=== PATIENT | male | born 1955 | race Caucasian/White ===

== ENCOUNTER 2016-07-31 11:44 | Emergency (ER) | payer BC ==
[~2016-07-31] VITALS: Ht 162.6 cm; Wt 105.2 kg
[~2016-07-31 11:44] MED LIST: ALBU1AER9 INH; CRS10 PO; DEXT30TA7 PO; FAMO10TA10 PO; MECL25TA2 PO; ONDA4TAB7 SL
[2016-07-31 11:52] VITALS: TEMP 36.8; Ht 162.6 cm; Wt 105.2 kg
[2016-07-31] MEDS ORDERED: ASPIRIN 81 MG CHEW PO STA (12:23)
[2016-07-31] MEDS ORDERED: ONDANSETRON 4MG OD TAB PO ONE (12:30)
[2016-07-31 12:34] VITALS: O2SAT 95
--- NOTE | 2016-07-31 12:34 | EMERGENCY ROOM VISIT NOTE ---
History Report prepared by Tyson: Hortencia Cruz Under the Supervision of: Dr. Antonino Sousa D.O. First contact with patient: 12:16 Chief Complaint: CHEST PAIN Stated Complaint: CHEST PAIN/LEFT ARM PAIN History of Present Illness The patient is a 61 year old male who presents to the Emergency Room with complaints of persistent left sided chest pain that began this morning around 0700. He currently rates his discomfort as a 3/10 in severity describing it as a sharp pain. The patient notes that he has intermittently been experiencing chest pain so his PCP ordered a stress test and echocardiogram yesterday. He states that he has not received the results of his stress test yet. The patient states that this morning when his pain began, he noticed pain radiating down his left arm and additionally was experiencing shortness of breath. He notes nausea with his pain, but denies any abdominal pain. The patient notes back pain with his chest discomfort. He states that rest alleviates his symptoms, but movement worsens his symptoms. The patient states that he has never had the sharp pain that he had this morning. He denies any pain or swelling to his lower extremities. The patient states that he recently was sick with flu like symptoms, noting that he has been on prednisone. He states that he has taken Tylenol for his symptoms, but denies taking any aspirin. The patient notes a history of a cholecystectomy, appendectomy, knee replacement, COPD, and high cholesterol. He denies any history of diabetes or hypertension. The patient denies any history of smoking. Source of History: patient Onset: this morning around 0700 Position: chest (left) Symptom Intensity: 3/10 Quality: sharp Timing: other (persistent) Modifying Factors (Worsening): movement Modifying Factors (Relieving): rest Associated Symptoms: + SOB, + back pain, + nausea, No abdominal pain Note: Associated Symptoms: Pain radiating down left arm. Review of Systems See HPI for pertinent positives & negatives. A total of 10 systems reviewed and were otherwise negative. Past Medical & Surgical Medical Problems: (1) Anxiety disorder (2) Benign positional vertigo (3) Chest pain (4) Compression fracture of T12 vertebra (5) COPD (chronic obstructive pulmonary disease) (6) Elevated troponin (7) Generalized anxiety disorder (8) GERD (gastroesophageal reflux disease) (9) Hyperlipemia (10) Hyperlipidemia (11) Metabolic syndrome (12) Obesity (BMI 30-39.9) (13) Osteoarthritis Surgical Problems: (1) H/O cardiac catheterization (2) Hx of appendectomy (3) Hx of cholecystectomy Family History FH: heart disease Hypertension Social History Smoking Status: Never Smoker Alcohol Use: none Drug Use: none Marital Status: Housing Status: lives with significant other Occupation Status: employed Current/Historical Medications Scheduled Famotidine (Pepcid Ac), 10 MG PO HS Rosuvastatin Calcium (Crestor), 5 MG PO Q2D Scheduled PRN Acetaminophen (Tylenol), 1,000 MG PO Q4H PRN for Pain or Fever Albuterol Sulfate (Proair Respiclick), 2 PUFFS INH Q4H PRN for SOB/Wheezing Cyclobenzaprine Hcl (Flexeril), 10 MG PO BID PRN for Muscle Spasms Meclizine HCl (Meclizine HCl), 25 MG PO TID PRN for Dizziness or Vertigo Ondansetron Hcl (Zofran), 4 MG PO Q4H PRN for Nausea Allergies Coded Allergies: Tramadol (Verified Allergy, Unknown, itching, 08/01/16) Hydrocodone (Verified Adverse Reaction, Severe, DIZZY/NAUSEA, 08/01/16) Physical Exam Vital Signs Date Time Temp Pulse Resp B/P Pulse Ox O2 Delivery O2 Flow Rate FiO2 07/31/16 16:58 65 16 131/92 95 07/31/16 16:50 65 16 131/92 07/31/16 16:21 60 07/31/16 15:27 61 19 130/86 95 Room Air 07/31/16 13:51 65 18 122/79 94 Room Air 07/31/16 12:34 95 Room Air 07/31/16 12:34 95 Room Air 07/31/16 12:33 95 Room Air 07/31/16 12:22 63 07/31/16 11:52 36.8 77 20 144/89 94 Room Air Physical Exam GENERAL: Patient is awake, alert, and in no acute distress. Patient is resting comfortably and showing no signs of anxiety EYES: The conjunctivae are clear. The pupils are round and reactive. EARS, NOSE, MOUTH AND THROAT: The nose is without any evidence of any deformity. Mucous membranes are moist tongue is midline NECK: The neck is nontender and supple. RESPIRATORY: Normal respiratory effort is noted there is no evidence of wheezing rhonchi or rales CARDIOVASCULAR: Regular rate and rhythm noted there no murmurs rubs or gallops normal S1 normal S2 GASTROINTESTINAL: The abdomen is soft. Bowel sounds are present in all quadrants. Abdomen is nontender MUSCULOSKELETAL/EXTREMITIES: There is no evidence of gross deformity full range of motion is noted in the hips and shoulders SKIN: There is no obvious evidence of any rash. There are no petechiae, pallor or cyanosis noted. NEUROLOGIC: Patient is awake alert and oriented x3. Medical Decision & Procedures ER Provider Diagnostic Interpretation: X-ray results as stated below per interpretation by me and the radiologist. SINGLE VIEW CHEST CLINICAL HISTORY: Atypical chest pain. FINDINGS: An AP, portable, upright chest radiograph is compared to study dated 06/05/2015. The examination is degraded by portable technique, large body habitus, and patient rotation. The heart is top normal for projection. There is mild atherosclerotic calcification of the thoracic area. The pulmonary vascular is noncongested. Minimal dependent atelectasis is observed. The lungs and pleural spaces are otherwise clear. No pneumothorax is seen. The bony thorax is grossly intact. IMPRESSION: No acute cardiopulmonary abnormality. Electronically signed by: Kevyn Nichols M.D. 07/31/2016 12:52 PM Dictated Date/Time: 07/31/2016 12:52 PM Laboratory Results 07/31/16 12:20 Red Blood Count 5.65, Mean Corpuscular Volume 83.7, Mean Corpuscular Hemoglobin 29.6, Mean Corpuscular Hemoglobin Concent 35.3, Mean Platelet Volume 9.8, Neutrophils (%) (Auto) 65.6, Lymphocytes (%) (Auto) 17.5, Monocytes (%) (Auto) 13.6, Eosinophils (%) (Auto) 2.9, Basophils (%) (Auto) 0.1, Neutrophils # (Auto ) 4.69, Lymphocytes # (Auto) 1.25, Monocytes # (Auto) 0.97, Eosinophils # (Auto ) 0.21, Basophils # (Auto) 0.01 07/31/16 12:20 Test 07/31/16 12:20 07/31/16 15:24 White Blood Count 7.15 K/uL (4.8-10.8) Red Blood Count 5.65 M/uL (4.7-6.1) Hemoglobin 16.7 g/dL (14.0-18.0) Hematocrit 47.3 % (42-52) Mean Corpuscular Volume 83.7 fL (80-100) Mean Corpuscular Hemoglobin 29.6 pg (25-34) Mean Corpuscular Hemoglobin Concent 35.3 g/dl (32-36) Platelet Count 219 K/uL (130-400) Mean Platelet Volume 9.8 fL (7.4-10.4) Neutrophils (%) (Auto) 65.6 % Lymphocytes (%) (Auto) 17.5 % Monocytes (%) (Auto) 13.6 % Eosinophils (%) (Auto) 2.9 % Basophils (%) (Auto) 0.1 % Neutrophils # (Auto) 4.69 K/uL (1.4-6.5) Lymphocytes # (Auto) 1.25 K/uL (1.2-3.4) Monocytes # (Auto) 0.97 K/uL (0.11-0.59) Eosinophils # (Auto) 0.21 K/uL (0-0.5) Basophils # (Auto) 0.01 K/uL (0-0.2) RDW Standard Deviation 40.6 fL (36.4-46.3) RDW Coefficient of Variation 13.4 % (11.5-14.5) Immature Granulocyte % (Auto) 0.3 % Immature Granulocyte # (Auto) 0.02 K/uL (0.00-0.02) Prothrombin Time 11.5 SECONDS (9.0-12.0) Prothromb Time International Ratio 1.1 (0.9-1.1) Activated Partial Thromboplast Time 30.2 SECONDS (21.0-31.0) Partial Thromboplastin Ratio 1.2 Anion Gap 10.0 mmol/L (3-11) Est Creatinine Clear Calc Drug Dose 100.0 ml/min Estimated GFR () 108.5 Estimated GFR (Non- 93.6 BUN/Creatinine Ratio 12.6 (10-20) Calcium Level 8.6 mg/dl (8.5-10.1) Total Bilirubin 0.8 mg/dl (0.2-1) Direct Bilirubin 0.2 mg/dl (0-0.2) Aspartate Amino Transf (AST/SGOT) 18 U/L (15-37) Alanine Aminotransferase (ALT/SGPT) 31 U/L (12-78) Alkaline Phosphatase 67 U/L (45-117) Total Creatine Kinase 52 U/L (39-308) Creatine Kinase MB 1.0 ng/ml (0.5-3.6) Creatine Kinase MB Ratio 1.9 (0-3.0) Total Protein 7.1 gm/dl (6.4-8.2) Albumin 3.7 gm/dl (3.4-5.0) Lipase 212 U/L (73-393) Troponin I 0.022 ng/ml (0-0.045) Laboratory results per my review. Medications Administered Medications (Trade) Dose Ordered Sig/Poonam Route Start Time Stop Time Status Last Admin Dose Admin Ondansetron HCl (Zofran Odt) 4 mg ONE ONCE PO 07/31/16 12:30 07/31/16 12:31 DC 07/31/16 12:32 4 MG Aspirin (Aspirin Chew) 324 mg NOW STAT PO 07/31/16 12:23 07/31/16 12:25 DC 07/31/16 12:33 324 MG ECG Indication: chest pain Rate (beats per minute): 70 Rhythm: normal sinus Findings: no ectopy, other (No acute ST segment abnormalities) Comparison ECG Date: 06/05/15 Change: no significant change Change: Repeat EKG: Sinus Bradycardia, 59 beats per minute. No ectopy, no acute ST segment abnormalities, no change from previous. ED Course 1219: The patient was evaluated in room C8. A complete history and physical examination were performed. 1223: Ordered Aspirin 324 mg PO. 1230: Ordered Zofran Odt 4 mg PO. 1353: I reevaluated the patient and he is doing well. I discussed the exam findings with him and I discussed the treatment plan. He is going to have a repeat troponin and EKG in three hours. 1648: I reevaluated the patient and he is resting comfortably. I discussed the exam findings with him and I discussed the treatment plan. He verbalized complete understanding and agreement. He is ready to go home. Medical Decision Differential diagnosis: Etiologies such as cardiac ischemia, aortic dissection, pulmonary embolism, pneumonia, pneumothorax, musculoskeletal, infections, pericarditis, myocarditis , esophageal rupture, gastrointestinal, as well as others were entertained. Nursing notes reviewed. The patient's recent stress test results reviewed. The patient is a 61-year-old male who presented to the emergency department for an evaluation of chest pain. The patient is had left-sided chest pain which was not associated with exertion. He had a recent stress test to his family doctor for similar complaints. I did review the stress test was negative. The patient' s EKG did not reveal any acute abnormalities. His initial troponin was less than 0.04 and his 3 hour recheck troponin was less than 0.04. I reevaluated the patient multiple times. He was pain-free. I discussed the patient's laboratory and radiographic studies with him. At this time I recommended that he continue all medications as prescribed. He was also encouraged to follow up with his family doctor soon as possible. He was also encouraged to avoid any strenuous activity and return to the emergency department immediately if symptoms change worsen or if the need arises. Impression Primary Impression: Left sided chest pain Scribe Attestation The scribe's documentation has been prepared under my direction and personally reviewed by me in its entirety. I confirm that the note above accurately reflects all work, treatment, procedures, and medical decision making performed by me. Departure Information Dispostion Home / Self-Care Referrals Goran Morrissey M.D. (PCP) Forms HOME CARE DOCUMENTATION FORM, IMPORTANT VISIT INFORMATION, Work Instructions Patient Instructions ED Chest Pain Atypical Unkn Cause, My [facility] Additional Instructions Rest and avoid any strenuous activities. Continue all medications as prescribed. Follow-up with your family this week for reevaluation. Return to the emergency department immediately if symptoms change worsen or if the need arises.
[2016-07-31 12:36] LABS: BASO % 0.1 %; BASO ABS # 0.01 K/uL (0-0.2); COMPLETE YES; EOS % 2.9 %; HEMATOCRIT 47.3 % (42-52); IG% 0.3 %; LYMPH % 17.5 %; LYMPH ABS # 1.25 K/uL (1.2-3.4); MEAN CELL VOLUME 83.7 fL (80-100); MEAN CORPUSCULAR HEMOGLOBIN 29.6 pg (25-34); MEAN CORPUSCULAR HGB CONC 35.3 g/dl (32-36); MEAN PLATELET VOLUME 9.8 fL (7.4-10.4); MONO % 13.6 %; NEUT % 65.6 %; PLATELET COUNT 219 K/uL (130-400); RED BLOOD COUNT 5.65 M/uL (4.7-6.1); WHITE BLOOD COUNT 7.15 K/uL (4.8-10.8)
[2016-07-31 12:44] LABS: INR 1.1 (0.9-1.1); PARTIAL THROMBOPLASTIN RATIO 1.2; PROTHROMBIN TIME (PATIENT) 11.5 SECONDS (9.0-12.0)
[2016-07-31] MEDS ORDERED: FAMO10TA10 PO (12:46)
[2016-07-31] MEDS ORDERED: ANT25HP PO (12:46)
[2016-07-31] MEDS ORDERED: ONDA4TAB46 PO (12:46)
[2016-07-31] MEDS ORDERED: ALBU18002 INH (12:46)
[2016-07-31] MEDS ORDERED: ACET-1256 PO (12:47)
--- NOTE | 2016-07-31 12:54 | DIAGNOSTIC IMAGING REPORT ---
SINGLE VIEW CHEST CLINICAL HISTORY: Atypical chest pain. FINDINGS: An AP, portable, upright chest radiograph is compared to study dated 06/05/2015. The examination is degraded by portable technique, large body habitus, and patient rotation. The heart is top normal for projection. There is mild atherosclerotic calcification of the thoracic area. The pulmonary vascular is noncongested. Minimal dependent atelectasis is observed. The lungs and pleural spaces are otherwise clear. No pneumothorax is seen. The bony thorax is grossly intact. IMPRESSION: No acute cardiopulmonary abnormality. Electronically signed by: Kevyn Nichols M.D. 07/31/2016 12:52 PM Dictated Date/Time: 07/31/2016 12:52 PM
[2016-07-31 13:29] LABS: BUN/CREATININE RATIO 12.6 (10-20); CALCIUM 8.6 mg/dl (8.5-10.1); CREATININE 0.83 mg/dl (0.60-1.40)
[2016-07-31 13:35] LABS: CKMB/CK RATIO 1.9 (0-3.0)
[2016-07-31 16:58] VITALS: BP 131/92; PULSE 65; O2SAT 95
[2016-08-01] MEDS ORDERED: CYCL10TA6 PO (13:29)
[2016-08-04] MEDS ORDERED: PLV75 PO (10:33)
[2016-08-04] MEDS ORDERED: ASPEC81 PO (10:33)
[2016-08-04] MEDS ORDERED: CRS20 PO (10:33)
[2016-08-04] MEDS ORDERED: LPR25 PO (10:33)
[2016-08-04] MEDS ORDERED: LSN5 PO (10:33)
== END 2016-07-31 17:00 | disposition home or self-care (01) ==
LOC: C.EDB 11:47 → C.EDC 17:00
DX: R07.89 Other chest pain (principal); J44.9 Chronic obstructive pulmonary disease, unspecified; E78.00 Pure hypercholesterolemia, unspecified; E78.5 Hyperlipidemia, unspecified; K21.9 Gastro-esophageal reflux disease without esophagitis; Z90.49 Acquired absence of other specified parts of digestive tract; Z90.89 Acquired absence of other organs; Z96.659 Presence of unspecified artificial knee joint; Z98.890 Other specified postprocedural states; Z79.52 Long term (current) use of systemic steroids; Z79.899 Other long term (current) drug therapy

== ENCOUNTER 2016-08-01 12:30 | Inpatient (IN) | payer BC ==
[~2016-08-01] VITALS: Ht 165.1 cm; Wt 105.3 kg
[~2016-08-01 12:30] MED LIST changes: +ACET-1256 PO; +ALBU18002 INH; -ALBU1AER9 INH; +ANT25HP PO; -DEXT30TA7 PO; -MECL25TA2 PO; +ONDA4TAB46 PO; -ONDA4TAB7 SL
[2016-08-01] MEDS ORDERED: PANTOprazole SOD 40 MG TAB PO STA (12:54)
[2016-08-01] MEDS ORDERED: ONDANSETRON INJ 2 MG/ML 2 ML VIAL IV STA (12:54)
[2016-08-01] MEDS ORDERED: SODIUM CHLORIDE 0.9% 1000ML 1,000 ML IV STA (12:54)
[2016-08-01] MEDS ORDERED: ASPIRIN 81 MG CHEW PO STA (12:54)
[2016-08-01] MEDS ORDERED: MoRPHine SULFATE 4 MG/ML 1 ML CARP\\VIAL IV PRN (13:00)
[2016-08-01 13:05] LABS: BASO % 0.3 %; BASO ABS # 0.02 K/uL (0-0.2); COMPLETE YES; EOS % 2.6 %; HEMATOCRIT 46.6 % (42-52); IG% 0.1 %; LYMPH % 15.2 %; LYMPH ABS # 1.21 K/uL (1.2-3.4); MEAN CELL VOLUME 83.5 fL (80-100); MEAN CORPUSCULAR HEMOGLOBIN 30.3 pg (25-34); MEAN CORPUSCULAR HGB CONC 36.3 g/dl (32-36); MEAN PLATELET VOLUME 9.5 fL (7.4-10.4); MONO % 9.4 %; NEUT % 72.4 %; PLATELET COUNT 232 K/uL (130-400); RED BLOOD COUNT 5.58 M/uL (4.7-6.1); WHITE BLOOD COUNT 7.98 K/uL (4.8-10.8)
--- NOTE | 2016-08-01 13:05 | EMERGENCY ROOM VISIT NOTE ---
History Report prepared by Tyson: Hortencia Cruz Under the Supervision of: Clifford ShahO. First contact with patient: 12:38 Chief Complaint: CARDIAC ASSESSMENT Stated Complaint: CHEST PAIN History of Present Illness The patient is a 61 year old male who presents to the Emergency Room with complaints of persistent left sided chest pain that began two and a half hours ago. He currently rates his discomfort as a 6/10 in severity. The patient states that for the past few months he has intermittently been experiencing this chest pain so he had a stress test done two days ago. The stress test came back normal, but he was also evaluated in the emergency department yesterday for his discomfort. The patient states when he left the emergency department yesterday he felt fine. He states that he woke up this morning he felt fine, and states that he went out for breakfast. The patient states that his pain returned around 1000 this morning. He states that his pain today is much worse than yesterday, noting that the pain brought tears to his eyes. The patient states that the pain is radiating to his left shoulder, left back, and down his left arm. He states that his discomfort is worsened with exertion and breathing. The patient denies taking any aspirin prior to arrival, but states that he took Tylenol and a muscle relaxer without relief. He denies any fever, chills, nausea, vomiting, or abdominal pain. Source of History: patient Onset: two and a half hours ago Position: chest (left) Symptom Intensity: 6/10 Quality: other (radiating) Timing: worsening, other (persistent) Modifying Factors (Worsening): exertion, breathing Associated Symptoms: + back pain, No abdominal pain, No chills, No fevers, No nausea, No vomiting Note: Associated symptoms: left shoulder pain, left arm pain Review of Systems See HPI for pertinent positives & negatives. A total of 10 systems reviewed and were otherwise negative. Past Medical & Surgical Medical Problems: (1) Anxiety disorder (2) Benign positional vertigo (3) Chest pain (4) Compression fracture of T12 vertebra (5) COPD (chronic obstructive pulmonary disease) (6) Elevated troponin (7) Generalized anxiety disorder (8) GERD (gastroesophageal reflux disease) (9) Hyperlipemia (10) Hyperlipidemia (11) Metabolic syndrome (12) Obesity (BMI 30-39.9) (13) Osteoarthritis Surgical Problems: (1) H/O cardiac catheterization (2) Hx of appendectomy (3) Hx of cholecystectomy Family History FH: heart disease Hypertension Social History Smoking Status: Never Smoker Alcohol Use: none Drug Use: none Marital Status: Housing Status: lives with significant other Occupation Status: employed Current/Historical Medications Scheduled Famotidine (Pepcid Ac), 10 MG PO HS Rosuvastatin Calcium (Crestor), 5 MG PO Q2D Scheduled PRN Acetaminophen (Tylenol), 1,000 MG PO Q4H PRN for Pain or Fever Albuterol Sulfate (Proair Respiclick), 2 PUFFS INH Q4H PRN for SOB/Wheezing Cyclobenzaprine Hcl (Flexeril), 10 MG PO BID PRN for Muscle Spasms Meclizine HCl (Meclizine HCl), 25 MG PO TID PRN for Dizziness or Vertigo Ondansetron Hcl (Zofran), 4 MG PO Q4H PRN for Nausea Allergies Coded Allergies: Tramadol (Verified Allergy, Unknown, itching, 08/01/16) Hydrocodone (Verified Adverse Reaction, Severe, DIZZY/NAUSEA, 08/01/16) Physical Exam Vital Signs Date Time Temp Pulse Resp B/P Pulse Ox O2 Delivery O2 Flow Rate FiO2 08/01/16 16:25 64 11 08/01/16 16:20 57 13 08/01/16 16:15 62 18 08/01/16 16:10 59 17 08/01/16 16:05 58 16 08/01/16 16:00 60 14 08/01/16 15:58 135/77 08/01/16 15:55 59 11 08/01/16 15:50 73 10 08/01/16 15:45 73 22 08/01/16 15:40 78 18 08/01/16 15:35 60 19 93 08/01/16 15:30 60 19 93 08/01/16 15:25 70 14 93 08/01/16 15:20 58 15 93 08/01/16 15:15 66 23 95 08/01/16 15:10 67 16 93 08/01/16 15:05 60 11 08/01/16 15:00 63 29 95 08/01/16 14:58 144/81 08/01/16 14:58 69 13 139/79 94 Room Air 08/01/16 14:55 64 10 139/79 94 08/01/16 14:50 63 18 08/01/16 14:45 65 21 08/01/16 14:40 65 18 08/01/16 14:35 60 6 08/01/16 14:30 64 11 08/01/16 14:25 62 12 08/01/16 14:20 61 14 08/01/16 14:15 71 7 08/01/16 14:10 56 7 08/01/16 14:05 68 5 08/01/16 14:00 54 1 08/01/16 13:55 65 19 08/01/16 13:50 73 16 08/01/16 13:45 58 8 08/01/16 13:40 66 17 08/01/16 13:35 67 15 08/01/16 13:30 64 8 08/01/16 13:25 65 15 08/01/16 13:20 72 21 08/01/16 13:15 71 22 08/01/16 13:10 67 22 08/01/16 13:05 67 20 08/01/16 13:00 69 21 08/01/16 12:55 72 15 08/01/16 12:50 68 24 08/01/16 12:50 96 Room Air 08/01/16 12:45 78 08/01/16 12:45 77 17 08/01/16 12:42 154/81 08/01/16 12:37 36.3 76 23 165/91 94 Room Air Physical Exam GENERAL: Patient is awake, alert, very anxious appearing and uncomfortable appearing. Appears to be in significant pain. EYES: The conjunctivae are clear. The pupils are round and reactive. EARS, NOSE, MOUTH AND THROAT: The nose is without any evidence of any deformity. Mucous membranes are moist tongue is midline NECK: The neck is nontender and supple. RESPIRATORY: Normal respiratory effort is noted there is no evidence of wheezing rhonchi or rales CARDIOVASCULAR: Regular rate and rhythm noted there no murmurs rubs or gallops normal S1 normal S2 GASTROINTESTINAL: The abdomen is soft. Bowel sounds are present in all quadrants. Abdomen is nontender MUSCULOSKELETAL/EXTREMITIES: There is no evidence of gross deformity full range of motion is noted in the hips and shoulders SKIN: There is no obvious evidence of any rash. There are no petechiae, pallor or cyanosis noted. NEUROLOGIC: Patient is awake alert and oriented x3. Medical Decision & Procedures ER Provider Diagnostic Interpretation: X-ray results as stated below per interpretation by me and the radiologist. CHEST ONE VIEW PORTABLE HISTORY: Atypical CHEST PAIN COMPARISON: Chest 07/31/2016. FINDINGS: The lungs are clear. Cardiac silhouette is normal in size. No pleural effusions. No pneumothorax. IMPRESSION: No acute process. Electronically signed by: Arash Carty M.D. 08/01/2016 1:12 PM Dictated Date/Time: 08/01/2016 1:10 PM Laboratory Results 08/01/16 12:50 Red Blood Count 5.58, Mean Corpuscular Volume 83.5, Mean Corpuscular Hemoglobin 30.3, Mean Corpuscular Hemoglobin Concent 36.3, Mean Platelet Volume 9.5, Neutrophils (%) (Auto) 72.4, Lymphocytes (%) (Auto) 15.2, Monocytes (%) (Auto) 9.4, Eosinophils (%) (Auto) 2.6, Basophils (%) (Auto) 0.3, Neutrophils # (Auto) 5.78, Lymphocytes # (Auto) 1.21, Monocytes # (Auto) 0.75, Eosinophils # (Auto) 0.21, Basophils # (Auto) 0.02 08/01/16 12:50 Test 08/01/16 12:50 White Blood Count 7.98 K/uL (4.8-10.8) Red Blood Count 5.58 M/uL (4.7-6.1) Hemoglobin 16.9 g/dL (14.0-18.0) Hematocrit 46.6 % (42-52) Mean Corpuscular Volume 83.5 fL (80-100) Mean Corpuscular Hemoglobin 30.3 pg (25-34) Mean Corpuscular Hemoglobin Concent 36.3 g/dl (32-36) Platelet Count 232 K/uL (130-400) Mean Platelet Volume 9.5 fL (7.4-10.4) Neutrophils (%) (Auto) 72.4 % Lymphocytes (%) (Auto) 15.2 % Monocytes (%) (Auto) 9.4 % Eosinophils (%) (Auto) 2.6 % Basophils (%) (Auto) 0.3 % Neutrophils # (Auto) 5.78 K/uL (1.4-6.5) Lymphocytes # (Auto) 1.21 K/uL (1.2-3.4) Monocytes # (Auto) 0.75 K/uL (0.11-0.59) Eosinophils # (Auto) 0.21 K/uL (0-0.5) Basophils # (Auto) 0.02 K/uL (0-0.2) RDW Standard Deviation 39.8 fL (36.4-46.3) RDW Coefficient of Variation 13.2 % (11.5-14.5) Immature Granulocyte % (Auto) 0.1 % Immature Granulocyte # (Auto) 0.01 K/uL (0.00-0.02) Prothrombin Time 11.3 SECONDS (9.0-12.0) Prothromb Time International Ratio 1.1 (0.9-1.1) Activated Partial Thromboplast Time 30.3 SECONDS (21.0-31.0) Partial Thromboplastin Ratio 1.2 Anion Gap 11.0 mmol/L (3-11) Est Creatinine Clear Calc Drug Dose 86.9 ml/min Estimated GFR () 95.9 Estimated GFR (Non- 82.7 BUN/Creatinine Ratio 11.0 (10-20) Calcium Level 8.8 mg/dl (8.5-10.1) Total Bilirubin 0.6 mg/dl (0.2-1) Direct Bilirubin < 0.1 mg/dl (0-0.2) Aspartate Amino Transf (AST/SGOT) 20 U/L (15-37) Alanine Aminotransferase (ALT/SGPT) 30 U/L (12-78) Alkaline Phosphatase 74 U/L (45-117) Total Protein 7.5 gm/dl (6.4-8.2) Albumin 3.6 gm/dl (3.4-5.0) Lipase 299 U/L (73-393) Laboratory results per my review. Medications Administered Medications (Trade) Dose Ordered Sig/Poonam Route Start Time Stop Time Status Last Admin Dose Admin Sodium Chloride (Nss 1000ml) 1,000 ml @ 125 mls/hr Q8H STAT IV 08/01/16 12:54 08/01/16 16:53 DC 08/01/16 13:18 125 MLS/HR Morphine Sulfate (MoRPHine SULFATE INJ) 4 mg Q15M PRN IV 08/01/16 13:00 08/01/16 16:53 DC 08/01/16 13:17 4 MG Ondansetron HCl (Zofran Inj) 4 mg NOW STAT IV 08/01/16 12:54 08/01/16 12:56 DC 08/01/16 13:17 4 MG Aspirin (Aspirin Chew) 324 mg NOW STAT PO 08/01/16 12:54 08/01/16 12:56 DC 08/01/16 13:17 324 MG Pantoprazole Sodium (Protonix Tab) 40 mg NOW STAT PO 08/01/16 12:54 08/01/16 12:56 DC 08/01/16 13:16 40 MG ECG Indication: chest pain Rate (beats per minute): 72 Rhythm: normal sinus Findings: no ectopy, other (ST flattening in V1, V2, and V3) Comparison ECG Date: 07/31/16 Change: EKG Change: When compared to EKG from 07/31/16 ST flattening is new. ED Course 1251: The patient was evaluated in room C8. A complete history and physical examination were performed. 1254: Ordered Protonix Tab 40 mg PO, Aspirin 324 mg PO, Zofran Inj 4 mg IV, Sodium Chloride 1000 ml @ 125 mls/hr IV. 1300: Ordered Morphine Sulfate 4 mg IV. 1339: I reevaluated the patient and he is resting comfortably. I discussed the exam findings with him and his and I discussed the treatment plan. They verbalized complete understanding and agreement. The patient is going to be evaluated for further treatment. 1412: I discussed the patients case with Holly Broussard PA-C. She is going to evaluate the patient for further treatment. Medical Decision Differential diagnosis: Etiologies such as cardiac ischemia, aortic dissection, pulmonary embolism, pneumonia, pneumothorax, musculoskeletal, infections, pericarditis, myocarditis , esophageal rupture, gastrointestinal, as well as others were entertained. Nursing notes reviewed. The patient's previous electronic medical records were reviewed. The patient is a 61-year-old male who presented to the emergency department for acute chest pain. The patient was evaluated by myself in the emergency department yesterday for similar complaints. At that time his workup did not reveal definite cause for his chest pain. The patient states he had an acute onset of left-sided chest pain with radiation to the neck and the arm knee 1030 this morning. The patient's EKG showed minimal changes but his troponin was mildly elevated in the ER. The patient was treated with aspirin and Zofran, IV fluids, and Protonix. On subsequent reevaluation the patient was feeling much better. I discussed the patient's laboratory and radiographic studies with him. Because of his abnormal troponin as well as his EKG changes at this time I also discussed his case with the [facility]. They've agreed to evaluate the patient in the emergency department for further management and disposition. Consults Time Called: 1331 Consulting Physician: Holly Broussard PA-C Returned Call: [phone] I discussed the patients case with Holly Broussard PA-C. She is going to evaluate the patient for further treatment. Impression Primary Impression: Left sided chest pain Additional Impression: Elevated troponin Scribe Attestation The scribe's documentation has been prepared under my direction and personally reviewed by me in its entirety. I confirm that the note above accurately reflects all work, treatment, procedures, and medical decision making performed by me. Departure Information Dispostion Being Evaluated By Hospitalist Referrals Goran Morrissey M.D. (PCP) Problem Qualifiers
--- NOTE | 2016-08-01 13:13 | DIAGNOSTIC IMAGING REPORT ---
CHEST ONE VIEW PORTABLE HISTORY: Atypical CHEST PAIN COMPARISON: Chest 07/31/2016. FINDINGS: The lungs are clear. Cardiac silhouette is normal in size. No pleural effusions. No pneumothorax. IMPRESSION: No acute process. Electronically signed by: Arash Carty M.D. 08/01/2016 1:12 PM Dictated Date/Time: 08/01/2016 1:10 PM
[2016-08-01 13:18] LABS: INR 1.1 (0.9-1.1); PARTIAL THROMBOPLASTIN RATIO 1.2; PROTHROMBIN TIME (PATIENT) 11.3 SECONDS (9.0-12.0)
[2016-08-01 13:25] LABS: ALT/SGPT 30 U/L (12-78); BLOOD UREA NITROGEN 11 mg/dl (7-18); CALCIUM 8.8 mg/dl (8.5-10.1); CARBON DIOXIDE 21 mmol/L (21-32); CHLORIDE 110 mmol/L (98-107); CREATININE 0.97 mg/dl (0.60-1.40); GLUCOSE 100 mg/dl (70-99); POTASSIUM 3.8 mmol/L (3.5-5.1); SODIUM 142 mmol/L (136-145)
[2016-08-01] MEDS ORDERED: CYCL10TA6 PO (13:29)
[2016-08-01 13:30] LABS: ALKALINE PHOSPHATASE 74 U/L (45-117); AST/SGOT 20 U/L (15-37); CKMB/CK RATIO 4.9 (0-3.0)
[2016-08-01] MEDS ORDERED: ONDANSETRON INJ 2 MG/ML 2 ML VIAL IV PRN (15:15)
[2016-08-01] MEDS ORDERED: CYCLOBENZAPRINE HCL 10 MG TAB PO PRN (15:15)
--- NOTE | 2016-08-01 16:15 | History and Physical ---
History & Physical Date & Time of Service: Aug 01, 2016 at 15:16 Chief Complaint: Chest Pain Primary Care Physician: Goran Morrissey M.D. History of Present Illness Source: patient, clinic records This is a 61 y/o male with PMH of COPD, dyslipidemia, metabolic syndrome, who presents to the ED with chest pain. Patient states he was having pain around left shoulder blade intermittently x 1 month. There was no recent injury. For that pain he underwent a nuclear stress test on 07/30/16 which was negative. Resting echo 07/30/16 showed moderate LVH and EF 55-59% with grade 1 diastolic dysfunction and moderate aortic sclerosis. Then yesterday while sitting he developed pain in left shoulder blade which radiated to the left chest and left arm. This pain was sharp, rated 7/10, land lasted hours with no provoking/ palliative factors. There was associated SOB and nausea. He was seen in the [facility] ER yesterday and had EKG x 2 with no significant change and troponin of 0.015 and 0.022. He was treated with aspirin and Zofran. His pain resolved and he was sent home. Then this morning around 9:30 or 10 after having his typical breakfast, while sitting he developed the same pain in his left shoulder blade with radiation to substernal area and the arm. Today the pain was more severe rated 10/10. There was associated SOB at rest and palpitations described as "hearing heart beat in my ears". He states symptoms resolved in the ED after being treated with morphine. He is now pain free. At baseline he has VIRGEN with climbing 13 stairs, but with the chest pain was dyspneic at rest. He reports occasional cough which is at baseline. He states he was recently treated with Azithromycin and prednisone at the end of June for URI. He denies fever, chills, diaphoresis, URI symptoms, abdominal pain, vomiting, diarrhea, urinary changes, edema, calf pain, abnormal bleeding, rash, numbness/tingling. Patient reports having an abnormal stress test then cardiac cath in [facility] in 2009- per Epic record cath showed EF 60%, 20% LAD, 30% RCA. Pt denies history of HTN or DM. Past Medical/Surgical History Medical Problems: (1) Anxiety disorder Status: Chronic (2) Benign positional vertigo Status: Chronic (3) Compression fracture of T12 vertebra Status: Chronic (4) COPD (chronic obstructive pulmonary disease) Status: Chronic (5) Generalized anxiety disorder Status: Chronic (6) GERD (gastroesophageal reflux disease) Status: Chronic (7) Hyperlipemia Status: Chronic (8) Hyperlipidemia Status: Chronic (9) Metabolic syndrome Status: Chronic (10) Obesity (BMI 30-39.9) Status: Chronic (11) Osteoarthritis Status: Chronic Surgical Problems: (1) H/O cardiac catheterization Permanent Comment: 12/10/09 EF 60%, 20% LAD, 30% RCA as per Epic Status: Chronic (2) Hx of appendectomy Status: Resolved (3) Hx of cholecystectomy Status: Resolved Family History FH: heart disease MOTHER (s/p stents, onset in 60s) SISTER (s/p stents, onset in 40s) Hypertension Social History Smoking Status: Never Smoker Alcohol Use: none Marital Status: Housing status: lives with family 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[employer]) Immunizations History of Influenza Vaccine: No History of Tetanus Vaccine?: Unknown History of Pneumococcal: Yes History of Hepatitis B Vaccine: No Allergies Coded Allergies: Tramadol (Verified Allergy, Unknown, itching, 08/01/16) Hydrocodone (Verified Adverse Reaction, Severe, DIZZY/NAUSEA, 08/01/16) Home Medications Scheduled Famotidine (Pepcid Ac), 10 MG PO HS Rosuvastatin Calcium (Crestor), 5 MG PO Q2D Scheduled PRN Acetaminophen (Tylenol), 1,000 MG PO Q4H PRN for Pain or Fever Albuterol Sulfate (Proair Respiclick), 2 PUFFS INH Q4H PRN for SOB/Wheezing Cyclobenzaprine Hcl (Flexeril), 10 MG PO BID PRN for Muscle Spasms Meclizine HCl (Meclizine HCl), 25 MG PO TID PRN for Dizziness or Vertigo Ondansetron Hcl (Zofran), 4 MG PO Q4H PRN for Nausea Review of Systems Ten point review of systems performed with pertinent positives and negatives noted in HPI. Physical Exam Vital Signs Date Time Temp Pulse Resp B/P Pulse Ox O2 Delivery O2 Flow Rate FiO2 08/01/16 14:58 69 13 139/79 94 Room Air 08/01/16 12:50 96 Room Air 08/01/16 12:45 78 08/01/16 12:37 36.3 76 23 165/91 94 Room Air General Appearance: no apparent distress, + obese, + pertinent finding ( pleasant alert 61 y/o male, no distress, at bedside) Head: normocephalic, atraumatic Eyes: normal inspection, PERRL, EOMI ENT: hearing grossly normal, pharynx normal Neck: supple, no JVD, no carotid bruits, trachea midline Respiratory/Chest: chest non-tender, lungs clear, normal breath sounds, no respiratory distress, no accessory muscle use Cardiovascular: regular rate, rhythm, no murmur, normal peripheral pulses Abdomen/GI: normal bowel sounds, non tender, soft Back: normal inspection, + pertinent finding (no thoracic spinal or paraspinal tenderness) Extremities/Musculoskelatal: no calf tenderness, no pedal edema, + pertinent finding (no pain on ROM of left shoulder) Neurologic/Psych: alert, normal mood/affect, oriented x 3, + pertinent finding (grossly nonfocal) Skin: normal color, warm/dry Diagnostics Laboratory Results Results Past 24 Hours Test 08/01/16 12:50 Range/Units White Blood Count 7.98 4.8-10.8 K/uL Red Blood Count 5.58 4.7-6.1 M/uL Hemoglobin 16.9 14.0-18.0 g/dL Hematocrit 46.6 42-52 % Mean Corpuscular Volume 83.5 80-100 fL Mean Corpuscular Hemoglobin 30.3 25-34 pg Mean Corpuscular Hemoglobin Concent 36.3 32-36 g/dl Platelet Count 232 130-400 K/uL Mean Platelet Volume 9.5 7.4-10.4 fL Neutrophils (%) (Auto) 72.4 % Lymphocytes (%) (Auto) 15.2 % Monocytes (%) (Auto) 9.4 % Eosinophils (%) (Auto) 2.6 % Basophils (%) (Auto) 0.3 % Neutrophils # (Auto) 5.78 1.4-6.5 K/uL Lymphocytes # (Auto) 1.21 1.2-3.4 K/uL Monocytes # (Auto) 0.75 0.11-0.59 K/uL Eosinophils # (Auto) 0.21 0-0.5 K/uL Basophils # (Auto) 0.02 0-0.2 K/uL RDW Standard Deviation 39.8 36.4-46.3 fL RDW Coefficient of Variation 13.2 11.5-14.5 % Immature Granulocyte % (Auto) 0.1 % Immature Granulocyte # (Auto) 0.01 0.00-0.02 K/uL Prothrombin Time 11.3 9.0-12.0 SECONDS Prothromb Time International Ratio 1.1 0.9-1.1 Activated Partial Thromboplast Time 30.3 21.0-31.0 SECONDS Partial Thromboplastin Ratio 1.2 Sodium Level 142 136-145 mmol/L Potassium Level 3.8 3.5-5.1 mmol/L Chloride Level 110 98-107 mmol/L Carbon Dioxide Level 21 21-32 mmol/L Anion Gap 11.0 3-11 mmol/L Blood Urea Nitrogen 11 7-18 mg/dl Creatinine 0.97 0.60-1.40 mg/dl Est Creatinine Clear Calc Drug Dose 86.9 ml/min Estimated GFR () 95.9 Estimated GFR (Non- 82.7 BUN/Creatinine Ratio 11.0 10-20 Random Glucose 100 70-99 mg/dl Calcium Level 8.8 8.5-10.1 mg/dl Total Bilirubin 0.6 0.2-1 mg/dl Direct Bilirubin < 0.1 0-0.2 mg/dl Aspartate Amino Transf (AST/SGOT) 20 15-37 U/L Alanine Aminotransferase (ALT/SGPT) 30 12-78 U/L Alkaline Phosphatase 74 45-117 U/L Total Creatine Kinase 82 39-308 U/L Creatine Kinase MB 4.0 0.5-3.6 ng/ml Creatine Kinase MB Ratio 4.9 0-3.0 Total Protein 7.5 6.4-8.2 gm/dl Albumin 3.6 3.4-5.0 gm/dl Lipase 299 73-393 U/L Diagnostic Radiology CHEST ONE VIEW PORTABLE HISTORY: Atypical CHEST PAIN COMPARISON: Chest 07/31/2016. FINDINGS: The lungs are clear. Cardiac silhouette is normal in size. No pleural effusions. No pneumothorax. IMPRESSION: No acute process. EKG NSR, 72 bpm, possible slight ST elevation in III, slight ST depression in V2 Impression Assessment and Plan CHEST PAIN Possible ACS Risk factors- hyperlipidemia, obesity, positive family history Recent stress echo 07/30/16 negative; resting echo 07/30/16- moderate LVH, EF 55- 59%, grade 1 diastolic dysfunction, aortic sclerosis Prior cardiac cath in [facility] 12/10/09- EF 60%, 20% LAD, 30% RCA as per Epic Troponin is 0.19; EKG- NSR, nonspecific changes CXR- no acute findings Received aspirin and morphine in ED Chest pain now resolved Add nitro paste, PRN morphine, aspirin 81 mg qAM Trend serial cardiac enzymes Consult cardiology; case discussed with Dr. Carl by attending DYSLIPIDEMIA Continue Crestor at 5 mg q2d; pt's states dose was lowered due to prior dizziness or muscle aches Check fasting lipid panel in am METABOLIC SYNDROME Check A1c in am COPD Not in acute exacerbation Continue PRN inhaler DVT PROPHYLAXIS Heparin SQ CODE STATUS Full code per my discussion with the patient. Patient seen in collaboration with Dr. Hunter. Please see his addendum. Agree with above h and p. Briefly 61M with hx of copd presents with chest pain. Had nuclear stress test few days back which was negative.Came to ER whit left sided chest pian and was sent home after workup negative and pain resoved. Again today developed sevbvere 10/10 left sided chest pain radiating to left ar asscoiated with sob and nausea and came to E.currenty pain free after iv morphine.POC rponin 0.1. Hemodynamics stable.Afebrile.Sob at baseline from his copd. p/e Ge not in distress. 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 Y/N: Yes Risk Level: Moderate
[2016-08-01] MEDS ORDERED: ALBUTEROL HFA INHALER 18 GM INH PRN (17:00)
[2016-08-01 17:02] VITALS: BP 135/77; PULSE 64; TEMP 36.3; O2SAT 93; Ht 165.1 cm; Wt 105.3 kg
[2016-08-01 19:24] VITALS: BP 120/77; PULSE 58; TEMP 36.5; O2SAT 93
[2016-08-01 20:00] VITALS: O2SAT 93
[2016-08-01 20:02] LABS: CKMB/CK RATIO 10.5 (0-3.0)
[2016-08-01] MEDS: HEPARIN 25,000 UNIT/500ML D5W 500 ML IV PRN (20:49)
[2016-08-01 20:53] VITALS: BP 148/87; PULSE 56
[2016-08-01] MEDS: FAMOTIDINE 20 MG TAB PO SCH (20:55)
[2016-08-01] MEDS ORDERED: LACTATED RINGER'S 1000ML 1,000 ML IV SCH (21:45)
[2016-08-01] MEDS: NITROGLYCERIN OINT 2% 1GM PACKET EXT SCH (21:54)
[2016-08-01] MEDS ORDERED: HEPARIN SOD 5000 UNIT/0.5 ML CARP SQ SCH (22:00)
[2016-08-01] MEDS: MoRPHine SULFATE 4 MG/ML 1 ML CARP\\VIAL IV PRN (23:29)
[2016-08-01 23:35] VITALS: BP 138/89; PULSE 69; TEMP 36.4; O2SAT 95
[2016-08-02] VITALS (9 sets, daily range): BP systolic 108–147; BP diastolic 68–79; PULSE 57–75; TEMP 36.4–37.3; O2SAT 92–95
[2016-08-02 03:46] LABS: CKMB/CK RATIO 10.9 (0-3.0)
[2016-08-02] MEDS: NITROGLYCERIN OINT 2% 1GM PACKET EXT SCH ×4 (04:00→21:21)
[2016-08-02 07:44] LABS: HEMATOCRIT 42.6 % (42-52); MEAN CELL VOLUME 85.5 fL (80-100); MEAN CORPUSCULAR HEMOGLOBIN 30.1 pg (25-34); MEAN CORPUSCULAR HGB CONC 35.2 g/dl (32-36); MEAN PLATELET VOLUME 9.3 fL (7.4-10.4); PLATELET COUNT 210 K/uL (130-400); RED BLOOD COUNT 4.98 M/uL (4.7-6.1); WHITE BLOOD COUNT 8.22 K/uL (4.8-10.8)
[2016-08-02] MEDS: ASPIRIN 81 MG ECTAB PO SCH (08:33)
[2016-08-02 08:39] LABS: CALCIUM 8.4 mg/dl (8.5-10.1); CREATININE 0.92 mg/dl (0.60-1.40); MAGNESIUM 2.1 mg/dl (1.8-2.4); POTASSIUM 3.9 mmol/L (3.5-5.1)
[2016-08-02 08:43] LABS: CHOLESTEROL/HDL RATIO 3.5
[2016-08-02] MEDS: SODIUM CHLORIDE 0.9% 1000ML 1,000 ML IV SCH ×2 (08:51→18:43)
[2016-08-02] MEDS ORDERED: ROSUVASTATIN CALCIUM 5 MG TAB PO SCH (09:00)
--- NOTE | 2016-08-02 09:14 | CARDIOLOGY CONSULTATION ---
DATE OF CONSULTATION: 08/02/2016 CONSULTATION FOR: Holly dorado. REASON FOR CONSULTATION: Chest pain. HISTORY OF PRESENT ILLNESS: This is a 61-year-old male patient with a history of dyslipidemia, who has been having left shoulder discomfort for the past several weeks. The patient, on July 30, underwent a nuclear stress test that was negative. He also had a resting echocardiogram that showed moderate left ventricular hypertrophy with an estimated left ventricular ejection fraction of between 55% and 59%. No significant valvular pathology other than moderate aortic sclerosis. Following these studies, the patient continued to have left arm and chest discomfort. He presented to the Emergency Department on the July 31, where he had an evaluation and eventually was discharged home. He then returned yesterday with severe left shoulder and chest discomfort. The patient was then admitted to the hospital. He has had no acute changes on his EKG that would suggest ischemia. His first set of cardiac markers was negative; however, subsequent cardiac markers have elevated the patient has a diagnosis of a non-STEMI. He is currently pain free this morning. He has no complaints. I discussed with him the option of a cardiac catheterization. I have explained the risks, benefits and intent of the procedure to him including the potential for catheter based intervention such as balloon angioplasty or intracoronary stenting. He is willing to proceed and it will be performed this morning. ALLERGIES: TRAMADOL AND HYDROCODONE. PAST MEDICAL HISTORY: In 2009, the patient had a cardiac catheterization performed at [facility] following an abnormal stress test. That revealed minor nonobstructive coronary artery disease and normal LV function. The patient denies diabetes, but does have hyperlipidemia. He has never smoked, but he is listed as having COPD. FAMILY MEDICAL HISTORY: Significant for coronary artery disease with his mother and sister. SOCIAL HISTORY: He has never smoked. He is and lives with his family. REVIEW OF SYSTEMS: A 10-point review of systems is negative except for the history of chief complaint. PHYSICAL EXAMINATION: GENERAL: He is alert and oriented in no acute distress. VITAL SIGNS: Blood pressure is 130/80 and pulse is regular at 70. He is afebrile. HEENT: He is normocephalic. Pupils are equal and reactive to light. Extraocular muscles are intact bilaterally. NECK: The neck veins are flat. Carotids have good upstrokes bilaterally without bruits. Thyroid is nonpalpable. RESPIRATORY: Breath sounds equal bilaterally and clear to auscultation. CARDIOVASCULAR: Heart has a regular rhythm. Normal S1 and S2. No S3 or S4. No cardiac rubs or murmurs. GASTROINTESTINAL: Abdomen is soft and nontender without organomegaly. EXTREMITIES: Free of edema, digit clubbing, or cyanosis. NEUROLOGIC: Grossly intact. SKIN: Warm to touch. LYMPH NODES: Negative to palpation. LABORATORY DATA: Hemoglobin is 16.9 and platelet count is 232. INR is 1.1 and PTT is 30.3. Potassium is 3.8, creatinine is 0.97, and BUN is 11. Troponin is 17.6. IMPRESSION: 1. Non-ST elevation myocardial infarction. 2. Dyslipidemia. 3. Obesity. RECOMMENDATIONS: As outlined above, the patient will proceed to the cardiac catheterization this morning. JADE
[2016-08-02 10:02] LABS: ESTIMATED AVERAGE GLUCOSE 97 mg/dl; HA1C FLAG Normal (Normal)
--- NOTE | 2016-08-02 11:35 | Progress Note ---
Medicine Progress Note Date & Time of Visit: Aug 02, 2016 at 11:16. Subjective Pt was seen and examined Lying in bed comfortable with no acute distress Pt said that he feels fine He denies any chest pain, palpitation, dizziness and SOB Objective Last 8 Hrs Date Time Temp Pulse Resp B/P Pulse Ox O2 Delivery O2 Flow Rate FiO2 08/02/16 11:01 36.8 73 18 128/79 92 Room Air 08/02/16 10:54 36.9 62 18 120/70 93 Room Air 08/02/16 08:00 93 Room Air 08/02/16 08:00 95 Room Air 08/02/16 07:51 Room Air 08/02/16 07:21 36.8 63 16 108/68 93 Room Air 08/02/16 04:05 36.4 57 20 123/72 93 Room Air 08/02/16 04:00 Room Air Physical Exam: General- No acute distress, obesity Head- atraumatic Eyes- PERRL, EOMI ENT- oropharynx clear Neck- supple, no JVD Lungs- clear to auscultation and percussion Heart- regular rhythm; no murmur Abdomen- normal bowel sounds, soft Extremities- no calf tenderness Neuro- alert, oriented x 3; PERRL, EOMI Skin- warm & dry Laboratory Results: Last 24 Hours Test 08/01/16 12:50 08/01/16 18:57 08/02/16 03:00 08/02/16 07:36 White Blood Count 7.98 K/uL 8.22 K/uL Red Blood Count 5.58 M/uL 4.98 M/uL Hemoglobin 16.9 g/dL 15.0 g/dL Hematocrit 46.6 % 42.6 % Mean Corpuscular Volume 83.5 fL 85.5 fL Mean Corpuscular Hemoglobin 30.3 pg 30.1 pg Mean Corpuscular Hemoglobin Concent 36.3 g/dl 35.2 g/dl Platelet Count 232 K/uL 210 K/uL Mean Platelet Volume 9.5 fL 9.3 fL Neutrophils (%) (Auto) 72.4 % Lymphocytes (%) (Auto) 15.2 % Monocytes (%) (Auto) 9.4 % Eosinophils (%) (Auto) 2.6 % Basophils (%) (Auto) 0.3 % Neutrophils # (Auto) 5.78 K/uL Lymphocytes # (Auto) 1.21 K/uL Monocytes # (Auto) 0.75 K/uL Eosinophils # (Auto) 0.21 K/uL Basophils # (Auto) 0.02 K/uL RDW Standard Deviation 39.8 fL 42.6 fL RDW Coefficient of Variation 13.2 % 13.6 % Immature Granulocyte % (Auto) 0.1 % Immature Granulocyte # (Auto) 0.01 K/uL Prothrombin Time 11.3 SECONDS Prothromb Time International Ratio 1.1 Activated Partial Thromboplast Time 30.3 SECONDS 51.0 SECONDS Partial Thromboplastin Ratio 1.2 2.0 Sodium Level 142 mmol/L 141 mmol/L Potassium Level 3.8 mmol/L 3.9 mmol/L Chloride Level 110 mmol/L 107 mmol/L Carbon Dioxide Level 21 mmol/L 25 mmol/L Anion Gap 11.0 mmol/L 9.0 mmol/L Blood Urea Nitrogen 11 mg/dl 8 mg/dl Creatinine 0.97 mg/dl 0.92 mg/dl Est Creatinine Clear Calc Drug Dose 86.9 ml/min 91.9 ml/min Estimated GFR () 95.9 102.2 Estimated GFR (Non- 82.7 88.2 BUN/Creatinine Ratio 11.0 9.0 Random Glucose 100 mg/dl 83 mg/dl Calcium Level 8.8 mg/dl 8.4 mg/dl Total Bilirubin 0.6 mg/dl Direct Bilirubin < 0.1 mg/dl Aspartate Amino Transf (AST/SGOT) 20 U/L Alanine Aminotransferase (ALT/SGPT) 30 U/L Alkaline Phosphatase 74 U/L Total Creatine Kinase 82 U/L 739 U/L 656 U/L Creatine Kinase MB 4.0 ng/ml 77.3 ng/ml 71.8 ng/ml Creatine Kinase MB Ratio 4.9 10.5 10.9 Troponin I 0.196 ng/ml 17.800 ng/ml 17.600 ng/ml Total Protein 7.5 gm/dl Albumin 3.6 gm/dl Lipase 299 U/L Hepatitis C Antibody Screen NEG Estimated Average Glucose 97 mg/dl Hemoglobin A1c 5.0 % Magnesium Level 2.1 mg/dl Triglycerides Level 122 mg/dl Cholesterol Level 177 mg/dl HDL Cholesterol 51 mg/dl LDL Cholesterol, Calculated 102 mg/dl VLDL Cholesterol, Calculated 24 mg/dl Cholesterol/HDL Ratio 3.5 Assessment & Plan NON ST ELEVATION MO Risk factors- hyperlipidemia, obesity, positive family history Pt had stress echo 07/30/16 negative Prior cardiac cath in [facility] 12/10/09- EF 60%, 20% LAD, 30% RCA as per Epic Troponin on admission 0.19, then increased to 17 EKG- showed no significant ST changes Chest pain free currently On heparin drip, statin and aspirin Case discussed with Dr. Carl Keep NPO for cardiac cath this morning Continue monitor pt very closely DYSLIPIDEMIA Total chol 177, LDL 102, HDL 51 Continue crestor 5 mg METABOLIC SYNDROME Recent HbA1c 5 (08/02/16) COPD Stable Continue PRN inhaler DVT PROPHYLAXIS on Heparin drip CODE STATUS Full code Current Inpatient Medications: Current Inpatient Medications Medications (Trade) Dose Ordered Sig/Poonam Route Start Time Stop Time Status Last Admin Dose Admin Acetaminophen (Tylenol Tab) 650 mg Q4H PRN PO 08/01/16 15:15 08/31/16 15:14 Ondansetron HCl (Zofran Inj) 4 mg Q6H PRN IV 08/01/16 15:15 08/31/16 15:14 Aspirin (Ecotrin Tab) 81 mg QAM PO 08/02/16 09:00 09/01/16 08:59 08/02/16 08:33 81 MG Cyclobenzaprine HCl (Flexeril Tab) 10 mg BID PRN PO 08/01/16 15:15 08/31/16 15:14 Rosuvastatin Calcium (Crestor Tab) 5 mg Q2D@0900 PO 08/02/16 09:00 09/01/16 08:59 08/02/16 08:33 5 MG Albuterol (Ventolin Hfa) 2 puffs Q4H PRN INH 08/01/16 17:00 08/31/16 16:59 Famotidine (Pepcid Tab) 10 mg HS PO 08/01/16 21:00 08/31/16 20:59 08/01/16 20:55 10 MG Nitroglycerin (Nitroglycerin 2% Oint) 0.5 inch Q6H EXT 08/01/16 22:00 08/31/16 15:29 08/02/16 10:59 0.5 INCH Morphine Sulfate 4 mg 4 mg Q4H PRN IV 08/01/16 15:30 08/15/16 15:29 08/01/16 23:29 4 MG Heparin Sodium/ Dextrose 500 ml @ 28 mls/hr [id number] PRN IV 08/01/16 20:30 08/31/16 20:29 08/01/16 20:49 28 MLS/HR Sodium Chloride (Nss 1000ml) 1,000 ml @ 105 mls/hr Q9H32M IV 08/02/16 08:31 09/01/16 08:30 08/02/16 08:51 105 MLS/HR
[2016-08-02] MEDS: HEPARIN 25,000 UNIT/500ML D5W 500 ML IV PRN ×2 (14:06→14:52)
[2016-08-02] MEDS: ACETAMINOPHEN 325 MG TAB PO PRN (18:42)
[2016-08-02] MEDS: FAMOTIDINE 20 MG TAB PO SCH (21:20)
[2016-08-03] VITALS (21 sets, daily range): BP systolic 116–166; BP diastolic 70–97; PULSE 60–104; TEMP 36.5–37.3; O2SAT 93–99
[2016-08-03] MEDS: NITROGLYCERIN OINT 2% 1GM PACKET EXT SCH ×4 (04:37→21:49)
[2016-08-03] MEDS: SODIUM CHLORIDE 0.9% 1000ML 1,000 ML IV SCH (04:37)
[2016-08-03 06:03] LABS: HEMATOCRIT 42.8 % (42-52); MEAN CELL VOLUME 86.6 fL (80-100); MEAN CORPUSCULAR HEMOGLOBIN 29.4 pg (25-34); MEAN CORPUSCULAR HGB CONC 33.9 g/dl (32-36); MEAN PLATELET VOLUME 10.5 fL (7.4-10.4); PLATELET COUNT 189 K/uL (130-400); RED BLOOD COUNT 4.94 M/uL (4.7-6.1); WHITE BLOOD COUNT 7.58 K/uL (4.8-10.8)
[2016-08-03] MEDS ORDERED: HEPARIN SOD (PORCINE) 1000 UNIT/ML 10 ML VIAL ONE ×2 (06:20→08:30)
[2016-08-03] MEDS ORDERED: NiCARDipine HCL INJ 2.5 MG/ML 10 ML AMP ONE (06:20)
[2016-08-03] MEDS ORDERED: MIDAZOLAM HCL 1 MG/ML 2ML VIAL ONE ×3 (06:21→08:32)
[2016-08-03] MEDS ORDERED: NITROGLYCERIN/D5W 100MCG/ML 20ML SYR ONE ×2 (06:21→08:50)
[2016-08-03] MEDS ORDERED: FENTANYL CITRATE INJ 50 MCG/1 ML 2 ML VIAL ONE ×2 (06:21→08:52)
[2016-08-03 06:36] LABS: BUN/CREATININE RATIO 10.1 (10-20); CALCIUM 8.2 mg/dl (8.5-10.1); CREATININE 0.79 mg/dl (0.60-1.40); POTASSIUM 3.7 mmol/L (3.5-5.1)
[2016-08-03] MEDS ORDERED: NITROGLYCERIN 0.4 MG SL PER TAB CHARGE ONE (07:23)
[2016-08-03] MEDS ORDERED: CLOPIDOGREL BISULFATE 300 MG TAB PO ONE (09:10)
--- NOTE | 2016-08-03 09:21 | Cardiac Catheterization ---
Procedure Note Procedure Date Aug 03, 2016. Pre-Procedure Diagnosis Non STEMI AUC Score 8 Post-Procedure Diagnosis Severe CAD, Successful PCI Procedure(s) Performed Coronary Angiography, Drug Eluting Stent Director Business Development Dr. Yi Travel Specialist(s) jhon Estimated Blood Loss 25 Medication(s) Clopidogrel, Fentanyl, Heparin, Nicardipine, Nitroglycerin, Versed, Lidocaine 1% Summary of Findings Indication: NSTEMI For full details of coronary angiography please cath report by Dr. Carl from today. Access: 6Fr right radial artery Catheters: JR 4 guide, EBU 3.5 guide Arterial Closure: TR Band PCI: Antithrombotic therapy: Heparin, Plavix Procedure: Patient with ST elevations inferiorly during diagnostic catheterization Proceeded with intervention to mid PDA. JR4 guide to RCA BMW wire passed into distal PDA Lesion predilated with 2.0 compliant balloon Stented with 2.5 x 18 Resolute SALOME Post-dilated with 2.5 NC balloon Intervention to large OM EBU 3.5 guide BMW wire passed into distal OM Lesion predilated with 3.0 compliant balloon After PTCA, ostial inferior branch severe stenosis better appreciated. Prowater wire passed into inferior branch of OM Lesion predilated with gentle 3.0 balloon inflation Stented with 3.5 x 22 Resolute SALOME into inferior branch of OM Superior branch rewired with BMW Proximal stent post-dilated with 4.0 NC balloon Ostium of superior branch of OM ballooned with 2.5 compliant balloon. IC nicardipine/nitro given for spasm Post procedure CHELSEY 3 flow, stents well expands, minimal residual stenosis at ostium of superior branch of OM Summary: 1. Successful PCI of mid PDA with 2.5 x 18 Resolute SALOME 2. 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 Additional cardiac meds, cardiac rehab per Dr. Carl Due to high radiation exposure during case patient counseled on signs and symptoms of radiation skin injury. Hemodynamics Rest Ao: 113/75/94 Final Ao: 128/74/97 LV: 117/14 Specimens None Radiation Exposure (mGy) 224 Contrast (mls) 440 Fluids (cc crystalloids) 9230 Drains None Anesthesia Moderate Procedural Complication(s) None Disposition PCU ACC Data Cardiac Status Clinical evaluation leading to the procedure CAD Presntation: Non STEMI Anginal Classification: CCS IV Heart Failure: No, NYHA Class: CCS I Cardiogenic Shock w/in 24Hrs: No Cardiac Arrest w/in 24Hrs: No Imaging studies past 6 months: Yes Stress studies past 6 months: No Standard Exercise Stress Test: No Stress Echocardiogram: No Stress Testing w/SPECT MPI: No Cardiac CTA: No Coronary Anatomy Dominant: Right OM1 (% Stenosis): Ostial (99), Mid (90) R PDA (% Stenosis): Mid (90) Diagnostic Physician's Name: Shayan Yi MD Status: Urgent Closure Device Percutaneous Entry Location: Radial Closure Device: Radial Band Recommendations: PCI without planned CABG Lesion Segment Name: pda Culprit Artery: No Stenosis Prior to Rx (%): 90 Chronic Total Occlusion: No IVUS: No FFR: No Pre-Procedure CHELSEY Flow: 2 Previously Treated Lesion: No Lesion Complexity: Non-High/Non-C Lesion Length (mm): 12 Thrombus Present: No Bifurcation Lesion: No Guidewire Across Lesion: Yes Guidewire: Stenosis Post-Procedure (%): 0 Post-Procedure CHELSEY Flow: 3 Device(s) Deployed: Yes Lesion #2 Segment Name: OM Culprit Artery: Yes Stenosis Prior to Rx (%): 99 Chronic Total Occlusion: No IVUS: No FFR: No Pre-Procedure CHELSEY Flow: 3 Previously Treated Lesion: No Lesion Complexity: High/C Lesion Length (mm): 18 Thrombus Present: Yes Bifurcation Lesion: Yes Guidewire Across Lesion: Yes Intraprocedure Events Significant Dissection: No Perforation: No
--- NOTE | 2016-08-03 09:21 | Procedure Note ---
Post-Mod Sedation Assessment General Date of Moderate Sedation Aug 03, 2016. Vital Signs: Vital Signs Past 12 Hours Date Time Temp Pulse Resp B/P Pulse Ox O2 Delivery O2 Flow Rate FiO2 08/03/16 06:23 36.8 74 16 144/79 95 Room Air 08/03/16 06:20 36.8 74 16 144/79 95 Room Air 08/03/16 04:07 36.8 74 16 144/79 95 Room Air 08/03/16 04:00 Room Air 08/03/16 00:09 36.8 63 16 116/73 94 08/03/16 00:05 Room Air Review - Discharge Criteria Vital Signs Stable: Yes Alert/Oriented/Conversant: Yes Returned to Baseline Mental St: Yes Nausea Absent/Minimal: Yes Pain/Discomfort/Absent/Minimal: Yes Normal/Baseline Respirations: Yes Active Bleeding?: No Pt Received D/C Instructions: N/A Prescriptions Given: None Specific Proced. D/C Criteria Distal Pulses Present (Cardiac: Yes Groin site assessed-Card Cath: N/A Voided Prior To Discharge: N/A Discharged Patients Adult Escort/Transportation: Yes
[2016-08-03] MEDS ORDERED: ONDANSETRON INJ 2 MG/ML 2 ML VIAL IV PRN (09:30)
[2016-08-03] MEDS ORDERED: SODIUM CHLORIDE 0.9% 1000ML 1,000 ML IV SCH (09:30)
[2016-08-03] MEDS: ASPIRIN 81 MG ECTAB PO SCH (12:54)
[2016-08-03] MEDS: MoRPHine SULFATE 4 MG/ML 1 ML CARP\\VIAL IV PRN (12:54)
[2016-08-03] MEDS ORDERED: EPTIFIBATIDE BOLUS / DRIP IV STA (13:19)
--- NOTE | 2016-08-03 14:08 | Cardiac Catheterization ---
Procedure Note Procedure Date Aug 03, 2016. Pre-Procedure Diagnosis Non STEMI AUC Score 9 Post-Procedure Diagnosis Severe CAD Procedure(s) Performed Coronary Angiography, Left Heart Cath, LV Angiography Compensation Director Dr. Carl Seeing Eye Dog Teacher(s) None Estimated Blood Loss None Medication(s) Versed, Lidocaine 1% Summary of Findings Severe 2 vessel disease Hemodynamics Rest Ao: 113/75 Final Ao: 124/68 LV: 117/8 Recommendations PCI without planned CABG Specimens None Radiation Exposure (mGy) 2875 Contrast (mls) 160 Fluids (cc crystalloids) 78 Procedural Complication(s) None Disposition PCU ACC Data Cardiac Status Clinical evaluation leading to the procedure CAD Presntation: Non STEMI Anginal Classification: CCS III Heart Failure: No Cardiogenic Shock w/in 24Hrs: No Cardiac Arrest w/in 24Hrs: No Imaging studies past 6 months: Yes Stress studies past 6 months: No Standard Exercise Stress Test: No Stress Echocardiogram: No Stress Testing w/SPECT MPI: No Cardiac CTA: No Coronary Anatomy Left Main (% Stenosis): Normal LAD (% Stenosis): Normal OM1 (% Stenosis): Mid (95) R PL1 (% Stenosis): Mid (95) Left Ventricular Angiography EF (%): 60 Mitral Regurgitation: None Diagnostic Physician's Name: Antonio Carl, DO Status: Urgent Closure Device Percutaneous Entry Location: Radial Closure Device: Mynx Recommendations: PCI without planned CABG
[2016-08-03] MEDS: EPTIFIBATIDE INJ 75 MG PREMIXED IV SCH ×2 (14:27→19:38)
[2016-08-03] MEDS: METOPROLOL TARTRATE 25 MG TAB PO SCH ×2 (16:19→19:59)
--- NOTE | 2016-08-03 19:42 | Progress Note ---
Medicine Progress Note Date & Time of Visit: Aug 03, 2016 at 19:33. Subjective Pt was seen and examined lying in bed comfortable with no distress he had cardiac cath done today with stent placement he denies any chest pain, palpitation and sob Objective Last 8 Hrs Date Time Temp Pulse Resp B/P Pulse Ox O2 Delivery O2 Flow Rate FiO2 08/03/16 16:00 Room Air 08/03/16 15:58 37.3 69 16 153/82 94 Nasal Cannula 2.0 08/03/16 14:00 64 16 147/87 99 Room Air 08/03/16 13:17 73 16 137/78 95 Nasal Cannula 2.0 08/03/16 13:10 80 16 155/81 95 Nasal Cannula 2.0 08/03/16 13:07 65 16 166/90 95 Nasal Cannula 2.0 08/03/16 13:00 70 16 163/93 99 Room Air 08/03/16 12:00 62 16 147/88 99 Room Air 08/03/16 12:00 Room Air Physical Exam: General- No acute distress, obesity Head- atraumatic Eyes- PERRL, EOMI ENT- oropharynx clear Neck- supple, no JVD Lungs- clear to auscultation and percussion Heart- regular rhythm; no murmur Abdomen- normal bowel sounds, soft Extremities- no calf tenderness Neuro- alert, oriented x 3; PERRL, EOMI Skin- warm & dry Laboratory Results: Last 24 Hours Test 08/03/16 05:19 08/03/16 07:39 08/03/16 07:57 08/03/16 08:29 White Blood Count 7.58 K/uL Red Blood Count 4.94 M/uL Hemoglobin 14.5 g/dL Hematocrit 42.8 % Mean Corpuscular Volume 86.6 fL Mean Corpuscular Hemoglobin 29.4 pg Mean Corpuscular Hemoglobin Concent 33.9 g/dl RDW Standard Deviation 42.6 fL RDW Coefficient of Variation 13.4 % Platelet Count 189 K/uL Mean Platelet Volume 10.5 fL Activated Partial Thromboplast Time 52.2 SECONDS Partial Thromboplastin Ratio 2.0 Sodium Level 141 mmol/L Potassium Level 3.7 mmol/L Chloride Level 107 mmol/L Carbon Dioxide Level 23 mmol/L Anion Gap 11.0 mmol/L Blood Urea Nitrogen 8 mg/dl Creatinine 0.79 mg/dl Est Creatinine Clear Calc Drug Dose 107.0 ml/min Estimated GFR () 110.8 Estimated GFR (Non- 95.6 BUN/Creatinine Ratio 10.1 Random Glucose 80 mg/dl Calcium Level 8.2 mg/dl Kaolin Activated Coagulation Time 173 SECONDS 219 SECONDS 234 SECONDS Assessment & Plan NON ST ELEVATION [place] Risk factors- hyperlipidemia, obesity, positive family history Pt had stress echo 07/30/16 negative Prior cardiac cath in [facility] 12/10/09- EF 60%, 20% LAD, 30% RCA as per Epic Troponin on admission 0.19, then increased to 17 EKG- showed no significant ST changes Chest pain free currently Had cardiac cath done today by Dr. Carl, finding: Left Main (% Stenosis): Normal LAD (% Stenosis): Normal OM1 (% Stenosis): Mid (95) R PL1 (% Stenosis): Mid (95) S/p stent without CABG 1.Successful PCI of mid PDA with 2.5 x 18 Resolute SALOME 2. Successful PCI of large OM with 3.5 x 22 Resolute SALOME (post-dilated to 4.0) Continue heparin drip, statin and aspirin Will be on plavix and aspirin for 1 year Case discussed with Dr. Carl Continue monitor closely in telemetry DYSLIPIDEMIA Total chol 177, LDL 102, HDL 51 Continue crestor 5 mg METABOLIC SYNDROME Recent HbA1c 5 (08/02/16) Diet and exercise COPD Stable Continue PRN inhaler DVT PROPHYLAXIS on Heparin drip CODE STATUS Full code Consultants: Cardiology Procedures: Coronary Angiography, Left Heart Cath, LV Angiography Drug Eluting Stent Current Inpatient Medications: Current Inpatient Medications Medications (Trade) Dose Ordered Sig/Poonam Route Start Time Stop Time Status Last Admin Dose Admin Acetaminophen (Tylenol Tab) 650 mg Q4H PRN PO 08/01/16 15:15 08/31/16 15:14 08/02/16 18:42 650 MG Ondansetron HCl (Zofran Inj) 4 mg Q6H PRN IV 08/01/16 15:15 08/31/16 15:14 Aspirin (Ecotrin Tab) 81 mg QAM PO 08/02/16 09:00 09/01/16 08:59 08/03/16 12:54 81 MG Cyclobenzaprine HCl (Flexeril Tab) 10 mg BID PRN PO 2/15/17 15:15 08/31/16 15:14 Rosuvastatin Calcium (Crestor Tab) 5 mg Q2D@0900 PO 08/02/16 09:00 09/01/16 08:59 08/02/16 08:33 5 MG Albuterol (Ventolin Hfa) 2 puffs Q4H PRN INH 08/01/16 17:00 08/31/16 16:59 Famotidine (Pepcid Tab) 10 mg HS PO 08/01/16 21:00 08/31/16 20:59 08/02/16 21:20 10 MG Nitroglycerin (Nitroglycerin 2% Oint) 0.5 inch Q6H EXT 08/01/16 22:00 08/31/16 15:29 08/03/16 16:21 0.5 INCH Morphine Sulfate 4 mg 4 mg Q4H PRN IV 08/01/16 15:30 08/15/16 15:29 08/03/16 12:54 4 MG Heparin Sodium/ Dextrose (Heparin 25,000 Unit/500ml D5W) 500 ml @ 28 mls/hr [id number] PRN IV 08/01/16 20:30 08/31/16 20:29 08/02/16 14:52 28 MLS/HR Metoprolol Tartrate 25 mg 25 mg BID PO 08/03/16 13:30 09/02/16 13:29 08/03/16 16:19 25 MG Eptifibatide (Integrilin Inj) 100 ml @ 17 mls/hr [id number] IV 08/03/16 13:45 08/03/16 19:45 08/03/16 14:27 17 MLS/HR Miscellaneous (Stop Order) 1 ea ONE ONCE N/A 08/03/16 19:45 08/03/16 19:46
[2016-08-03] MEDS ORDERED: Integrelin infusion --> STOP ORDER ONE (19:45)
[2016-08-03] MEDS: FAMOTIDINE 20 MG TAB PO SCH (19:58)
[2016-08-04] VITALS (7 sets, daily range): BP systolic 107–127; BP diastolic 63–76; PULSE 68–100; TEMP 36.6–37; O2SAT 83–94
[2016-08-04] MEDS: NITROGLYCERIN OINT 2% 1GM PACKET EXT SCH (04:09)
[2016-08-04] MEDS: ACETAMINOPHEN 325 MG TAB PO PRN (06:07)
--- NOTE | 2016-08-04 07:27 | Cardiology Follow-Up ---
Subjective General Date of Service: Aug 04, 2016. Chief Complaint: follow-up chest pain, non-STEMI Pt evaluation today including: conversation w/ patient, physical exam History of Present Illness The patient is a 61 year old male seen in cardiology follow-up. Patient feels well, he rested well overnight. Post-PCI yesterday he had mild chest discomfort that resolved after transient treatment with IV Integrilin which is since been discontinued. Post PCI EKGs performed yesterday 08/03/16 reveal serial changes of inferior infarction, with evolved inferior Q waves in leads III and aVF. Patient is chest pain-free. Remains in sinus rhythm on telemetry. Allergies Coded Allergies: Tramadol (Verified Allergy, Unknown, itching, 08/01/16) Hydrocodone (Verified Adverse Reaction, Intermediate, DIZZY/NAUSEA, ) Social History Smoking Status: Never Smoker Hx Tobacco Use In Past Year?: No Hx Alcohol Use - Type And Amou: No Hx Substance Use - Type And Am: No Problem List Medical Problems: (1) Anxiety disorder Status: Chronic (2) GERD (gastroesophageal reflux disease) Status: Chronic (3) Hyperlipemia Status: Chronic (4) Left sided chest pain Status: Acute (5) Left sided chest pain Status: Acute Physical Exam Vital Signs Last Vital Signs Documentation Date Time Temp Pulse Resp B/P Pulse Ox O2 Delivery O2 Flow Rate FiO2 08/04/16 04:11 94 Nasal Cannula 2.0 08/04/16 04:00 36.8 71 18 118/76 Physical Exam Constitutional: Level of Distress: NAD Neck: supple Lungs: Auscultation: no wheezing, no rales/crackles, no rhonchi Cardiovascular: Heart Auscultation: RRR, no murmurs, no rubs Abdomen: Inspection & Palpation: soft, non-distended Extremities: no cyanosis, pertinent finding (right radial artery heart catheterization site is clean dry and intact, with no ecchymosis, patient denies any pain in this area) Assessment and Plan Assessment and Plan Impression: 61-year-old male 1. Non-ST segment elevation myocardial infarction 2. Cardiac catheterization revealing two-vessel CAD with subsequent percutaneous intervention to include: 1. Successful PCI of mid PDA with 2.5 x 18 Resolute SALOME 2. Successful PCI of large OM with 3.5 x 22 Resolute SALOME (post-dilated to 4.0 ) 3. Hypertension 4. Dyslipidemia Plan: Await today's lab studies. Sinuses CBC and chemistry panel including kidney function are stable I anticipate discharge on the following medications: 1. Aspirin 81 mg daily 2. Clopidogrel 75 mg daily 3. Metoprolol tartrate 25 mg twice a day 4. Crestor 20 mg by mouth daily -Is noted the patient has only been taking his 10 mg dose of Crestor as an outpatient every other day, however given the significance of his CAD, he is to be trialed with more intensive statin therapy, hopefully he will be old to tolerate this from a myalgia standpoint 5. Start lisinopril 5 mg by mouth daily as long as his knee function and potassium were stable. Patient already has an upcoming follow-up visit with his PCP recommend follow- up of blood pressure and up titration of beta tahmina or PAIGE inhibitor as necessary. Recommend follow-up chemistry panel within one week to reassess his kidney function and potassium having started lisinopril. I've requested a cardiology follow-up as an outpatient within the next 2 weeks, office to notify ptEj Haines, DO Laboratory Results Last 24 Hours Test 08/03/16 07:39 08/03/16 07:57 08/03/16 08:29 08/04/16 04:44 Kaolin Activated Coagulation Time 173 SECONDS 219 SECONDS 234 SECONDS
[2016-08-04 07:40] LABS: BASO % 0.2 %; BASO ABS # 0.02 K/uL (0-0.2); COMPLETE YES; EOS % 1.8 %; IG% 0.2 %; LYMPH % 13.4 %; LYMPH ABS # 1.37 K/uL (1.2-3.4); MEAN CELL VOLUME 86.2 fL (80-100); MEAN CORPUSCULAR HEMOGLOBIN 30.8 pg (25-34); MEAN CORPUSCULAR HGB CONC 35.7 g/dl (32-36); MEAN PLATELET VOLUME 10.1 fL (7.4-10.4); NEUT % 72.4 %; PLATELET COUNT 193 K/uL (130-400); RED BLOOD COUNT 4.87 M/uL (4.7-6.1); WHITE BLOOD COUNT 10.25 K/uL (4.8-10.8)
[2016-08-04 07:52] LABS: PARTIAL THROMBOPLASTIN RATIO 1.2
[2016-08-04 08:13] LABS: BUN/CREATININE RATIO 10.3 (10-20); CALCIUM 8.8 mg/dl (8.5-10.1); CREATININE 0.75 mg/dl (0.60-1.40); POTASSIUM 3.8 mmol/L (3.5-5.1)
[2016-08-04] MEDS: ASPIRIN 81 MG ECTAB PO SCH (08:34)
[2016-08-04] MEDS: METOPROLOL TARTRATE 25 MG TAB PO SCH (08:34)
[2016-08-04] MEDS ORDERED: ROSUVASTATIN CALCIUM 20 MG TAB PO SCH (09:00)
[2016-08-04] MEDS ORDERED: LISINOPRIL 5 MG TAB PO SCH (09:00)
[2016-08-04] MEDS ORDERED: CLOPIDOGREL BISULFATE 75 MG TAB PO SCH (09:00)
--- NOTE | 2016-08-04 10:30 | Progress Note ---
Medicine Progress Note Date & Time of Visit: Aug 04, 2016 at 10:10. Subjective Pt was seen and examined Lying in bed very comfortable with no distress with at bedside Pt said that he feels fine he denies any chest pain, palpitation, dizziness and SOB Objective Last 8 Hrs Date Time Temp Pulse Resp B/P Pulse Ox O2 Delivery O2 Flow Rate FiO2 08/04/16 08:00 Nasal Cannula 2.0 08/04/16 07:46 36.8 80 16 127/67 83 Nasal Cannula 3.0 08/04/16 04:11 94 Nasal Cannula 2.0 08/04/16 04:00 36.8 71 18 118/76 92 Room Air Physical Exam: General- No acute distress, obesity Head- atraumatic Eyes- PERRL, EOMI ENT- oropharynx clear Neck- supple, no JVD Lungs- clear to auscultation and percussion Heart- regular rhythm; no murmur Abdomen- normal bowel sounds, soft Extremities- no calf tenderness, no hematoma in right hand radial area Neuro- alert, oriented x 3; PERRL, EOMI Skin- warm & dry Laboratory Results: Last 24 Hours Test 08/04/16 07:00 White Blood Count 10.25 K/uL Red Blood Count 4.87 M/uL Hemoglobin 15.0 g/dL Hematocrit 42.0 % Mean Corpuscular Volume 86.2 fL Mean Corpuscular Hemoglobin 30.8 pg Mean Corpuscular Hemoglobin Concent 35.7 g/dl Platelet Count 193 K/uL Mean Platelet Volume 10.1 fL Neutrophils (%) (Auto) 72.4 % Lymphocytes (%) (Auto) 13.4 % Monocytes (%) (Auto) 12.0 % Eosinophils (%) (Auto) 1.8 % Basophils (%) (Auto) 0.2 % Neutrophils # (Auto) 7.43 K/uL Lymphocytes # (Auto) 1.37 K/uL Monocytes # (Auto) 1.23 K/uL Eosinophils # (Auto) 0.18 K/uL Basophils # (Auto) 0.02 K/uL RDW Standard Deviation 42.4 fL RDW Coefficient of Variation 13.3 % Immature Granulocyte % (Auto) 0.2 % Immature Granulocyte # (Auto) 0.02 K/uL Activated Partial Thromboplast Time 31.5 SECONDS Partial Thromboplastin Ratio 1.2 Sodium Level 138 mmol/L Potassium Level 3.8 mmol/L Chloride Level 104 mmol/L Carbon Dioxide Level 22 mmol/L Anion Gap 12.0 mmol/L Blood Urea Nitrogen 8 mg/dl Creatinine 0.75 mg/dl Est Creatinine Clear Calc Drug Dose 112.7 ml/min Estimated GFR () 113.2 Estimated GFR (Non- 97.6 BUN/Creatinine Ratio 10.3 Random Glucose 76 mg/dl Calcium Level 8.8 mg/dl Assessment & Plan NON ST ELEVATION [place] Risk factors- hyperlipidemia, obesity, positive family history Pt had stress echo 07/30/16 negative Prior cardiac cath in [facility] 12/10/09- EF 60%, 20% LAD, 30% RCA as per Epic Troponin on admission 0.19, then increased to 17 EKG- showed no significant ST changes Chest pain free currently Had cardiac cath done today by Dr. Carl, finding: Left Main (% Stenosis): Normal LAD (% Stenosis): Normal OM1 (% Stenosis): Mid (95) R PL1 (% Stenosis): Mid (95) S/p stent without CABG 1.Successful PCI of mid PDA with 2.5 x 18 Resolute SALOME 2. Successful PCI of large OM with 3.5 x 22 Resolute SALOME (post-dilated to 4.0) as per cardiology Post PCI EKGs performed yesterday 08/03/16 reveal serial changes of inferior infarction, with evolved inferior Q waves in leads III and aVF Will d/c heparin drip Continue plavix and aspirin for 1 year Continue crestor 20mg daily Continue metoprolol 25 mg BID Follow up with cardiology in 2 weeks case discussed with Dr. Haines HTN Metoprolol 25 mg po daily Started on Lisinopril 5 mg daily check BMP in 1 week to monitor kidney function and potassium level Monitor blood pressure and up titration of beta tahmina or PAIGE inhibitor as necessary DYSLIPIDEMIA Total chol 177, LDL 102, HDL 51 Crestor increase to 20mg daily METABOLIC SYNDROME Recent HbA1c 5 (08/02/16) Diet and exercise COPD Stable Continue PRN inhaler DVT PROPHYLAXIS on Heparin drip CODE STATUS Full code Disposition Follow up appointment with your primary care provider Dr. Morrissey on Saturdayaug 06 at 11:10am Follow up with Cardiology in 2 weeks (They will call you to schedule the follow up appointment) Consultants: Cardiology Procedures: Coronary Angiography, Left Heart Cath, LV Angiography Drug Eluting Stent Current Inpatient Medications: Current Inpatient Medications Medications (Trade) Dose Ordered Sig/Poonam Route Start Time Stop Time Status Last Admin Dose Admin Acetaminophen (Tylenol Tab) 650 mg Q4H PRN PO 08/01/16 15:15 08/31/16 15:14 08/04/16 06:07 650 MG Aspirin (Ecotrin Tab) 81 mg QAM PO 08/02/16 09:00 09/01/16 08:59 08/04/16 08:34 81 MG Cyclobenzaprine HCl (Flexeril Tab) 10 mg BID PRN PO 08/01/16 15:15 08/31/16 15:14 Albuterol (Ventolin Hfa) 2 puffs Q4H PRN INH 08/01/16 17:00 08/31/16 16:59 Famotidine (Pepcid Tab) 10 mg HS PO 08/01/16 21:00 08/31/16 20:59 08/03/16 19:58 10 MG Morphine Sulfate 4 mg 4 mg Q4H PRN IV 08/01/16 15:30 08/15/16 15:29 08/03/16 12:54 4 MG Heparin Sodium/ Dextrose (Heparin 25,000 Unit/500ml D5W) 500 ml @ 28 mls/hr [id number] PRN IV 08/01/16 20:30 08/31/16 20:29 08/02/16 14:52 28 MLS/HR Metoprolol Tartrate (Lopressor Tab) 25 mg BID PO 08/03/16 13:30 09/02/16 13:29 08/04/16 08:34 25 MG Clopidogrel Bisulfate (plAVix TAB) 75 mg QAM PO 08/04/16 09:00 09/03/16 08:59 08/04/16 08:33 75 MG Lisinopril (Zestril Tab) 5 mg QAM PO 08/04/16 09:00 09/03/16 08:59 08/04/16 08:34 5 MG Rosuvastatin Calcium (Crestor Tab) 20 mg QAM PO 08/04/16 09:00 09/03/16 08:59 08/04/16 08:34 20 MG
[2016-08-04] MEDS ORDERED: LPR25 PO (10:33)
[2016-08-04] MEDS ORDERED: PLV75 PO (10:33)
[2016-08-04] MEDS ORDERED: LSN5 PO (10:33)
[2016-08-04] MEDS ORDERED: ASPEC81 PO (10:33)
[2016-08-04] MEDS ORDERED: CRS20 PO (10:33)
--- NOTE | 2016-08-04 10:45 | Discharge Instructions ---
Discharge Instructions Admission Reason for Admission: Chest Pain Discharge Discharge Diagnosis / Problem: Non-ST segment elevation myocardial infarction, Hypertension, Dyslipidemia Discharge Goals Goal(s): Decrease discomfort, Improve function, Improve disease control Activity Recommendations Activity Limitations: resume your previous activity (as tolerated) . Instructions / Follow-Up Instructions / Follow-Up Follow up appointment with your primary care provider Dr. Morrissey on Saturdayaug 06 at 11:10am Follow up with Cardiology in 2 weeks (They will call you to schedule the follow up appointment) Check (blood) BMP in 1 week to monitor kidney function and potassium level Monitor blood pressure and your provider will titrate your blood pressure medications if needed Do not stop plavix and aspirin for 1 year unless by a provider Watch for any bleeding and notify your physician New medications Lisinopril 5 mg daily Metoprolol 25mg twice daily Crestor 20 mg daily Plavix 75 mg daily Aspirin 81 mg daily Current Hospital Diet Patient's current hospital diet: AHA Diet (Heart Healthy) Discharge Diet Recommended Diet: AHA Diet (Heart Healthy), Low Sodium Diet (2gm Na) Procedures Procedures Performed: Coronary Angiography, Left Heart Cath, LV Angiography Drug Eluting Stent Pending Studies Studies pending at discharge: no Laboratory Results Hemoglobin A1c Test 08/02/16 07:36 Range/Units Estimated Average Glucose 97 mg/dl Hemoglobin A1c 5.0 4.5-5.6 % Lipid Panel Test 08/02/16 07:36 Range/Units Triglycerides Level 122 0-150 mg/dl Cholesterol Level 177 0-200 mg/dl HDL Cholesterol 51 mg/dl Cholesterol/HDL Ratio 3.5 LDL Cholesterol, Calculated 102 mg/dl Medical Emergencies . Who to Call and When: Medical Emergencies: If at any time you feel your situation is an emergency, please call 911 immediately. . Non-Emergent Contact Non-Emergency issues call your: Primary Care Provider Call Non-Emergent contact if: you have any medication questions . . "Provider Documentation" section prepared by Dori Duran. VTE Core Measure Inpt VTE Proph given/why not?: Unfractionated heparin SQ
--- NOTE | 2016-08-04 10:51 | Discharge Summary ---
Discharge Summary Admission Date: Aug 01, 2016 at 16:44 Discharge Date: Aug 04, 2016 Discharge Disposition: Home Principal Diagnosis: NON ST ELEVATION [place] Secondary Diagnoses/Problems: HTN Dyslipidemia COPD Procedures: Coronary Angiography, Left Heart Cath, LV Angiography Drug Eluting Stent Consultations: Cardiology Medication Reconciliation New Medications: Aspirin (Aspirin EC Low Dose) 81 Mg Ectab 81 MG PO QAM for 30 Days, #30 Clopidogrel Bisulfate (Clopidogrel) 75 Mg Tab 75 MG PO QAM for 30 Days, #30 TAB Lisinopril (Lisinopril) 5 Mg Tab 5 MG PO QAM for 30 Days, #30 TAB Metoprolol Tartrate (Lopressor) 25 Mg Tab 25 MG PO BID for 30 Days, #60 TAB Rosuvastatin Calcium (Crestor) 20 Mg Tab 20 MG PO QAM for 30 Days, #30 TAB Continued Medications: Acetaminophen (Tylenol) 500 Mg Tab 1000 MG PO Q4H PRN for Pain or Fever, TAB Albuterol Sulfate (Proair Respiclick) 108 Mcg/Act Aer 2 PUFFS INH Q4H PRN for SOB/Wheezing Cyclobenzaprine Hcl (Flexeril) 10 Mg Tab 10 MG PO BID PRN for Muscle Spasms, #21 TAB Famotidine (Pepcid Ac) 10 Mg Tab 10 MG PO HS Meclizine HCl (Meclizine HCl) 25 Mg Tab 25 MG PO TID PRN for Dizziness or Vertigo Ondansetron Hcl (Zofran) 4 Mg Tab 4 MG PO Q4H PRN for Nausea, TAB Discontinued Medications: Rosuvastatin Calcium (Crestor) 10 Mg Tab 5 MG PO Q2D Admission Information HPI (per Admitting provider): This is a 61 y/o male with PMH of COPD, dyslipidemia, metabolic syndrome, who presents to the ED with chest pain. Patient states he was having pain around left shoulder blade intermittently x 1 month. There was no recent injury. For that pain he underwent a nuclear stress test on 07/30/16 which was negative. Resting echo 07/30/16 showed moderate LVH and EF 55-59% with grade 1 diastolic dysfunction and moderate aortic sclerosis. Then yesterday while sitting he developed pain in left shoulder blade which radiated to the left chest and left arm. This pain was sharp, rated 7/10, land lasted hours with no provoking/ palliative factors. There was associated SOB and nausea. He was seen in the [facility] ER yesterday and had EKG x 2 with no significant change and troponin of 0.015 and 0.022. He was treated with aspirin and Zofran. His pain resolved and he was sent home. Then this morning around 9:30 or 10 after having his typical breakfast, while sitting he developed the same pain in his left shoulder blade with radiation to substernal area and the arm. Today the pain was more severe rated 10/10. There was associated SOB at rest and palpitations described as "hearing heart beat in my ears". He states symptoms resolved in the ED after being treated with morphine. He is now pain free. At baseline he has VIRGEN with climbing 13 stairs, but with the chest pain was dyspneic at rest. He reports occasional cough which is at baseline. He states he was recently treated with Azithromycin and prednisone at the end of June for URI. He denies fever, chills, diaphoresis, URI symptoms, abdominal pain, vomiting, diarrhea, urinary changes, edema, calf pain, abnormal bleeding, rash, numbness/tingling. Patient reports having an abnormal stress test then cardiac cath in [facility] in 2009- per Epic record cath showed EF 60%, 20% LAD, 30% RCA. Pt denies history of HTN or DM. Physical Exam (per Admitting): General Appearance: no apparent distress, + obese, + pertinent finding ( pleasant alert 61 y/o male, no distress, at bedside) Head: normocephalic, atraumatic Eyes: normal inspection, PERRL, EOMI ENT: hearing grossly normal, pharynx normal Neck: supple, no JVD, no carotid bruits, trachea midline Respiratory/Chest: chest non-tender, lungs clear, normal breath sounds, no respiratory distress, no accessory muscle use Cardiovascular: regular rate, rhythm, no murmur, normal peripheral pulses Abdomen/GI: normal bowel sounds, non tender, soft Back: normal inspection, + pertinent finding (no thoracic spinal or paraspinal tenderness) Extremities/Musculoskelatal: no calf tenderness, no pedal edema, + pertinent finding (no pain on ROM of left shoulder) Neurologic/Psych: alert, normal mood/affect, oriented x 3, + pertinent finding (grossly nonfocal) Skin: normal color, warm/dry Hospital Course NON ST ELEVATION AR Risk factors- hyperlipidemia, obesity, positive family history Pt had stress echo 07/30/16 negative Prior cardiac cath in [facility] 12/10/09- EF 60%, 20% LAD, 30% RCA as per Epic Troponin on admission 0.19, then increased to 17 EKG- showed no significant ST changes He had an outpatient 2Decho done last week Chest pain free currently Had cardiac cath done today by Dr. Carl, finding: Left Main (% Stenosis): Normal LAD (% Stenosis): Normal OM1 (% Stenosis): Mid (95) R PL1 (% Stenosis): Mid (95) S/p stent without CABG 1.Successful PCI of mid PDA with 2.5 x 18 Resolute SALOME 2. Successful PCI of large OM with 3.5 x 22 Resolute SALOME (post-dilated to 4.0) as per cardiology Post PCI EKGs performed yesterday 08/03/16 reveal serial changes of inferior infarction, with evolved inferior Q waves in leads III and aVF Will d/c heparin drip Continue plavix and aspirin for 1 year Continue crestor 20mg daily Continue metoprolol 25 mg BID Follow up with cardiology in 2 weeks case discussed with Dr. Haines HTN Metoprolol 25 mg po daily Started on Lisinopril 5 mg daily check BMP in 1 week to monitor kidney function and potassium level Monitor blood pressure and up titration of beta tahmina or PAIGE inhibitor as necessary DYSLIPIDEMIA Total chol 177, LDL 102, HDL 51 Crestor increase to 20mg daily METABOLIC SYNDROME Recent HbA1c 5 (08/02/16) Diet and exercise COPD Stable Continue PRN inhaler DVT PROPHYLAXIS on Heparin drip CODE STATUS Full code Disposition Follow up appointment with your primary care provider Dr. Morrissey on Saturdayaug 06 at 11:10am Follow up with Cardiology in 2 weeks (They will call you to schedule the follow up appointment) Total time spent on discharge = 35 minutes This includes examination of the patient, discharge planning, medication reconciliation, and communication with other providers. Discharge Instructions Discharge Instructions Admission Reason for Admission: Chest Pain Discharge Discharge Diagnosis / Problem: Non-ST segment elevation myocardial infarction, Hypertension, Dyslipidemia Discharge Goals Goal(s): Decrease discomfort, Improve function, Improve disease control Activity Recommendations Activity Limitations: resume your previous activity (as tolerated) . Instructions / Follow-Up Instructions / Follow-Up Follow up appointment with your primary care provider Dr. Morrissey on Saturdayaug 06 at 11:10am Follow up with Cardiology in 2 weeks (They will call you to schedule the follow up appointment) Check (blood) BMP in 1 week to monitor kidney function and potassium level Monitor blood pressure and your provider will titrate your blood pressure medications if needed Do not stop plavix and aspirin for 1 year unless by a provider Watch for any bleeding and notify your physician New medications Lisinopril 5 mg daily Metoprolol 25mg twice daily Crestor 20 mg daily Plavix 75 mg daily Aspirin 81 mg daily Current Hospital Diet Patient's current hospital diet: AHA Diet (Heart Healthy) Discharge Diet Recommended Diet: AHA Diet (Heart Healthy), Low Sodium Diet (2gm Na) Procedures Procedures Performed: Coronary Angiography, Left Heart Cath, LV Angiography Drug Eluting Stent Pending Studies Studies pending at discharge: no Laboratory Results Hemoglobin A1c Test 08/02/16 07:36 Range/Units Estimated Average Glucose 97 mg/dl Hemoglobin A1c 5.0 4.5-5.6 % Lipid Panel Test 08/02/16 07:36 Range/Units Triglycerides Level 122 0-150 mg/dl Cholesterol Level 177 0-200 mg/dl HDL Cholesterol 51 mg/dl Cholesterol/HDL Ratio 3.5 LDL Cholesterol, Calculated 102 mg/dl Medical Emergencies . Who to Call and When: Medical Emergencies: If at any time you feel your situation is an emergency, please call 911 immediately. . Non-Emergent Contact Non-Emergency issues call your: Primary Care Provider Call Non-Emergent contact if: you have any medication questions . . "Provider Documentation" section prepared by Dori Duran. VTE Core Measure Inpt VTE Proph given/why not?: Unfractionated heparin SQ Additional Copies To Goran Morrissey M.D.
--- NOTE | 2016-08-06 07:12 | CARDIAC CATH REPORT ---
PROCEDURE: 1. Left heart catheterization. 2. Coronary angiography. 3. Left ventriculography. HISTORY: This is a 61-year-old male patient, who presented with a non-STEMI. PROCEDURE SUMMARY: The patient was seen and evaluated in the holding area of the laboratory aide. After informed consent was obtained, he was taken to the cardiac catheterization lab where a Barbeau maneuver was performed and then he was prepped and draped in the usual manner for a right transradial approach. Pre-formed 4-Estonian diagnostic catheters were utilized for the coronary angiograms. A 5-Estonian pigtail catheter was utilized for the left ventriculogram. Following the procedure, the patient underwent coronary intervention and was returned to his room in stable condition. LEFT VENTRICULOGRAM: The left ventricle is of normal size with normal systolic function. The estimated left ventricular ejection fraction is 60%. The aortic root and ascending aorta have normal morphology and diameter. CORONARY ANGIOGRAPHY: Selective injections of the right coronary artery reveal it to be dominant. There is a subtotalled stenosis in the distal posterior lateral branch. Oxekc-bv-qicitofk disease proximally in the right coronary artery. Selective injections of the left coronary artery reveal the left main trunk to be patent. There is a large ramus branch, which is patent. The left circumflex artery consists mainly of a large lateral radha marginal branch that bifurcates. Prior to the bifurcation, there is a subtotalled stenosis. The LAD has minor diffuse disease, but is widely patent. SUMMARY: The patient has significant severe 2-vessel coronary artery disease with the left circumflex marginal being subtotalled as well as the distal right coronary artery posterolateral branch. RECOMMENDATIONS: For coronary intervention on these 2 vessels.
== END 2016-08-04 11:17 | disposition home or self-care (01) | DRG 249 ==
LOC: ENRESERVDT → ENRESERVTM → C.EDB 12:31 → C.2T 16:44
PROVIDERS: ADMIT Internal Medicine; ATTEND Internal Medicine
PROC: 02713EZ Dilation of Coronary Artery, Two Arteries with Two Intraluminal Devices, Percutaneous Approach (ICD-10-PCS; 2016-08-03)
PROC: B2151ZZ Fluoroscopy of Left Heart using Low Osmolar Contrast (ICD-10-PCS; principal; 2016-08-03 06:54)
PROC: 4A023N7 Measurement of Cardiac Sampling and Pressure, Left Heart, Percutaneous Approach (ICD-10-PCS; principal; 2016-08-03 06:54)
PROC: B2111ZZ Fluoroscopy of Multiple Coronary Arteries using Low Osmolar Contrast (ICD-10-PCS; principal; 2016-08-03 06:54)
DX: I21.4 Non-ST elevation (NSTEMI) myocardial infarction (principal); J44.9 Chronic obstructive pulmonary disease, unspecified; K21.9 Gastro-esophageal reflux disease without esophagitis; E66.9 Obesity, unspecified; R07.89 Other chest pain; I25.10 Atherosclerotic heart disease of native coronary artery without angina pectoris; E78.5 Hyperlipidemia, unspecified; I11.9 Hypertensive heart disease without heart failure; E88.81 Metabolic syndrome and other insulin resistance; R79.89 Other specified abnormal findings of blood chemistry; F41.1 Generalized anxiety disorder; H81.10 Benign paroxysmal vertigo, unspecified ear; M19.90 Unspecified osteoarthritis, unspecified site; M48.54XD Collapsed vertebra, not elsewhere classified, thoracic region, subsequent encounter for fracture with routine healing; Z82.49 Family history of ischemic heart disease and other diseases of the circulatory system; Z68.38 Body mass index [BMI] 38.0-38.9, adult; Z79.899 Other long term (current) drug therapy

== ENCOUNTER 2016-09-11 02:39 | Observation (INO) | payer BC ==
[~2016-09-11] VITALS: Ht 165.1 cm; Wt 104.7 kg
[2016-09-11] VITALS (10 sets, daily range): BP systolic 90–125; BP diastolic 39–74; PULSE 55–64; TEMP 36.4–36.9; O2SAT 92–96; Ht 165.1 cm; Wt 104.7 kg
[~2016-09-11 02:39] MED LIST changes: +ASPEC81 PO; -CRS10 PO; +CRS20 PO; +CYCL10TA6 PO; +LPR25 PO; +LSN5 PO; +PLV75 PO
[2016-09-11] MEDS ORDERED: ASPIRIN 81 MG CHEW PO STA (02:56)
[2016-09-11] MEDS ORDERED: NITROGLYCERIN 0.4 MG SL PER TAB CHARGE SL PRN ×2 (03:00→05:30)
[2016-09-11] MEDS ORDERED: ASPIRIN 324 MG CHEW ONE (03:12)
[2016-09-11 03:16] LABS: BASO % 0.4 %; BASO ABS # 0.03 K/uL (0-0.2); COMPLETE YES; EOS % 5.8 %; HEMATOCRIT 44.6 % (42-52); IG% 0.2 %; LYMPH % 17.4 %; LYMPH ABS # 1.47 K/uL (1.2-3.4); MEAN CELL VOLUME 82.4 fL (80-100); MEAN CORPUSCULAR HEMOGLOBIN 29.8 pg (25-34); MEAN CORPUSCULAR HGB CONC 36.1 g/dl (32-36); MEAN PLATELET VOLUME 9.6 fL (7.4-10.4); MONO % 10.8 %; NEUT % 65.4 %; PLATELET COUNT 221 K/uL (130-400); RED BLOOD COUNT 5.41 M/uL (4.7-6.1); WHITE BLOOD COUNT 8.44 K/uL (4.8-10.8)
[2016-09-11 03:24] LABS: INR 1.1 (0.9-1.1); PARTIAL THROMBOPLASTIN RATIO 1.2; PROTHROMBIN TIME (PATIENT) 11.5 SECONDS (9.0-12.0)
[2016-09-11 03:34] LABS: BUN/CREATININE RATIO 10.7 (10-20); CALCIUM 8.5 mg/dl (8.5-10.1); CREATININE 0.78 mg/dl (0.60-1.40)
[2016-09-11 03:38] LABS: CKMB/CK RATIO 1.1 (0-3.0)
[2016-09-11] MEDS ORDERED: DICY10CA12 PO (04:07)
[2016-09-11] MEDS ORDERED: CLOP1TAB15 PO (04:07)
[2016-09-11] MEDS ORDERED: NTRSL3 UT (04:07)
[2016-09-11] MEDS ORDERED: ROSU20TA PO (04:07)
[2016-09-11] MEDS ORDERED: ASPI81TA28 PO (04:07)
[2016-09-11] MEDS ORDERED: METO25TA56 PO (04:07)
[2016-09-11] MEDS ORDERED: LSN5 PO (04:07)
--- NOTE | 2016-09-11 04:33 | EMERGENCY ROOM VISIT NOTE ---
History Report prepared by Ubaldoibmichelle: Jarrod Watters Under the Supervision of: Dr. Araceli Rutherford M.D. First contact with patient: 02:53 Chief Complaint: CHEST PAIN Stated Complaint: BACK AND CHEST PAIN,COUGH History of Present Illness The patient is a 61 year old male who presents to the Emergency Room with complaints of constant chest pain beginning shortly prior to arrival. He rates his current pain as a 2/10 in severity. His current pain woke him up from his sleep. The patient had a heart attack six weeks ago and had two stents placed. He states that he experienced back pain yesterday through the day today as well. Additionally, the patient notes that he has had a cough for the past week and has felt nauseous today. He has a history of COPD but has no history of smoking and is thought to likely be work-related. The patient denies any vomiting. Source of History: patient Onset: shortly prior to arrival Position: chest Symptom Intensity: 2/10 Timing: constant Associated Symptoms: + back pain, + cough, + nausea, No vomiting Review of Systems See HPI for pertinent positives & negatives. A total of 10 systems reviewed and were otherwise negative. Past Medical & Surgical Medical Problems: (1) Anxiety disorder (2) Benign positional vertigo (3) Compression fracture of T12 vertebra (4) COPD (chronic obstructive pulmonary disease) (5) Coronary artery disease (6) Generalized anxiety disorder (7) GERD (gastroesophageal reflux disease) (8) Hyperlipemia (9) Hyperlipidemia (10) Metabolic syndrome (11) Obesity (BMI 30-39.9) (12) Osteoarthritis Surgical Problems: (1) H/O cardiac catheterization (2) Hx of appendectomy (3) Hx of cholecystectomy (4) Status post cardiac catheterization (5) Status post coronary artery stent placement Family History FH: heart disease MOTHER (s/p stents, onset in 60s) SISTER (s/p stents, onset in 40s) Hypertension Social History Smoking Status: Never Smoker Alcohol Use: none Marital Status: Housing Status: lives with significant other Occupation Status: employed Current/Historical Medications Scheduled Aspirin (Aspirin Ec), 81 MG PO DAILY Clopidogrel (Plavix), 75 MG PO DAILY Famotidine (Pepcid Ac), 10 MG PO HS Lisinopril (Lisinopril), 5 MG PO DAILY Metoprolol Tartrate (Lopressor) (Lopressor), 25 MG PO BID Rosuvastatin Calcium (Crestor), 20 MG PO QAM Scheduled PRN Acetaminophen (Tylenol), 1,000 MG PO Q4H PRN for Pain or Fever Albuterol Sulfate (Proair Respiclick), 2 PUFFS INH Q4H PRN for SOB/Wheezing Cyclobenzaprine Hcl (Flexeril), 10 MG PO BID PRN for Muscle Spasms Dicyclomine Hcl (Dicyclomine Hcl), 1 CAP PO BID PRN for ABD PAIN Meclizine HCl (Meclizine HCl), 25 MG PO TID PRN for Dizziness or Vertigo Nitroglycerin (Nitrostat), 0.3 MG UT PRN PRN for Chest Pain Ondansetron Hcl (Zofran), 4 MG PO Q4H PRN for Nausea Allergies Coded Allergies: Tramadol (Verified Allergy, Unknown, itching, 09/11/16) Hydrocodone (Verified Adverse Reaction, Intermediate, DIZZY/NAUSEA, ) Physical Exam Vital Signs Date Time Temp Pulse Resp B/P Pulse Ox O2 Delivery O2 Flow Rate FiO2 09/11/16 04:27 54 106/72 94 Room Air 09/11/16 03:25 58 18 126/72 94 Room Air 09/11/16 03:09 61 09/11/16 02:59 96 Room Air 09/11/16 02:46 36.5 63 18 136/82 94 Room Air Physical Exam Vital signs reviewed. General: Well-appearing male, in no significant distress. HEENT: No scleral icterus, PERRLA, neck supple. Atraumatic. Cardiovascular: Regular rate and rhythm, no extra sounds. Pulmonary: Clear to auscultation bilaterally, normal work of breathing. Abdomen: Soft, nontender, nondistended, positive bowel sounds. Musculoskeletal: Atraumatic, no peripheral edema. Neurologic: Patient awake alert and oriented x 3, full strength in all 4 extremities. Cranial nerves 2 through 12 grossly intact. Skin: Warm, dry, no rash Medical Decision & Procedures ER Provider Diagnostic Interpretation: One View Chest X-ray interpreted by me: no focal consolidation. No failure. Laboratory Results Test 09/11/16 03:00 09/11/16 03:08 RDW Standard Deviation 38.5 fL (36.4-46.3) RDW Coefficient of Variation 12.8 % (11.5-14.5) White Blood Count 8.44 K/uL (4.8-10.8) Red Blood Count 5.41 M/uL (4.7-6.1) Hemoglobin 16.1 g/dL (14.0-18.0) Hematocrit 44.6 % (42-52) Mean Corpuscular Volume 82.4 fL (80-100) Mean Corpuscular Hemoglobin 29.8 pg (25-34) Mean Corpuscular Hemoglobin Concent 36.1 g/dl (32-36) Platelet Count 221 K/uL (130-400) Mean Platelet Volume 9.6 fL (7.4-10.4) Neutrophils (%) (Auto) 65.4 % Lymphocytes (%) (Auto) 17.4 % Monocytes (%) (Auto) 10.8 % Eosinophils (%) (Auto) 5.8 % Basophils (%) (Auto) 0.4 % Neutrophils # (Auto) 5.52 K/uL (1.4-6.5) Lymphocytes # (Auto) 1.47 K/uL (1.2-3.4) Monocytes # (Auto) 0.91 K/uL (0.11-0.59) Eosinophils # (Auto) 0.49 K/uL (0-0.5) Basophils # (Auto) 0.03 K/uL (0-0.2) Immature Granulocyte % (Auto) 0.2 % Immature Granulocyte # (Auto) 0.02 K/uL (0.00-0.02) Prothrombin Time 11.5 SECONDS (9.0-12.0) Prothromb Time International Ratio 1.1 (0.9-1.1) Activated Partial Thromboplast Time 30.3 SECONDS (21.0-31.0) Partial Thromboplastin Ratio 1.2 Est Creatinine Clear Calc Drug Dose 108.0 ml/min Total Bilirubin 0.6 mg/dl (0.2-1) Direct Bilirubin 0.1 mg/dl (0-0.2) Aspartate Amino Transf (AST/SGOT) 20 U/L (15-37) Alanine Aminotransferase (ALT/SGPT) 32 U/L (12-78) Alkaline Phosphatase 69 U/L (45-117) Total Protein 7.3 gm/dl (6.4-8.2) Albumin 3.6 gm/dl (3.4-5.0) Bedside Troponin I 0.000 ng/ml (0-0.045) Laboratory results per my review. Medications Administered Medications (Trade) Dose Ordered Sig/Poonam Route Start Time Stop Time Status Last Admin Dose Admin Aspirin (Aspirin Chew) 324 mg STK-MED ONCE .ROUTE 09/11/16 03:12 09/11/16 03:15 DC 09/11/16 03:18 324 MG Acetaminophen (Tylenol Tab) 1,000 mg Q4H PRN PO 09/11/16 05:00 10/11/16 04:59 09/11/16 16:08 1,000 MG Morphine Sulfate (MoRPHine SULFATE INJ) 4 mg NOW STAT IV 09/11/16 05:01 09/11/16 05:03 DC 09/11/16 05:19 4 MG Ondansetron HCl (Zofran Inj) 4 mg NOW STAT IV 09/11/16 05:01 09/11/16 05:03 DC 09/11/16 05:18 4 MG ECG Indication: chest pain Rate (beats per minute): 61 Rhythm: normal sinus Findings: T-wave inversion (Inferior), no ectopy ED Course 0255: Past medical records reviewed. The patient was evaluated in room B5. A complete history and physical examination was performed. 0256: Ordered Aspirin 324 mg PO, Nitrostat 0.4 mL SL. 0425: Upon reevaluation, the patient is resting comfortably. I discussed laboratory and radiographic results with him. He verbalized agreement of the treatment plan. I spoke with Dr. Tapia of the [facility] Hospitalist Service. The patient will be evaluated for further management and care. 0500: The patient is complaining of flank pain. Ordered Zofran Inj 4 mg IV, Morphine Sulfate 4 mg IV. Medical Decision Chest pain: Acute coronary syndrome, pulmonary embolus, aortic dissection, musculoskeletal pain, pneumonia, pleural effusion, pneumothorax This patient was evaluated and appeared to be in no significant distress. IV access was obtained and laboratory work was drawn. The patient was placed on youth nutritional monitor and found to be in a normal sinus rhythm. He does have some T- wave inversion. Patient was given 324 mg of aspirin to chew. Chest x-ray reveals no evidence of focal lung consolidation or failure. Laboratory work reveals negative cardiac enzymes. D-dimer is normal. Patient will be evaluated by the hospitalist service for admission and further cardiac management. He is aware of this plan and agrees. Consults Time Called: [phone] Consulting Physician: Dr. Regina Pratt Returned Call: [phone] I reviewed the patient's case with Dr. Tapia. Holly will evaluate the patient for further management. Impression Primary Impression: Chest pain, radiating Scribe Attestation The scribe's documentation has been prepared under my direction and personally reviewed by me in its entirety. I confirm that the note above accurately reflects all work, treatment, procedures, and medical decision making performed by me. Departure Information Dispostion Being Evaluated By Hospitalist Referrals Goran Morrissey M.D. (PCP) Patient Instructions [facility]
--- NOTE | 2016-09-11 04:52 | History and Physical ---
History & Physical Date & Time of Service: Sep 11, 2016 at 05:45 . Chief Complaint: chest and back pain . Primary Care Physician: Goran Morrissey M.D. . History of Present Illness Source: patient, family, clinic records, hospital records 61 YO male followed by Dr. Morrissey for Family Medicine and Dr. Carl for Cardiology. History of ischemic heart disease and other problems noted below. Hospitalized at [facility] 08/01/16 with non-STEMI. Cath revealed disease of PDA and OM; PCI's with drug-eluting stents performed with good results. Discharged to home. Yesterday developed right scapular pain after doing some chores. Tonight, the pain worsened and became more anterior- described as midsternal chest pressure. No radiation to arms. [place] nauseated without emesis. No dyspnea or diaphoresis. Occasional palpitations. No edema. Symptoms were similar to his PA in July. Has been taking his cardiac meds as prescribed. Did not take any NTG at home. Came to ED. CP resolved after administration of aspirin and IV morphine. Pain-free at time of my assessment. . Past Medical/Surgical History Chronic and Resolved Medical Problems: (1) Anxiety disorder Status: Chronic (2) Benign positional vertigo Status: Chronic (3) Compression fracture of T12 vertebra Status: Chronic (4) COPD (chronic obstructive pulmonary disease) Status: Chronic (5) Coronary artery disease Permanent Comment: non-STEMI [facility] 08/01/16; cath + PCI [place] PDA + OM 08/03/16 Status: Chronic (6) Generalized anxiety disorder Status: Chronic (7) GERD (gastroesophageal reflux disease) Status: Chronic (8) Hyperlipemia Status: Chronic (10) Metabolic syndrome Status: Chronic (11) Obesity (BMI 30-39.9) Status: Chronic (12) Osteoarthritis Status: Chronic Surgical Problems: (1) H/O cardiac catheterization Permanent Comment: 12/10/09 EF 60%, 20% LAD, 30% RCA as per Epic Status: Chronic (2) Hx of appendectomy Status: Chronic (3) Hx of cholecystectomy Status: Chronic (4) Status post cardiac catheterization Permanent Comment: [facility] 08/03/16 occlusions left circumflex + distal RCA posterolateral branch Status: Chronic (5) Status post coronary artery stent placement Permanent Comment: [facility] 08/03/16 PCI's PDA + OM with drug-eluting stents Status: Chronic . Family History MOTHER Coronary artery disease SISTER Coronary artery disease FATHER Cirrhosis of liver Social History Smoking Status: Never Smoker Alcohol Use: none Marital Status: Housing status: lives with family Occupational Status: employed Immunizations History of Influenza Vaccine: Yes History of Tetanus Vaccine?: Unknown History of Pneumococcal: Yes History of Hepatitis B Vaccine: No Allergies Coded Allergies: Tramadol (Verified Allergy, Unknown, itching, 09/11/16) Hydrocodone (Verified Adverse Reaction, Intermediate, DIZZY/NAUSEA, ) Home Medications Scheduled Aspirin (Aspirin Ec), 81 MG PO DAILY Clopidogrel (Plavix), 75 MG PO DAILY Famotidine (Pepcid Ac), 10 MG PO HS Lisinopril (Lisinopril), 5 MG PO DAILY Metoprolol Tartrate (Lopressor) (Lopressor), 25 MG PO BID Rosuvastatin Calcium (Crestor), 20 MG PO QAM Scheduled PRN Acetaminophen (Tylenol), 1,000 MG PO Q4H PRN for Pain or Fever Albuterol Sulfate (Proair Respiclick), 2 PUFFS INH Q4H PRN for SOB/Wheezing Cyclobenzaprine Hcl (Flexeril), 10 MG PO BID PRN for Muscle Spasms Dicyclomine Hcl (Dicyclomine Hcl), 1 CAP PO BID PRN for ABD PAIN Meclizine HCl (Meclizine HCl), 25 MG PO TID PRN for Dizziness or Vertigo Nitroglycerin (Nitrostat), 0.3 MG UT PRN PRN for Chest Pain Ondansetron Hcl (Zofran), 4 MG PO Q4H PRN for Nausea Review of Systems Constitutional: No fever, No weight loss Eyes: No diplopia, No worsening of vision ENT: + problem reported (postnasal drainage), No sore throat Respiratory: + cough (x 1 wk productive of green sputum), No shortness of breath Cardiovascular: + problem reported (as noted above in HPI) Abdomen: + diarrhea (x1), + nausea, No GI bleeding, No vomiting Musculoskeletal: + joint pain Genitourinary - Male: No dysuria, No hematuria Endocrine: No excessive thirst, No excessive urination Hematologic / Lymphatic: No abnormal bleeding/bruising, No swollen lymph nodes Integumentary: No new/changing skin lesions, No rash Physical Exam Vital Signs Date Time Temp Pulse Resp B/P Pulse Ox O2 Delivery O2 Flow Rate FiO2 09/11/16 04:27 54 106/72 94 Room Air 09/11/16 03:25 58 18 126/72 94 Room Air 09/11/16 03:09 61 09/11/16 02:59 96 Room Air 09/11/16 02:46 36.5 63 18 136/82 94 Room Air General Appearance: WD/WN, no apparent distress Head: normocephalic, atraumatic Eyes: normal inspection, PERRL, EOMI, sclerae normal ENT: normal ENT inspection, hearing grossly normal, pharynx normal Neck: supple, no adenopathy, thyroid normal, no JVD, trachea midline Respiratory/Chest: lungs clear, no respiratory distress, no accessory muscle use Cardiovascular: regular rate, rhythm, no edema, no gallop, no JVD, no murmur, normal peripheral pulses, + pertinent finding (carotids 2/2, peripheral pulses 2 /2) Abdomen/GI: normal bowel sounds, non tender, soft, no organomegaly, no pulsatile mass Extremities/Musculoskelatal: normal inspection, no calf tenderness, no pedal edema 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 (PERRL, EOMI, no facial palsy, no dysarthria), no motor/sensory deficits, alert, normal mood/affect, oriented x 3 Skin: normal color, warm/dry, no rash Lymphatic: no adenopathy Diagnostics Laboratory Results Results Past 24 Hours Test 09/11/16 03:00 09/11/16 03:08 Range/Units White Blood Count 8.44 4.8-10.8 K/uL Red Blood Count 5.41 4.7-6.1 M/uL Hemoglobin 16.1 14.0-18.0 g/dL Hematocrit 44.6 42-52 % Mean Corpuscular Volume 82.4 80-100 fL Mean Corpuscular Hemoglobin 29.8 25-34 pg Mean Corpuscular Hemoglobin Concent 36.1 32-36 g/dl Platelet Count 221 130-400 K/uL Mean Platelet Volume 9.6 7.4-10.4 fL Neutrophils (%) (Auto) 65.4 % Lymphocytes (%) (Auto) 17.4 % Monocytes (%) (Auto) 10.8 % Eosinophils (%) (Auto) 5.8 % Basophils (%) (Auto) 0.4 % Neutrophils # (Auto) 5.52 1.4-6.5 K/uL Lymphocytes # (Auto) 1.47 1.2-3.4 K/uL Monocytes # (Auto) 0.91 0.11-0.59 K/uL Eosinophils # (Auto) 0.49 0-0.5 K/uL Basophils # (Auto) 0.03 0-0.2 K/uL RDW Standard Deviation 38.5 36.4-46.3 fL RDW Coefficient of Variation 12.8 11.5-14.5 % Immature Granulocyte % (Auto) 0.2 % Immature Granulocyte # (Auto) 0.02 0.00-0.02 K/uL Prothrombin Time 11.5 9.0-12.0 SECONDS Prothromb Time International Ratio 1.1 0.9-1.1 Activated Partial Thromboplast Time 30.3 21.0-31.0 SECONDS Partial Thromboplastin Ratio 1.2 Sodium Level 142 136-145 mmol/L Potassium Level 4.0 3.5-5.1 mmol/L Chloride Level 108 98-107 mmol/L Carbon Dioxide Level 25 21-32 mmol/L Anion Gap 9.0 3-11 mmol/L Blood Urea Nitrogen 8 7-18 mg/dl Creatinine 0.78 0.60-1.40 mg/dl Est Creatinine Clear Calc Drug Dose 108.0 ml/min Estimated GFR () 111.3 Estimated GFR (Non- 96.1 BUN/Creatinine Ratio 10.7 10-20 Random Glucose 91 70-99 mg/dl Calcium Level 8.5 8.5-10.1 mg/dl Total Bilirubin 0.6 0.2-1 mg/dl Direct Bilirubin 0.1 0-0.2 mg/dl Aspartate Amino Transf (AST/SGOT) 20 15-37 U/L Alanine Aminotransferase (ALT/SGPT) 32 12-78 U/L Alkaline Phosphatase 69 45-117 U/L Total Creatine Kinase 45 39-308 U/L Creatine Kinase MB 0.5 0.5-3.6 ng/ml Creatine Kinase MB Ratio 1.1 0-3.0 Total Protein 7.3 6.4-8.2 gm/dl Albumin 3.6 3.4-5.0 gm/dl Bedside Troponin I 0.000 0-0.045 ng/ml Diagnostic Radiology Chest x-ray reviewed by the undersigned (preliminary interpretation): normal cardiac and mediastinal silhouettes; no infiltrates, effusions, CHF . EKG EKG performed at 02:42 reviewed and demonstrated NSR at 60 / minute, inverted T- waves III, aVF. Inverted T-waves new compared to EKG performed 08/03/16. . Impression Assessment and Plan CHEST PAIN / CAD Known ischemic heart disease with non-STEMI 6 weeks ago with successful PCI of PDA and OM with drug-eluting stents. Now with chest pain similar to his previous symptoms. EKG shows inferior T-wave inversions. First set of cardiac markers negative. Check serial cardiac markers. Continue ASA and clopidogrel. Add IV heparin. Continue metoprolol tartrate and lisinopril. Add topical NTG. Check lipid profile. Continue rosuvastatin. Consult Cardiology. DYSLIPIDEMIA Check lipid profile. Continue rosuvastatin. COUGH No fever; no infiltrates on chest x-ray. Follow. COPD Stable. VTE PROPHYLAXIS IV heparin. Ambulate as able. RESUSCITATION STATUS Discussed with patient. He does not have a living will. He would like resuscitation attempted in the event of a cardiopulmonary arrest if there is a reasonable chance of a meaningful recovery, but does not want prolonged extraordinary measures if prognosis is poor. Therefore, code status = "Level 1" (full resuscitation). DISPOSITION Observation status on Telemetry Unit. Expected discharge to home. Family Medicine follow-up with Dr. Morrissey. Cardiology follow-up with Dr. Carl. . VTE Prophylaxis Risk Level: Moderate Given or contraindicated: Other Anticoagulation (IV heparin)
[2016-09-11] MEDS ORDERED: ALBUTEROL HFA 8 GM INHALER INH PRN (05:00)
[2016-09-11] MEDS ORDERED: ONDANSETRON 4 MG TAB PO PRN (05:00)
[2016-09-11] MEDS ORDERED: ACETAMINOPHEN 500 MG TAB PO PRN (05:00)
[2016-09-11] MEDS ORDERED: NITROGLYCERIN 0.3 MG/1 TAB 100 TAB BTL UT PRN (05:00)
[2016-09-11] MEDS ORDERED: ONDANSETRON INJ 2 MG/ML 2 ML VIAL IV STA (05:01)
[2016-09-11] MEDS ORDERED: MoRPHine SULFATE 4 MG/ML 1 ML CARP\\VIAL IV STA (05:01)
[2016-09-11] MEDS ORDERED: MoRPHine SULFATE 4 MG/ML 1 ML CARP\\VIAL ONE (05:24)
[2016-09-11] MEDS ORDERED: ONDANSETRON INJ 2 MG/ML 2 ML VIAL ONE (05:24)
[2016-09-11] MEDS ORDERED: ACETAMINOPHEN 325 MG TAB PO PRN (05:30)
[2016-09-11] MEDS ORDERED: MoRPHine SULFATE 2 MG/ML CARP IV PRN (05:30)
[2016-09-11] MEDS ORDERED: IV FLUIDS COMPLETED PRN (05:45)
[2016-09-11] MEDS ORDERED: D5W AND LACTATED RINGERS 1,000 ML IV SCH (06:15)
[2016-09-11] MEDS ORDERED: HEPARIN 25000 UNIT/500 ML D5W ONE (06:36)
[2016-09-11] MEDS ORDERED: NITROGLYCERIN OINT 2% 1GM PACKET ONE (06:36)
[2016-09-11] MEDS ORDERED: HEPARIN SOD 5000 UNIT/0.5 ML CARP ONE (06:36)
--- NOTE | 2016-09-11 07:36 | DIAGNOSTIC IMAGING REPORT ---
CHEST ONE VIEW PORTABLE CLINICAL HISTORY: Atypical chest pain COMPARISON STUDY: 08/01/2016 FINDINGS: The cardiac and mediastinal contours are normal. There is no evidence of focal pulmonary consolidation. There is no evidence of failure. No pleural effusions are visualized.[ IMPRESSION: No active disease in the chest. Electronically signed by: Tobin Ramirez M.D. 09/11/2016 7:34 AM Dictated Date/Time: 09/11/2016 7:34 AM
[2016-09-11] MEDS: CLOPIDOGREL BISULFATE 75 MG TAB PO SCH (09:30)
[2016-09-11] MEDS: ROSUVASTATIN CALCIUM 20 MG TAB PO SCH (09:30)
[2016-09-11] MEDS: ASPIRIN 81 MG ECTAB PO SCH (09:31)
[2016-09-11] MEDS: METOPROLOL TARTRATE 25 MG TAB PO SCH ×2 (09:31→20:15)
[2016-09-11] MEDS: LISINOPRIL 5 MG TAB PO SCH (09:31)
[2016-09-11 09:48] LABS: CHOLESTEROL 147 mg/dl (0-200); CHOLESTEROL/HDL RATIO 3.4; CKMB/CK RATIO 1.7 (0-3.0); HDL CHOLESTEROL 43 mg/dl; LDL CHOLESTEROL CALCULATED 89 mg/dl; TRIGLYCERIDES 74 mg/dl (0-150); VERY LOW DENSITY LIPOPROT CALC 15 mg/dl
[2016-09-11] MEDS: NITROGLYCERIN OINT 2% 1GM PACKET EXT SCH ×4 (12:00→23:34)
[2016-09-11] MEDS ORDERED: NURSING VERBAL MED ORDER ONE (12:30)
--- NOTE | 2016-09-11 13:28 | CARDIOLOGY CONSULTATION ---
DATE OF CONSULTATION: 09/11/2016 HISTORY OF PRESENT ILLNESS: Andrea Pierre is a 61-year-old male seen in cardiology consultation per the request of Dr. Tapia for the evaluation of chest discomfort and posterior shoulder discomfort over his left scapula. The patient's primary lan administrator is Dr. Carl of our practice, who the patient had recently seen in outpatient followup on 08/16/2016. The patient's primary care provider is Dr. Morrissey. The patient's recent cardiac history dates back to July 2016. He has been having exertional chest discomfort. He had a pharmacologic nuclear stress test on 07/30/2016 as an outpatient that revealed no significant perfusion abnormality and a resting echocardiogram that revealed no resting wall motion abnormalities. He went on to have progressive exertional chest discomfort. 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 His EKG at that time revealed no acute repolarization abnormalities. As his hospitalization progressed, he developed evolution of inferior infarction pattern with Q-waves noted in the inferior leads and mild J-point elevation. The patient underwent cardiac catheterization with findings of 2-vessel coronary artery disease with 95% stenosis of the right posterolateral branch of the right coronary artery as well as a 95% stenosis of the mid obtuse marginal. The patient underwent percutaneous coronary intervention in the same setting, receiving drug-eluting stents to the right coronary artery and obtuse marginal. The patient was discharged on dual antiplatelet therapy with aspirin and clopidogrel. The patient had initially been doing well with the exception of occasional mild nosebleeds. He had been seen in outpatient cardiology followup and had noted twinges of chest discomfort. This prompted an outpatient exercise stress echocardiogram, which was performed on 08/27/2016. The report notes that he had baseline T-wave changes in the inferior and lateral leads at rest. The patient exercised for 6 minutes, stopping due to shortness of breath and leg fatigue with no chest discomfort reported and no EKG or echocardiographic evidence of inducible ischemia. Since that episode on the , he has noticed that he seems to be coming down with a respiratory tract infection. He notes generalized chest tightness and coughing. 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 He dug the hole with a piece of farm equipment and moved the horse with a piece of farm equipment in order to bury the horse, but he did have to lift the horse to move her when she was sick the day before. The patient noted that yesterday at the time of his evening meal, he felt pain over his left shoulder at the area of the left shoulder blade. He felt that this was similar to his past anginal discomfort. This was palliated with taking Tylenol. At 01:30 a.m., he woke up with left-sided chest discomfort. He subsequently came to the Emergency Room. EKG performed on arrival to the Emergency Room overnight last night revealed sinus rhythm at 61 beats per minute with T-wave inversions noted in the inferior leads III and aVF consistent with evolution of his previous inferior wall infarction pattern that were relatively unchanged compared to his previous tracing. Repeat tracing performed on 09/11/2016 at 08:01 revealed sinus bradycardia with continued mild T-wave changes in the inferior leads, stable EKG findings. When I assessed the patient at the bedside, he was being held as a telemetry overflow patient in the Emergency Room. He was feeling well. He was having a mild episode of epistaxis and was on a heparin infusion. His initial troponin performed at 03:08 a.m. was negative and a repeat performed at 09:15 a.m. was also negative. Chest x-ray had revealed no acute active cardiac disease. PAST MEDICAL HISTORY: 1. Coronary artery disease with recent non-ST segment elevation myocardial infarction and drug-eluting stents to the distal RCA and obtuse marginal on 08/01/2016. 2. Dyslipidemia. 3. Metabolic syndrome. 4. Osteoarthritis. 5. History of anxiety. 6. History of T12 compression fracture. PAST SURGICAL HISTORY: 1. Cardiac catheterization in 2009 and again on 08/03/2016. 2. Appendectomy. FAMILY HISTORY: The patient's mother and sister each had coronary stents. SOCIAL HISTORY: The patient is a nonsmoker. He is . His spouse is accompanying him at the bedside. 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 ALLERGIES: TRAMADOL AND HYDROCODONE. MEDICATIONS: Reviewed. The patient is on aspirin 81 mg by mouth daily, clopidogrel 75 mg by mouth daily, lisinopril 5 mg by mouth daily, metoprolol tartrate 25 mg by mouth b.i.d. and rosuvastatin 20 mg by mouth daily. He denies missing any doses of aspirin or clopidogrel recently. COMPREHENSIVE REVIEW OF SYSTEMS: A 10-point review of systems was reviewed and is negative with the exception of that noted above. PHYSICAL EXAMINATION: VITAL SIGNS: Temperature 36.8, heart rate 55, and blood pressure 125/74. GENERAL APPEARANCE: Awake and oriented x3 in no acute distress. HEENT: Extraocular muscles were intact. Pupils equal and reactive to light. NECK: No bruits or cervical lymphadenopathy. CARDIOVASCULAR: Regular rate. No murmurs, rubs or gallops. ABDOMEN: Positive bowel sounds. Soft, nontender, and nondistended. EXTREMITIES: No clubbing, cyanosis or edema. NEUROLOGIC: No focal deficits. PSYCHIATRIC: Appropriate affect and insight. DIAGNOSTIC DATA: EKG as outlined above. Cardiac enzymes as outlined above. LDL cholesterol is 89 mg/dL. Kidney function is within normal limits. FINAL IMPRESSION: A 61-year-old male. 1. The patient presents with episodic left chest discomfort, left scapular pain reminiscent of his recent angina that he described at the time of his non-ST segment elevation myocardial infarction 6 weeks ago. 2. Recent drug-eluting stents to the distal coronary artery and obtuse marginal. 3. Dyslipidemia. 4. Mild epistaxis. RECOMMENDATIONS: At this time, I am going to discontinue the patient's heparin infusion given his mild epistaxis. At this time, he is pain free. His EKGs are stable and his repeat troponin was within normal limits. We will proceed with resting echocardiogram. Depending upon the patient's course in terms of his enzymes and his symptoms, we will determine what is the next reasonable step in ischemic workup is. Typically, if he was to have a problem with his newly placed cardiac stents, it would not present with subtle symptoms and typically would present with acute stent thrombosis. The patient's recent angiogram films have been reviewed and he did not have any significant residual disease other where he received his PCI. It is noted that the patient's outpatient stress test in early July failed to diagnose significant ischemia and then he presented 2 days later with a non-ST segment elevation myocardial infarction. Therefore, I do not think a pharmacologic nuclear stress test would be helpful. In addition, the patient did have a recent exercise stress echocardiogram. Any stress testing would have to be interpreted with these tests in mind. At present, I am going to advance the patient's diet. Further recommendations will be forthcoming as his hospital stay develops with serial cardiac enzymes and EKG. JADE
--- NOTE | 2016-09-11 13:59 | Progress Note ---
Internal Med Progress Note Date of Service: Sep 11, 2016. Provider Documentation: SUBJECTIVE: Patient is seen and examined at bedside. Currently denies any chest pain, SOB, palpitations, dizziness. Family at bedside. Offers no complaints. OBJECTIVE: Vital Signs-as noted below Physical Exam: General Appearance:Obese, no apparent distress Head: normocephalic, Atraumatic Eyes: normal inspection, EOMI, PERRLA Neck: supple, Trachea midline Respiratory/Chest: Normal breath sounds, CTA Cardiovascular: S1, S2, No murmur Abdomen/GI:Soft, Non tender, Bowel sounds present Extremities/Musculoskelatal:normal inspection, no edema Neurologic/Psych:AAOX3, grossly no focal neurological deficits Skin: normal color, warm Lab data as noted below. ASSESSMENT & PLAN: CHEST PAIN r/o ACS Risk factors: Known ischemic heart disease with non-STEMI 6 weeks ago: S/P PCI of PDA and OM with drug-eluting stents. EKG: T-wave inversions in inferior leads Troponin X 2: Negative IV heparin discontinued secondary to epistaxis Continue ASA, Plavix, metoprolol, lisinopril, statin Appreciate Cardiology input ECHO: No wall motion abnormality May need a stress test based on hospital course DYSLIPIDEMIA Continue statin. COUGH No fever; WBCs:wnl, no infiltrates on chest x-ray. Continue to monitor COPD Stable. DVT PX: SCDs Ambulate as able. IV Heparin discontinued secondary to epistaxis CODE STATUS: Full code DISPOSITION Continue monitoring in Tele Family Medicine follow-up with Dr. Morrissey. Cardiology follow-up with Dr. Carl. PROCEDURES: ECHO: * The left ventricular wall motion is normal. * The LV Ejection Fraction = 60-65%. * Aortic valve sclerosis mild, without significant aortic valvular stenosis. * Diastolic dysfunction, Grade II (pseudonormalization pattern). * There is a small loculated anterior and right lateral pericardial effusion. * There are no echocardiographic indications of cardiac tamponade. Vital Signs: Date Time Temp Pulse Resp B/P Pulse Ox O2 Delivery O2 Flow Rate FiO2 09/11/16 15:56 36.9 57 20 104/67 93 Room Air 09/11/16 13:50 36.4 57 18 102/65 92 Room Air 09/11/16 12:28 56 13 98/44 96 Room Air 09/11/16 12:15 Room Air 09/11/16 08:15 36.8 55 16 125/74 94 Room Air 09/11/16 06:44 61 18 110/68 94 Room Air 09/11/16 05:28 59 16 122/76 92 Room Air 09/11/16 04:27 54 106/72 94 Room Air 09/11/16 03:25 58 18 126/72 94 Room Air 09/11/16 03:09 61 09/11/16 02:59 96 Room Air 09/11/16 02:46 36.5 63 18 136/82 94 Room Air Lab Results: Results Past 24 Hours Test 09/11/16 03:00 09/11/16 03:08 09/11/16 05:25 09/11/16 09:15 Range/Units White Blood Count 8.44 4.8-10.8 K/uL Red Blood Count 5.41 4.7-6.1 M/uL Hemoglobin 16.1 14.0-18.0 g/dL Hematocrit 44.6 42-52 % Mean Corpuscular Volume 82.4 80-100 fL Mean Corpuscular Hemoglobin 29.8 25-34 pg Mean Corpuscular Hemoglobin Concent 36.1 32-36 g/dl Platelet Count 221 130-400 K/uL Mean Platelet Volume 9.6 7.4-10.4 fL Neutrophils (%) (Auto) 65.4 % Lymphocytes (%) (Auto) 17.4 % Monocytes (%) (Auto) 10.8 % Eosinophils (%) (Auto) 5.8 % Basophils (%) (Auto) 0.4 % Neutrophils # (Auto) 5.52 1.4-6.5 K/uL Lymphocytes # (Auto) 1.47 1.2-3.4 K/uL Monocytes # (Auto) 0.91 0.11-0.59 K/uL Eosinophils # (Auto) 0.49 0-0.5 K/uL Basophils # (Auto) 0.03 0-0.2 K/uL RDW Standard Deviation 38.5 36.4-46.3 fL RDW Coefficient of Variation 12.8 11.5-14.5 % Immature Granulocyte % (Auto) 0.2 % Immature Granulocyte # (Auto) 0.02 0.00-0.02 K/uL Prothrombin Time 11.5 9.0-12.0 SECONDS Prothromb Time International Ratio 1.1 0.9-1.1 Activated Partial Thromboplast Time 30.3 21.0-31.0 SECONDS Partial Thromboplastin Ratio 1.2 Sodium Level 142 136-145 mmol/L Potassium Level 4.0 3.5-5.1 mmol/L Chloride Level 108 98-107 mmol/L Carbon Dioxide Level 25 21-32 mmol/L Anion Gap 9.0 3-11 mmol/L Blood Urea Nitrogen 8 7-18 mg/dl Creatinine 0.78 0.60-1.40 mg/dl Est Creatinine Clear Calc Drug Dose 108.0 ml/min Estimated GFR () 111.3 Estimated GFR (Non- 96.1 BUN/Creatinine Ratio 10.7 10-20 Random Glucose 91 70-99 mg/dl Calcium Level 8.5 8.5-10.1 mg/dl Total Bilirubin 0.6 0.2-1 mg/dl Direct Bilirubin 0.1 0-0.2 mg/dl Aspartate Amino Transf (AST/SGOT) 20 15-37 U/L Alanine Aminotransferase (ALT/SGPT) 32 12-78 U/L Alkaline Phosphatase 69 45-117 U/L Total Creatine Kinase 45 35 39-308 U/L Creatine Kinase MB 0.5 0.6 0.5-3.6 ng/ml Creatine Kinase MB Ratio 1.1 1.7 0-3.0 Total Protein 7.3 6.4-8.2 gm/dl Albumin 3.6 3.4-5.0 gm/dl Bedside Troponin I 0.000 0-0.045 ng/ml Bedside D-Dimer 212 0-450 ng/mlFEU Troponin I < 0.015 0-0.045 ng/ml Triglycerides Level 74 0-150 mg/dl Cholesterol Level 147 0-200 mg/dl HDL Cholesterol 43 mg/dl LDL Cholesterol, Calculated 89 mg/dl VLDL Cholesterol, Calculated 15 mg/dl Cholesterol/HDL Ratio 3.4 Test 09/11/16 15:10 Range/Units Total Creatine Kinase 35 39-308 U/L Creatine Kinase MB 0.6 0.5-3.6 ng/ml Creatine Kinase MB Ratio 1.7 0-3.0 Troponin I < 0.015 0-0.045 ng/ml
[2016-09-11 15:38] LABS: CKMB/CK RATIO 1.7 (0-3.0)
--- NOTE | 2016-09-11 16:46 | ECHOCARDIOGRAM REPORT ---
*NOTICE TO RECEIVING LIBERTARIAN AGENCY This information is strictly Confidential and protected under [place] law. [place] law prohibits you from making any further disclosure of this information unless further disclosure is expressly permitted by the written consent of the person to whom it pertains or is authorized by law. A general authorization for the release of medical or other information is not sufficient for this purpose. Hospital accepts no responsibility if the information is made available to any other person, INCLUDING THE PATIENT. Interpretation Summary * Name: BRENT ELAM JR Study Date: 09/11/2016 03:09 PM BP: 102/65 mmHg * Patient Location: [facility] HR: 57 * : 1955 (M/d/yyyy) Gender: Male Height: 65 in * Age: 61 yrs Ethnicity: [place] Weight: 230 lb * Ordering Physician: Martín Haines * Referring Physician: Self, Referred * Performed By: Sarmad Bermudez RCS * * Reason For Study: Chest Pain * BSA: 2.1 m2 * The study was technically adequate. * -- Conclusions -- * The left ventricular wall motion is normal. * The LV Ejection Fraction = 60-65%. * Aortic valve sclerosis mild, without significant aortic valvular stenosis. * Diastolic dysfunction, Grade II (pseudonormalization pattern). * There is a small loculated anterior and right lateral pericardial effusion. * There are no echocardiographic indications of cardiac tamponade. Procedure Details * A complete two-dimensional transthoracic echocardiogram was performed (2D, M-mode, Doppler and color flow Doppler). Left Ventricle * The left ventricle is normal in size. * There is normal left ventricular wall thickness. * Ejection Fraction = 60-65%. * Left ventricular systolic function is normal. * The left ventricular wall motion is normal. Right Ventricle * The right ventricle is normal in size and function. Atria * The left atrial size is normal. * Right atrial size is normal. * There is no evidence of atrial septal defect, but resolution does not allow assessment for a patent foramen ovale. Mitral Valve * The mitral valve is normal. * There is no mitral valve stenosis. * Significant mitral regurgitation is absent. Tricuspid Valve * The tricuspid valve is normal. * There is no tricuspid stenosis. * Significant tricuspid regurgitation is absent. * Doppler findings do not suggest pulmonary hypertension. Aortic Valve * The aortic valve is trileaflet. * Aortic valve sclerosis mild, without significant aortic valvular stenosis. * There is no significant aortic regurgitation. Pulmonic Valve * The pulmonary valve is not well seen, but the Doppler examination is normal without significant regurgitation or stenosis. Great Vessels * The aortic root and proximal ascending aorta are normal sized. Pericardium/Pleural * There is a small loculated anterior and right lateral pericardial effusion. * There are no echocardiographic indications of cardiac tamponade. Great Vessels * Normal inferior vena cava diameter and respiratory variation suggests normal central venous pressure. Left Ventricular Diastolic Function * Diastolic dysfunction, Grade II (pseudonormalization pattern). MMode 2D Measurements and Calculations IVSd 1.0 cm IVSs 1.4 cm LVIDd 4.7 cm LVIDs 3.0 cm LVPWd 0.99 cm LVPWs 1.4 cm IVS/LVPW 1.1 FS 35.5 % EDV(Teich) 102.5 ml ESV(Teich) 36.0 ml EF(Teich) 64.9 % EDV(cubed) 104.0 ml ESV(cubed) 27.9 ml EF(cubed) 73.1 % % IVS thick 30.0 % % LVPW thick 37.7 % LV mass(C)d 168.9 grams LV mass(C)dI 80.5 grams/m\S\2 LV mass(C)s 136.3 grams LV mass(C)sI 64.9 grams/m\S\2 CO(Teich) 3.7 l/min CI(Teich) 1.7 l/min/m\S\2 SV(Teich) 66.5 ml SI(Teich) 31.7 ml/m\S\2 CO(cubed) 4.2 l/min CI(cubed) 2.0 l/min/m\S\2 SV(cubed) 76.1 ml SI(cubed) 36.2 ml/m\S\2 Ao root diam 3.7 cm Ao root area 10.6 cm\S\2 ACS 1.8 cm LA dimension 3.9 cm LA/Ao 1.1 LVAd ap4 26.4 cm\S\2 LVLd ap4 8.2 cm EDV(MOD-sp4) 72.0 ml LVAs ap4 13.8 cm\S\2 LVLs ap4 6.1 cm ESV(MOD-sp4) 27.0 ml EF(MOD-sp4) 62.5 % LVAd ap2 28.9 cm\S\2 LVLd ap2 9.1 cm EDV(MOD-sp2) 77.0 ml LVAs ap2 14.0 cm\S\2 LVLs ap2 7.0 cm ESV(MOD-sp2) 24.0 ml EF(MOD-sp2) 68.8 % CO(MOD-sp4) 2.5 l/min CI(MOD-sp4) 1.2 l/min/m\S\2 SV(MOD-sp4) 45.0 ml SI(MOD-sp4) 21.4 ml/m\S\2 CO(MOD-sp2) 2.9 l/min CI(MOD-sp2) 1.4 l/min/m\S\2 SV(MOD-sp2) 53.0 ml SI(MOD-sp2) 25.2 ml/m\S\2 Doppler Measurements and Calculations MV E max trish 91.8 cm/sec MV A max trish 92.8 cm/sec MV E/A 0.99 MV P1/2t max trish 101.6 cm/sec MV P1/2t 112.2 msec MVA(P1/2t) 2.0 cm\S\2 MV dec slope 265.2 cm/sec\S\2 MV dec time 0.33 sec Ao V2 max 143.6 cm/sec Ao max PG 8.2 mmHg Ao max PG (full) 2.5 mmHg LV V1 max PG 5.7 mmHg LV V1 max 119.4 cm/sec PA V2 max 91.9 cm/sec PA max PG 3.4 mmHg TR max trish 197.6 cm/sec
[2016-09-11] MEDS ORDERED: FAMOTIDINE 20 MG TAB PO SCH (21:00)
[2016-09-12 03:47] VITALS: BP 138/66; PULSE 74; TEMP 37; O2SAT 95
[2016-09-12 05:43] VITALS: BP 121/77; PULSE 78
[2016-09-12] MEDS: NITROGLYCERIN OINT 2% 1GM PACKET EXT SCH (05:44)
[2016-09-12 06:18] LABS: HEMATOCRIT 43.6 % (42-52); MEAN CELL VOLUME 85.2 fL (80-100); MEAN CORPUSCULAR HEMOGLOBIN 29.9 pg (25-34); MEAN CORPUSCULAR HGB CONC 35.1 g/dl (32-36); MEAN PLATELET VOLUME 9.8 fL (7.4-10.4); PLATELET COUNT 226 K/uL (130-400); RED BLOOD COUNT 5.12 M/uL (4.7-6.1); WHITE BLOOD COUNT 7.11 K/uL (4.8-10.8)
[2016-09-12 06:51] LABS: BUN/CREATININE RATIO 15.7 (10-20); CALCIUM 8.6 mg/dl (8.5-10.1); CREATININE 0.82 mg/dl (0.60-1.40); POTASSIUM 3.9 mmol/L (3.5-5.1)
[2016-09-12] MEDS: ASPIRIN 81 MG ECTAB PO SCH (07:48)
[2016-09-12] MEDS: METOPROLOL TARTRATE 25 MG TAB PO SCH (07:48)
[2016-09-12] MEDS: CLOPIDOGREL BISULFATE 75 MG TAB PO SCH (07:48)
[2016-09-12] MEDS: ROSUVASTATIN CALCIUM 20 MG TAB PO SCH (07:49)
[2016-09-12] MEDS: LISINOPRIL 5 MG TAB PO SCH (07:49)
[2016-09-12 07:56] VITALS: BP 116/71; PULSE 65; TEMP 37.2; O2SAT 90
--- NOTE | 2016-09-12 10:49 | Progress Note ---
Internal Med Progress Note Date of Service: Sep 12, 2016. Provider Documentation: SUBJECTIVE: Patient is seen and examined at bedside. States having 1/10 left sided chest pain radiating to back. Denies any SOB, palpitations, dizziness, diaphoresis. Family at bedside. Planned for stress today today. Offers no other complaints. OBJECTIVE: Vital Signs-as noted below Physical Exam: General Appearance:Obese, no apparent distress Head: normocephalic, Atraumatic Eyes: normal inspection, EOMI, PERRLA Neck: supple, Trachea midline Respiratory/Chest: Normal breath sounds, CTA Cardiovascular: S1, S2, No murmur Abdomen/GI:Soft, Non tender, Bowel sounds present Extremities/Musculoskelatal:normal inspection, no edema Neurologic/Psych:AAOX3, grossly no focal neurological deficits Skin: normal color, warm Lab data as noted below. ASSESSMENT & PLAN: CHEST PAIN r/o ACS Risk factors: Known ischemic heart disease with non-STEMI 6 weeks ago: S/P PCI of PDA and OM with drug-eluting stents. EKG: T-wave inversions in inferior leads Troponin X 2: Negative IV heparin discontinued secondary to epistaxis Continue ASA, Plavix, metoprolol, lisinopril, statin Appreciate Cardiology input Resting ECHO: No wall motion abnormality Dobutamine stress test:No inducible Ischemia DYSLIPIDEMIA Continue statin. COUGH No fever; WBCs:wnl, no infiltrates on chest x-ray. Continue to monitor COPD Stable. DVT PX: SCDs Ambulate as able. IV Heparin discontinued secondary to epistaxis CODE STATUS: Full code DISPOSITION Plan to discharge home today Follow up with Dr. Morrissey on 09/19/16 at 12:50pm Cardiology follow-up with Dr. Carl on 09/24/16 at 10:00 AM PROCEDURES: ECHO: * The left ventricular wall motion is normal. * The LV Ejection Fraction = 60-65%. * Aortic valve sclerosis mild, without significant aortic valvular stenosis. * Diastolic dysfunction, Grade II (pseudonormalization pattern). * There is a small loculated anterior and right lateral pericardial effusion. * There are no echocardiographic indications of cardiac tamponade. Vital Signs: Date Time Temp Pulse Resp B/P Pulse Ox O2 Delivery O2 Flow Rate FiO2 09/12/16 12:15 Room Air 09/12/16 08:00 Room Air 09/12/16 07:56 37.2 65 16 116/71 90 Room Air 09/12/16 05:43 78 121/77 09/12/16 04:02 Room Air 09/12/16 03:47 37.0 74 18 138/66 95 Room Air 09/12/16 00:00 Room Air 09/11/16 23:46 36.8 56 18 99/62 96 Room Air 09/11/16 20:00 93 Room Air 09/11/16 20:00 93 Room Air 09/11/16 19:45 36.8 55 20 97/61 95 Room Air 09/11/16 18:37 62 98/63 09/11/16 16:00 93 Room Air 09/11/16 15:56 36.9 57 20 104/67 93 Room Air 09/11/16 13:50 36.4 57 18 102/65 92 Room Air Lab Results: Results Past 24 Hours Test 09/11/16 15:10 09/12/16 05:55 Range/Units Total Creatine Kinase 35 39-308 U/L Creatine Kinase MB 0.6 0.5-3.6 ng/ml Creatine Kinase MB Ratio 1.7 0-3.0 Troponin I < 0.015 0-0.045 ng/ml White Blood Count 7.11 4.8-10.8 K/uL Red Blood Count 5.12 4.7-6.1 M/uL Hemoglobin 15.3 14.0-18.0 g/dL Hematocrit 43.6 42-52 % Mean Corpuscular Volume 85.2 80-100 fL Mean Corpuscular Hemoglobin 29.9 25-34 pg Mean Corpuscular Hemoglobin Concent 35.1 32-36 g/dl RDW Standard Deviation 40.6 36.4-46.3 fL RDW Coefficient of Variation 13.1 11.5-14.5 % Platelet Count 226 130-400 K/uL Mean Platelet Volume 9.8 7.4-10.4 fL Sodium Level 140 136-145 mmol/L Potassium Level 3.9 3.5-5.1 mmol/L Chloride Level 106 98-107 mmol/L Carbon Dioxide Level 27 21-32 mmol/L Anion Gap 7.0 3-11 mmol/L Blood Urea Nitrogen 13 7-18 mg/dl Creatinine 0.82 0.60-1.40 mg/dl Est Creatinine Clear Calc Drug Dose 102.7 ml/min Estimated GFR () 109.1 Estimated GFR (Non- 94.1 BUN/Creatinine Ratio 15.7 10-20 Random Glucose 79 70-99 mg/dl Calcium Level 8.6 8.5-10.1 mg/dl
[2016-09-12] MEDS ORDERED: METOPROLOL TARTRATE 1 MG/ML VIAL ONE (11:00)
[2016-09-12] MEDS ORDERED: DOBUTamine HCL 12.5 MG/ML 20 ML VIAL ONE (11:00)
[2016-09-12] MEDS ORDERED: ATROPINE SULFATE 0.1 MG/ML 5ML SYR ONE (11:00)
[2016-09-12] MEDS ORDERED: PERFLUTREN LIPID MICROSPHERE (DEFINITY) IV ONE (12:06)
--- NOTE | 2016-09-12 12:15 | Cardiology Follow-Up ---
Subjective General Date of Service: Sep 12, 2016. Chief Complaint: follow up chest pain Pt evaluation today including: conversation w/ patient, physical exam, chart review, review of studies History of Present Illness The patient is a 61 year old male seen in follow up. Patient notes feeling well this am. He was seen on the floor , and then reassessed in the cardiopulmonary lab prior to / during/ and after a dobutamine stress echocardiogram. No anginal symptoms overnight. Allergies Coded Allergies: Tramadol (Verified Allergy, Unknown, itching, 09/11/16) Hydrocodone (Verified Adverse Reaction, Intermediate, DIZZY/NAUSEA, ) Social History Smoking Status: Never Smoker Hx Tobacco Use In Past Year?: No Hx Alcohol Use - Type And Amou: No Hx Substance Use - Type And Am: No Problem List Medical Problems: (1) Anxiety disorder Status: Chronic (2) GERD (gastroesophageal reflux disease) Status: Chronic (3) Hyperlipemia Status: Chronic (4) Left sided chest pain Status: Acute (5) Left sided chest pain Status: Acute Physical Exam Vital Signs Last Vital Signs Documentation Date Time Temp Pulse Resp B/P Pulse Ox O2 Delivery O2 Flow Rate FiO2 09/12/16 08:00 Room Air 09/12/16 07:56 37.2 65 16 116/71 90 Physical Exam Constitutional: Level of Distress: NAD ENMT: normal ENT inspection Neck: supple Lungs: Auscultation: no wheezing, no rales/crackles, no rhonchi Cardiovascular: Heart Auscultation: RRR, no murmurs, no rubs Extremities: no cyanosis, no edema Neurologic: Gait & Station: pertinent finding (no focal deficits ) Assessment and Plan Assessment and Plan Last Resulted 09/12/16 05:55 Last Resulted 09/12/16 05:55 Past 24 Hours Test 09/11/16 15:10 Range/Units Creatine Kinase MB 0.6 0.5-3.6 ng/ml Creatine Kinase MB Ratio 1.7 0-3.0 Total Creatine Kinase 35 L 39-308 U/L Troponin I < 0.015 0-0.045 ng/ml FINAL IMPRESSION: 61-year-old male. 1. Chest pain 2. Recent drug-eluting stents to the distal coronary artery and obtuse marginal. 3. Dyslipidemia. 4. Mild epistaxis. DISCUSSION / RECOMMENDATIONS: Patient with normal EKG and echocardiographic response to stress echocardiogram. Presenting symptoms were not reproduced. The Study was of excellent technically quality and the endocardial border and LV segments were well visualized. Patient stable for discharge on his prior cardiac medications without change. I have requested outpt follow up in cardiology clinic with Dr Carl in 1-2 weeks. Laboratory Results Last 24 Hours Test 09/11/16 15:10 09/12/16 05:55 Total Creatine Kinase 35 U/L Creatine Kinase MB 0.6 ng/ml Creatine Kinase MB Ratio 1.7 Troponin I < 0.015 ng/ml White Blood Count 7.11 K/uL Red Blood Count 5.12 M/uL Hemoglobin 15.3 g/dL Hematocrit 43.6 % Mean Corpuscular Volume 85.2 fL Mean Corpuscular Hemoglobin 29.9 pg Mean Corpuscular Hemoglobin Concent 35.1 g/dl RDW Standard Deviation 40.6 fL RDW Coefficient of Variation 13.1 % Platelet Count 226 K/uL Mean Platelet Volume 9.8 fL Sodium Level 140 mmol/L Potassium Level 3.9 mmol/L Chloride Level 106 mmol/L Carbon Dioxide Level 27 mmol/L Anion Gap 7.0 mmol/L Blood Urea Nitrogen 13 mg/dl Creatinine 0.82 mg/dl Est Creatinine Clear Calc Drug Dose 102.7 ml/min Estimated GFR () 109.1 Estimated GFR (Non- 94.1 BUN/Creatinine Ratio 15.7 Random Glucose 79 mg/dl Calcium Level 8.6 mg/dl
--- NOTE | 2016-09-12 12:52 | Discharge Summary ---
Discharge Summary Date of Service Sep 12, 2016. Discharge Summary Admission Date: Sep 11, 2016 at 05:23 Discharge Date: Sep 12, 2016 Discharge Disposition: Home Principal Diagnosis: Chest Pain, likely musculoskeletal Procedures: CXR: No active disease in the chest. Stress Test: * The echocardiographic study was of excellent technical quality. * STRESS STUDY: * Normal pharmacologic stress echocardiogram. * No echocardiographic or ECG evidence of myocardial ischemia having achieved heart rate adequate for diagnostic purposes. * The patient's presenting symptoms were not reproduced. * The heart rate and blood pressure responses to pharmacologic stress were normal. ECHO: * The left ventricular wall motion is normal. * The LV Ejection Fraction = 60-65%. * Aortic valve sclerosis mild, without significant aortic valvular stenosis. * Diastolic dysfunction, Grade II (pseudonormalization pattern). * There is a small loculated anterior and right lateral pericardial effusion. * There are no echocardiographic indications of cardiac tamponade. Consultations: Cardiology Pending Studies/Follow-Up: Follow up with Dr. Morrissey on 09/19/16 at 12:50pm Cardiology follow-up with Dr. Carl on 09/24/16 at 10:00 AM Seek immediate medical attention if your symptoms reoccur or worsen Medication Reconciliation Continued Medications: Acetaminophen (Tylenol) 500 Mg Tab 1000 MG PO Q4H PRN for Pain or Fever, TAB Albuterol Sulfate (Proair Respiclick) 108 Mcg/Act Aer 2 PUFFS INH Q4H PRN for SOB/Wheezing Aspirin (Aspirin Ec) 81 Mg Tab 81 MG PO DAILY Clopidogrel (Plavix) 75 Mg Tab 75 MG PO DAILY, TAB Cyclobenzaprine Hcl (Flexeril) 10 Mg Tab 10 MG PO BID PRN for Muscle Spasms, #21 TAB Dicyclomine Hcl (Dicyclomine Hcl) 10 Mg Cap 1 CAP PO BID PRN for ABD PAIN for 30 Days, #60 CAP 3 Refills Famotidine (Pepcid Ac) 10 Mg Tab 10 MG PO HS Lisinopril (Lisinopril) 5 Mg Tab 5 MG PO DAILY Meclizine HCl (Meclizine HCl) 25 Mg Tab 25 MG PO TID PRN for Dizziness or Vertigo Metoprolol Tartrate (Lopressor) (Lopressor) 25 Mg Tab 25 MG PO BID, TAB Nitroglycerin (Nitrostat) 0.3 Mg Tab 0.3 MG UT PRN PRN for Chest Pain, BTL TAKE EVERY 5 MIN. X 3 DOSES. Ondansetron Hcl (Zofran) 4 Mg Tab 4 MG PO Q4H PRN for Nausea, TAB Rosuvastatin Calcium (Crestor) 20 Mg Tab 20 MG PO QAM, TAB Admission Information HPI (per Admitting provider): 61 YO male followed by Dr. Morrissey for Family Medicine and Dr. Carl for Cardiology. History of ischemic heart disease and other problems noted below. Hospitalized at [facility] 08/01/16 with non-STEMI. Cath revealed disease of PDA and OM; PCI's with drug-eluting stents performed with good results. Discharged to home. Yesterday developed right scapular pain after doing some chores. Tonight, the pain worsened and became more anterior- described as midsternal chest pressure. No radiation to arms. [place] nauseated without emesis. No dyspnea or diaphoresis. Occasional palpitations. No edema. Symptoms were similar to his GA in July. Has been taking his cardiac meds as prescribed. Did not take any NTG at home. Came to ED. CP resolved after administration of aspirin and IV morphine. Pain-free at time of my assessment. . Physical Exam (per Admitting): General Appearance: WD/WN, no apparent distress Head: normocephalic, atraumatic Eyes: normal inspection, PERRL, EOMI, sclerae normal ENT: normal ENT inspection, hearing grossly normal, pharynx normal Neck: supple, no adenopathy, thyroid normal, no JVD, trachea midline Respiratory/Chest: lungs clear, no respiratory distress, no accessory muscle use Cardiovascular: regular rate, rhythm, no edema, no gallop, no JVD, no murmur , normal peripheral pulses, + pertinent finding (carotids 2/2, peripheral pulses 2/2) Abdomen/GI: normal bowel sounds, non tender, soft, no organomegaly, no pulsatile mass Extremities/Musculoskelatal: normal inspection, no calf tenderness, no pedal edema 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 EKG: T-wave inversions in inferior leads Troponin X 2: Negative IV heparin discontinued secondary to epistaxis Continue ASA, Plavix, metoprolol, lisinopril, statin Appreciate Cardiology input Resting ECHO: No wall motion abnormality Dobutamine stress test:No inducible Ischemia DYSLIPIDEMIA Continue statin. COUGH No fever; WBCs:wnl, no infiltrates on chest x-ray. Continue to monitor COPD Stable. DVT PX: SCDs Ambulate as able. IV Heparin discontinued secondary to epistaxis CODE STATUS: Full code DISPOSITION Plan to discharge home today Follow up with Dr. Morrissey on 09/19/16 at 12:50pm Cardiology follow-up with Dr. Carl on 09/24/16 at 10:00 AM PROCEDURES: ECHO: * The left ventricular wall motion is normal. * The LV Ejection Fraction = 60-65%. * Aortic valve sclerosis mild, without significant aortic valvular stenosis. * Diastolic dysfunction, Grade II (pseudonormalization pattern). * There is a small loculated anterior and right lateral pericardial effusion. * There are no echocardiographic indications of cardiac tamponade. Total time spent on discharge = This includes examination of the patient, discharge planning, medication reconciliation, and communication with other providers. Discharge Instructions Discharge Instructions Date of Service Sep 12, 2016. Admission Reason for Admission: Chest Pain Discharge Discharge Diagnosis / Problem: Chest Pain, likely musculoskeletal Discharge Goals Goal(s): Decrease discomfort, Improve function Activity Recommendations Activity Limitations: resume your previous activity Exercise/Sports Limitations: as tolerated . Instructions / Follow-Up Instructions / Follow-Up Follow up with Dr. Morrissey on 09/19/16 at 12:50pm Cardiology follow-up with Dr. Carl on 09/24/16 at 10:00 AM Seek immediate medical attention if your symptoms reoccur or worsen Current Hospital Diet Patient's current hospital diet: AHA Diet (Heart Healthy) Discharge Diet Recommended Diet: AHA Diet (Heart Healthy) Pending Studies Studies pending at discharge: no Laboratory Results Hemoglobin A1c Test 08/02/16 07:36 Range/Units Estimated Average Glucose 97 mg/dl Hemoglobin A1c 5.0 4.5-5.6 % Lipid Panel Test 09/11/16 09:15 Range/Units Triglycerides Level 74 0-150 mg/dl Cholesterol Level 147 0-200 mg/dl HDL Cholesterol 43 mg/dl Cholesterol/HDL Ratio 3.4 LDL Cholesterol, Calculated 89 mg/dl Medical Emergencies . Who to Call and When: Medical Emergencies: If at any time you feel your situation is an emergency, please call 911 immediately. . Non-Emergent Contact Non-Emergency issues call your: Primary Care Provider, Human Resources Professional Call Non-Emergent contact if: you have a fever, your pain is not controlled, your pain is worsening, your pain is unusual for you, you have any medication questions . . "Provider Documentation" section prepared by Prince Gardner. VTE Core Measure Inpt VTE Proph given/why not?: Other Anticoagulation (IV heparin)
[2016-09-12 12:55] VITALS: BP 116/71; PULSE 65; TEMP 37.2; O2SAT 90
--- NOTE | 2016-09-12 13:46 | DOBUTAMINE ECHO ---
*NOTICE TO RECEIVING CONSTITUTION PARTY AGENCY This information is strictly Confidential and protected under [place] law. [place] law prohibits you from making any further disclosure of this information unless further disclosure is expressly permitted by the written consent of the person to whom it pertains or is authorized by law. A general authorization for the release of medical or other information is not sufficient for this purpose. Hospital accepts no responsibility if the information is made available to any other person, INCLUDING THE PATIENT. Interpretation Summary * Name: BRENT ELAM JR Study Date: 09/12/2016 10:38 AM BP: 117/59 mmHg * Patient Location: .2T\S\S238\S\1 HR: 58 * : 1955 (M/d/yyyy) Gender: Male Height: 65 in * Age: 61 yrs Ethnicity: CA Weight: 230 lb * Ordering Physician: Martín Haines * Performed By: Libertad Thompson RDCS * * Reason For Study: Chest pain * BSA: 2.1 m2 * -- Conclusions -- * The echocardiographic study was of excellent technical quality. * STRESS STUDY: * Normal pharmacologic stress echocardiogram. * No echocardiographic or ECG evidence of myocardial ischemia having achieved heart rate adequate for diagnostic purposes. * The patient's presenting symptoms were not reproduced. * The heart rate and blood pressure responses to pharmacologic stress were normal. Procedure Details * DOBUTAMINE ECHO, CPT#28353 * A contrast injection of Definity was performed to improve assessment of LV function. * Contrast was injected into an intravenous site in the left arm. * One vial of Definity ultrasound contrast was diluted in normal saline to a total volume of 10 ml. A total of '7' ml of solution was administered during imaging. * Lot # [id number] of Definity utilized for procedure. * Expiration date OCT 02. * The attending nurse who injected the contrast agent was Quiana Echavarria RN. Left Ventricle * The left ventricle is normal in size. There is normal left ventricular wall thickness. The resting LV Ejection Fraction = 60-65%. * Resting wall motion: Normal. Stress wall motion: Appropriate increase in Left ventricular systolic function and decrease in cavity size. No stress induced segmental wall motion abnormalities. Stress Parameters * The baseline ECG reveals sinus bradycardia with normal ST segements. * The stress ECG response was normal * No arrhythmia were noted with stress. * The stress portion of this study was personally supervised by the undersigned interpreting physician. * Rest heart rate was '61' BPM. * Rest blood pressure was '117/59' * Maximum heart rate achieved was 153 bpm. * Maximum heart rate was 97 % of maximum age-predicted heart rate. * Maximum blood pressure was '142/39' * Maximum Dobutamine infusion rate was '40' mcg/kg/min. * A total of 0.5 mg of intravenous Atropine was used to supplement Dobutamine for heart rate response. * Dobutamine infusion was terminated due to achieving target heart rate * A total of 10 mg of IV Metoprolol was administered to reverse Dobutamine-induced tachycardia. * The patient did not exhibit any symptoms during drug infusion.
== END 2016-09-12 13:06 | disposition home or self-care (01) ==
LOC: ENRESERVTM → ENRESERVDT → C.EDB 02:40 → C.EDINP 05:23 → C.2T 13:42
PROVIDERS: ADMIT Hospitalist; ATTEND Internal Medicine
DX: R07.89 Other chest pain (principal); F41.9 Anxiety disorder, unspecified; K21.9 Gastro-esophageal reflux disease without esophagitis; E78.5 Hyperlipidemia, unspecified; Z79.82 Long term (current) use of aspirin; R05 Cough; J44.9 Chronic obstructive pulmonary disease, unspecified; E66.9 Obesity, unspecified; Z82.49 Family history of ischemic heart disease and other diseases of the circulatory system

== ENCOUNTER 2016-10-15 06:52 | Emergency (ER) | payer BC ==
[~2016-10-15] VITALS: Ht 165.1 cm; Wt 103.6 kg
[~2016-10-15 06:52] MED LIST changes: -ASPEC81 PO; +ASPI81TA28 PO; +CLOP1TAB15 PO; -CRS20 PO; +DICY10CA12 PO; -FAMO10TA10 PO; +FAMO10TA16 PO; -LPR25 PO; +METO25TA56 PO; +NTRSL3 UT; -PLV75 PO; +ROSU20TA PO
[2016-10-15 06:55] VITALS: TEMP 36.6; Ht 165.1 cm; Wt 103.6 kg
[2016-10-15] MEDS ORDERED: SODIUM CHLORIDE 0.9% 1000ML 1,000 ML IV STA (07:18)
[2016-10-15] MEDS ORDERED: ONDANSETRON INJ 2 MG/ML 2 ML VIAL IV STA ×2 (07:18→09:29)
[2016-10-15 07:48] LABS: BASO % 0.4 %; BASO ABS # 0.03 K/uL (0-0.2); COMPLETE YES; EOS % 3.7 %; HEMATOCRIT 46.7 % (42-52); IG% 0.3 %; LYMPH % 15.6 %; LYMPH ABS # 1.11 K/uL (1.2-3.4); MEAN CELL VOLUME 84.1 fL (80-100); MEAN CORPUSCULAR HEMOGLOBIN 29.5 pg (25-34); MEAN CORPUSCULAR HGB CONC 35.1 g/dl (32-36); MEAN PLATELET VOLUME 9.9 fL (7.4-10.4); MONO % 9.6 %; NEUT % 70.4 %; PLATELET COUNT 237 K/uL (130-400); RED BLOOD COUNT 5.55 M/uL (4.7-6.1)
--- NOTE | 2016-10-15 07:50 | DIAGNOSTIC IMAGING REPORT ---
CHEST ONE VIEW PORTABLE CLINICAL HISTORY: ABDOMINAL PAIN/GI pain COMPARISON STUDY: 09/03/2016 FINDINGS: The bones soft tissues and hemidiaphragms are normal. The cardiomediastinal silhouette is normal. The lungs are clear. The pulmonary vasculature is normal. IMPRESSION: Negative chest. Electronically signed by: Yared Gómez M.D. 10/15/2016 7:49 AM Dictated Date/Time: 10/15/2016 7:44 AM
[2016-10-15 08:12] LABS: ALKALINE PHOSPHATASE 68 U/L (45-117); ALT/SGPT 27 U/L (12-78); BLOOD UREA NITROGEN 8 mg/dl (7-18); BUN/CREATININE RATIO 10.2 (10-20); CALCIUM 8.9 mg/dl (8.5-10.1); CARBON DIOXIDE 24 mmol/L (21-32); CHLORIDE 108 mmol/L (98-107); CREATININE 0.76 mg/dl (0.60-1.40); GLUCOSE 87 mg/dl (70-99); SODIUM 140 mmol/L (136-145)
[2016-10-15 08:29] LABS: POTASSIUM 3.7 mmol/L (3.5-5.1)
[2016-10-15 09:45] LABS: URINE APPEARANCE CLEAR (CLEAR); URINE BILIRUBIN NEG (NEG); URINE COLOR YELLOW; URINE NITRITE NEG (NEG); URINE PH 5.5 (4.5-7.5); URINE SPECIFIC GRAVITY 1.014 (1.000-1.030); UROBILINOGEN NEG (NEG); ZZUR CULT IF INDIC CLEAN CATCH NO
[2016-10-15 09:56] LABS: MANUAL MICROSCOPIC REQUIRED? NO; REVIEW REQ? NO
--- NOTE | 2016-10-15 10:58 | EMERGENCY ROOM VISIT NOTE ---
History Report prepared by Ubaldoibe: Jennifer Hernández Under the Supervision of: Clifford GraciaO. First contact with patient: 07:16 Chief Complaint: FLU LIKE SX Stated Complaint: SICK,FLU LIKE SX, DIARRHEA, VOMITING History of Present Illness The patient is a 61 year old male who presents to the Emergency Room with complaints of intermittent nausea and vomiting starting two days ago. The patient also complains of diarrhea starting two days ago. The patient had a myocardial infarction in July and was placed under anesthesia. Since then, he has been having a persistent cough with sinus drainage down the back of his throat. The patient denies any fevers, chills, chest pain, shortness of breath, abdominal pain, urinary symptoms, or any other complaints. Source of History: patient Onset: two days ago Position: other (global) Quality: other (nausea and vomiting) Timing: intermittent Associated Symptoms: No SOB, No abdominal pain, No chest pain, No chills, No fevers, No urinary symptoms Review of Systems See HPI for pertinent positives & negatives. A total of 10 systems reviewed and were otherwise negative. Past Medical & Surgical Medical Problems: (1) Anxiety disorder (2) Benign positional vertigo (3) Compression fracture of T12 vertebra (4) COPD (chronic obstructive pulmonary disease) (5) Coronary artery disease (6) Generalized anxiety disorder (7) GERD (gastroesophageal reflux disease) (8) Hyperlipemia (9) Hyperlipidemia (10) Metabolic syndrome (11) Obesity (BMI 30-39.9) (12) Osteoarthritis Surgical Problems: (1) H/O cardiac catheterization (2) Hx of appendectomy (3) Hx of cholecystectomy (4) Status post cardiac catheterization (5) Status post coronary artery stent placement Family History Cirrhosis of liver FATHER Coronary artery disease MOTHER SISTER Social History Smoking Status: Never Smoker Alcohol Use: none Marital Status: Housing Status: lives with significant other Occupation Status: employed Current/Historical Medications Scheduled Aspirin (Aspirin Ec), 81 MG PO DAILY Clopidogrel (Plavix), 75 MG PO DAILY Famotidine (Pepcid Ac), 10 MG PO HS Metoprolol Tartrate (Lopressor) (Lopressor), 25 MG PO BID Ondasetron Odt (Zofran Odt), 4 MG SL Q6H Rosuvastatin Calcium (Crestor), 20 MG PO QAM Scheduled PRN Acetaminophen (Tylenol), 1,000 MG PO Q4H PRN for Pain or Fever Albuterol Sulfate (Proair Respiclick), 2 PUFFS INH Q4H PRN for SOB/Wheezing Cyclobenzaprine Hcl (Flexeril), 10 MG PO BID PRN for Muscle Spasms Dicyclomine Hcl (Dicyclomine Hcl), 1 CAP PO BID PRN for ABD PAIN Meclizine HCl (Meclizine HCl), 25 MG PO TID PRN for Dizziness or Vertigo Nitroglycerin (Nitrostat), 0.3 MG UT PRN PRN for Chest Pain Ondansetron Hcl (Zofran), 4 MG PO Q4H PRN for Nausea Allergies Coded Allergies: Tramadol (Verified Allergy, Unknown, itching, 09/11/16) Hydrocodone (Verified Adverse Reaction, Intermediate, DIZZY/NAUSEA, ) Physical Exam Vital Signs Date Time Temp Pulse Resp B/P Pulse Ox O2 Delivery O2 Flow Rate FiO2 10/15/16 11:04 58 18 119/80 95 Room Air 10/15/16 09:26 59 18 117/72 97 Room Air 10/15/16 08:01 60 20 124/77 97 Room Air 10/15/16 06:55 36.6 70 20 146/91 93 Room Air Physical Exam CONSTITUTIONAL/VITAL SIGNS: Reviewed / noted above. GENERAL: Non-toxic in appearance. INTEGUMENTARY: Warm, dry, and [place]. HEAD: Normocephalic. EYES: without scleral icterus or trauma. ENT/OROPHARYNX: clear and moist. LYMPHADENOPATHY/NECK: Is supple without lymphadenopathy or meningismus. RESPIRATORY: Lungs clear and equal. CARDIOVASCULAR: Regular rate and rhythm. GI/ABDOMEN: Soft and nontender. No organomegaly or pulsatile mass. No rebound or guarding. Normal bowel sounds. EXTREMITIES: Warm and well perfused. BACK: No CVA tenderness. NEUROLOGICAL: Intact without focal deficits. PSYCHIATRIC: normal affect. MUSCULOSKELETAL: Normally developed with good muscle tone. Medical Decision & Procedures ER Provider Diagnostic Interpretation: X ray results and stated below per my interpretation and radiology interpretation. CHEST ONE VIEW PORTABLE CLINICAL HISTORY: ABDOMINAL PAIN/GI pain COMPARISON STUDY: 09/03/2016 FINDINGS: The bones soft tissues and hemidiaphragms are normal. The cardiomediastinal silhouette is normal. The lungs are clear. The pulmonary vasculature is normal. IMPRESSION: Negative chest. Electronically signed by: Yared Gómez M.D. 10/15/2016 7:49 AM Dictated Date/Time: 10/15/2016 7:44 AM Laboratory Results 10/15/16 07:36 Red Blood Count 5.55, Mean Corpuscular Volume 84.1, Mean Corpuscular Hemoglobin 29.5, Mean Corpuscular Hemoglobin Concent 35.1, Mean Platelet Volume 9.9, Neutrophils (%) (Auto) 70.4, Lymphocytes (%) (Auto) 15.6, Monocytes (%) (Auto) 9.6, Eosinophils (%) (Auto) 3.7, Basophils (%) (Auto) 0.4, Neutrophils # (Auto) 5.00, Lymphocytes # (Auto) 1.11, Monocytes # (Auto) 0.68, Eosinophils # (Auto) 0.26, Basophils # (Auto) 0.03 10/15/16 07:36 10/15/16 07:55 Test 10/15/16 07:36 10/15/16 07:55 10/15/16 09:20 White Blood Count 7.10 K/uL (4.8-10.8) Red Blood Count 5.55 M/uL (4.7-6.1) Hemoglobin 16.4 g/dL (14.0-18.0) Hematocrit 46.7 % (42-52) Mean Corpuscular Volume 84.1 fL (80-100) Mean Corpuscular Hemoglobin 29.5 pg (25-34) Mean Corpuscular Hemoglobin Concent 35.1 g/dl (32-36) Platelet Count 237 K/uL (130-400) Mean Platelet Volume 9.9 fL (7.4-10.4) Neutrophils (%) (Auto) 70.4 % Lymphocytes (%) (Auto) 15.6 % Monocytes (%) (Auto) 9.6 % Eosinophils (%) (Auto) 3.7 % Basophils (%) (Auto) 0.4 % Neutrophils # (Auto) 5.00 K/uL (1.4-6.5) Lymphocytes # (Auto) 1.11 K/uL (1.2-3.4) Monocytes # (Auto) 0.68 K/uL (0.11-0.59) Eosinophils # (Auto) 0.26 K/uL (0-0.5) Basophils # (Auto) 0.03 K/uL (0-0.2) RDW Standard Deviation 38.7 fL (36.4-46.3) RDW Coefficient of Variation 12.7 % (11.5-14.5) Immature Granulocyte % (Auto) 0.3 % Immature Granulocyte # (Auto) 0.02 K/uL (0.00-0.02) Anion Gap 8.0 mmol/L (3-11) Est Creatinine Clear Calc Drug Dose 110.2 ml/min Estimated GFR () 112.5 Estimated GFR (Non- 97.1 BUN/Creatinine Ratio 10.2 (10-20) Calcium Level 8.9 mg/dl (8.5-10.1) Total Bilirubin 0.9 mg/dl (0.2-1) Alanine Aminotransferase (ALT/SGPT) 27 U/L (12-78) Alkaline Phosphatase 68 U/L (45-117) Total Protein 7.5 gm/dl (6.4-8.2) Albumin 3.7 gm/dl (3.4-5.0) Lipase 269 U/L (73-393) Direct Bilirubin 0.2 mg/dl (0-0.2) Aspartate Amino Transf (AST/SGOT) 19 U/L (15-37) Urine Color YELLOW Urine Appearance CLEAR (CLEAR) Urine pH 5.5 (4.5-7.5) Urine Specific [place] 1.014 (1.000-1.030) Urine Protein NEG (NEG) Urine Glucose (UA) NEG (NEG) Urine Ketones TRACE (NEG) Urine Occult Blood NEG (NEG) Urine Nitrite NEG (NEG) Urine Bilirubin NEG (NEG) Urine Urobilinogen NEG (NEG) Urine Leukocyte Esterase NEG (NEG) Urine WBC (Auto) 1-5 /hpf (0-5) Urine RBC (Auto) 0-4 /hpf (0-4) Urine Hyaline Casts (Auto) 1-5 /lpf (0-5) Urine Epithelial Cells (Auto) 5-10 /lpf (0-5) Urine Bacteria (Auto) NEG (NEG) Laboratory results as stated above per my review. Medications Administered Medications (Trade) Dose Ordered Sig/Poonam Route Start Time Stop Time Status Last Admin Dose Admin Sodium Chloride (Nss 1000ml) 1,000 ml @ 999 mls/hr Q1H1M STAT IV 10/15/16 07:18 10/15/16 08:18 DC 10/15/16 07:58 999 MLS/HR Ondansetron HCl (Zofran Inj) 4 mg NOW STAT IV 10/15/16 07:18 10/15/16 07:20 DC 10/15/16 07:59 4 MG Ondansetron HCl (Zofran Inj) 4 mg NOW STAT IV 10/15/16 09:29 10/15/16 09:30 DC 10/15/16 09:33 4 MG ED Course 0716: Previous medical records were reviewed. The patient was evaluated in room B12B. A complete history and physical examination was performed. 0718: Zofran Inj 4 mg IV, Sodium Chloride 1000 ml @ 999 mls/hr IV 0929: Zofran Inj 4 mg IV 1101: On reevaluation, the patient is resting comfortably. I discussed the results and findings with the patient. He verbalized agreement of the treatment plan. The patient was discharged home. Medical Decision Differential diagnosis: Etiologies such as gastroenteritis, food borne illness, infections, appendicitis , diverticulitis, inflammatory bowel disease, obstruction, GI bleed, biliary pathology, as well as others were entertained. This is a 61-year-old male who presents to the ED with a chief complaint of nausea, vomiting and diarrhea. The patient states that those symptoms started 2 days ago. He has had mostly nausea and some dry heaves and some diarrhea. The patient also reports a cough and some sinus drainage for about 3 months. He states that he has had x-ray in the past that did not show anything significant. His vital signs are normal. His physical exam was unremarkable. He has no abdominal tenderness. The lungs are clear. He is in no distress. CBC and complete metabolic panel normal. Lipase was negative. Urine did not show infection. The patient was told results. He was discharged with a prescription for Zofran. Impression Primary Impression: Nausea vomiting and diarrhea Scribe Attestation The scribe's documentation has been prepared under my direction and personally reviewed by me in its entirety. I confirm that the note above accurately reflects all work, treatment, procedures, and medical decision making performed by me. Departure Information Dispostion Home / Self-Care Prescriptions Ondasetron Odt (ZOFRAN ODT) 4 Mg Tab 4 MG SL Q6H for Nausea, #15 TAB Prov: Michel Robles D.O. 10/15/16 Referrals Goran Morrissey M.D. (PCP) Forms HOME CARE DOCUMENTATION FORM, IMPORTANT VISIT INFORMATION Patient Instructions My [facility] Additional Instructions Follow-up with your doctor for further care and evaluation in 1-2 days. Return to the emergency department for worsening or new symptoms or any concerns. You have been examined and treated today on an emergency basis only. This is not a substitute for, or an effort to provide, complete comprehensive medical care. It is impossible to recognize and treat all injuries or illnesses in a single emergency department visit. It is therefore important that you follow up closely with your doctor. Call as soon as possible for an appointment. Zofran: Allow one tablet to dissolve under the tongue every 6 hours as needed for nausea or vomiting.
[2016-10-15] MEDS ORDERED: ONDA4TAB10 SL (10:59)
[2016-10-15 11:04] VITALS: BP 119/80; PULSE 58; O2SAT 95
== END 2016-10-15 11:13 | disposition home or self-care (01) ==
LOC: C.EDB 06:53
DX: R11.2 Nausea with vomiting, unspecified (principal); R19.7 Diarrhea, unspecified; I25.2 Old myocardial infarction; J44.9 Chronic obstructive pulmonary disease, unspecified; I25.10 Atherosclerotic heart disease of native coronary artery without angina pectoris; K21.9 Gastro-esophageal reflux disease without esophagitis; E78.5 Hyperlipidemia, unspecified; E88.81 Metabolic syndrome and other insulin resistance; E66.9 Obesity, unspecified; M19.90 Unspecified osteoarthritis, unspecified site; Z83.79 Family history of other diseases of the digestive system; Z82.49 Family history of ischemic heart disease and other diseases of the circulatory system; Z79.82 Long term (current) use of aspirin; Z79.02 Long term (current) use of antithrombotics/antiplatelets; Z79.899 Other long term (current) drug therapy

== ENCOUNTER 2016-11-17 03:38 | Emergency (ER) | payer BC ==
[~2016-11-17] VITALS: Ht 165.1 cm; Wt 104.7 kg
[~2016-11-17 03:38] MED LIST changes: -LSN5 PO; +ONDA4TAB10 SL
[2016-11-17 03:43] VITALS: BP 137/76; PULSE 60; TEMP 36.4; O2SAT 94; Ht 165.1 cm; Wt 104.7 kg
[2016-11-17] MEDS ORDERED: PRED50TA PO (04:00)
--- NOTE | 2016-11-17 04:54 | EMERGENCY ROOM VISIT NOTE ---
History First contact with patient: 03:47 Chief Complaint: ILLNESS Stated Complaint: GENERAL SICKNESS History of Present Illness The patient is a 61 year old male who presents to the Emergency Room with complaints of sinus congestion and sore throat for the past one day. The patient has not had fever or chills. No chest pain, chest tightness, or shortness of breath. He has not taken anything [id number] for his discomfort. He feels mildly nauseated with his drainage. Review of Systems More than 10 systems were reviewed and otherwise negative with the exception of history of present illness. Past Medical/Surgical History Medical Problems: (1) Anxiety disorder (2) Benign positional vertigo (3) Compression fracture of T12 vertebra (4) COPD (chronic obstructive pulmonary disease) (5) Coronary artery disease (6) Generalized anxiety disorder (7) GERD (gastroesophageal reflux disease) (8) Hyperlipemia (9) Hyperlipidemia (10) Metabolic syndrome (11) Obesity (BMI 30-39.9) (12) Osteoarthritis Surgical Problems: (1) H/O cardiac catheterization (2) Hx of appendectomy (3) Hx of cholecystectomy (4) Status post cardiac catheterization (5) Status post coronary artery stent placement Family History Cirrhosis of liver FATHER Coronary artery disease MOTHER SISTER Social History Smoking Status: Never Smoker Alcohol Use: none Marital Status: Housing Status: lives with significant other Occupation Status: employed Current/Historical Medications Scheduled Aspirin (Aspirin Ec), 81 MG PO DAILY Clopidogrel (Plavix), 75 MG PO DAILY Famotidine (Pepcid Ac), 10 MG PO HS Metoprolol Tartrate (Lopressor) (Lopressor), 25 MG PO BID Ondasetron Odt (Zofran Odt), 4 MG SL Q6H Prednisone (Prednisone), 50 MG PO DAILY Rosuvastatin Calcium (Crestor), 20 MG PO QAM Scheduled PRN Acetaminophen (Tylenol), 1,000 MG PO Q4H PRN for Pain or Fever Albuterol Sulfate (Proair Respiclick), 2 PUFFS INH Q4H PRN for SOB/Wheezing Cyclobenzaprine Hcl (Flexeril), 10 MG PO BID PRN for Muscle Spasms Dicyclomine Hcl (Dicyclomine Hcl), 1 CAP PO BID PRN for ABD PAIN Meclizine HCl (Meclizine HCl), 25 MG PO TID PRN for Dizziness or Vertigo Nitroglycerin (Nitrostat), 0.3 MG UT PRN PRN for Chest Pain Ondansetron Hcl (Zofran), 4 MG PO Q4H PRN for Nausea Allergies Coded Allergies: Tramadol (Verified Allergy, Unknown, itching, 09/11/16) Hydrocodone (Verified Adverse Reaction, Intermediate, DIZZY/NAUSEA, ) Physical Exam Vital Signs Date Time Temp Pulse Resp B/P (MAP) Pulse Ox O2 Delivery O2 Flow Rate FiO2 11/17/16 03:43 36.4 60 20 137/76 94 Room Air Pain Rating (0-10): 0 Physical Exam VITALS: Vitals are noted on the nurse's note and reviewed by myself. Vital signs stable. GENERAL: Well-developed, well-nourished, white male, who is in no acute distress and resting comfortably. Patient is cooperative with the examination. HEAD: Normocephalic atraumatic. EARS: External ear normal. External auditory canals clear, tympanic membranes pearly mathis without erythema or effusion bilaterally. EYES: Pupils equal round and reactive to light and accommodation. Conjunctivae without injection, sclerae without icterus. Extraocular movements intact. NOSE: Patent, turbinates without inflammation or discharge. MOUTH: Mucous membranes moist. Tonsils are not enlarged. Pharynx without erythema, blood, or exudate. Uvula midline. Airway patent. NECK: Supple without nuchal rigidity. No lymphadenopathy. No thyromegaly. Cervical spine is nontender. HEART: Regular rate and rhythm without murmurs gallops or rubs. LUNGS: Clear to auscultation bilaterally without wheezes, rales or rhonchi. No retractions or accessory muscle use. Medical Decision & Procedures Medications Administered Medications (Trade) Dose Ordered Sig/Poonam Route Start Time Stop Time Status Last Admin Dose Admin Prednisone (PredniSONE TAB) 60 mg STK-MED ONCE .ROUTE 11/17/16 04:08 11/17/16 04:09 DC 11/17/16 04:06 50 MG ED Course Physical exam and history were performed. Nursing notes and EMR were reviewed. Patient appears to have URI symptoms for the past one day. The patient does not appear toxic on examination. He is not appear to have a bacterial infection. His symptoms are likely viral or possibly allergic in nature. He will be given a course of prednisone. He is to follow-up with his primary care physician with any ongoing or persistent symptoms. Patient voiced understanding and rated his discomfort a 0/10 at the time of departure. The chart was completed utilizing [employer] Speech Voice Recognition Software. Grammatical errors, random word insertions, pronoun errors, and incomplete sentences are an occasional consequence of this system due to software limitations, ambient noise, and hardware issues. Any formal questions or concerns about the content, text, or information contained within the body of this dictation should be directly addressed to the provider for clarification. . Medical Decision Differential diagnosis: Etiologies such as viral syndrome, otitis, pharyngitis, pneumonia, influenza, meningitis, urinary tract infection, sepsis, bacteremia, as well as others were entertained. Impression Primary Impression: URI (upper respiratory infection) Departure Information Dispostion Home / Self-Care Condition GOOD Prescriptions Prednisone (Prednisone) 50 Mg Tab 50 MG PO DAILY for 4 Days, #4 TAB Prov: Martín Hollis PA-C 11/17/16 Forms WORK / SCHOOL INSTRUCTIONS, HOME CARE DOCUMENTATION FORM, IMPORTANT VISIT INFORMATION Patient Instructions My [facility] Additional Instructions You were seen and evaluated today on an emergency basis only. This is not a substitute for, or an effort to provide, complete comprehensive medical care. It is not possible to recognize and treat all injuries or illnesses in a single emergency department visit. For this reason it is recommended that you followup with your primary care physician next week for ongoing care and evaluation. Take prednisone as prescribed You are welcome to return to the emergency department anytime with new, worsening, or concerning symptoms.
== END 2016-11-17 04:05 | disposition home or self-care (01) ==
LOC: C.EDB 03:39 → C.EDA 04:05
DX: J06.9 Acute upper respiratory infection, unspecified (principal); E78.5 Hyperlipidemia, unspecified; I25.10 Atherosclerotic heart disease of native coronary artery without angina pectoris; K21.9 Gastro-esophageal reflux disease without esophagitis; F41.1 Generalized anxiety disorder; J44.9 Chronic obstructive pulmonary disease, unspecified; M19.90 Unspecified osteoarthritis, unspecified site; Z87.81 Personal history of (healed) traumatic fracture; Z90.49 Acquired absence of other specified parts of digestive tract; Z98.890 Other specified postprocedural states; Z98.61 Coronary angioplasty status; Z79.82 Long term (current) use of aspirin; Z79.899 Other long term (current) drug therapy; Z88.5 Allergy status to narcotic agent; Z88.8 Allergy status to other drugs, medicaments and biological substances; Z82.49 Family history of ischemic heart disease and other diseases of the circulatory system

== ENCOUNTER 2020-09-19 08:54 | Observation (INO) ==
[2020-09-19] MEDS ORDERED: ASPIRIN 81 MG CHEW PO STA (09:43)
[2020-09-19] MEDS ORDERED: fentaNYL citrate 100 MCG/2 ML VIAL IV STA (09:44)
--- NOTE | 2020-09-19 10:08 | XRay Report ---
XR chest 1V portable CLINICAL HISTORY: Atypical chest pain COMPARISON STUDY: 12/07/2019 FINDINGS: The cardiac and mediastinal contours are normal. There is no evidence of focal pulmonary co nsolidation. There is no evidence of failure. No pleural effusions are visualized.[ IMPRESSION: No active disease in the chest. ACT 112: Negative or not required by law. Electronically signed by: Tobin Ramirez M.D. 09/19/2020 10:06 AM
[2020-09-19 10:11] LABS: Basophils # (auto) 0.03 K/uL (0-0.2); Basophils % (auto) 0.4 %; Eosinophils # (auto) 0.29 K/uL (0-0.5); Eosinophils % (auto) 3.6 %; Hematocrit (blood only) 47.8 % (42-52); Hemoglobin 16.8 g/dL (14.0-18.0); Immature Granulocytes # (auto) 0.02 K/uL (0.00-0.02); Immature Granulocytes % (auto) 0.2 %; Lymphocytes # (auto) 1.55 K/uL (1.2-3.4); Lymphocytes % (auto) 19.3 %; Mean Corpuscular Hemoglobin 29.7 pg (25-34); Mean Corpuscular Hgb Conc 35.1 g/dL (32-36); Mean Corpuscular Volume 84.6 fL (80-100); Mean Platelet Volume 9.6 fL (7.4-10.4); Monocytes # (auto) 0.61 K/uL (0.11-0.59); Monocytes % (auto) 7.6 %; Neutrophils # (auto) 5.55 K/uL (1.4-6.5); Neutrophils % (auto) 68.9 %; Platelet Count 247 K/uL (130-400); RDW Coefficient of Variation 13.1 % (11.5-14.5); RDW Standard Deviation 40.2 fL (36.4-46.3); Red Blood Count 5.65 M/uL (4.7-6.1); White Blood Count 8.05 K/uL (4.8-10.8)
[2020-09-19 10:21] LABS: D Dimer 370 ug/L FEU (0-500); INR 1.1 (0.9-1.1); Prothrombin Time 10.9 Seconds (9.0-12.0)
[2020-09-19 10:38] LABS: Alanine Aminotransferase 24 U/L (12-78); Albumin Level 3.7 gm/dl (3.4-5.0); Aspartate Aminotransferase 19 U/L (15-37); BUN Creatinine Ratio 12.2 (10-20); Blood Urea Nitrogen 10 mg/dl (7-18); Calcium 8.7 mg/dl (8.5-10.1); Carbon Dioxide 24 mmol/L (21-32); Chloride 108 mmol/L (98-107); Creatinine Clr Calc Pharmacy 104.3 ml/min; Est GFR (African American) 107.7; Est GFR (Non-African American) 92.9; Glucose 93 mg/dl (70-99); Lipase 1157 U/L (73-393); Potassium 3.9 mmol/L (3.5-5.1); Sodium 139 mmol/L (136-145)
[2020-09-19] MEDS ORDERED: ONDANSETRON INJ 2 MG/ML 2 ML VIAL IV STA (10:41)
[2020-09-19 10:42] LABS: Alkaline Phosphatase 72 U/L (45-117); Bilirubin,Total 0.7 mg/dl (0.2-1); Globulin 3.8 gm/dl (2.5-4.0); Total Protein 7.5 gm/dl (6.4-8.2); Troponin I < 0.015 ng/ml (0-0.045)
--- NOTE | 2020-09-19 10:46 | Emergency Department Note ---
Impression & Plan Atypical chest pain, Elevated lipase ED Provider Note Provider: Silvano Elmore MD DATE OF SERVICE: 09/19/2020 CHIEF COMPLAINT: Left-sided chest discomfort HISTORY OF PRESENT ILLNESS: Patient is a 65-year-old gentleman history of COPD, CAD with stents presenting here today complaining of proximately 28 hours of chest discomfort. States has been somewhat intermittent in nature in the left chest. Occasionally sharp with a pressure sensation. Similar but not as severe as prior UT. Denies trauma. Some radiation to the left lower neck but denies radiation of the arm or to the abdomen. States occasionally it hurts a little bit if he moves a certain way but other times just constant. Has been able to eat and drink. Denies significant nausea or vomiting at home. Denies significant lower extremity swelling. Some shortness of breath reported but denies URI symptoms or fever or cough. States compliance with home aspirin. REVIEW OF SYSTEMS: A total of 10 review of systems was obtained and negative except as stated above in the HPI. PAST MEDICAL HISTORY: As noted above MEDICATIONS: Reviewed home medications include 81 mg aspirin SOCIAL HISTORY: Non-smoker, lives at home with PHYSICAL EXAM: GENERAL: alert and oriented in no acute distress on stretcher Head: normocephalic and atraumatic EYES: No injection, discharge or icterus. NECK: Trachea midline. ENT: Mucous membranes pink and moist. LUNGS: Airway patent. No retractions. Breath sounds clear with good air entry bilaterally. HEART: Regular rate and rhythm. No chest wall tenderness appreciated. ABDOMEN: Soft and non-tender, without guarding or rebound. SKIN: Acyanotic, warm, dry, without rashes EXTREMITIES: Without swelling, tenderness or deformity NEUROLOGICAL: No focal deficits. No aphasia. No facial droop or slurred speech. EK bpm normal sinus rhythm. No PVC or PAC. No acute ST segment elevation or depression. Normal QTC. Normal axis. CONTINUOUS CARDIAC MONITORING: was ordered and showed a heart rate of 50s-60s bpm in normal sinus rhythm to sinus bradycardia Patient's laboratory studies and imaging reviewed. Differential includes Cardiac ischemia, aortic dissection, pulmonary embolism, pneumothorax, pneumonia, pericarditis, myocarditis, esophageal rupture, GERD, cholecystitis, pancreatitis, musculoskeletal, as well as other pathologies. IMPRESSION/MEDICAL DECISION MAKING: Patient presents complaining of left-sided chest discomfort since yesterday. Denies significant GI distress at home has been able to eat. Significant cardiac history and states previously approximately 4 years ago had multiple negative visits and stress test until several days later troponin was elevated and required cardiac catheterization with stents. EKG without significant change initially and troponin is negative. Blood work reassuring and D-dimer is negative. Doubt PE with this. Symptoms not seem consistent with acute dissection. Blood pressure not severely elevated. Patient did request some pain medication in addition to completing a full dose of aspirin here and was given a small amount of fentanyl. Became nauseous with this and given some Zofran. Laboratory studies without evidence of transaminitis but interesting lipase is elevated at 1157. Discussed with the patient has CT the abdomen pelvis was completed look for signs of possible pancreatitis although the lo cation of his chest discomfort was somewhat high for this but it does radiate to the back to some degree. CT the abdomen pelvis without acute pathology or evidence of pancreatitis per radiology report. Patient gives additional Reglan to help with nausea. Discussed with him these findings. Does have significant cardiac history and again states that previous history of multiple visits and in shared decision-making feel that further observation given his chest discomfort would be reasonable along with monitoring for any development of pancreatitis symptomatologies. DIAGNOSIS: Chest pain, elevated lipase DISPOSITION: Hospitalist will evaluate Patient was agreeable with this plan. Past Med/Surg History Medical History (Updated 09/19/20 @ 13:13 by Silvano Elmore M.D.) Compression fracture of T12 vertebra Coronary artery disease "non-STEMI [facility] 08/01/16; cath + PCI [facility] PDA + OM 08/03/16" Generalized anxiety disorder Hyperlipidemia Metabolic syndrome Obesity (BMI 30-39.9) Osteoarthritis Vertigo Surgical History H/O cardiac catheterization "12/10/09 EF 60%, 20% LAD, 30% RCA as per Epic" Hx of appendectomy Hx of cholecystectomy Status post cardiac catheterization "[facility] 08/03/16 occlusions left circumflex + distal RCA posterolateral branch" On 09/11/16 06:19 Ron Tapia wrote "[facility] 08/01/16 occlusions left circumflex + distal RCA posterolateral branch" Status post coronary artery stent placement "[facility] 08/03/16 PCI's PDA + OM with drug-eluting stents" On 09/11/16 06:20 Ron Tapia wrote "[facility] 08/01/16 PCI's PDA + OM with drug-eluting stents" Family History Other Cancer Cirrhosis Stroke Social History Smoking Status: Never smoker Hx Alcohol Use: No Hx Substance Use: No Preferred Language: Albanian Communication Ability: Effective Beliefs That Will Affect Care: None Current Living Situation: Spouse Feels Safe at Home: Yes Assistive Devices: None Allergies Allergies Allergy/AdvReac Type Severity Reaction Status Date / Time tramadol Allergy Unknown itching Verified 09/19/20 10:09 hydrocodone AdvReac Intermediate DIZZY/NAUSE Verified 09/19/20 10:09 A Home Meds Home Medications Medication Instructions Recorded Confirmed meclizine 25 mg PO TID PRN 03/11/18 09/19/20 metoprolol tartrate 25 mg PO BID 03/11/18 09/19/20 rosuvastatin [Crestor] 20 mg PO HS 03/11/18 09/19/20 gabapentin 100 mg PO TID 08/03/19 09/19/20 aspirin 81 mg PO DAILY 09/19/20 09/19/20 cetirizine 10 mg PO DAILY 09/19/20 09/19/20 fluticasone propionate 2 spray INTRANASAL DAILY 09/19/20 09/19/20 Results & Data (ED) Vital Signs Vital Signs - 24 hr 09/19/20 08:57 09/19/20 09:06 09/19/20 09:07 Temperature 36.5 C Temperature Source Oral Pulse Rate 65 63 Pulse Rate [Apical] Pulse Rate from SpO2 Sensor 63 Pulse Rhythm Pulse Rhythm [Apical] Pulse Strength [Apical] Respiratory Rate 18 13 Respiratory Effort / Characteristics Respiratory Depth Respiratory Pattern Blood Pressure 176/99 H 124/80 Blood Pressure [Left Arm] Blood Pressure Mean 124 94 Blood Pressure Mean [Left Arm] Blood Pressure Position [Left Arm] Pulse Oximetry 95 96 96 Oxygen Delivery Method Room Air Room Air Sepsis Recent Fever Within 48 Hours No Sepsis New/Unexplained Change in Mental Status No Sepsis Action Taken by Nursing No Action Required 09/19/20 10:16 09/19/20 10:30 09/19/20 11:00 Temperature Temperature Source Pulse Rate 53 L 57 L 59 L Pulse Rate [Apical] Pulse Rate from SpO2 Sensor Pulse Rhythm Pulse Rhythm [Apical] Pulse Strength [Apical] Respiratory Rate 15 10 L 15 Respiratory Effort / Characteristics Respiratory Depth Respiratory Pattern Blood Pressure 132/82 143/83 H 133/78 Blood Pressure [Left Arm] Blood Pressure Mean 98 103 96 Blood Pressure Mean [Left Arm] Blood Pressure Position [Left Arm] Pulse Oximetry Oxygen Delivery Method Sepsis Recent Fever Within 48 Hours Sepsis New/Unexplained Change in Mental Status Sepsis Action Taken by Nursing 09/19/20 11:01 09/19/20 11:25 09/19/20 11:26 Temperature Temperature Source Pulse Rate 56 L 57 L Pulse Rate [Apical] 56 L Pulse Rate from SpO2 Sensor 58 L Pulse Rhythm Regular Pulse Rhythm [Apical] Regular Pulse Strength [Apical] Normal Respiratory Rate 16 16 12 Respiratory Effort / Characteristics Non-Labored Spontaneous Respiratory Depth Normal Respiratory Pattern Regular Blood Pressure 135/80 Blood Pressure [Left Arm] 135/80 Blood Pressure Mean 98 Blood Pressure Mean [Left Arm] 98 Blood Pressure Position [Left Arm] Semi-fowlers Pulse Oximetry 96 96 Oxygen Delivery Method Room Air Sepsis Recent Fever Within 48 Hours Sepsis New/Unexplained Change in Mental Status Sepsis Action Taken by Nursing 09/19/20 11:30 09/19/20 11:31 09/19/20 11:40 Temperature Temperature Source Pulse Rate 59 L 53 L 61 Pulse Rate [Apical] Pulse Rate from SpO2 Sensor 59 L 54 L 61 Pulse Rhythm Pulse Rhythm [Apical] Pulse Strength [Apical] Respiratory Rate 16 16 12 Respiratory Effort / Characteristics Respiratory Depth Respiratory Pattern Blood Pressure 119/76 Blood Pressure [Left Arm] Blood Pressure Mean 90 Blood Pressure Mean [Left Arm] Blood Pressure Position [Left Arm] Pulse Oximetry 96 95 92 Oxygen Delivery Method Sepsis Recent Fever Within 48 Hours Sepsis New/Unexplained Change in Mental Status Sepsis Action Taken by Nursing 09/19/20 11:50 09/19/20 12:00 09/19/20 12:01 Temperature Temperature Source Pulse Rate 55 L 56 L 55 L Pulse Rate [Apical] Pulse Rate from SpO2 Sensor 55 L 55 L 56 L Pulse Rhythm Pulse Rhythm [Apical] Pulse Strength [Apical] Respiratory Rate 14 13 13 Respiratory Effort / Characteristics Respiratory Depth Respiratory Pattern Blood Pressure 139/73 Blood Pressure [Left Arm] Blood Pressure Mean 95 Blood Pressure Mean [Left Arm] Blood Pressure Position [Left Arm] Pulse Oximetry 96 96 94 Oxygen Delivery Method Sepsis Recent Fever Within 48 Hours Sepsis New/Unexplained Change in Mental Status Sepsis Action Taken by Nursing Laboratory Data Result diagrams: 09/19/20 09:55 09/19/20 09:55 Lab Results 09/19/20 09/19/20 09/19/20 Range/Units 09:55 09:55 09:55 WBC 8.05 (4.8-10.8) K/uL RBC 5.65 (4.7-6.1) M/uL Hgb 16.8 (14.0-18.0) g/dL Hct 47.8 (42-52) % MCV 84.6 (80-100) fL MCH 29.7 (25-34) pg MCHC 35.1 (32-36) g/dL RDW Std Deviation 40.2 (36.4-46.3) fL RDW Coeff of Mildred 13.1 (11.5-14.5) % Plt Count 247 (130-400) K/uL MPV 9.6 (7.4-10.4) fL Immature Gran % (Auto) 0.2 % Neut % (Auto) 68.9 % Lymph % (Auto) 19.3 % [place] % (Auto) 7.6 % Eos % (Auto) 3.6 % Baso % (Auto) 0.4 % Neut # (Auto) 5.55 (1.4-6.5) K/uL Lymph # (Auto) 1.55 (1.2-3.4) K/uL [place] # (Auto) 0.61 H (0.11-0.59) K/uL Eos # (Auto) 0.29 (0-0.5) K/uL Baso # (Auto) 0.03 (0-0.2) K/uL Immature Gran # (Auto) 0.02 (0.00-0.02) K/uL PT 10.9 (9.0-12.0) Seconds INR 1.1 (0.9-1.1) D-Dimer 370 (0-500) ug/L FEU Sodium 139 (136-145) mmol/L Potassium 3.9 (3.5-5.1) mmol/L Chloride 108 H (98-107) mmol/L Carbon Dioxide 24 (21-32) mmol/L Anion Gap 7.0 (3-11) BUN 10 (7-18) mg/dl Creatinine 0.79 (0.6-1.4) mg/dl Est Cr Clr Drug Dosing 104.3 ml/min Est GFR ( Amer) 107.7 Est GFR (Non-Af Amer) 92.9 BUN/Creatinine Ratio 12.2 (10-20) Glucose 93 (70-99) mg/dl Calcium 8.7 (8.5-10.1) mg/dl Total Bilirubin 0.7 (0.2-1) mg/dl AST 19 (15-37) U/L ALT 24 (12-78) U/L Alkaline Phosphatase 72 (45-117) U/L Troponin I < 0.015 (0-0.045) ng/ml Total Protein 7.5 (6.4-8.2) gm/dl Albumin 3.7 (3.4-5.0) gm/dl Globulin 3.8 (2.5-4.0) gm/dl Albumin/Globulin Ratio 1.0 (0.9-2) Lipase 1157 H (73-393) U/L COVID-19 Eval Order SARS-CoV-2 (PCR) (Negative) Influenza Type A (PCR) (Neg) Influenza Type B (PCR) (Neg) RSV (RT-PCR) (Neg) 09/19/20 09/19/20 Range/Units 10:55 10:55 WBC (4.8-10.8) K/uL RBC (4.7-6.1) M/uL Hgb (14.0-18.0) g/dL Hct (42-52) % MCV (80-100) fL MCH (25-34) pg MCHC (32-36) g/dL RDW Std Deviation (36.4-46.3) fL RDW Coeff of Mildred (11.5-14.5) % Plt Count (130-400) K/uL MPV (7.4-10.4) fL Immature Gran % (Auto) % Neut % (Auto) % Lymph % (Auto) % [place] % (Auto) % Eos % (Auto) % Baso % (Auto) % Neut # (Auto) (1.4-6.5) K/uL Lymph # (Auto) (1.2-3.4) K/uL [place] # (Auto) (0.11-0.59) K/uL Eos # (Auto) (0-0.5) K/uL Baso # (Auto) (0-0.2) K/uL Immature Gran # (Auto) (0.00-0.02) K/uL PT (9.0-12.0) Seconds INR (0.9-1.1) D-Dimer (0-500) ug/L FEU Sodium (136-145) mmol/L Potassium (3.5-5.1) mmol/L Chloride (98-107) mmol/L Carbon Dioxide (21-32) mmol/L Anion Gap (3-11) BUN (7-18) mg/dl Creatinine (0.6-1.4) mg/dl Est Cr Clr Drug Dosing ml/min Est GFR ( Amer) Est GFR (Non-Af Amer) BUN/Creatinine Ratio (10-20) Glucose (70-99) mg/dl Calcium (8.5-10.1) mg/dl Total Bilirubin (0.2-1) mg/dl AST (15-37) U/L ALT (12-78) U/L Alkaline Phosphatase (45-117) U/L Troponin I (0-0.045) ng/ml Total Protein (6.4-8.2) gm/dl Albumin (3.4-5.0) gm/dl Globulin (2.5-4.0) gm/dl Albumin/Globulin Ratio (0.9-2) Lipase (73-393) U/L COVID-19 Eval Order CovFluRsv at [facility] SARS-CoV-2 (PCR) NEGATIVE (Negative) Influenza Type A (PCR) Negative (Neg) Influenza Type B (PCR) Negative (Neg) RSV (RT-PCR) Negative (Neg) Administered Medications Discontinued Medications Aspirin (Aspirin 81 Mg Chew) 243 mg PO NOW STA Stop: 09/19/20 09:44 Last Admin: 09/19/20 10:12 Dose: 243 mg Documented by: [id number] Fentanyl Citrate (Fentanyl Citrate 100 Mcg/2 Ml Vial) 50 mcg IV NOW STA Stop: 09/19/20 09:45 Last Admin: 09/19/20 10:12 Dose: 50 mcg Documented by: [id number] Ioversol (Ioversol 100ml) 93 ml IV ONCE ONE Stop: 09/19/20 11:15 Last Admin: 09/19/20 11:14 Dose: 93 ml Documented by: [id number] Ondansetron HCl (Ondansetron Inj 2 Mg/Ml 2 Ml Vial) 4 mg IV NOW STA Stop: 09/19/20 10:42 Last Admin: 09/19/20 11:08 Dose: 4 mg Documented by: [id number] Imaging Data Radiologist's Impression: Chest X-Ray 09/19/20 09:36 XR chest 1V portable CLINICAL HISTORY: Atypical chest pain COMPARISON STUDY: 12/07/2019 FINDINGS: The cardiac and mediastinal contours are normal. There is no evidence of focal pulmonary consolidation. There is no evidence of failure. No pleural effusions are visualized.[ IMPRESSION: No active disease in the chest. ACT 112: Negative or not required by law. Electronically signed by: Tobin Ramirez M.D. 09/19/2020 10:06 AM Abdomen/Pelvis CT 09/19/20 10:[address] WITH IV CONTRAST CT DOSE: 1282.54 mGy.cm HISTORY: Acutely elevated lipase with left-sided chest and abdominal pain elevated lipase, L CP TECHNIQUE: Multiaxial CT images of the abdomen and pelvis were performed following the IV administration of 93 cc of Optiray 320, A dose lowering technique was utilized adhering to the principles of ALARA. COMPARISON STUDY: CT abdomen and pelvis 12/03/2019 FINDINGS: Coronary artery calcifications. Clear lung bases. No pneumatosis or pneumoperitoneum. The spleen, pancreas, adrenal glands and liver appear unremarkable. Cholecystectomy. No CT evidence of acute pancreatitis. Exophytic 1.8 cm hypodense lesion of the inferior pole right kidney suggestive of cyst. Kidneys are otherwise unremarkable. Unremarkable urinary bladder. Mildly prominent prostate. No thoracic aortic aneurysm. No adenopathy. There is no bowel obstruction or bowel wall thickening. No ascites or mesenteric infiltration. Appendectomy. Unremarkable soft tissues. Degenerative changes of the spine, pelvis and hips. No acute fracture. IMPRESSION: 1. No acute intra-abdominal or intrapelvic abnormality. 2. No CT evidence of acute pancreatitis. 3. Appendectomy and cholecystectomy. 4. Additional findings as above. ACT 112: Negative or not required by law. The above report was generated using voice recognition software. It may contain grammatical, syntax or spelling errors. Electronically signed by: Hari Mayfield M.D. 09/19/2020 11:58 AM Discharge Plan Visit Data Chief Complaint: Chest Pain Stated Complaint: CHEST PAIN FOR 2 DAY'S ED Provider: Silvano Elmore Discharge Problem: Atypical chest pain, Elevated lipase Patient Disposition: Being Evaluated by Hospitalist Forms Stand Alone Forms: [facility] Prescriptions Prescriptions: No Action gabapentin 100 mg capsule 100 mg PO TID RF: 0 meclizine 25 mg Tablet 25 mg PO TID PRN (Reason: Vertigo) RF: 0 rosuvastatin [Crestor] 20 mg Tablet 20 mg PO HS RF: 0 metoprolol tartrate 25 mg Tablet 25 mg PO BID RF: 0 cetirizine 10 mg tablet 10 mg PO DAILY RF: 0 aspirin 81 mg Tablet,Delayed Release (Dr/Ec) 81 mg PO DAILY RF: 0 fluticasone propionate 50 mcg/actuation spray,suspension 2 spray INTRANASAL DAILY RF: 0 Referrals Referrals: Goran Morrissey MD [Primary Care Provider] -
[2020-09-19] MEDS ORDERED: OPTIRAY 320 100ml IV ONE (11:14)
[2020-09-19 11:41] LABS: Influenza A virus by PCR Negative (Neg); Influenza B virus by PCR Negative (Neg); RSV by PCR Negative (Neg); SARS CoV2 RNA(COVID-19) InHosp NEGATIVE (Negative)
--- NOTE | 2020-09-19 12:00 | CT Scan Report ---
ABDOMEN AND PELVIS CT WITH IV CONTRAST CT DOSE: 1282.54 mGy.cm HISTORY: Acutely elevated lipase with left-sided chest and abdominal pain elevated lipase, L CP TECHNIQUE: Multiaxial CT images of the abdomen and pelvis were performed following the IV administrat ion of 93 cc of Optiray 320, A dose lowering technique was utilized adhering to the principles of AL CHANDLER. COMPARISON STUDY: CT abdomen and pelvis 12/03/2019 FINDINGS: Coronary artery calcifications. Clear lung bases. No pneumatosis or pneumoperitoneum. The s pleen, pancreas, adrenal glands and liver appear unremarkable. Cholecystectomy. No CT evidence of acu te pancreatitis. Exophytic 1.8 cm hypodense lesion of the inferior pole right kidney suggestive of cy st. Kidneys are otherwise unremarkable. Unremarkable urinary bladder. Mildly prominent prostate. No t horacic aortic aneurysm. No adenopathy. There is no bowel obstruction or bowel wall thickening. No ascites or mesenteric infiltration. Append ectomy. Unremarkable soft tissues. Degenerative changes of the spine, pelvis and hips. No acute fract ure. IMPRESSION: 1. No acute intra-abdominal or intrapelvic abnormality. 2. No CT evidence of acute pancreatitis. 3. Appendectomy and cholecystectomy. 4. Additional findings as above. ACT 112: Negative or not required by law. The above report was generated using voice recognition software. It may contain grammatical, syntax o r spelling errors. Electronically signed by: Hari Mayfield M.D. 09/19/2020 11:58 AM
[2020-09-19] MEDS ORDERED: METOCLOPRAMIDE HCL INJ 5 MG/ML 2 ML VIAL IV ONE (12:09)
--- NOTE | 2020-09-19 12:35 | History & Physical Report ---
Date of Service September 19, 2020 Assessment & Plan (1) Chest pain: This is a 65-year-old male with PMH of CAD, history of NSTEMI in 2017 with SALOME x2, mild COPD, vertigo, hyperlipidemia and other medical problems listed below who presents with chest pain since yesterday. Left sided chest pain at rest, not exertional, radiation to left arm, reproducible on exam - resolved with fentanyl in ED In setting of increased anxiety as well as 20 pound weight gain over the past year 2/2 sedentary lifestyle Initial troponin negative ECG with normal sinus rhythm CXR with no active disease in the chest Most recent TTE from 2018 with preserved EF, grade 1 diastolic dysfunction, mild concentric LVH, no significant valvular pathology Trend serial cardiac enzymes Check echo A1c, fasting lipid panel and repeat EKG in am Discussed importance of lifestyle modifications Routine cardiology consult NPO after midnight in case a stress test tomorrow -does not believe he will tolerate exercise stress (2) Elevated lipase: Initial lipase 1,[address] abd/pelvis without evidence of acute pancreatitis on imaging Denies any nausea, vomiting or changes to appetite. No epigastric pain Does have history of hyperlipidemia and is on statin. History of cholecystectomy. Nondrinker, non-smoker Only new medications include gabapentin, cetirizine and Flonase Does not appear clinically like acute pancreatitis -advance to liquids, repeat lipase in a.m. (3) Coronary artery disease: History of NSTEMI in 2017 with SALOME x2 Follows with Dr. Carl Most recent TTE from 2018 with preserved EF, grade 1 diastolic dysfunction, mild concentric LVH, no significant valvular pathology Continue aspirin, beta tahmina, statin (4) COPD (chronic obstructive pulmonary disease): Mild, stable, continue PRN albuterol (5) Hyperlipidemia: Continue statin (6) Vertigo: Continue gabapentin, PRN meclizine DVT Ppx: SQ heparin Code status: FULL PCP: Ghanshyam Dispo: Observation med tele. Plan to return home once medically stable. Patient seen in collaboration with Dr. Reagan. Please see addendum. History of Present Illness Chief Complaint: Chest pain Primary Care Provider: Goran Morrissey MD This is a 65-year-old male with PMH of CAD, history of NSTEMI in 2017 with SALOME x2, mild COPD, vertigo, hyperlipidemia and other medical problems listed below who presents with chest pain since yesterday. Patient initially experienced le ft-sided chest pain around 10 AM yesterday morning when he was sitting watching TV. Describes it as an ache with sharper intermittent "jaggy" pain. Episodes of pain lasted for 1 hour and then resolved. Does have intermittent radiation of pain down left arm. Denies any exertional component because patient was sitting still for majority of the day. Did not take any nitroglycerin. No associated shortness of breath, nausea or vomiting. States this pain is somewhat similar to pain experienced during NSTEMI 2017 but slightly more mild. Has history of NSTEMI in 2017 during which a chest pain work-up was initially negative and then patient developed troponin elevation following stress test, resulting cardiac catheterization with 2 stents. Patient feels very anxious that he may be having a similar event, which he admits has led him to lead a more sedentary lifestyle. Has gained approximately 20 pounds during Covid time with inactivity. Denies any history of diabetes. Denies any fever, chills, cough, lightheadedness, nausea, vomiting or abdominal pain. Tolerating food without issue. No dysuria, diarrhea constipation. Only new medications are gabapentin for vertigo and cetirizine and Flonase for allergic rhinitis. Allergies Allergy/AdvReac Type Severity Reaction Status Date / Time tramadol Allergy Unknown itching Verified 09/19/20 10:09 hydrocodone AdvReac Intermediate DIZZY/NAUSE Verified 09/19/20 10:09 A Home Medications Medication Instructions Recorded Confirmed Type meclizine 25 mg PO TID PRN 03/11/18 09/19/20 History metoprolol tartrate 25 mg PO BID 03/11/18 09/19/20 History rosuvastatin [Crestor] 20 mg PO HS 03/11/18 09/19/20 History gabapentin 100 mg PO BID 08/03/19 09/19/20 History aspirin 81 mg PO DAILY 09/19/20 09/19/20 History cetirizine 10 mg PO DAILY 09/19/20 09/19/20 History cyclobenzaprine 10 mg PO BID PRN 09/19/20 09/19/20 History fluticasone propionate 2 spray INTRANASAL DAILY 09/19/20 09/19/20 History Past Med/Surg History Medical History Compression fracture of T12 vertebra Coronary artery disease "non-STEMI [facility] 08/01/16; cath + PCI SALOME PDA + OM 08/03/16" Generalized anxiety disorder Hyperlipidemia Obesity (BMI 30-39.9) Osteoarthritis Vertigo Surgical History H/O cardiac catheterization "12/10/09 EF 60%, 20% LAD, 30% RCA as per Epic" Hx of appendectomy Hx of cholecystectomy Status post cardiac catheterization "[facility] 08/03/16 occlusions left circumflex + distal RCA posterolateral branch" On 09/11/16 06:19 Ron Tapia wrote "[facility] 08/01/16 occlusions left circumflex + distal RCA posterolateral branch" Status post coronary artery stent placement "[facility] 08/03/16 PCI's PDA + OM with drug-eluting stents" On 09/11/16 06:20 Ron Tapia wrote "[facility] 08/01/16 PCI's PDA + OM with drug-eluting stents" Family History Other Cancer Cirrhosis Stroke Social History Smoking Status: Never smoker Hx Alcohol Use: No Hx Substance Use: No Preferred Language: Greek Communication Ability: Effective Commercial Lending Assistant Required: No Beliefs That Will Affect Care: None Current Living Situation: Spouse Other Information That Helps Us Care for You: No Feels Safe at Home: Yes Safety Concerns: Feels Safe At This Time Assistive Devices: None Review of Systems Review of Systems: At least ten systems reviewed and negative except as noted in the HPI. Physical Exam Physical Exam: General Appearance: WD/WN, vitals as above, NAD, sitting up in bed, pleasant, conversing easily, obese Head: normocephalic, atraumatic Eyes: normal inspection, PERRL, conjunctivae normal, anicteric sclerae ENT: external ear and nose normal, oropharynx normal Neck: normal visual inspection, trachea midline, no thyromegaly Respiratory: normal respiratory effort, lungs clear to auscultation, no wheeze, rales, rhonchi. No accessory muscle use Cardiovascular: regular rate, rhythm, no murmur, normal peripheral pulses, no BLE edema. Vessels: no JVD Chest: normal inspection of chest. + Reproducible chest pain of left chest wall on exam Abdomen/GI: normal bowel sounds, soft, nontender, no hepatosplenomegaly Extremities/Musculoskeletal: no cyanosis or clubbing, extremities motor strength 5/5 Neurologic: PERRL, EOMI, accommodation nl, no face palsy, no dysarthria, CN's II-XI intact bilaterally and moves all extremities Psychiatric: A+Ox3, anxious Skin: no rashes, normal color, warm/dry Results & Data Results & Data ([facility]) Vital Signs (Past 12 Hours) Vital Signs Temp Pulse Pulse Resp BP BP Pulse Ox 09/19/20 12:01 55 L 13 94 09/19/20 12:00 56 L 13 139/73 96 09/19/20 11:50 55 L 14 96 09/19/20 11:40 61 12 92 09/19/20 11:31 53 L 16 95 09/19/20 11:30 59 L 16 119/76 96 09/19/20 11:26 57 L 56 L 12 135/80 96 09/19/20 11:25 16 135/80 96 09/19/20 11:01 56 L 16 09/19/20 11:00 59 L 15 133/78 09/19/20 10:30 57 L 10 L 143/83 H 09/19/20 10:16 53 L 15 132/82 09/19/20 09:07 96 09/19/20 09:06 63 13 124/80 96 09/19/20 08:57 36.5 C 65 18 176/99 H 95 Laboratory Results Short CBC 09/19/20 Range/Units 09:55 WBC 8.05 (4.8-10.8) K/uL Hgb 16.8 (14.0-18.0) g/dL Hct 47.8 (42-52) % Plt Count 247 (130-400) K/uL BMP 09/19/20 09:55 Sodium 139 Potassium 3.9 Chloride 108 H Carbon Dioxide 24 BUN 10 Creatinine 0.79 Glucose 93 Calcium 8.7 Cardiac Enzymes 09/19/20 Range/Units 09:55 Troponin I < 0.015 (0-0.045) ng/ml Liver Function 09/19/20 Range/Units 09:55 Total Bilirubin 0.7 (0.2-1) mg/dl AST 19 (15-37) U/L ALT 24 (12-78) U/L Alkaline Phosphatase 72 (45-117) U/L Albumin 3.7 (3.4-5.0) gm/dl Diagnostic Findings CXR: IMPRESSION: No active disease in the chest. CT abd/pelvis: IMPRESSION: 1. No acute intra-abdominal or intrapelvic abnormality. 2. No CT evidence of acute pancreatitis. 3. Appendectomy and cholecystectomy. 4. Additional findings as above. ECG Rhythm: normal sinus Change: no significant change Code Status & VTE Plan VTE Prophylaxis Plan VTE Prophylaxis will be ordered: Yes Supervising Physician Co-Signing Physician Notes Attending addendum The patient was seen and examined in medical telemetry unit He has a complex cardiac history with atypical presentations for the cardiac symptoms He is admitted with episode of chest pain but during examination did not have any pain On examination He is obese and of any acute distress Remains hemodynamically stable Chestwith breath sounds but otherwise clear HeartS1-S2, regular Abdomenbenign Extremities-trace edema bilaterally Admission labs, EKG and imaging studies reviewed Atypical chest pain with significant CAD,status/post stent placement Agree with assessment and plan as outlined above by Catrachita Reagan (1) COPD (chronic obstructive pulmonary disease) COPD type: COPD with acute exacerbation Qualified Code(s): J44.1 - Chronic obstructive pulmonary disease with (acute) exacerbation
[2020-09-19] MEDS ORDERED: ACETAMINOPHEN 325 MG TAB PO PRN (13:52)
[2020-09-19] MEDS ORDERED: ONDANSETRON INJ 2 MG/ML 2 ML VIAL IV PRN (13:52)
[2020-09-19] MEDS ORDERED: POLYETHYLENE (MIRALAX) 17 GM PACK PO PRN (13:52)
[2020-09-19] MEDS ORDERED: NITROGLYCERIN SL 0.4 MG/TAB TAB SL PRN (13:52)
[2020-09-19] MEDS ORDERED: CYCLOBENZAPRINE HCL 10 MG TAB PO PRN (14:14)
[2020-09-19] MEDS ORDERED: MECLIZINE HCL 25 MG TAB PO PRN (14:15)
--- NOTE | 2020-09-19 14:16 | Cardiology Consultation ---
Date of Consultation September 19, 2020 Assessment & Plan (1) Chest pain: Resting echocardiogram was performed and reviewed by the undersigned revealing normal LV wall motion without significant definite heart disease. Normal LVEF. A D-dimer screen was within normal limits in the emergency department. Patient has been admitted and will be observed on telemetry. Serial troponin levels are to be drawn. Further ischemic evaluation will be pursued with either stress testing or cardiac catheterization depending upon how his hospitalization develops. Continue aspirin, metoprolol, rosuvastatin. History of Present Illness Attending Physician: Donnell Reagan MD History of Present Illness Andrea Saini Jr is a 65 year old male seen in cardiology consultation per the request of Catrachita Morley PA-C for the evaluation of chest discomfort. His primary truck hop is Dr. Carl of our practice. He had most recently been seen in routine cardiology follow-up in February, at which time stable cardiac signs and symptoms were noted. He notes recent progressive baseline shortness of breath with lesser degrees of exertion. Yesterday, he fell on and off again left-sided chest discomfort. He got better as the evening progressed. He returned this morning. He describes some characteristics of the chest discomfort concerned him in being reminiscent of his previous angina that prompted his presentation and ultimately coronary stents in 2017, but he notes that some of the characteristics or not. Troponin I has been negative x2 thus far, and EKG was normal this morning. The patient's cardiac history dates back to July,. At that time he was having exertional chest discomfort nuclear stress test performed on 07/30/2016 revealed normal perfusion. He went on to have progressive exertional chest discomfort and was found to have a non-ST segment elevation myocardial infarction with peak troponin of level of 17.8. Of note, his EKG at that time revealed no acute repolarization abnormalities. Cardiac catheterization revealed two-vessel coronary heart disease with 95% stenosis of the right posterior lateral branch of the right coronary artery is marginal. He therefore received drug-eluting stents to both of these vessels at that time. Allergies Allergy/AdvReac Type Severity Reaction Status Date / Time tramadol Allergy Unknown itching Verified 09/19/20 10:09 hydrocodone AdvReac Intermediate DIZZY/NAUSE Verified 09/19/20 10:09 A Home Medications Medication Instructions Recorded Confirmed Type meclizine 25 mg PO TID PRN 03/11/18 09/19/20 History metoprolol tartrate 25 mg PO BID 03/11/18 09/19/20 History rosuvastatin [Crestor] 20 mg PO HS 03/11/18 09/19/20 History gabapentin 100 mg PO BID 08/03/19 09/19/20 History aspirin 81 mg PO DAILY 09/19/20 09/19/20 History cetirizine 10 mg PO DAILY 09/19/20 09/19/20 History cyclobenzaprine 10 mg PO BID PRN 09/19/20 09/19/20 History fluticasone propionate 2 spray INTRANASAL DAILY 09/19/20 09/19/20 History Patient History Medical History Compression fracture of T12 vertebra Coronary artery disease "non-STEMI [facility] 08/01/16; cath + PCI SALOME PDA + OM 08/03/16" Generalized anxiety disorder Hyperlipidemia Obesity (BMI 30-39.9) Osteoarthritis Vertigo Surgical History H/O cardiac catheterization "12/10/09 EF 60%, 20% LAD, 30% RCA as per Epic" Hx of appendectomy Hx of cholecystectomy Status post cardiac catheterization "[facility] 08/03/16 occlusions left circumflex + distal RCA posterolateral branch" On 09/11/16 06:19 Ron Tapia wrote "[facility] 08/01/16 occlusions left circumflex + distal RCA posterolateral branch" Status post coronary artery stent placement "[facility] 08/03/16 PCI's PDA + OM with drug-eluting stents" On 09/11/16 06:20 Ron Tapia wrote "[facility] 08/01/16 PCI's PDA + OM with drug-eluting stents" Family History Other Cancer Cirrhosis Stroke Social History Smoking Status: Never smoker Hx Alcohol Use: No Hx Substance Use: No Preferred Language: Kiswahili Communication Ability: Effective Production Support Manager Required: No Beliefs That Will Affect Care: None Current Living Situation: Spouse Other Information That Helps Us Care for You: No Feels Safe at Home: Yes Safety Concerns: Feels Safe At This Time Assistive Devices: None Review of Systems Review of Systems: All systems reviewed & are unremarkable except as noted in HPI & below Physical Exam Physical Exam: Temp Pulse Resp BP Pulse Ox 36.4 C L 59 L 18 129/74 93 09/19/20 15:50 09/19/20 16:06 09/19/20 15:50 09/19/20 15:50 09/19/20 15:50 Constitutional: WD/WN, vitals as above Respiratory: normal respiratory effort, lungs clear to auscultation Cardiovascular: RRR, no murmur, no edema Gastrointestinal (Abdomen): normal bowel sounds, soft, nontender, no hepatosplenomegaly Neurologic: PERRL, EOMI, accommodation nl, no face palsy, no dysarthria Results & Data ([facility]) Vital Signs (Past 12 Hours) Vital Signs Temp Pulse Pulse Resp BP BP Pulse Ox 09/19/20 12:01 55 L 13 94 09/19/20 12:00 56 L 13 139/73 96 09/19/20 11:50 55 L 14 96 09/19/20 11:40 61 12 92 09/19/20 11:31 53 L 16 95 09/19/20 11:30 59 L 16 119/76 96 09/19/20 11:26 57 L 56 L 12 135/80 96 09/19/20 11:25 16 135/80 96 09/19/20 11:01 56 L 16 09/19/20 11:00 59 L 15 133/78 09/19/20 10:30 57 L 10 L 143/83 H 09/19/20 10:16 53 L 15 132/82 09/19/20 09:07 96 09/19/20 09:06 63 13 124/80 96 09/19/20 08:57 36.5 C 65 18 176/99 H 95 Laboratory Results Cardiac Enzymes 09/19/20 09/19/20 Range/Units 09:55 15:47 AST 19 (15-37) U/L Troponin I < 0.015 < 0.015 (0-0.045) ng/ml Coagulation 09/19/20 Range/Units 09:55 PT 10.9 (9.0-12.0) Seconds CBC 09/19/20 Range/Units 09:55 WBC 8.05 (4.8-10.8) K/uL RBC 5.65 (4.7-6.1) M/uL Hgb 16.8 (14.0-18.0) g/dL Hct 47.8 (42-52) % Plt Count 247 (130-400) K/uL Neut # (Auto) 5.55 (1.4-6.5) K/uL Lymph # (Auto) 1.55 (1.2-3.4) K/uL Potter # (Auto) 0.61 H (0.11-0.59) K/uL Eos # (Auto) 0.29 (0-0.5) K/uL Baso # (Auto) 0.03 (0-0.2) K/uL Comprehensive Metabolic Panel 09/19/20 Range/Units 09:55 Sodium 139 (136-145) mmol/L Potassium 3.9 (3.5-5.1) mmol/L Chloride 108 H (98-107) mmol/L Carbon Dioxide 24 (21-32) mmol/L BUN 10 (7-18) mg/dl Creatinine 0.79 (0.6-1.4) mg/dl Glucose 93 (70-99) mg/dl Calcium 8.7 (8.5-10.1) mg/dl AST 19 (15-37) U/L ALT 24 (12-78) U/L Alkaline Phosphatase 72 (45-117) U/L Total Protein 7.5 (6.4-8.2) gm/dl Albumin 3.7 (3.4-5.0) gm/dl Intake and Output 09/19/20 09/19/20 09/19/20 06:59 14:59 22:59 Other: Weight 110.5 kg Weight Measurement Method Standing Scale Patient Weight 09/20/20 06:59 Weight 110.5 kg Diagnostic Findings EKG performed 09/19/2020 at 9:04 AM revealed sinus rhythm at 64 bpm, normal EKG.
--- NOTE | 2020-09-19 14:24 | Electrocardiogram Report ---
Test Reason : Blood Pressure : / mmHG Vent. Rate : 064 BPM Atrial Rate : 064 BPM P-R Int : 150 ms QRS Dur : 088 ms QT Int : 408 ms P-R-T Axes : -04 020 014 degrees QTc Int : 420 ms Normal sinus rhythm Normal ECG When compared with ECG of 02-NOV-2019 12:31, No significant change was found Confirmed by Blaze Huynh ([id number]) on 09/19/2020 2:24:16 PM Referred By: Confirmed By:Blaze Huynh
[2020-09-19] MEDS: HEPARIN SOD 5,000 UNIT/0.5 ML VIAL SQ SCH ×2 (15:57→20:09)
[2020-09-19] MEDS: METOPROLOL TARTRATE 25 MG TAB PO SCH (20:09)
[2020-09-19] MEDS: GABAPENTIN 100 MG CAP PO SCH (20:09)
[2020-09-19] MEDS ORDERED: ROSUVASTATIN CALCIUM 20 MG TAB PO SCH (21:00)
[2020-09-19] MEDS ORDERED: GABAPENTIN 100 MG CAP PO SCH (21:00)
[2020-09-20] MEDS: HEPARIN SOD 5,000 UNIT/0.5 ML VIAL SQ SCH ×2 (05:32→15:23)
[2020-09-20 06:31] LABS: Hematocrit (blood only) 45.6 % (42-52); Hemoglobin 16.2 g/dL (14.0-18.0); Mean Corpuscular Hemoglobin 30.1 pg (25-34); Mean Corpuscular Hgb Conc 35.5 g/dL (32-36); Mean Corpuscular Volume 84.6 fL (80-100); Mean Platelet Volume 9.5 fL (7.4-10.4); Platelet Count 247 K/uL (130-400); RDW Coefficient of Variation 13.3 % (11.5-14.5); Red Blood Count 5.39 M/uL (4.7-6.1); White Blood Count 7.58 K/uL (4.8-10.8)
[2020-09-20 06:48] LABS: Estimated Average Glucose 108 mg/dl; Hemoglobin A1C 5.4 % (4.5-5.6)
[2020-09-20 07:01] LABS: Calcium 8.3 mg/dl (8.5-10.1); Creatinine Clr Calc Pharmacy 98.4 ml/min; Est GFR (African American) 105.5; Potassium 3.9 mmol/L (3.5-5.1)
[2020-09-20] MEDS: GABAPENTIN 100 MG CAP PO SCH (08:56)
[2020-09-20] MEDS: METOPROLOL TARTRATE 25 MG TAB PO SCH (08:57)
[2020-09-20] MEDS ORDERED: CETIRIZINE HCL 10 MG TABLET PO SCH (09:00)
[2020-09-20] MEDS ORDERED: ASPIRIN 81 MG ECTAB PO SCH (09:00)
[2020-09-20] MEDS ORDERED: FLUTICASONE PROPIONATE NA SPR 16 GM BTL NAE SCH (09:00)
--- NOTE | 2020-09-20 11:10 | Cardiology Progress Note ---
Date of Service September 20, 2020 Assessment & Plan (1) Chest pain: Symptoms improved. Serial troponin and EKG tracings within normal meds. Discussed options with patient including proceeding directly to cardiac catheterization, or interval stop of proceeding with dobutamine stress echocardiogram for risk stratification. He did well with a dobutamine stress echocardiogram been performed after his stents were performed in 2017. His resting echocardiogram was of good diagnostic quality. Of note, he had what in retrospect appears to have been a false negative nuclear stress test leading up to his previous stents, and therefore I think dobutamine stress echocardiogram is the more ideal noninvasive or stratification test for him. Further recommendations to be forthcoming after the test. Admission and Anticipated Discharge Date Admission Date: September 19, 2020 Subjective Patient seen in cardiology follow-up of chest pain. Chest pain resolved. Patient feels well. Cardiac enzymes negative on a serial basis, repeat EKG remains normal. Blood pressure well controlled. Physical Exam Physical Exam: Temp Pulse Resp BP Pulse Ox 36.9 C 59 L 18 127/76 93 09/20/20 07:54 09/20/20 07:54 09/20/20 07:54 09/20/20 07:54 09/20/20 07:54 Constitutional: WD/WN, vitals as above Respiratory: normal respiratory effort, lungs clear to auscultation Cardiovascular: RRR, no murmur, no edema Gastrointestinal (Abdomen): normal bowel sounds, soft, nontender, no hepatosplenomegaly Neurologic: PERRL, EOMI, accommodation nl, no face palsy, no dysarthria Results & Data ([facility]) Vital Signs (Past 12 Hours) Vital Signs Temp Pulse Pulse Resp BP BP Pulse Ox 09/20/20 07:54 36.9 C 59 L 18 127/76 93 09/20/20 07:36 69 09/20/20 04:27 36.8 C 62 18 98/59 L 94 09/20/20 01:29 59 L Laboratory Results Cardiac Enzymes 09/19/20 09/19/20 Range/Units 15:47 22:20 Troponin I < 0.015 < 0.015 (0-0.045) ng/ml Lipids 09/20/20 Range/Units 06:15 Triglycerides 122 (0-150) mg/dl Cholesterol 146 (0-200) mg/dl HDL Cholesterol 41 mg/dl Cholesterol/HDL Ratio 4 CBC 09/20/20 Range/Units 06:15 WBC 7.58 (4.8-10.8) K/uL RBC 5.39 (4.7-6.1) M/uL Hgb 16.2 (14.0-18.0) g/dL Hct 45.6 (42-52) % Plt Count 247 (130-400) K/uL Comprehensive Metabolic Panel 09/20/20 Range/Units 06:15 Sodium 139 (136-145) mmol/L Potassium 3.9 (3.5-5.1) mmol/L Chloride 108 H (98-107) mmol/L Carbon Dioxide 27 (21-32) mmol/L BUN 8 (7-18) mg/dl Creatinine 0.83 (0.6-1.4) mg/dl Glucose 92 (70-99) mg/dl Calcium 8.3 L (8.5-10.1) mg/dl Intake and Output 09/19/20 09/20/20 09/20/20 22:59 06:59 14:59 Intake Total 250 / 250 Balance 250 / 250 Intake: Oral 250 / 250 Other: Other Intake Source sips Weight 109.1 kg Weight Measurement Method Standing Scale Diagnostic Findings EKG performed this morning reveals sinus rhythm, no significant repolarization changes to suggest ischemia. Unchanged compared to yesterday.
[2020-09-20] MEDS ORDERED: DOBUTamine HCL 12.5 MG/ML 20 ML VIAL IV ONE (12:43)
[2020-09-20] MEDS ORDERED: METOPROLOL TARTRATE 1 MG/ML VIAL IV ONE (12:43)
[2020-09-20] MEDS ORDERED: ATROPINE SULFATE 0.1 MG/ML 10ML SYR IV ONE (12:43)
--- NOTE | 2020-09-20 13:36 | Communication Note ---
Date of Service: September 20, 2020 DSE performed. Presenting symptom of chest pain not reproduced. Normal stress EKG. Normal rest / stress wall motion and LVEF. BP response normal. Shortness of breath noted during test. Plan: advance diet. Will reconvene with patient after he has some lunch to discuss options of adding Imdur and ongoing observation at outpatient or remaining in hospital for cardiac catheterization.
--- NOTE | 2020-09-20 14:20 | Electrocardiogram Report ---
Test Reason : Blood Pressure : / mmHG Vent. Rate : 064 BPM Atrial Rate : 064 BPM P-R Int : 144 ms QRS Dur : 090 ms QT Int : 430 ms P-R-T Axes : -06 061 024 degrees QTc Int : 443 ms Normal sinus rhythm Normal ECG When compared with ECG of 20-SEP-2020 05:40, (unconfirmed) No significant change was found Confirmed by Blaze Huynh ([id number]) on 09/20/2020 2:19:37 PM Referred By: REFERRED SELF Confirmed By:Blaze Huynh
--- NOTE | 2020-09-20 15:52 | Hospitalist Progress Note ---
Date of Service September 20, 2020 Assessment & Plan (1) Chest pain: This is a 65-year-old male with PMH of CAD, history of NSTEMI in 2017 with SALOME x2, mild COPD, vertigo, hyperlipidemia and other medical problems listed below who presents with chest pain since yesterday. Left sided chest pain at rest, not exertional, radiation to left arm, reproducible on exam - resolved with fentanyl in ED In setting of increased anxiety as well as 20 pound weight gain over the past year 2/2 sedentary lifestyle Serial troponins and EKG were unremarkable for any ACS CXR with no active disease in the chest Most recent TTE from 2018 with preserved EF, grade 1 diastolic dysfunction, mild concentric LVH, no significant valvular pathology Echo of the heart and dobutamine stress echo where unremarkable Appreciate cardiology input and recommendation (2) Elevated lipase: Initial lipase 1,[address] abd/pelvis without evidence of acute pancreatitis on imaging Denies any nausea, vomiting or changes to appetite. No epigastric pain Does have history of hyperlipidemia and is on statin. History of cholecystectomy. Nondrinker, non-smoker Only new medications include gabapentin, cetirizine and Flonase Lipase has been normalized Lipids profile are unremarkable (3) Coronary artery disease: History of NSTEMI in 2017 with SALOME x2 Follows with Dr. 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 Plan to return home once medically stable. Admission and Anticipated Discharge Date Admission Date: September 19, 2020 Subjective 09/20/2020 The patient was seen and examined in medical telemetry unit He did not have any more chest pain and remains asymptomatic Review of Systems Review of Systems: All systems reviewed and are unremarkable except as noted below Physical Exam Physical Exam: Lying in bed comfortably Constitutional: well developed, well nourished and + obese; not ill appearing Eyes: PERRL, conjunctivae normal, anicteric sclerae ENMT: external ear and nose normal, oropharynx normal Neck: trachea midline, no thyromegaly Respiratory: no respiratory distress Auscultation: lungs clear to ausculta tion bilaterally; no crackles and no wheezes Cardiovascular: Rate/Rhythm: regular rate and regular rhythm Heart Sounds: no murmur Extremities: + edema (Trace edema bilaterally) Gastrointestinal (Abdomen): Inspection/Auscultation: normal bowel sounds; abdomen not distended Percussion/Palpation: abdomen soft; abdomen nontender Musculoskeletal: No acute arthritis in any joint Neurologic: Alert, awake and oriented x3 Psychiatric: A+Ox3, euthymic affect Lymphatic: no cervical or axillary lymphadenopathy Results & Data Results & Data ([place]) Vital Signs (Past 12 Hours) Vital Signs Temp Pulse Pulse Resp BP BP Pulse Ox 09/20/20 07:54 36.9 C 59 L 18 127/76 93 09/20/20 07:36 69 09/20/20 04:27 36.8 C 62 18 98/59 L 94 Laboratory Results Short CBC 09/20/20 Range/Units 06:15 WBC 7.58 (4.8-10.8) K/uL Hgb 16.2 (14.0-18.0) g/dL Hct 45.6 (42-52) % Plt Count 247 (130-400) K/uL BMP 09/20/20 06:15 Sodium 139 Potassium 3.9 Chloride 108 H Carbon Dioxide 27 BUN 8 Creatinine 0.83 Glucose 92 Calcium 8.3 L Cardiac Enzymes 09/19/20 09/19/20 Range/Units 15:47 22:20 Troponin I < 0.015 < 0.015 (0-0.045) ng/ml Medications Administered Current Inpatient Medications Acetaminophen (Acetaminophen 325 Mg Tab) 650 mg PO Q4H PRN PRN Reason: Pain or Fever Stop: 10/19/20 13:51 Last Admin: 09/20/20 09:04 Dose: 650 mg Documented by: Aspirin (Aspirin 81 Mg Ectab) 81 mg PO DAILY [facility] Stop: 10/20/20 08:59 Last Admin: 09/20/20 08:57 Dose: 81 mg Documented by: Cetirizine HCl (Cetirizine Hcl 10 Mg Tablet) 10 mg PO DAILY [facility] Stop: 10/20/20 08:59 Last Admin: 09/20/20 08:59 Dose: Not Given Documented by: Cyclobenzaprine HCl (Cyclobenzaprine Hcl 10 Mg Tab) 10 mg PO BID PRN PRN Reason: Muscle Spasm Stop: 10/19/20 14:13 Fluticasone Propionate (Fluticasone Propionate Na Spr 16 Gm Btl) 2 sprays KYA DAILY [facility] Stop: 10/20/20 08:59 Last Admin: 09/20/20 08:58 Dose: Not Given Documented by: Gabapentin (Gabapentin 100 Mg Cap) 100 mg PO BID [facility] Stop: 10/19/20 20:59 Last Admin: 09/20/20 08:56 Dose: 100 mg Documented by: Heparin Sodium (Porcine) (Heparin Sod 5,000 Unit/0.5 Ml Vial) 5,000 units SQ Q8 [facility] Stop: 10/19/20 13:59 Last Admin: 09/20/20 15:23 Dose: 5,000 units Documented by: Meclizine HCl (Meclizine Hcl 25 Mg Tab) 25 mg PO TID PRN PRN Reason: Vertigo Stop: 10/19/20 14:14 Metoprolol Tartrate (Metoprolol Tartrate 25 Mg Tab) 25 mg PO BID [facility] Stop: 10/19/20 20:59 Last Admin: 09/20/20 08:57 Dose: 25 mg Documented by: Nitroglycerin (Nitroglycerin Sl 0.4 Mg/Tab Tab) 0.4 mg SL UD PRN PRN Reason: Chest Pain Stop: 10/19/20 13:51 Ondansetron HCl (Ondansetron Inj 2 Mg/Ml 2 Ml Vial) 4 mg IV Q6H PRN PRN Reason: Nausea Stop: 10/19/20 13:51 Polyethylene Glycol (Polyethylene (Miralax) 17 Gm Pack) 17 gm PO DAILY PRN PRN Reason: Constipation Stop: 10/19/20 13:51 Rosuvastatin Calcium (Rosuvastatin Calcium 20 Mg Tab) 20 mg PO HS [facility] Stop: 10/19/20 20:59 Last Admin: 09/19/20 20:09 Dose: 20 mg Documented by: (1) COPD (chronic obstructive pulmonary disease) COPD type: COPD with acute exacerbation Qualified Code(s): J44.1 - Chronic obstructive pulmonary disease with (acute) exacerbation
--- NOTE | 2020-09-20 16:29 | Communication Note ---
Date of Service: September 20, 2020 Patient reassessed. Non ischemic DSE. Discussed options of ongoing medication, addition of Imdur versus cardiac catheterization. Pt elects to proceed with adding Imdur. Will arrange outpatient follow up with Dr Haines, Dr Carl , or PA in 1-2 weeks.
--- NOTE | 2020-09-20 17:41 | Discharge Summary ---
Date of Service September 20, 2020 Admission HPI Per Admitting Provider This is a 65-year-old male with PMH of CAD, history of NSTEMI in 2017 with SALOME x2, mild COPD, vertigo, hyperlipidemia and other medical problems listed below who presents with chest pain since yesterday. Patient initially experienced left-sided chest pain around 10 AM yesterday morning when he was sitting watching TV. Describes it as an ache with sharper intermittent "jaggy" pain. Episodes of pain lasted for 1 hour and then resolved. Does have intermittent radiation of pain down left arm. Denies any exertional component because patient was sitting still for majority of the day. Did not take any nitroglycerin. No associated shortness of breath, nausea or vomiting. States this pain is somewhat similar to pain experienced during NSTEMI 2017 but slightly more mild. Has history of NSTEMI in 2017 during which a chest pain work-up was initially negative and then patient developed troponin elevation following stress test, resulting cardiac catheterization with 2 stents. Patient feels very anxious that he may be having a similar event, which he admits has led him to lead a more sedentary lifestyle. Has gained approximately 20 pounds during Covid time with inactivity. Denies any history of diabetes. Denies any fever, chills, cough, lightheadedness, nausea, vomiting or abdominal pain. Tolerating food without issue. No dysuria, diarrhea constipation. Only new medications are gabapentin for vertigo and cetirizine and Flonase for allergic rhinitis. Admission Exam Per Admitting Provider Physical Exam: General Appearance: WD/WN, vitals as above, NAD, sitting up in bed, pleasant, conversing easily, obese Head: normocephalic, atraumatic Eyes: normal inspection, PERRL, conjunctivae normal, anicteric sclerae ENT: external ear and nose normal, oropharynx normal Neck: normal visual inspection, trachea midline, no thyromegaly Respiratory: normal respiratory effort, lungs clear to auscultation, no wheeze, rales, rhonchi. No accessory muscle use Cardiovascular: regular rate, rhythm, no murmur, normal peripheral pulses, no BLE edema. Vessels: no JVD Chest: normal inspection of chest. + Reproducible chest pain of left chest wall on exam Abdomen/GI: normal bowel sounds, soft, nontender, no hepatosplenomegaly Extremities/Musculoskeletal: no cyanosis or clubbing, extremities motor strength 5/5 Neurologic: PERRL, EOMI, accommodation nl, no face palsy, no dysarthria, CN's II-XI intact bilaterally and moves all extremities Psychiatric: A+Ox3, anxious Skin: no rashes, normal color, warm/dry Principal Diagnosis Atypical chest pain-no ACS, negative DSE, CAD with SALOME x2 in 2017, COPD Discharge Exam Constitutional well developed, well nourished and + obese; not ill appearing Eyes PERRL, conjunctivae normal, anicteric sclerae ENMT external ear and nose normal, oropharynx normal Neck trachea midline, no thyromegaly Respiratory no respiratory distress Auscultation: lungs clear to auscultation bilaterally; no crackles and no wheezes Cardiovascular Rate/Rhythm: regular rate and regular rhythm Heart Sounds: no murmur Extremities: + edema (Trace edema bilaterally) Gastrointestinal (Abdomen) Inspection/Auscultation: normal bowel sounds; abdomen not distended Percussion/Palpation: abdomen soft; abdomen nontender Psychiatric A+Ox3, euthymic affect Lymphatic no cervical or axillary lymphadenopathy Discharge Data Allergies Allergy/AdvReac Type Severity Reaction Status Date / Time tramadol Allergy Unknown itching Verified 09/19/20 10:09 hydrocodone AdvReac Intermediate DIZZY/NAUSE Verified 09/19/20 10:09 A Consultations 09/19/20 12:39 ED Decision to Admit Stat 09/19/20 13:52 Consult Cardiology Routine Ordered Studies 09/19/20 10:44 CT abd pelvis IV con only Stat Hospital Course (1) Chest pain: This is a 65-year-old male with PMH of CAD, history of NSTEMI in 2017 with SALOME x2, mild COPD, vertigo, hyperlipidemia and other medical problems listed below who presents with chest pain since yesterday. Left sided chest pain at rest, not exertional, radiation to left arm, reproducible on exam - resolved with fentanyl in ED In setting of increased anxiety as well as 20 pound weight gain over the past year 2/2 sedentary lifestyle Serial troponins and EKG were unremarkable for any ACS CXR with no active disease in the chest Most recent TTE from 2018 with preserved EF, grade 1 diastolic dysfunction, mild concentric LVH, no significant valvular pathology Echo of the heart and dobutamine stress echo where unremarkable Appreciate cardiology input and recommendation (2) Elevated lipase: Initial lipase 1,[address] abd/pelvis without evidence of acute pancreatitis on imaging Denies any nausea, vomiting or changes to appetite. No epigastric pain Does have history of hyperlipidemia and is on statin. History of cholecystectomy. Nondrinker, non-smoker Only new medications include gabapentin, cetirizine and Flonase Lipase has been normalized Lipids profile are unremarkable (3) Coronary artery disease: History of NSTEMI in 2017 with SALOME x2 Follows with Dr. Carl Most recent TTE from 2018 with preserved EF, grade 1 diastolic dysfunction, mild concentric LVH, no significant valvular pathology Continue aspirin, beta tahmina, statin [employer] has been considering possible cath-no cath during this time he will be given Imdur and will be discharged home this afternoon (4) COPD (chronic obstructive pulmonary disease): Mild, stable, continue PRN albuterol No acute symptoms (5) Hyperlipidemia: Continue statin Lipid profiles remain unremarkable (6) Vertigo: Continue gabapentin, PRN meclizine DVT Ppx: SQ heparin Code status: FULL PCP: Ghanshyam Dispo: Observation med tele. Plan to return home once medically stable. Total Time Total Time Spent Total Time Spent (In Minutes): 35 minutes Total Time Includes: Examination of the Patient, Discharge Planning, Medication Reconciliation and Communication With Other Providers Discharge Plan Discharge Items Patient Disposition: Home - Self-Care Reason For Visit: CHEST PAIN Discharge Diagnosis: Atypical chest pain-no ACS, negative DSE, CAD with SALOME x2 in 2017, COPD Activity: Resume your previous activity Non-emergency contact: Primary Care Provider Call non-emergency contact if: you have any medication questions and your symptoms worsen Follow-up/Referrals: Goran Morrissey MD [Primary Care Provider] - (Date & Time 09/26/2020 3:00 PM Provider Goran Morrissey MD Department Internal Medicine [facility] ) Diet: Heart Healthy Addtl Attending Provider Instructions: Please take precautions to avoid fall Take your medications regularly and as advised Please keep appointments with your primary care physician and mill representative Pending Studies at Discharge: No Stand-Alone Forms: My [employer], Smoking Cessation Medications and DC Order Prescriptions: New isosorbide mononitrate 30 mg Tablet Extended Release 24 Hr 30 mg PO QAM Qty: 30 RF: 0 nitroglycerin [Nitrostat] 0.4 mg Tablet, Sublingual 0.4 mg sublingual UD PRN (Reason: chest pain) Qty: 25 RF: 0 Continued gabapentin 100 mg capsule 100 mg PO BID RF: 0 meclizine 25 mg Tablet 25 mg PO TID PRN (Reason: Vertigo) RF: 0 rosuvastatin [Crestor] 20 mg Tablet 20 mg PO HS RF: 0 metoprolol tartrate 25 mg Tablet 25 mg PO BID RF: 0 cetirizine 10 mg tablet 10 mg PO DAILY RF: 0 aspirin 81 mg Tablet,Delayed Release (Dr/Ec) 81 mg PO DAILY RF: 0 fluticasone propionate 50 mcg/actuation spray,suspension 2 spray INTRANASAL DAILY RF: 0 cyclobenzaprine 10 mg tablet 10 mg PO BID PRN (Reason: Muscle Spasm) RF: 0 Discharge Orders: Discharge Order (Routine); Ordered 09/20/20 Ordered By: Donnell Reagan Admission Data Admit Date/Time: 09/19/20 12:33 Attending Provider: Donnell Reagan Admit Provider: Donnell Reagan Primary Care Provider: Goran Morrissey Other Providers: Donnell Reagan ; Martín Haines
[2020-09-21] MEDS ORDERED: ISOSORBIDE MONO EXTENDED REL 30 MG TABCR PO SCH (09:00)
== END 2020-09-20 19:19 | disposition home or self-care (01) ==
LOC: ED 08:54 → 2N 08:54

== ENCOUNTER 2021-01-08 12:00 | Observation (INO) ==
--- NOTE | 2021-01-08 12:12 | Emergency Department Note ---
History of Present Illness General Chief Complaint: Chest Pain Stated Complaint: CHEST PAIN,RIGHT ARM PAIN,SOB Time Seen by Provider: 01/08/21 12:11 Source: patient Limitations: no limitations History of Present Illness Provider Complaint: chest pain Onset (ago): day(s) (3) Duration: intermittent Onset: during rest and during exertion Pain Location: left chest Pain Radiation: LUE Severity: moderate Maximum Pain Intensity: 4 Quality: + aching and + dull Relieved By: + rest Exacerbated By: + exertion Context: no recent illness, no recent surgery, no recent immobilization, no recent travel, no trauma/injury, no new medications or no history of DVT/PE Associated symptoms: + nausea and + dyspnea; no vomiting, no syncope, no palpitations, no fever, no cough or no leg swelling Treatments prior to arrival: none Home Medications Medication Instructions Recorded Confirmed Type meclizine 25 mg tablet 25 mg PO TID PRN 03/11/18 01/08/21 History metoprolol tartrate 25 mg tablet 25 mg PO BID 03/11/18 01/08/21 History rosuvastatin 20 mg tablet (Crestor) 20 mg PO HS 03/11/18 01/08/21 History gabapentin 100 mg capsule 100 mg PO BID 08/03/19 01/08/21 History aspirin 81 mg tablet,delayed 81 mg PO DAILY 09/19/20 01/08/21 History release cetirizine 10 mg tablet 10 mg PO DAILY 09/19/20 01/08/21 History cyclobenzaprine 10 mg tablet 10 mg PO BID PRN 09/19/20 01/08/21 History fluticasone propionate 50 2 spray INTRANASAL DAILY 09/19/20 01/08/21 History mcg/actuation nasal spray,suspension isosorbide mononitrate 30 mg 30 mg PO QAM #30 tab 09/20/20 01/08/21 Rx tablet,extended release 24 hr nitroglycerin 0.4 mg sublingual 0.4 mg SUBLINGUAL UD PRN #25 tab 09/20/20 01/08/21 Rx tablet (Nitrostat) albuterol sulfate 90 mcg/actuation 2 puff INHALATION Q6H PRN 01/08/21 01/08/21 History aerosol inhaler Allergies Allergy/AdvReac Type Severity Reaction Status Date / Time tramadol Allergy Unknown itching Verified 09/19/20 10:09 hydrocodone AdvReac Intermediate DIZZY/NAUSE Verified 09/19/20 10:09 A Past Med/Surg History Medical History Compression fracture of T12 vertebra Coronary artery disease "non-STEMI [facility] 08/01/16; cath + PCI SALOME PDA + OM 08/03/16" Generalized anxiety disorder Hyperlipidemia Obesity (BMI 30-39.9) Osteoarthritis Vertigo Surgical History H/O cardiac catheterization "12/10/09 EF 60%, 20% LAD, 30% RCA as per Epic" Hx of appendectomy Hx of cholecystectomy Status post cardiac catheterization "[facility] 08/03/16 occlusions left circumflex + distal RCA posterolateral branch" On 09/11/16 06:19 Ron Tapia wrote "[facility] 08/01/16 occlusions left circumflex + distal RCA posterolateral branch" Status post coronary artery stent placement "[facility] 08/03/16 PCI's PDA + OM with drug-eluting stents" On 09/11/16 06:20 Ron Tapia wrote "[facility] 08/01/16 PCI's PDA + OM with drug-eluting stents" Family History Other Cancer Cirrhosis Stroke Social History Smoking Status: Never smoker Second Hand Exposure: No; Do You Dip or Chew Tobacco: No; Tobacco Cessation Education Requested by Patient: No Hx Alcohol Use: No Hx Substance Use: No Preferred Language: Frisian Communication Ability: Effective Museum Educator Required: No Beliefs That Will Affect Care: None Current Living Situation: Spouse Other Information That Helps Us Care for You: No Feels Safe at Home: Yes Safety Concerns: Feels Safe At This Time Assistive Devices: None Review of Systems See HPI for pertinent positives & negatives. and A total of 10 systems reviewed and were otherwise negative Physical Exam Vital Signs Vital Signs - 24 hr 01/08/21 12:02 01/08/21 12:35 01/08/21 12:37 Temperature 36.6 C Temperature Source Temporal Artery Scan Pulse Rate 68 Pulse Rate [Apical] 60 Respiratory Rate 19 11 L Respiratory Effort / Characteristics Non-Labored Respiratory Depth Normal Blood Pressure 139/80 Blood Pressure [Right Arm] 111/69 Blood Pressure Mean 99 Blood Pressure Mean [Right Arm] 83 Pulse Oximetry 94 94 Oxygen Delivery Method Room Air Room Air Room Air Sepsis Recent Fever Within 48 Hours No Sepsis New/Unexplained Change in Mental Status No Sepsis Action Taken by Nursing No Action Required 01/08/21 12:51 01/08/21 13:00 01/08/21 13:30 Temperature Temperature Source Pulse Rate Pulse Rate [Apical] 64 56 L 54 L Respiratory Rate 21 17 14 Respiratory Effort / Characteristics Respiratory Depth Blood Pressure Blood Pressure [Right Arm] 117/70 119/69 119/69 Blood Pressure Mean Blood Pressure Mean [Right Arm] 85 85 85 Pulse Oximetry 94 94 94 Oxygen Delivery Method Room Air Room Air Sepsis Recent Fever Within 48 Hours Sepsis New/Unexplained Change in Mental Status Sepsis Action Taken by Nursing 01/08/21 14:00 Temperature Temperature Source Pulse Rate Pulse Rate [Apical] 54 L Respiratory Rate 14 Respiratory Effort / Characteristics Respiratory Depth Blood Pressure Blood Pressure [Right Arm] 120/70 Blood Pressure Mean Blood Pressure Mean [Right Arm] 86 Pulse Oximetry 94 Oxygen Delivery Method Sepsis Recent Fever Within 48 Hours Sepsis New/Unexplained Change in Mental Status Sepsis Action Taken by Nursing GENERAL: Wearing glasses and a mask. NAD, non-toxic. EYE EXAM: Normal conjunctiva. PERRL, no anisocoria and EOM's grossly intact w/o pain. NECK: Supple, no nuchal rigidity, no adenopathy, non-tender. No signs of meningismus. LUNGS: Clear to auscultation. Normal chest wall mechanics. HEART: NSR, no MRG. ABDOMEN: Abdomen soft, non-tender, normo-active bowel sounds, no masses, no rebound or guarding. BACK: No CVA TTP. SKIN: No rashes and no bruising. UPPER EXTREMITIES: Upper extremities are grossly normal. LOWER EXTREMITIES: Grossly normal, no edema. Negative Homans' sign bilaterally. NEURO EXAM: A&O x3, cranial nerves II-XII grossly intact, normal speech, moves a ll 4 extremities on command w/o issue. Course Course Cardiac monitoring: An order was placed for continuous cardiac monitoring. The monitor shows a rate of 65 with sinus rhythm. Administered Medications Aspirin (Aspirin 81 Mg Ectab) 81 mg PO DAILY RAYO Stop: 02/08/21 08:59 Last Admin: 01/09/21 07:46 Dose: 81 mg Documented by: [id number] Cetirizine HCl (Cetirizine Hcl 10 Mg Tablet) 10 mg PO DAILY RAYO Stop: 02/08/21 08:59 Last Admin: 01/09/21 07:46 Dose: 10 mg Documented by: [id number] Enoxaparin Sodium (Enoxaparin Inj 40 Mg/0.4 Ml Syr) 40 mg SQ Q24H RAYO Stop: 02/07/21 20:59 Last Admin: 01/08/21 21:55 Dose: 40 mg Documented by: [id number] Gabapentin (Gabapentin 100 Mg Cap) 100 mg PO BID RAYO Stop: 02/07/21 20:59 Last Admin: 01/09/21 07:46 Dose: 100 mg Documented by: [id number] Admin: 01/08/21 21:56 Dose: 100 mg Documented by: [id number] Isosorbide Mononitrate (Isosorbide [place] Extended Rel 30 Mg Tabcr) 30 mg PO QAM RAYO Stop: 02/08/21 08:59 Last Admin: 01/09/21 07:46 Dose: 30 mg Documented by: [id number] Metoprolol Tartrate (Metoprolol Tartrate 25 Mg Tab) 25 mg PO BID RAYO Stop: 02/07/21 20:59 Last Admin: 01/09/21 07:45 Dose: 25 mg Documented by: [id number] Admin: 01/08/21 21:56 Dose: 25 mg Documented by: [id number] Nitroglycerin (Nitroglycerin 2% Ointment 30gm Tube) 1 inch EXT Q6H RAYO Stop: 02/07/21 17:29 Last Admin: 01/09/21 11:46 Dose: 1 inch Documented by: [id number] Admin: 01/09/21 06:30 Dose: 1 inch Documented by: [id number] Admin: 01/09/21 01:42 Dose: 1 inch Documented by: [id number] Admin: 01/08/21 17:51 Dose: 1 inch Documented by: [id number] Rosuvastatin Calcium (Rosuvastatin Calcium 20 Mg Tab) 20 mg PO HS RAYO Stop: 02/07/21 20:59 Last Admin: 01/08/21 21:56 Dose: 20 mg Documented by: [id number] Discontinued Medications Aspirin (Aspirin Chew 324 Mg) 243 mg PO NOW STA Stop: 01/08/21 12:25 Last Admin: 01/08/21 12:50 Dose: 243 mg Documented by: [id number] Sodium Chloride (Nss) 500 mls @ 999 mls/hr IV .Q31M STA Stop: 01/08/21 12:58 Last Infusion: 01/08/21 13:19 Dose: 0 mls/hr Documented by: [id number] Admin: 01/08/21 12:48 Dose: 999 mls/hr Documented by: [id number] Nitroglycerin (Nitroglycerin Sl 0.4 Mg/Tab Tab) 0.4 mg SL UD PRN PRN Reason: Chest Pain Stop: 02/07/21 12:27 Last Admin: 01/08/21 12:51 Dose: 0.4 mg Documented by: [id number] Ondansetron HCl (Ondansetron Inj 2 Mg/Ml 2 Ml Vial) 4 mg IV NOW STA Stop: 01/08/21 12:25 Last Admin: 01/08/21 12:49 Dose: 4 mg Documented by: [id number] Medical Decision Making Differential Diagnosis Cardiac ischemia, aortic dissection, pulmonary embolism, pneumothorax, pne umonia, pericarditis, myocarditis, esophageal rupture, GERD, cholecystitis, pancreatitis, musculoskeletal, as well as other pathologies. Medical Records Attestation: I reviewed the patient's medical records. Home Medications Current Medication List: was personally reviewed by me Laboratory Data Attestation: I reviewed the patient's lab results. Result diagrams: 01/09/21 07:19 01/09/21 07:19 Labs: Lab Results 01/08/21 01/08/21 01/08/21 Range/Units 12:35 12:37 12:37 WBC 7.51 (4.8-10.8) K/uL RBC 5.43 (4.7-6.1) M/uL Hgb 15.9 (14.0-18.0) g/dL Hct 45.8 (42-52) % MCV 84.3 (80-100) fL MCH 29.3 (25-34) pg MCHC 34.7 (32-36) g/dL RDW Std Deviation 41.0 (36.4-46.3) fL RDW Coeff of Mildred 13.3 (11.5-14.5) % Plt Count 235 (130-400) K/uL MPV 9.6 (7.4-10.4) fL Immature Gran % (Auto) 0.1 % Neut % (Auto) 56.1 % Lymph % (Auto) 20.9 % Bartow % (Auto) 8.8 % Eos % (Auto) 13.4 % Baso % (Auto) 0.7 % Neut # (Auto) 4.21 (1.4-6.5) K/uL Lymph # (Auto) 1.57 (1.2-3.4) K/uL Bartow # (Auto) 0.66 H (0.11-0.59) K/uL Eos # (Auto) 1.01 H (0-0.5) K/uL Baso # (Auto) 0.05 (0-0.2) K/uL Immature Gran # (Auto) 0.01 (0.00-0.02) K/uL APTT 27.0 (21.0-31.0) Seconds PTT Ratio 1.0 Sodium 142 (136-145) mmol/L Potassium 3.7 (3.5-5.1) mmol/L Chloride 109 H (98-107) mmol/L Carbon Dioxide 26 (21-32) mmol/L Anion Gap 7.0 (3-11) BUN 11 (7-18) mg/dl Creatinine 0.85 (0.6-1.4) mg/dl Est Cr Clr Drug Dosing 96.5 ml/min Est GFR ( Amer) 104.5 ml/min Est GFR (Non-Af Amer) 90.2 ml/min BUN/Creatinine Ratio 12.6 (10-20) Glucose 109 H (70-99) mg/dl Calcium 8.6 (8.5-10.1) mg/dl Total Bilirubin 0.6 (0.2-1) mg/dl AST 19 (15-37) U/L ALT 21 (12-78) U/L Alkaline Phosphatase 68 (45-117) U/L Troponin I < 0.015 (0-0.045) ng/ml Total Protein 7.1 (6.4-8.2) gm/dl Albumin 3.4 (3.4-5.0) gm/dl Globulin 3.7 (2.5-4.0) gm/dl Albumin/Globulin Ratio 0.9 (0.9-2) Lipase 205 (73-393) U/L Specimen Hemolysis COVID-19 Eval Order SARS-CoV-2 (PCR) (Negative) 01/08/21 01/08/21 Range/Units 12:52 12:52 WBC (4.8-10.8) K/uL RBC (4.7-6.1) M/uL Hgb (14.0-18.0) g/dL Hct (42-52) % MCV (80-100) fL MCH (25-34) pg MCHC (32-36) g/dL RDW Std Deviation (36.4-46.3) fL RDW Coeff of Mildred (11.5-14.5) % Plt Count (130-400) K/uL MPV (7.4-10.4) fL Immature Gran % (Auto) % Neut % (Auto) % Lymph % (Auto) % Bartow % (Auto) % Eos % (Auto) % Baso % (Auto) % Neut # (Auto) (1.4-6.5) K/uL Lymph # (Auto) (1.2-3.4) K/uL Bartow # (Auto) (0.11-0.59) K/uL Eos # (Auto) (0-0.5) K/uL Baso # (Auto) (0-0.2) K/uL Immature Gran # (Auto) (0.00-0.02) K/uL APTT (21.0-31.0) Seconds PTT Ratio Sodium (136-145) mmol/L Potassium (3.5-5.1) mmol/L Chloride (98-107) mmol/L Carbon Dioxide (21-32) mmol/L Anion Gap (3-11) BUN (7-18) mg/dl Creatinine (0.6-1.4) mg/dl Est Cr Clr Drug Dosing ml/min Est GFR ( Amer) ml/min Est GFR (Non-Af Amer) ml/min BUN/Creatinine Ratio (10-20) Glucose (70-99) mg/dl Calcium (8.5-10.1) mg/dl Total Bilirubin (0.2-1) mg/dl AST (15-37) U/L ALT (12-78) U/L Alkaline Phosphatase (45-117) U/L Troponin I (0-0.045) ng/ml Total Protein (6.4-8.2) gm/dl Albumin (3.4-5.0) gm/dl Globulin (2.5-4.0) gm/dl Albumin/Globulin Ratio (0.9-2) Lipase (73-393) U/L Specimen Hemolysis COVID-19 Eval Order Covid19 at [facility] SARS-CoV-2 (PCR) NEGATIVE (Negative) Imaging Data Chest x-ray: Radiologist's impression: Chest X-Ray 01/08/21 12:25 XR chest 1V portable CLINICAL HISTORY: Chest Pain COMPARISON STUDY: September 19, 2020 FINDINGS: No pneumothorax. No pleural effusion. Small atelectasis is seen at the left base. Lung volumes are slightly decreased with crowded lung markings. Cardiomediastinal silhouette is within normal limits in size. No significant pulmonary vascular congestion.. Aorta is calcified Osseous structures: Degenerative changes of the spine. IMPRESSION: 1. Minimal atelectasis at the left base. Slightly limited exam due to low inspiratory effort. ACT 112: Negative or not required by law. The above report was generated using voice recognition software. It may contain grammatical, syntax or spelling errors. Electronically signed by: Vika Dominguez DO 01/08/2021 1:40 PM ECG Data Additional Comments: Sinus bradycardia, rate of 57, normal intervals, normal axis. T WI anteriorly. MDM Narrative Patient did present with concern for chest pain or shortness of breath. The patient does have a known history of CAD. No recent travel. The patient is not vaccinated. No infectious symptoms. The patient did a bladder complete along with an EKG troponin chest x-ray. Aspirin nitro ordered. Patient has normal white count H&H and platelet count. Kidney function unremarkable troponin negative. No obvious acute ischemic changes on EKG but given the patient's prior history and improvement with nitro and full dose aspirin recommend observation for atypical chest pain. I did speak with TAZ Elmore and the patient was admitted to the medicine service. Impression & Plan Atypical chest pain, Coronary artery disease Discharge Plan Visit Data Chief Complaint: Chest Pain Stated Complaint: CHEST PAIN,RIGHT ARM PAIN,SOB Discharge Problem: Atypical chest pain, Coronary artery disease Patient Disposition: Admitted As Inpatient Discharge Instructions Interventions: ED Discharge Assessment Last Done: 01/08/21 14:55
[2021-01-08] MEDS ORDERED: ASPIRIN CHEW 324 MG PO STA (12:24)
[2021-01-08] MEDS ORDERED: ONDANSETRON INJ 2 MG/ML 2 ML VIAL IV STA (12:24)
[2021-01-08] MEDS ORDERED: SODIUM CHLORIDE 0.9% 500 ML IV STA (12:28)
[2021-01-08] MEDS ORDERED: NITROGLYCERIN SL 0.4 MG/TAB TAB SL PRN ×2 (12:28→15:55)
[2021-01-08 12:49] LABS: Basophils # (auto) 0.05 K/uL (0-0.2); Basophils % (auto) 0.7 %; Eosinophils # (auto) 1.01 K/uL (0-0.5); Eosinophils % (auto) 13.4 %; Hematocrit (blood only) 45.8 % (42-52); Hemoglobin 15.9 g/dL (14.0-18.0); Immature Granulocytes # (auto) 0.01 K/uL (0.00-0.02); Immature Granulocytes % (auto) 0.1 %; Lymphocytes # (auto) 1.57 K/uL (1.2-3.4); Lymphocytes % (auto) 20.9 %; Mean Corpuscular Hemoglobin 29.3 pg (25-34); Mean Corpuscular Hgb Conc 34.7 g/dL (32-36); Mean Corpuscular Volume 84.3 fL (80-100); Mean Platelet Volume 9.6 fL (7.4-10.4); Monocytes # (auto) 0.66 K/uL (0.11-0.59); Monocytes % (auto) 8.8 %; Neutrophils # (auto) 4.21 K/uL (1.4-6.5); Neutrophils % (auto) 56.1 %; Platelet Count 235 K/uL (130-400); RDW Coefficient of Variation 13.3 % (11.5-14.5); Red Blood Count 5.43 M/uL (4.7-6.1); White Blood Count 7.51 K/uL (4.8-10.8)
[2021-01-08 13:10] LABS: Alanine Aminotransferase 21 U/L (12-78); Albumin Level 3.4 gm/dl (3.4-5.0); Aspartate Aminotransferase 19 U/L (15-37); BUN Creatinine Ratio 12.6 (10-20); Blood Urea Nitrogen 11 mg/dl (7-18); Calcium 8.6 mg/dl (8.5-10.1); Carbon Dioxide 26 mmol/L (21-32); Chloride 109 mmol/L (98-107); Creatinine Clr Calc Pharmacy 96.5 ml/min; Est GFR (African American) 104.5 ml/min; Est GFR (Non-African American) 90.2 ml/min; Glucose 109 mg/dl (70-99); Lipase 205 U/L (73-393); Potassium 3.7 mmol/L (3.5-5.1); Sodium 142 mmol/L (136-145)
[2021-01-08 13:16] LABS: Albumin Globulin Ratio 0.9 (0.9-2); Alkaline Phosphatase 68 U/L (45-117); Bilirubin,Total 0.6 mg/dl (0.2-1); Globulin 3.7 gm/dl (2.5-4.0); Total Protein 7.1 gm/dl (6.4-8.2); Troponin I < 0.015 ng/ml (0-0.045)
--- NOTE | 2021-01-08 13:42 | XRay Report ---
XR chest 1V portable CLINICAL HISTORY: Chest Pain COMPARISON STUDY: September 19, 2020 FINDINGS: No pneumothorax. No pleural effusion. Small atelectasis is seen at the left base. Lung volumes are slightly decreased with crowded lung markings. Cardiomediastinal silhouette is within normal limits in size. No significant pulmonary vascular congestion.. Aorta is calcified Osseous structures: Degenerative changes of the spine. IMPRESSION: 1. Minimal atelectasis at the left base. Slightly limited exam due to low inspiratory effort. ACT 112: Negative or not required by law. The above report was generated using voice recognition software. It may contain grammatical, syntax o r spelling errors. Electronically signed by: Vika Dominguez DO 01/08/2021 1:40 PM
[2021-01-08] MEDS ORDERED: ACETAMINOPHEN 325 MG TAB PO PRN (15:55)
[2021-01-08 16:20] LABS: D Dimer 340 ug/L FEU (0-500)
--- NOTE | 2021-01-08 16:42 | History & Physical Report ---
Date of Service January 08, 2021 Assessment & Plan (1) Atypical chest pain: (2) Coronary artery disease: Plan: -Admit to telemetry -History of CAD -NSTEMI 2017 w/ SALOME to PDA and OM, DSE 09/2020 negative for ischemia -Patient presenting from home with reports of intermittent left-sided chest pain since yesterday -In the ED, initial troponin negative, EKG without acute ST changes -Received sublingual nitroglycerin with resolution of discomfort -Trend troponins -Continue ASA, statin, beta-tahmina, nitrate -Cardiology consult, input appreciated (3) DVT prophylaxis: Plan: -SQ Lovenox Admission and Anticipated Discharge Date Admission Date: January 08, 2021 History of Present Illness Chief Complaint: Chest pain Primary Care Provider: Goran Morrissey MD 65-year-old male with PMH CAD with history of SALOME to PDA and OM in 2017, COPD, HLD, and other problems to below who presents the ED for evaluation of chest pain. Patient reports he developed some intermittent chest pain [place]. Symptoms persisted through today and progressively got worse. Patient then presented to the ED for further evaluation. Patient reports intermittent left-sided chest pain with radiation into the back, shoulder, axilla. Denies any specific causative relieving factors to the pain. He has chronic shortness of breath at baseline which he feels a little worse. Also reports associated diaphoresis. No lightheadedness, dizziness, diaphoresis, syncopal events. Patient reports he otherwise has been feeling well recently. No other recent illnesses, fevers, chills. Denies abdominal pain, nausea, vomiting, diarrhea. No urinary symptoms. In the ED, patient received sublingual nitroglycerin with improvement in the pain. Initial troponin is negative, EKG does not show any acute ST changes. Patient was also given ASA 243 mg. Of note, patient admitted to [facility] 09/2020 and underwent DSE that was negative for ischemia. Patient was started on Imdur at that time. Allergies Allergy/AdvReac Type Severity Reaction Status Date / Time tramadol Allergy Unknown itching Verified 09/19/20 10:09 hydrocodone AdvReac Intermediate DIZZY/NAUSE Verified 09/19/20 10:09 A Home Medications Medication Instructions Recorded Confirmed Type meclizine 25 mg tablet 25 mg PO TID PRN 03/11/18 01/08/21 History metoprolol tartrate 25 mg tablet 25 mg PO BID 03/11/18 01/08/21 History rosuvastatin 20 mg tablet (Crestor) 20 mg PO HS 03/11/18 01/08/21 History gabapentin 100 mg capsule 100 mg PO BID 08/03/19 01/08/21 History aspirin 81 mg tablet,delayed 81 mg PO DAILY 09/19/20 01/08/21 History release cetirizine 10 mg tablet 10 mg PO DAILY 09/19/20 01/08/21 History cyclobenzaprine 10 mg tablet 10 mg PO BID PRN 09/19/20 01/08/21 History fluticasone propionate 50 2 spray INTRANASAL DAILY 09/19/20 01/08/21 History mcg/actuation nasal spray,suspension isosorbide mononitrate 30 mg 30 mg PO QAM #30 tab 09/20/20 01/08/21 Rx tablet,extended release 24 hr nitroglycerin 0.4 mg sublingual 0.4 mg SUBLINGUAL UD PRN #25 tab 09/20/20 01/08/21 Rx tablet (Nitrostat) albuterol sulfate 90 mcg/actuation 2 puff INHALATION Q6H PRN 01/08/21 01/08/21 History aerosol inhaler Past Med/Surg History Medical History Compression fracture of T12 vertebra Coronary artery disease "non-STEMI [facility] 08/01/16; cath + PCI SALOME PDA + OM 08/03/16" Generalized anxiety disorder Hyperlipidemia Obesity (BMI 30-39.9) Osteoarthritis Vertigo Surgical History H/O cardiac catheterization "12/10/09 EF 60%, 20% LAD, 30% RCA as per Epic" Hx of appendectomy Hx of cholecystectomy Status post cardiac catheterization "[facility] 08/03/16 occlusions left circumflex + distal RCA posterolateral branch" On 09/11/16 06:19 Ron Tapia wrote "[facility] 08/01/16 occlusions left circumflex + distal RCA posterolateral branch" Status post coronary artery stent placement "[facility] 08/03/16 PCI's PDA + OM with drug-eluting stents" On 09/11/16 06:20 Ron Klein Regina wrote "[facility] 08/01/16 PCI's PDA + OM with drug-eluting stents" Family History Other Cancer Cirrhosis Stroke Social History Smoking Status: Never smoker Second Hand Exposure: No; Do You Dip or Chew Tobacco: No; Tobacco Cessation Education Requested by Patient: No Hx Alcohol Use: No Hx Substance Use: No Preferred Language: Chinese Communication Ability: Effective Productivity Engineer Required: No Beliefs That Will Affect Care: None Current Living Situation: Spouse Other Information That Helps Us Care for You: No Feels Safe at Home: Yes Safety Concerns: Feels Safe At This Time Assistive Devices: None Review of Systems Review of Systems: ROS per HPI, all other systems reviewed and negative Physical Exam Constitutional: WD/WN, vitals as above + obese Eyes: PERRL, conjunctivae normal, anicteric sclerae ENMT: external ear and nose normal, oropharynx normal Respiratory: normal respiratory effort, lungs clear to auscultation Cardiovascular: Rate/Rhythm: regular rate and regular rhythm Vessels: normal peripheral pulses Extremities: no edema Chest (Breasts): Additional Comments: Chest pain is not reproducible with palpation Gastrointestinal (Abdomen): normal bowel sounds, soft, nontender, no hepatosplenomegaly Musculoskeletal: no cyanosis or clubbing, extremities motor strength 5/5 Skin: no rashes, warm and dry Neurologic: PERRL, EOMI, accommodation nl, no face palsy, no dysarthria Psychiatric: A+Ox3, euthymic affect Results & Data Results & Data ([facility]) Vital Signs (Past 12 Hours) Vital Signs Temp Pulse Pulse Resp BP BP Pulse Ox 01/08/21 15:00 53 L 14 121/76 95 01/08/21 14:30 58 L 18 144/75 H 96 01/08/21 14:00 54 L 14 120/70 94 01/08/21 13:30 54 L 14 119/69 94 01/08/21 13:00 56 L 17 119/69 94 01/08/21 12:51 64 21 117/70 94 01/08/21 12:37 60 11 L 111/69 94 01/08/21 12:02 36.6 C 68 19 139/80 94 Laboratory Results Short CBC 01/08/21 Range/Units 12:37 WBC 7.51 (4.8-10.8) K/uL Hgb 15.9 (14.0-18.0) g/dL Hct 45.8 (42-52) % Plt Count 235 (130-400) K/uL BMP 01/08/21 12:35 Sodium 142 Potassium 3.7 Chloride 109 H Carbon Dioxide 26 BUN 11 Creatinine 0.85 Glucose 109 H Calcium 8.6 Cardiac Enzymes 01/08/21 Range/Units 12:35 Troponin I < 0.015 (0-0.045) ng/ml Liver Function 01/08/21 Range/Units 12:35 Total Bilirubin 0.6 (0.2-1) mg/dl AST 19 (15-37) U/L ALT 21 (12-78) U/L Alkaline Phosphatase 68 (45-117) U/L Albumin 3.4 (3.4-5.0) gm/dl Diagnostic Findings Chest X-Ray 01/08/21 12:25 XR chest 1V portable CLINICAL HISTORY: Chest Pain COMPARISON STUDY: September 19, 2020 FINDINGS: No pneumothorax. No pleural effusion. Small atelectasis is seen at the left base. Lung volumes are slightly decreased with crowded lung markings. Cardiomediastinal silhouette is within normal limits in size. No significant pulmonary vascular congestion.. Aorta is calcified Osseous structures: Degenerative changes of the spine. IMPRESSION: 1. Minimal atelectasis at the left base. Slightly limited exam due to low inspiratory effort. ACT 112: Negative or not required by law. The above report was generated using voice recognition software. It may contain grammatical, syntax or spelling errors. Electronically signed by: Vika Dominguez DO 01/08/2021 1:40 PM Code Status & VTE Plan VTE Prophylaxis Plan VTE Prophylaxis will be ordered: Yes Supervising Physician Co-Signing Physician Notes Patient seen and examined by me, care coordinated with TAZ Castillo, please refer to her note above for further detail. Pt is a 65 y/o male with CAD s/p SALOME to PDA and OM in 2017, COPD, HLD, who presents the ED for evaluation of chest pain. Patient reports intermittent left-sided chest pain with radiation into the back, shoulder, axilla. Also reports associated diaphoresis. In the ED, patient received sublingual nitroglycerin with improvement in the pain. Initial troponin is negative, EKG does not show any acute ST changes. Patient was also given ASA 243 mg. Patient admitted to [facility] 09/2020 and underwent DSE that was negative for ischemia. Patient was started on Imdur at that time. Currently he is sitting up in a chair, eating dinner, in no acute distress however he does report that his chest discomfort is about 2 out of 10, started to feel discomfort again about half an hour ago. Patient's present at the bedside. Heart sounds regular, lung sounds clear to auscultation but on exam and wheezing rhonchi or crackles. Abdomen soft obese nontender nondistended. No lower extremity edema noted. Patient is alert and oriented answering questions appropriately. Continue current management. Monitor troponin, close monitor hemodynamic status. Cardiology contacted, poss. cardiac cath tomorrow. Hattie Solorzano MD
--- NOTE | 2021-01-08 17:09 | Cardiology Consultation ---
Date of Consultation January 08, 2021 Assessment & Plan (1) Chest pain: 65-year-old patient presents for evaluation of chest discomfort with atypical features. ECG with nonspecific T wave abnormality. No evidence of ST depression or elevation. Initial cardiac enzymes are undetectable. Trend troponin x3 sets. Add IV heparin if troponins trend upward. Add topical nitrates and as needed analgesic. Continue metoprolol, aspirin, and statin therapy as previously ordered. Repeat resting 2D transthoracic echocardiogram in a.m. N.p.o. except medications after midnight. Recent dobutmaine stress neagtive for inducible ischemia, however, chest discomfort reproduced during testing. Consider coronary angiography in AM. (2) Coronary artery disease: Continue aspirin, statin, and beta-tahmina therapy. (3) Hyperlipidemia: Continue statin therapy. History of Present Illness Reason for Consultation: chest pain, CAD Requesting Physician: Dr. Solorzano Attending Physician: Gavin Solorzano MD History of Present Illness 65-year-old male presented emergency department with chest discomfort. Patient carries a history of coronary disease status post stenting of mid PDA with 2.5 x 18 Resolute SALOME and large OM with 3.5 x 22 Resolute SALOME (post-dilated to 4.0) 07/2016. Anginal pain during myocardial infarction included back pain radiating to his chest. Hospitalized in September due to recurrent chest discomfort. Dobutamine stress echo performed during hospitalization negative for inducible ischemia. Patient reports recurrent chest discomfort over the past several days. Describes a dull ache on the left side of his chest. At times it radiates to his back. There is no associated shortness of breath. The discomfort ranges from 2-4/10. Discomfort yesterday morning lasting approximately 3 hours. 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 This morning again, his pain recurred at a level of 2/10. During the early afternoon the pain increased to 4/10 and he came to the ER for further evaluation. Cardiac enzymes are negative. ECG demonstrating nonspecific T wave abnormality and low voltage. Treated with 1 sublingual nit roglycerin and admitted to the telemetry floor. Pain-free upon arrival, however, 2/10 discomfort recurred while eating. Denies any nausea, palpitations, or lightheadedness. Pain seems to have relaxed during interview in room. Telemetry reveals no dysrhythmia. Reports chronic dyspnea on exertion and stable, limited functional capacity. No orthopnea, PND, or lower extremity edema. Denies syncope or near syncope. No focal weakness, slurred speech, visual changes, or paresthesias. Compliant with cardiovascular medications listed below. is present at bedside. She offers no additional concerns/complaints. Allergies Allergy/AdvReac Type Severity Reaction Status Date / Time tramadol Allergy Unknown itching Verified 09/19/20 10:09 hydrocodone AdvReac Intermediate DIZZY/NAUSE Verified 09/19/20 10:09 A Home Medications Medication Instructions Recorded Confirmed Type meclizine 25 mg tablet 25 mg PO TID PRN 03/11/18 01/08/21 History metoprolol tartrate 25 mg tablet 25 mg PO BID 03/11/18 01/08/21 History rosuvastatin 20 mg tablet (Crestor) 20 mg PO HS 03/11/18 01/08/21 History gabapentin 100 mg capsule 100 mg PO BID 08/03/19 01/08/21 History aspirin 81 mg tablet,delayed 81 mg PO DAILY 09/19/20 01/08/21 History release cetirizine 10 mg tablet 10 mg PO DAILY 09/19/20 01/08/21 History cyclobenzaprine 10 mg tablet 10 mg PO BID PRN 09/19/20 01/08/21 History fluticasone propionate 50 2 spray INTRANASAL DAILY 09/19/20 01/08/21 History mcg/actuation nasal spray,suspension isosorbide mononitrate 30 mg 30 mg PO QAM #30 tab 09/20/20 01/08/21 Rx tablet,extended release 24 hr nitroglycerin 0.4 mg sublingual 0.4 mg SUBLINGUAL UD PRN #25 tab 09/20/20 01/08/21 Rx tablet (Nitrostat) albuterol sulfate 90 mcg/actuation 2 puff INHALATION Q6H PRN 01/08/21 01/08/21 History aerosol inhaler Patient History Medical History Compression fracture of T12 vertebra Coronary artery disease "non-STEMI [facility] 08/01/16; cath + PCI SALOME PDA + OM 08/03/16" Generalized anxiety disorder Hyperlipidemia Obesity (BMI 30-39.9) Osteoarthritis Vertigo Surgical History H/O cardiac catheterization "12/10/09 EF 60%, 20% LAD, 30% RCA as per Epic" Hx of appendectomy Hx of cholecystectomy Status post cardiac catheterization "[facility] 08/03/16 occlusions left circumflex + distal RCA posterolateral branch" On 09/11/16 06:19 Ron Tapia wrote "[facility] 08/01/16 occlusions left circumflex + distal RCA posterolateral branch" Status post coronary artery stent placement "[facility] 08/03/16 PCI's PDA + OM with drug-eluting stents" On 09/11/16 06:20 Ron Tapia wrote "[facility] 08/01/16 PCI's PDA + OM with drug-eluting stents" Family History Other Cancer Cirrhosis Stroke Social History Smoking Status: Never smoker Second Hand Exposure: No; Do You Dip or Chew Tobacco: No; Tobacco Cessation Education Requested by Patient: No Hx Alcohol Use: No Hx Substance Use: No Preferred Language: Yi Communication Ability: Effective Farm Management Agent Required: No Beliefs That Will Affect Care: None Current Living Situation: Spouse Other Information That Helps Us Care for You: No Feels Safe at Home: Yes Safety Concerns: Feels Safe At This Time Assistive Devices: None Review of Systems Review of Systems: All systems reviewed & are unremarkable except as noted in Subjective Physical Exam Constitutional: well developed and + obese Respiratory: no respiratory distress, no labored breathing, no retractions and no cough Auscultation: lungs clear to auscultation bilaterally; no crackles, no rales, no rhonchi and no wheezes Cardiovascular: Rate/Rhythm: regular rate and regular rhythm Heart Sounds: normal S1 and normal S2; no murmur Gastrointestinal (Abdomen): Inspection/Auscultation: abdomen normal to inspection; abdomen not distended and + abnormal bowel sounds Percussion/Palpation: abdomen soft; abdomen nontender, no guarding and abdomen not rigid Neurologic: CN's II-XI intact bilaterally and moves all extremities; no focal motor deficits Motor/Sensory: no tremor and normal movement Psychiatric: A+Ox3, euthymic affect Results & Data ([facility]) Vital Signs (Past 12 Hours) Vital Signs Temp Pulse Pulse Resp BP BP Pulse Ox 01/08/21 15:00 53 L 14 121/76 95 01/08/21 14:30 58 L 18 144/75 H 96 01/08/21 14:00 54 L 14 120/70 94 01/08/21 13:30 54 L 14 119/69 94 01/08/21 13:00 56 L 17 119/69 94 01/08/21 12:51 64 21 117/70 94 01/08/21 12:37 60 11 L 111/69 94 01/08/21 12:02 36.6 C 68 19 139/80 94
[2021-01-08] MEDS: NITROGLYCERIN 2% OINTMENT 30GM TUBE EXT SCH (17:51)
[2021-01-08] MEDS ORDERED: ROSUVASTATIN CALCIUM 20 MG TAB PO SCH (21:00)
[2021-01-08] MEDS ORDERED: ENOXAPARIN INJ 40 MG/0.4 ML SYR SQ SCH (21:00)
[2021-01-08] MEDS: GABAPENTIN 100 MG CAP PO SCH (21:56)
[2021-01-08] MEDS: METOPROLOL TARTRATE 25 MG TAB PO SCH (21:56)
[2021-01-09] MEDS: NITROGLYCERIN 2% OINTMENT 30GM TUBE EXT SCH ×4 (01:42→17:26)
[2021-01-09 07:41] LABS: Hemoglobin 15.9 g/dL (14.0-18.0); Mean Corpuscular Hemoglobin 29.6 pg (25-34); Mean Corpuscular Hgb Conc 34.6 g/dL (32-36); Mean Corpuscular Volume 85.7 fL (80-100); Mean Platelet Volume 9.7 fL (7.4-10.4); Platelet Count 220 K/uL (130-400); RDW Coefficient of Variation 13.3 % (11.5-14.5); RDW Standard Deviation 42.1 fL (36.4-46.3); Red Blood Count 5.37 M/uL (4.7-6.1); White Blood Count 8.11 K/uL (4.8-10.8)
[2021-01-09] MEDS: METOPROLOL TARTRATE 25 MG TAB PO SCH (07:45)
[2021-01-09] MEDS: GABAPENTIN 100 MG CAP PO SCH (07:46)
[2021-01-09 08:19] LABS: BUN Creatinine Ratio 13.4 (10-20); Calcium 8.5 mg/dl (8.5-10.1); Creatinine Clr Calc Pharmacy 115.7 ml/min; Est GFR (African American) 112.5 ml/min; Est GFR (Non-African American) 97.1 ml/min; Potassium 3.9 mmol/L (3.5-5.1)
--- NOTE | 2021-01-09 08:20 | Electrocardiogram Report ---
Test Reason : Blood Pressure : / mmHG Vent. Rate : 061 BPM Atrial Rate : 061 BPM P-R Int : 154 ms QRS Dur : 086 ms QT Int : 416 ms P-R-T Axes : 001 033 049 degrees QTc Int : 418 ms Normal sinus rhythm Low voltage QRS Borderline ECG When compared with ECG of 20-SEP-2020 05:48, No significant change was found Confirmed by Jarek Villaseñor ([id number]) on 01/09/2021 8:20:37 AM Referred By: Confirmed By:Jarek Villaseñor
[2021-01-09] MEDS ORDERED: CETIRIZINE HCL 10 MG TABLET PO SCH (09:00)
[2021-01-09] MEDS ORDERED: ISOSORBIDE MONO EXTENDED REL 30 MG TABCR PO SCH (09:00)
[2021-01-09] MEDS ORDERED: ASPIRIN 81 MG ECTAB PO SCH (09:00)
--- NOTE | 2021-01-09 09:35 | Electrocardiogram Report ---
Test Reason : Blood Pressure : / mmHG Vent. Rate : 057 BPM Atrial Rate : 057 BPM P-R Int : 154 ms QRS Dur : 086 ms QT Int : 440 ms P-R-T Axes : 001 056 043 degrees QTc Int : 428 ms Sinus bradycardia Low voltage QRS Borderline ECG When compared with ECG of 08-JAN-2021 12:08, No significant change was found Confirmed by Jarek Villaseñor ([id number]) on 01/09/2021 9:35:07 AM Referred By: REFERRED SELF Confirmed By:Jarek Villaseñor
--- NOTE | 2021-01-09 10:08 | Cardiology Progress Note ---
Date of Service January 09, 2021 Assessment & Plan (1) Chest pain: (2) Coronary artery disease: (3) Status post coronary artery stent placement: (4) Status post cardiac catheterization: Plan: 65-year-old male admitted for evaluation of chest discomfort reminiscent of the pain associated with this prior NV. EKGs are without acute change, with nonspecific T wave abnormality. Troponin negative x3. Resting echocardiography was performed this morning and is pending interpretation. Telemetry without arrhythmias, demonstrating sinus rhythm in the 50s to 70s with occasional PVC noted overnight. Continue metoprolol, aspirin, and statin therapy as ordered. Options of management discussed with patient to remain NPO for probably diagnostic cardiac catheterization with Dr. Tate tabor today. Admission and Anticipated Discharge Date Admission Date: January 08, 2021 Supervising Physician Co-Signing Physician Notes Patient was seen and personally examined. Chart reviewed records reviewed. He is a 65-year-old male with known coronary disease having undergone two-vessel coronary intervention in July 2016 receiving coronary stents to the right posterior descending artery and to the circumflex obtuse marginal. He presents now having had recurrent chest pain reminiscent of prior angina. No signs of acute injury by troponin, preserved LV systolic function on echocardiogram. Patient previously evaluated for chest pain in September 2020 with unrevealing dobutamine stress test. Assessment and plan as above given now symptoms at rest, significant increase in exertional dyspnea, will refer for diagnostic cardiac catheterization with tentative plans for later today. Procedure and risks explained in detail the patient as well as additional risk of coronary intervention if indicated. Subjective Patient seen and examined. Chart, medications, and telemetry reviewed. Chest pain-free since admission. Pain leading to presentation this admission was the same, albeit not as severe, as the pain that led to prior PCI, dull ache, 2- 4/10, on the left side of the chest, occasionally radiating to the back. He is chronically short of breath, attributed to COPD. History includes ASCVD status post stenting of mid PDA with 2.5 x 18 Resolute SALOME and large OM with 3.5 x 22 Resolute SALOME (post-dilated to 4.0) in 07/2016. Hospitalized in September 2020 with chest discomfort unlike his prior angina. Dobutamine stress echo in September 2020 was negative for inducible ischemia. Telemetry reveals sinus ranging from the 50s overnight into the 70s. Occasional PVC noted overnight. No atrial fibrillation. Review of Systems Review of Systems: No recent colds/illnesses. No recent medication changes. No missed medications. Complete review of systems is otherwise as stated above, negative, or noncontributory. Physical Exam Physical Exam: General: A&Ox3. NAD. HENT: Normocephalic. Atraumatic. Eyes: PER. Conjunctiva pink, sclera clear. Neck: No carotid bruits. No JVD. No HJR. Heart: RRR. No murmur. No rub. No gallop. PMI is nondisplaced. Lungs: Diminished. Decreased. Clear. Abdomen: +BS. Soft. Nontender. No masses or organomegaly. Extremities: No clubbing, cyanosis, or edema. Limited neurological examination is without focal deficits. Pulses: radial=2/4, posterior tibial=2/4. Results & Data ([facility]) Vital Signs (Past 12 Hours) Vital Signs Temp Pulse Pulse Pulse Resp BP Pulse Ox 01/09/21 09:42 54 L 01/09/21 08:10 36.6 C 56 L 19 128/66 92 01/09/21 03:35 36.8 C 58 L 20 122/71 93 01/09/21 01:00 36.9 C 61 18 113/57 L 92 Laboratory Results Laboratory Results - last 24 hr 01/08/21 01/08/21 01/08/21 12:35 12:37 12:37 WBC 7.51 RBC 5.43 Hgb 15.9 Hct 45.8 MCV 84.3 MCH 29.3 MCHC 34.7 RDW Std Deviation 41.0 RDW Coeff of Mildred 13.3 Plt Count 235 MPV 9.6 Immature Gran % (Auto) 0.1 Neut % (Auto) 56.1 Lymph % (Auto) 20.9 [place] % (Auto) 8.8 Eos % (Auto) 13.4 Baso % (Auto) 0.7 Neut # (Auto) 4.21 Lymph # (Auto) 1.57 [place] # (Auto) 0.66 H Eos # (Auto) 1.01 H Baso # (Auto) 0.05 Immature Gran # (Auto) 0.01 APTT 27.0 PTT Ratio 1.0 D-Dimer Sodium 142 Potassium 3.7 Chloride 109 H Carbon Dioxide 26 Anion Gap 7.0 BUN 11 Creatinine 0.85 Est Cr Clr Drug Dosing 96.5 Est GFR ( Amer) 104.5 Est GFR (Non-Af Amer) 90.2 BUN/Creatinine Ratio 12.6 Glucose 109 H Calcium 8.6 Total Bilirubin 0.6 AST 19 ALT 21 Alkaline Phosphatase 68 Troponin I < 0.015 Total Protein 7.1 Albumin 3.4 Globulin 3.7 Albumin/Globulin Ratio 0.9 Lipase 205 Specimen Hemolysis COVID-19 Eval Order SARS-CoV-2 (PCR) Hepatitis C Ab Screen 01/08/21 01/08/21 01/08/21 12:52 12:52 15:53 WBC RBC Hgb Hct MCV MCH MCHC RDW Std Deviation RDW Coeff of Mildred Plt Count MPV Immature Gran % (Auto) Neut % (Auto) Lymph % (Auto) [place] % (Auto) Eos % (Auto) Baso % (Auto) Neut # (Auto) Lymph # (Auto) [place] # (Auto) Eos # (Auto) Baso # (Auto) Immature Gran # (Auto) APTT PTT Ratio D-Dimer 340 Sodium Potassium Chloride Carbon Dioxide Anion Gap BUN Creatinine Est Cr Clr Drug Dosing Est GFR ( Amer) Est GFR (Non-Af Amer) BUN/Creatinine Ratio Glucose Calcium Total Bilirubin AST ALT Alkaline Phosphatase Troponin I Total Protein Albumin Globulin Albumin/Globulin Ratio Lipase Specimen Hemolysis COVID-19 Eval Order Covid19 at [facility] SARS-CoV-2 (PCR) NEGATIVE Hepatitis C Ab Screen 01/08/21 01/08/21 01/09/21 17:54 17:54 00:25 WBC RBC Hgb Hct MCV MCH MCHC RDW Std Deviation RDW Coeff of Mildred Plt Count MPV Immature Gran % (Auto) Neut % (Auto) Lymph % (Auto) [place] % (Auto) Eos % (Auto) Baso % (Auto) Neut # (Auto) Lymph # (Auto) [place] # (Auto) Eos # (Auto) Baso # (Auto) Immature Gran # (Auto) APTT PTT Ratio D-Dimer Sodium Potassium Chloride Carbon Dioxide Anion Gap BUN Creatinine Est Cr Clr Drug Dosing Est GFR ( Amer) Est GFR (Non-Af Amer) BUN/Creatinine Ratio Glucose Calcium Total Bilirubin AST ALT Alkaline Phosphatase Troponin I < 0.015 < 0.015 Total Protein Albumin Globulin Albumin/Globulin Ratio Lipase Specimen Hemolysis COVID-19 Eval Order SARS-CoV-2 (PCR) Hepatitis C Ab Screen Pending 01/09/21 01/09/21 07:19 07:19 WBC 8.11 RBC 5.37 Hgb 15.9 Hct 46.0 MCV 85.7 MCH 29.6 MCHC 34.6 RDW Std Deviation 42.1 RDW Coeff of Mildred 13.3 Plt Count 220 MPV 9.7 Immature Gran % (Auto) Neut % (Auto) Lymph % (Auto) [place] % (Auto) Eos % (Auto) Baso % (Auto) Neut # (Auto) Lymph # (Auto) [place] # (Auto) Eos # (Auto) Baso # (Auto) Immature Gran # (Auto) APTT PTT Ratio D-Dimer Sodium 140 Potassium 3.9 Chloride 110 H Carbon Dioxide 25 Anion Gap 5.0 BUN 10 Creatinine 0.71 Est Cr Clr Drug Dosing 115.7 Est GFR ( Amer) 112.5 Est GFR (Non-Af Amer) 97.1 BUN/Creatinine Ratio 13.4 Glucose 86 Calcium 8.5 Total Bilirubin AST ALT Alkaline Phosphatase Troponin I Total Protein Albumin Globulin Albumin/Globulin Ratio Lipase Specimen Hemolysis COVID-19 Eval Order SARS-CoV-2 (PCR) Hepatitis C Ab Screen
--- NOTE | 2021-01-09 11:49 | Hospitalist Progress Note ---
Date of Service January 09, 2021 Assessment & Plan (1) Atypical chest pain: (2) Coronary artery disease: Plan: -History of CAD -NSTEMI 2017 w/ SALOME to PDA and OM, DSE 09/2020 negative for ischemia -Patient presenting from home with reports of intermittent left-sided chest pain -In the ED, initial troponin negative, EKG without acute ST changes -Received sublingual nitroglycerin with resolution of discomfort -Trend troponins -Continue ASA, statin, beta-tahmina, nitrate -Cardiology consult, input appreciated - Echo -left ventricle is normal in size. There is borderline concentric left ventricular hypertrophy. The left ventricular wall motion is normal. EF 60 to 65%. Aortic valve sclerosis moderate, without significant aortic valvular stenosis. Plan for likely cardiac cath later today. HLD - cont. statin Obesity, BMI above 40 - counselling, lifestyle modifications (3) DVT prophylaxis: Plan: -SQ Lovenox Admission and Anticipated Discharge Date Admission Date: January 08, 2021 Subjective Patient seen in follow-up of chest pain, CAD Overnight patient did not have any acute episodes, says that occasionally he still has discomfort 2 out of 10 at the left chest Currently feels comfortable, no increased shortness of breath, some chronic shortness of breath due to COPD No nausea vomiting, fevers chills, abdominal pain, nausea or vomiting Seen by cardiology, likely cardiac cath later today Review of Systems Review of Systems: All systems reviewed - negative, unless mentioned above Physical Exam Physical Exam: Constitutional: + obese Male in NAD Eyes: PERRL, EOMI, conjunctivae normal, anicteric sclerae ENMT: external ear and nose normal, oropharynx normal Respiratory: normal respiratory effort, lungs clear to auscultation Cardiovascular: Rate/Rhythm: regular rate and regular rhythm Vessels: normal peripheral pulses Extremities: no edema Chest (Breasts): Additional Comments: Chest pain is not reproducible with palpation Gastrointestinal (Abdomen): normal bowel sounds, soft, nontender Musculoskeletal: no cyanosis or clubbing, extremities motor strength 5/5 Skin: no rashes, warm and dry Neurologic: PERRL, EOMI, no face palsy, no dysarthria Psychiatric: A+Ox3, euthymic affect Results & Data Results & Data ([facility]) Vital Signs (Past 12 Hours) Vital Signs Temp Pulse Pulse Pulse Resp BP Pulse Ox 01/09/21 09:42 54 L 01/09/21 08:10 36.6 C 56 L 19 128/66 92 01/09/21 03:35 36.8 C 58 L 20 122/71 93 01/09/21 01:00 36.9 C 61 18 113/57 L 92 Laboratory Results 01/09/21 01/09/21 01/09/21 Range/Units 07:19 07:19 00:25 WBC 8.11 (4.8-10.8) K/uL RBC 5.37 (4.7-6.1) M/uL Hgb 15.9 (14.0-18.0) g/dL Hct 46.0 (42-52) % MCV 85.7 (80-100) fL MCH 29.6 (25-34) pg MCHC 34.6 (32-36) g/dL RDW Std Deviation 42.1 (36.4-46.3) fL RDW Coeff of Mildred 13.3 (11.5-14.5) % Plt Count 220 (130-400) K/uL MPV 9.7 (7.4-10.4) fL Immature Gran % (Auto) % Neut % (Auto) % Lymph % (Auto) % [place] % (Auto) % Eos % (Auto) % Baso % (Auto) % Neut # (Auto) (1.4-6.5) K/uL Lymph # (Auto) (1.2-3.4) K/uL [place] # (Auto) (0.11-0.59) K/uL Eos # (Auto) (0-0.5) K/uL Baso # (Auto) (0-0.2) K/uL Immature Gran # (Auto) (0.00-0.02) K/uL APTT (21.0-31.0) Seconds PTT Ratio D-Dimer (0-500) ug/L FEU Sodium 140 (136-145) mmol/L Potassium 3.9 (3.5-5.1) mmol/L Chloride 110 H (98-107) mmol/L Carbon Dioxide 25 (21-32) mmol/L Anion Gap 5.0 (3-11) BUN 10 (7-18) mg/dl Creatinine 0.71 (0.6-1.4) mg/dl Est Cr Clr Drug Dosing 115.7 ml/min Est GFR ( Amer) 112.5 ml/min Est GFR (Non-Af Amer) 97.1 ml/min BUN/Creatinine Ratio 13.4 (10-20) Glucose 86 (70-99) mg/dl Calcium 8.5 (8.5-10.1) mg/dl Total Bilirubin (0.2-1) mg/dl AST (15-37) U/L ALT (12-78) U/L Alkaline Phosphatase (45-117) U/L Troponin I < 0.015 (0-0.045) ng/ml Total Protein (6.4-8.2) gm/dl Albumin (3.4-5.0) gm/dl Globulin (2.5-4.0) gm/dl Albumin/Globulin Ratio (0.9-2) Lipase (73-393) U/L Specimen Hemolysis COVID-19 Eval Order SARS-CoV-2 (PCR) (Negative) Hepatitis C Ab Screen (Neg) 01/08/21 01/08/21 01/08/21 Range/Units 17:54 17:54 15:53 WBC (4.8-10.8) K/uL RBC (4.7-6.1) M/uL Hgb (14.0-18.0) g/dL Hct (42-52) % MCV (80-100) fL MCH (25-34) pg MCHC (32-36) g/dL RDW Std Deviation (36.4-46.3) fL RDW Coeff of Mildred (11.5-14.5) % Plt Count (130-400) K/uL MPV (7.4-10.4) fL Immature Gran % (Auto) % Neut % (Auto) % Lymph % (Auto) % [place] % (Auto) % Eos % (Auto) % Baso % (Auto) % Neut # (Auto) (1.4-6.5) K/uL Lymph # (Auto) (1.2-3.4) K/uL [place] # (Auto) (0.11-0.59) K/uL Eos # (Auto) (0-0.5) K/uL Baso # (Auto) (0-0.2) K/uL Immature Gran # (Auto) (0.00-0.02) K/uL APTT (21.0-31.0) Seconds PTT Ratio D-Dimer 340 (0-500) ug/L FEU Sodium (136-145) mmol/L Potassium (3.5-5.1) mmol/L Chloride (98-107) mmol/L Carbon Dioxide (21-32) mmol/L Anion Gap (3-11) BUN (7-18) mg/dl Creatinine (0.6-1.4) mg/dl Est Cr Clr Drug Dosing ml/min Est GFR ( Amer) ml/min Est GFR (Non-Af Amer) ml/min BUN/Creatinine Ratio (10-20) Glucose (70-99) mg/dl Calcium (8.5-10.1) mg/dl Total Bilirubin (0.2-1) mg/dl AST (15-37) U/L ALT (12-78) U/L Alkaline Phosphatase (45-117) U/L Troponin I < 0.015 (0-0.045) ng/ml Total Protein (6.4-8.2) gm/dl Albumin (3.4-5.0) gm/dl Globulin (2.5-4.0) gm/dl Albumin/Globulin Ratio (0.9-2) Lipase (73-393) U/L Specimen Hemolysis COVID-19 Eval Order SARS-CoV-2 (PCR) (Negative) Hepatitis C Ab Screen Neg (Neg) 01/08/21 01/08/21 01/08/21 Range/Units 12:52 12:52 12:37 WBC (4.8-10.8) K/uL RBC (4.7-6.1) M/uL Hgb (14.0-18.0) g/dL Hct (42-52) % MCV (80-100) fL MCH (25-34) pg MCHC (32-36) g/dL RDW Std Deviation (36.4-46.3) fL RDW Coeff of Mildred (11.5-14.5) % Plt Count (130-400) K/uL MPV (7.4-10.4) fL Immature Gran % (Auto) % Neut % (Auto) % Lymph % (Auto) % [place] % (Auto) % Eos % (Auto) % Baso % (Auto) % Neut # (Auto) (1.4-6.5) K/uL Lymph # (Auto) (1.2-3.4) K/uL [place] # (Auto) (0.11-0.59) K/uL Eos # (Auto) (0-0.5) K/uL Baso # (Auto) (0-0.2) K/uL Immature Gran # (Auto) (0.00-0.02) K/uL APTT 27.0 (21.0-31.0) Seconds PTT Ratio 1.0 D-Dimer (0-500) ug/L FEU Sodium (136-145) mmol/L Potassium (3.5-5.1) mmol/L Chloride (98-107) mmol/L Carbon Dioxide (21-32) mmol/L Anion Gap (3-11) BUN (7-18) mg/dl Creatinine (0.6-1.4) mg/dl Est Cr Clr Drug Dosing ml/min Est GFR ( Amer) ml/min Est GFR (Non-Af Amer) ml/min BUN/Creatinine Ratio (10-20) Glucose (70-99) mg/dl Calcium (8.5-10.1) mg/dl Total Bilirubin (0.2-1) mg/dl AST (15-37) U/L ALT (12-78) U/L Alkaline Phosphatase (45-117) U/L Troponin I (0-0.045) ng/ml Total Protein (6.4-8.2) gm/dl Albumin (3.4-5.0) gm/dl Globulin (2.5-4.0) gm/dl Albumin/Globulin Ratio (0.9-2) Lipase (73-393) U/L Specimen Hemolysis COVID-19 Eval Order Covid19 at [facility] SARS-CoV-2 (PCR) NEGATIVE (Negative) Hepatitis C Ab Screen (Neg) 01/08/21 01/08/21 Range/Units 12:37 12:35 WBC 7.51 (4.8-10.8) K/uL RBC 5.43 (4.7-6.1) M/uL Hgb 15.9 (14.0-18.0) g/dL Hct 45.8 (42-52) % MCV 84.3 (80-100) fL MCH 29.3 (25-34) pg MCHC 34.7 (32-36) g/dL RDW Std Deviation 41.0 (36.4-46.3) fL RDW Coeff of Mildred 13.3 (11.5-14.5) % Plt Count 235 (130-400) K/uL MPV 9.6 (7.4-10.4) fL Immature Gran % (Auto) 0.1 % Neut % (Auto) 56.1 % Lymph % (Auto) 20.9 % [place] % (Auto) 8.8 % Eos % (Auto) 13.4 % Baso % (Auto) 0.7 % Neut # (Auto) 4.21 (1.4-6.5) K/uL Lymph # (Auto) 1.57 (1.2-3.4) K/uL [place] # (Auto) 0.66 H (0.11-0.59) K/uL Eos # (Auto) 1.01 H (0-0.5) K/uL Baso # (Auto) 0.05 (0-0.2) K/uL Immature Gran # (Auto) 0.01 (0.00-0.02) K/uL APTT (21.0-31.0) Seconds PTT Ratio D-Dimer (0-500) ug/L FEU Sodium 142 (136-145) mmol/L Potassium 3.7 (3.5-5.1) mmol/L Chloride 109 H (98-107) mmol/L Carbon Dioxide 26 (21-32) mmol/L Anion Gap 7.0 (3-11) BUN 11 (7-18) mg/dl Creatinine 0.85 (0.6-1.4) mg/dl Est Cr Clr Drug Dosing 96.5 ml/min Est GFR ( Amer) 104.5 ml/min Est GFR (Non-Af Amer) 90.2 ml/min BUN/Creatinine Ratio 12.6 (10-20) Glucose 109 H (70-99) mg/dl Calcium 8.6 (8.5-10.1) mg/dl Total Bilirubin 0.6 (0.2-1) mg/dl AST 19 (15-37) U/L ALT 21 (12-78) U/L Alkaline Phosphatase 68 (45-117) U/L Troponin I < 0.015 (0-0.045) ng/ml Total Protein 7.1 (6.4-8.2) gm/dl Albumin 3.4 (3.4-5.0) gm/dl Globulin 3.7 (2.5-4.0) gm/dl Albumin/Globulin Ratio 0.9 (0.9-2) Lipase 205 (73-393) U/L Specimen Hemolysis COVID-19 Eval Order SARS-CoV-2 (PCR) (Negative) Hepatitis C Ab Screen (Neg) Medications Administered Current Inpatient Medications Acetaminophen (Acetaminophen 325 Mg Tab) 650 mg PO Q4H PRN PRN Reason: Pain or Fever Stop: 02/07/21 15:54 Aspirin (Aspirin 81 Mg Ectab) 81 mg PO DAILY RAYO Stop: 02/08/21 08:59 Last Admin: 01/09/21 07:46 Dose: 81 mg Documented by: Cetirizine HCl (Cetirizine Hcl 10 Mg Tablet) 10 mg PO DAILY RAYO Stop: 02/08/21 08:59 Last Admin: 01/09/21 07:46 Dose: 10 mg Documented by: Enoxaparin Sodium (Enoxaparin Inj 40 Mg/0.4 Ml Syr) 40 mg SQ Q24H RAYO Stop: 02/07/21 20:59 Last Admin: 01/08/21 21:55 Dose: 40 mg Documented by: Gabapentin (Gabapentin 100 Mg Cap) 100 mg PO BID RAYO Stop: 02/07/21 20:59 Last Admin: 01/09/21 07:46 Dose: 100 mg Documented by: Isosorbide Mononitrate (Isosorbide [place] Extended Rel 30 Mg Tabcr) 30 mg PO QAM RAYO Stop: 02/08/21 08:59 Last Admin: 01/09/21 07:46 Dose: 30 mg Documented by: Metoprolol Tartrate (Metoprolol Tartrate 25 Mg Tab) 25 mg PO BID RAYO Stop: 02/07/21 20:59 Last Admin: 01/09/21 07:45 Dose: 25 mg Documented by: Nitroglycerin (Nitroglycerin Sl 0.4 Mg/Tab Tab) 0.4 mg SL UD PRN PRN Reason: Chest Pain Stop: 02/07/21 15:54 Nitroglycerin (Nitroglycerin 2% Ointment 30gm Tube) 1 inch EXT Q6H RAYO Stop: 02/07/21 17:29 Last Admin: 01/09/21 06:30 Dose: 1 inch Documented by: Rosuvastatin Calcium (Rosuvastatin Calcium 20 Mg Tab) 20 mg PO HS RAYO Stop: 02/07/21 20:59 Last Admin: 01/08/21 21:56 Dose: 20 mg Documented by:
--- NOTE | 2021-01-09 14:43 | Pre Anesthesia Assessment ---
Date of Service January 09, 2021 Pre Sedation Assessment Vital Signs Temp Pulse Pulse Pulse Resp BP Pulse Ox 01/09/21 12:29 37.0 C 54 L 20 100/61 95 01/09/21 09:42 54 L 01/09/21 08:10 36.6 C 56 L 19 128/66 92 01/09/21 03:35 36.8 C 58 L 20 122/71 93 01/09/21 01:00 36.9 C 61 18 113/57 L 92 01/08/21 19:20 36.5 C 56 L 18 118/71 95 01/08/21 16:00 36.9 C 52 L 53 L 20 142/72 H 93 01/08/21 15:00 53 L 14 121/76 95 Cardiovascular RRR, no murmur, no edema no JVD Respiratory normal respiratory effort, lungs clear to auscultation Pre-Sedation Airway Assessment Smoking Status: Never smoker Mallampati Class: III ASA: ASA3 NPO Status Date of Last Intake of Fluids: 01/08/21 Last Oral Intake of Fluids Comment: Sips of fluid with medication Date of Last Intake of Solid Food: 01/08/21 Procedure Planning Contraindications for Sedation: none Current Medications Reviewed: Yes Notes The planned sedation has been discussed with the patient. Informed Consent was obtained. I have identified the patient, determined the appropriateness of sedation and have assessed the patient immediately prior to the procedure. All medicine(s) and interventions are by my order.
[2021-01-09] MEDS ORDERED: MIDAZOLAM HCL 1 MG/ML 2ML VIAL ONE (14:59)
[2021-01-09] MEDS ORDERED: niCARdipine HCL INJ 2.5 MG/ML 10 ML AMP ONE (14:59)
[2021-01-09] MEDS ORDERED: HEPARIN (PORCINE) 1000 UNIT/ML 10 ML (CATH LAB USE ONLY) ONE (14:59)
[2021-01-09] MEDS ORDERED: fentaNYL citrate 100 MCG/2 ML VIAL ONE (15:00)
[2021-01-09] MEDS ORDERED: NITROGLYCERIN/D5W 100MCG/ML 20ML SYR ONE (15:00)
--- NOTE | 2021-01-09 16:00 | Cardiac Catheterization ---
Cardiac Cath Procedure Brief Procedure Date January 09, 2021 Pre-Procedure Diagnosis Pre-Procedure Diagnosis: Angina AUC Score AUC Score: 8 Post-Procedure Diagnosis Post-Procedure Diagnosis: Severe CAD Procedure(s) Performed Procedure(s) Performed: Coronary Angiography, Left Heart Cath and LV Angiography Admissions Manager Rn Celestino Ybarra MD Insurance Executive(s) Samm Stephenson Estimated Blood Loss Estimated Blood Loss: <15cc Medication(s) Medication(s): Fentanyl (12.5 mcg IV), Heparin (5000 units IV), Lidocaine 1% (Local infiltration access site), Nicardipine (250 mcg intra-arterial after arterial sheath insertion) and Versed (1 mg IV) Preliminary Findings Impression: Distal left main disease with ostial/proximal vessel disease involving ostium of the circumflex ramus intermedius and proximal left anterior descending Coronary angiography: Right dominant anatomy Left main: Modest in caliber with 50% distal stenosis Left anterior descending: Moderately large type II vessel. It gives rise to a large septal and a moderate-sized diagonal branch in its midportion. The septal branch is diffusely diseased. The proximal left anterior descending has a long area of diffuse disease with an 80% stenosis. Left circumflex: Large but nondominant with moderate ectasia. It gives rise to a multibranching obtuse marginal and a single posterior lateral branch. The ostium of the circumflex is narrowed by 75%. Previously placed stent in the obtuse marginal is widely patent Ramus intermedius: Moderately large vessel with ostial disease of 70% Right coronary artery: Ectatic vessel with 2 right ventricular branches in its midportion along posterior descending vessel and a single posterior ventricular branch. There is a 50% narrowing in its midportion area of previous stent in the posterior descending artery is patent LV angiography: Hyperdynamic LV function is present EF greater than 65% Hemodynamics: LV pressure 135/0/13 LVEDP 13. No transaortic valve gradient Recommendations Recommendations: CABG Specimens Specimens: None Fluids (cc crystalloids) Fluids (cc crystalloids): 60 Anesthesia Start time: 1512, stop time: 1606 Procedural Complication(s) None Disposition PCU
[2021-01-09] MEDS ORDERED: NITROGLYCERIN SL 0.4 MG/TAB TAB SL PRN (16:20)
--- NOTE | 2021-01-09 16:28 | Cardiac Catheterization ---
Cardiac Cath Procedure Full Procedure Date January 09, 2021 Pre-Procedure Diagnosis Pre-Procedure Diagnosis: Angina AUC Score AUC Score: 8 Post-Procedure Diagnosis Post-Procedure Diagnosis: Severe CAD Procedure(s) Performed Procedure(s) Performed: Coronary Angiography, Left Heart Cath and LV Angiography Stereo Operator Celestino Ybarra MD Multigraph Operator(s) Samm Stephenson Estimated Blood Loss Estimated Blood Loss: <15cc Medication(s) Medication(s): Fentanyl (12.5 mcg IV), Heparin (5000 units IV), Lidocaine 1% (Local infiltration access site), Nicardipine (250 mcg intra-arterial after arterial sheath insertion) and Versed (1 mg IV) Summary of Findings Impression: Distal left main disease with ostial/proximal vessel disease involving ostium of the circumflex ramus intermedius and proximal left anterior descending Coronary angiography: Right dominant anatomy Left main: Modest in caliber with 50% distal stenosis Left anterior descending: Moderately large type II vessel. It gives rise to a large septal and a moderate-sized diagonal branch in its midportion. The septal branch is diffusely diseased. The proximal left anterior descending has a long area of diffuse disease with an 80% stenosis. Left circumflex: Large but nondominant with moderate ectasia. It gives rise to a multibranching obtuse marginal and a single posterior lateral branch. The ostium of the circumflex is narrowed by 75%. Previously placed stent in the obtuse marginal is widely patent Ramus intermedius: Moderately large vessel with ostial disease of 70% Right coronary artery: Ectatic vessel with 2 right ventricular branches in its midportion along posterior descending vessel and a single posterior ventricular branch. There is a 50% narrowing in its midportion area of previous stent in the posterior descending artery is patent LV angiography: Hyperdynamic LV function is present EF greater than 65% Hemodynamics: LV pressure 135/0/13 LVEDP 13. No transaortic valve gradient Hemodynamics Rest Ao:: 125/69/91 Final Ao: 133/83/10 LV: 135/0/13, LVEDP 13 Recommendations Recommendations: CABG Specimens Specimens: None Radiation Exposure (mGy) 1404 Contrast (mls) 140 Fluids (cc crystalloids) Fluids (cc crystalloids): 60 Anesthesia Start time: 1512, stop time: 1606 Procedural Complication(s) None Disposition PCU I attest to the content of the Intraoperative Record and any orders documented therein. Any exceptions are noted below. 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 Cardiac Status Clinical evaluation leading to the procedure 65-year-old active male with prior coronary intervention 2 vessel in 2017 with recent change in exercise tolerance, angina and dyspnea with one episode of rest pain relieved by sublingual nitroglycerin CAD Presenation: Stable angina Anginal Classification: CCS III Heart Failure: No Cardiogenic Shock within 24 Hours: No Cardiac Arrest within 24 Hours: No Imaging Studies Past 6 Months: Yes Stress Studies Past 6 Months: No Standard Exercise Test: No Stress Echocardiogram: No Stress Testing w/SPECT MPI: No Cardiac CTA: No Coronary Anatomy Dominant: Right Left Main (% Stenosis): Distal (50) LAD (% Stenosis): Proximal (70-80) D1 (% Stenosis): Normal Circumflex (% Stenosis): Ostial (75) OM1 (% Stenosis): Normal (Widely patent stent) RCA (% Stenosis): Proximal (Moderate ectasia) R PDA (% Stenosis): Normal (Widely patent stent) Ramus (% Stenosis): Ostial (70) Left Ventricular Angiography EF (%): 65-7 Mitral Regurgitation: None Diagnostic Physicians Name: Celestino Ybarra MD Status: Urgent Closure Device Percutaneous Entry Location: Radial Closure Device: Radial Band Recommendations: CABG
[2021-01-09] MEDS ORDERED: SODIUM CHLORIDE 0.9% 1000ML 1,000 ML IV SCH (16:30)
--- NOTE | 2021-01-09 21:27 | Discharge Summary ---
Date of Service January 09, 2021 Admission HPI Per Admitting Provider 65-year-old male with PMH CAD with history of SALOME to PDA and OM in 2017, COPD, HLD, and other problems to below who presents the ED for evaluation of chest pain. Patient reports he developed some intermittent chest pain yesterday [place]. Symptoms persisted through today and progressively got worse. Patient then presented to the ED for further evaluation. Patient reports intermittent left-sided chest pain with radiation into the back, shoulder, axilla. Denies any specific causative relieving factors to the pain. He has chronic shortness of breath at baseline which he feels a little worse. Also reports associated diaphoresis. No lightheadedness, dizziness, diaphoresis, syncopal events. Patient reports he otherwise has been feeling well recently. No other recent illnesses, fevers, chills. Denies abdominal pain, nausea, vomiting, diarrhea. No urinary symptoms. In the ED, patient received sublingual nitroglycerin with improvement in the pain. Initial troponin is negative, EKG does not show any acute ST changes. Patient was also given ASA 243 mg. Of note, patient admitted to [facility] 09/2020 and underwent DSE that was negative for ischemia. Patient was started on Imdur at that time. Admission Exam Per Admitting Provider Constitutional: WD/WN, vitals as above + obese Eyes: PERRL, conjunctivae normal, anicteric sclerae ENMT: external ear and nose normal, oropharynx normal Respiratory: normal respiratory effort, lungs clear to auscultation Cardiovascular: Rate/Rhythm: regular rate and regular rhythm Vessels: normal peripheral pulses Extremities: no edema Chest (Breasts): Additional Comments: Chest pain is not reproducible with palpation Gastrointestinal (Abdomen): normal bowel sounds, soft, nontender, no hepatosplenomegaly Musculoskeletal: no cyanosis or clubbing, extremities motor strength 5/5 Skin: no rashes, warm and dry Neurologic: PERRL, EOMI, accommodation nl, no face palsy, no dysarthria Psychiatric: A+Ox3, euthymic affect Principal Diagnosis Multivessel coronary artery disease requiring surgical intervention Discharge Exam Constitutional: + obese Male in NAD Eyes: PERRL, EOMI, conjunctivae normal, anicteric sclerae ENMT: external ear and nose normal, oropharynx normal Respiratory: normal respiratory effort, lungs clear to auscultation Cardiovascular: Rate/Rhythm: regular rate and regular rhythm Vessels: normal peripheral pulses Extremities: no edema Chest (Breasts): Additional Comments: Chest pain is not reproducible with palpation Gastrointestinal (Abdomen): normal bowel sounds, soft, nontender Musculoskeletal: no cyanosis or clubbing, extremities motor strength 5/5 Skin: no rashes, warm and dry Neurologic: PERRL, EOMI, no face palsy, no dysarthria Psychiatric: A+Ox3, euthymic affect Discharge Data Allergies Allergy/AdvReac Type Severity Reaction Status Date / Time tramadol Allergy Unknown itching Verified 09/19/20 10:09 hydrocodone AdvReac Intermediate DIZZY/NAUSE Verified 09/19/20 10:09 A Consultations 01/08/21 13:49 ED Decision to Admit Stat 01/08/21 15:55 Consult Cardiology Routine Procedures Performed Operation Date: 01/09/21 12:00 Actual Procedures p Cath, Left with Cors and Vent - Celestino Ybarra MD s Cineradiography w/Routine Exam - Celestino Ybarra MD Ordered Studies 01/09/21 14:48 CL Cath Imgs for PACS use only Stat Hospital Course (1) Atypical chest pain: (2) Coronary artery disease: -History of CAD -NSTEMI 2016 w/ SALOME to PDA and OM, DSE 09/2020 negative for ischemia -Patient presenting from home with reports of intermittent left-sided chest pain -In the ED, initial troponin negative, EKG without acute ST changes -Received sublingual nitroglycerin with resolution of discomfort -Trend troponins -Continue ASA, statin, beta-tahmina, nitrate -Cardiology consult, input appreciated - Echo -left ventricle is normal in size. There is borderline concentric left ventricular hypertrophy. The left ventricular wall motion is normal. EF 60 to 65%. Aortic valve sclerosis moderate, without significant aortic valvular stenosis. Plan for likely cardiac cath later today. Update: s/p cardiac cath Summary:Coronary Anatomy Dominant: Right Left Main (% Stenosis): Distal (50) LAD (% Stenosis): Proximal (70-80) D1 (% Stenosis): Normal Circumflex (% Stenosis): Ostial (75) OM1 (% Stenosis): Normal (Widely patent stent) RCA (% Stenosis): Proximal (Moderate ectasia) R PDA (% Stenosis): Normal (Widely patent stent) Ramus (% Stenosis): Ostial (70) Given multivessel coronary artery disease, pt to be transferred to [facility] for surgical intervention. HLD - cont. statin Obesity, BMI above 40 - counselling, lifestyle modifications (3) DVT prophylaxis: -SQ Lovenox Total Time Total Time Spent Total Time Spent (In Minutes): 35 Discharge Plan Discharge Items Patient Disposition: Transfer Acute Care Hospital Reason For Visit: CHEST PAIN Discharge Diagnosis: Coronary artery disease, requiring surgical intervention Activity: Per Instructions section Non-emergency contact: Primary Care Provider and Psychosocial Rehabilitation Counselor Call non-emergency contact if: you have any medication questions and your symptoms worsen Follow-up/Referrals: Goran Morrissey MD [Primary Care Provider] - Diet: Heart Healthy Addtl Attending Provider Instructions: Patient underwent cardiac cath today with cardiology, and found to have surgical coronary artery disease. Dr. Ybarra contacted [facility], cardiac surgery Dr. Antonio Garner, who accepted the patient for further care. Patient to be transferred to [facility]. Pending Studies at Discharge: No Stand-Alone Forms: My [facility] Skilled Items Patient informed of condition?: Yes DNR: No Discharge Level of Care: Other Communicable Disease: No Discharge Prognosis: Other Lines: Peripheral IV Urinary Catheter: No Medications and DC Order Prescriptions: Continued gabapentin 100 mg capsule 100 mg PO BID RF: 0 meclizine 25 mg Tablet 25 mg PO TID PRN (Reason: Vertigo) RF: 0 rosuvastatin [Crestor] 20 mg Tablet 20 mg PO HS RF: 0 metoprolol tartrate 25 mg Tablet 25 mg PO BID RF: 0 cetirizine 10 mg tablet 10 mg PO DAILY RF: 0 aspirin 81 mg Tablet,Delayed Release (Dr/Ec) 81 mg PO DAILY RF: 0 fluticasone propionate 50 mcg/actuation spray,suspension 2 spray INTRANASAL DAILY RF: 0 cyclobenzaprine 10 mg tablet 10 mg PO BID PRN (Reason: Muscle Spasm) RF: 0 isosorbide mononitrate 30 mg Tablet Extended Release 24 Hr 30 mg PO QAM Qty: 30 RF: 0 nitroglycerin [Nitrostat] 0.4 mg Tablet, Sublingual 0.4 mg sublingual UD PRN (Reason: chest pain) Qty: 25 RF: 0 albuterol sulfate 90 mcg/actuation Hfa Aerosol Inhaler 2 puff INHALATION Q6H PRN (Reason: Shortness Of Breath) RF: 0 Discharge Orders: Discharge Order (Routine); Ordered 01/09/21 Ordered By: Gavin Solorzano Admission Data Admit Date/Time: 01/08/21 14:21 Attending Provider: Gavin Solorzano Admit Provider: Gavin Solorzano Primary Care Provider: Goran Morrissey Other Providers: Gavin Solorzano ; Kam Jackson Other Interventions: Discharge Summary Assessment (RN) Last Done: 01/09/21 21:05
== END 2021-01-09 21:05 | disposition short-term general hospital (02) ==
LOC: ED 12:00 → 2E 12:00

== ENCOUNTER 2021-06-12 09:18 | Observation (INO) ==
[2021-06-12 10:02] LABS: INR 1.1 (0.9-1.1); Prothrombin Time 10.9 Seconds (9.0-12.0)
[2021-06-12 10:13] LABS: Alanine Aminotransferase 22 (12-78); Albumin Level 3.3 gm/dl (3.4-5.0); Aspartate Aminotransferase 18 U/L (15-37); BUN Creatinine Ratio 7.5 (10-20); Blood Urea Nitrogen 6 mg/dl (7-18); Calcium 8.9 mg/dl (8.5-10.1); Carbon Dioxide 24 mmol/L (21-32); Chloride 110 mmol/L (98-107); Creatinine Clr Calc Pharmacy 95.8 ml/min; Est GFR (African American) 105.3 ml/min; Est GFR (Non-African American) 90.9 ml/min; Glucose 114 mg/dl (70-99); Lipase 144 U/L (73-393); Potassium 3.5 mmol/L (3.5-5.1); Sodium 141 mmol/L (136-145)
--- NOTE | 2021-06-12 10:14 | Emergency Department Note ---
Impression & Plan Syncope, Coronary artery disease, Chest pain, Dizziness ED Provider Note Provider: Silvano Elmore MD DATE OF SERVICE: 06/12/2021 CHIEF COMPLAINT: Syncope, chest pain HISTORY OF PRESENT ILLNESS: Patient is a 66-year-old gentleman past medical history significant for CAD status post stenting and CABG, COPD, hypertension, and hyperlipidemia complaining of a syncopal episode this morning around 730 with developing chest pain afterwards. Patient had a quadruple cardiac bypass in December in [place]. Patient states he has had some intermittent vertigo and lightheaded issues. Noted some yesterday for 10 to 15 minutes and note his blood pressure is in the 1 teens systolic. States he had some numbness across the top of his head during this time but that resolved. Denies any recurrence of this numbness or any significant head pain today. Patient states he got up and had some breakfast and was going to go outside when he was walking and suddenly felt lightheaded and dizzy and states he syncopized into a chair. Denies falling to the ground or striking his head. States he believes a very brief loss of consciousness. Patient states he then began to experience some pain in the left side of his chest and left neck. Patient denies pain elsewhere in the abdomen or the arms. He denies any numbness or weakness in the extremities. Patient states he still feels a bit lightheaded with walking. Patient did take his morning medicines including some meclizine as again he felt a little bit lightheaded at times and dizzy. Patient states pain feels milder but of similar nature to prior cardiac events. Called his son and brought here for further evaluation. Follows with [facility] [address] cardiology. Patient reports a little bit of slight chronic swelling in the left calf where he had veins harvested for the bypass. REVIEW OF SYSTEMS: A total of 10 review of systems was obtained and negative except as stated above in the HPI. PAST MEDICAL HISTORY: As noted above MEDICATIONS: Reviewed home medications includes daily aspirin SOCIAL HISTORY: , lives at home PHYSICAL EXAM: GENERAL: alert and oriented in no acute distress on stretcher Head: normocephalic and atraumatic EYES: No injection, discharge or icterus. NECK: Trachea midline. Supple without significant tenderness ENT: Mucous membranes pink and moist. LUNGS: Airway patent. No retractions. Breath sounds clear with good air entry bilaterally. HEART: Regular rate and rhythm. No chest wall tenderness with fairly well- healed midline sternal scar ABDOMEN: Soft and non-tender, without guarding or rebound. SKIN: Acyanotic, warm, dry, without rashes EXTREMITIES: Without swelling, tenderness or deformity NEUROLOGICAL: No focal deficits. No aphasia. No facial droop or slurred speech. Normal strength and tone in the extremities. Sensation to gross touch normal. Ambulatory with a bit of an unsteady gait. EK bpm normal sinus rhythm with right bundle branch block. There is no acute ST segment elevation noted with some anterior T wave inversions V1 through V3 noted. QTc is 456. In comparison to previous available from May 14 of this year no significant change. CONTINUOUS CARDIAC MONITORING: was ordered and showed a heart rate of 50s-70s bpm in normal sinus rhythm to sinus bradycardia Patient's laboratory studies and imaging reviewed. Differential includes Vasovagal event, dehydration, infection, hypoglycemia, electrolyte abnormalities, cardiac sources, intracerebral event, pulmonary embolism, seizure, toxicologic, neurologic, as well as other pathologies. IMPRESSION/MEDICAL DECISION MAKING: Patient with significant cardiac history but also some history of vertigo. Blood pressure not abnormal. EKG is unchanged. Troponin was sent however. Patient reports a little bit of numbness yesterday of the head but denies headache now. No significant focal numbness or weakness with some pain in left neck into the left chest reported. Single episode without significant trauma or earlier. No believe any trauma injury given the syncope as well as chest pain and neck pain CT of the head as well as CT angiogram of the head, neck, and chest were obtained to look for possible bleed or vascular issue. Given small amount of IV fluid here. Patient was somewhat lightheaded with standing and walking in the room. Blood work without significant anemia or leukocytosis. No severe electrolyte abnormalities or signs of renal dysfunction today. No evidence concerning for acute transaminitis or pancreatitis based on labs. Troponin is undetectable here on the initial blood work. Covid test negative. CT the head, CT angiograms of head and neck as well as chest without Significant acute pathology noted today. Patient still somewhat dizzy able to ambulate to the bathroom with a bit of an unsteady gait. Question given his cardiac history he may have had cardiac arrhythmia earlier. Patient does live by himself. Some component of vertigo may be contributing but does not necessarily explain the syncope. This point discussed with patient son at bedside. Some stress related to the holidays and his 's recent may be contributing. Shared decision making will have the hospitalist evaluate for possible further observation overnight. DIAGNOSIS: Syncope, chest pain, dizziness DISPOSITION: Hospitalist will evaluate Patient was agreeable with this plan. Past Med/Surg History Medical History (Updated 06/12/21 @ 17:11 by Silvano Elmore M.D.) Compression fracture of T12 vertebra Coronary artery disease "non-STEMI [facility] 08/01/16; cath + PCI SALOME PDA + OM 08/03/16" Generalized anxiety disorder Hyperlipidemia Obesity (BMI 30-39.9) ROMA (obstructive sleep apnea) Osteoarthritis Vertigo Surgical History H/O cardiac catheterization "12/10/09 EF 60%, 20% LAD, 30% RCA as per Epic" Hx of appendectomy Hx of cholecystectomy Status post cardiac catheterization "[facility] 08/03/16 occlusions left circumflex + distal RCA posterolateral branch" On 09/11/16 06:19 Ron Tapia wrote "[facility] 08/01/16 occlusions left circumflex + distal RCA posterolateral branch" Status post coronary artery stent placement "[facility] 08/03/16 PCI's PDA + OM with drug-eluting stents" On 09/11/16 06:20 Ron Tapia wrote "[facility] 08/01/16 PCI's PDA + OM with drug-eluting stents" Family History Other Cancer Cirrhosis Stroke Social History Smoking Status: Never smoker Second Hand Exposure: No; Hx Alcohol Use: No Hx Substance Use: No Preferred Language: Maltese Communication Ability: Effective International Relations Professor Required: No Beliefs That Will Affect Care: None Current Living Situation: Spouse Feels Safe at Home: Yes Assistive Devices: None Allergies Allergies Allergy/AdvReac Type Severity Reaction Status Date / Time tramadol Allergy Unknown itching Verified 06/12/21 11:00 hydrocodone AdvReac Intermediate DIZZY/NAUSE Verified 06/12/21 11:00 A Home Meds Home Medications Medication Instructions Recorded Confirmed meclizine 25 mg tablet 25 mg PO TID PRN 03/11/18 06/12/21 gabapentin 100 mg capsule 100 mg PO BID 08/03/19 06/12/21 aspirin 81 mg tablet,delayed 81 mg PO DAILY 09/19/20 06/12/21 release cyclobenzaprine 10 mg tablet 10 mg PO BID PRN 09/19/20 06/12/21 fluticasone propionate 50 2 spray INTRANASAL DAILY 09/19/20 06/12/21 mcg/actuation nasal spray,suspension albuterol sulfate 90 mcg/actuation 2 puff INHALATION Q6H PRN 01/08/21 06/12/21 aerosol inhaler lisinopril 5 mg tablet 5 mg PO DAILY 06/12/21 06/12/21 metoprolol tartrate 50 mg tablet 50 mg PO BID 06/12/21 06/12/21 rosuvastatin 40 mg tablet 40 mg PO HS 06/12/21 06/12/21 Previous Rx's Medication Instructions Recorded nitroglycerin 0.4 mg sublingual 0.4 mg SUBLINGUAL UD PRN #25 tab 09/20/20 tablet (Nitrostat) Results & Data (ED) Vital Signs Vital Signs - 24 hr 06/12/21 09:24 06/12/21 10:42 06/12/21 10:48 Temperature 37 C Temperature Source Oral Pulse Rate 68 57 L 55 L Pulse Rate [Radial] Pulse Rate from SpO2 Sensor 56 L Respiratory Rate 20 10 L 12 Blood Pressure 153/85 H 124/80 Blood Pressure [Right Arm] Blood Pressure Mean 107 94 Blood Pressure Mean [Right Arm] Blood Pressure Position [Right Arm] Pulse Oximetry 94 96 Oxygen Delivery Method Room Air Oxygen Flow Rate Sepsis Recent Fever Within 48 Hours No Sepsis New/Unexplained Change in Mental Status N/A Sepsis Action Taken by Nursing No Action Required 06/12/21 10:50 06/12/21 11:19 06/12/21 11:20 Temperature Temperature Source Pulse Rate 54 L 73 58 L Pulse Rate [Radial] 54 L Pulse Rate from SpO2 Sensor 54 L 58 L Respiratory Rate 17 13 18 Blood Pressure 147/75 H Blood Pressure [Right Arm] 124/80 Blood Pressure Mean 99 Blood Pressure Mean [Right Arm] 94 Blood Pressure Position [Right Arm] Semi-fowlers Pulse Oximetry 96 96 Oxygen Delivery Method Room Air Oxygen Flow Rate Sepsis Recent Fever Within 48 Hours Sepsis New/Unexplained Change in Mental Status Sepsis Action Taken by Nursing 06/12/21 11:30 06/12/21 11:40 06/12/21 11:50 Temperature Temperature Source Pulse Rate 53 L 60 54 L Pulse Rate [Radial] Pulse Rate from SpO2 Sensor 53 L 58 L 54 L Respiratory Rate 13 19 16 Blood Pressure 130/69 153/87 H Blood Pressure [Right Arm] Blood Pressure Mean 89 109 Blood Pressure Mean [Right Arm] Blood Pressure Position [Right Arm] Pulse Oximetry 97 98 97 Oxygen Delivery Method Oxygen Flow Rate Sepsis Recent Fever Within 48 Hours Sepsis New/Unexplained Change in Mental Status Sepsis Action Taken by Nursing 06/12/21 12:00 06/12/21 12:15 06/12/21 12:23 Temperature Temperature Source Pulse Rate Pulse Rate [Radial] Pulse Rate from SpO2 Sensor Respiratory Rate Blood Pressure 151/87 H 153/87 H Blood Pressure [Right Arm] Blood Pressure Mean 108 109 Blood Pressure Mean [Right Arm] Blood Pressure Position [Right Arm] Pulse Oximetry 98 Oxygen Delivery Method Room Air Oxygen Flow Rate 0 Sepsis Recent Fever Within 48 Hours Sepsis New/Unexplained Change in Mental Status Sepsis Action Taken by Nursing 06/12/21 12:30 06/12/21 13:00 Temperature Temperature Source Pulse Rate Pulse Rate [Radial] Pulse Rate from SpO2 Sensor Respiratory Rate Blood Pressure 145/87 H 148/86 H Blood Pressure [Right Arm] Blood Pressure Mean 106 106 Blood Pressure Mean [Right Arm] Blood Pressure Position [Right Arm] Pulse Oximetry Oxygen Delivery Method Oxygen Flow Rate Sepsis Recent Fever Within 48 Hours Sepsis New/Unexplained Change in Mental Status Sepsis Action Taken by Nursing Laboratory Data Result diagrams: 06/12/21 09:39 06/12/21 09:39 Lab Results 06/12/21 06/12/21 06/12/21 Range/Units 09:39 09:39 09:39 WBC 7.64 (4.8-10.8) K/uL RBC 5.60 (4.7-6.1) M/uL Hgb 15.9 (14.0-18.0) g/dL Hct 46.6 (42-52) % MCV 83.2 (80-100) fL MCH 28.4 (25-34) pg MCHC 34.1 (32-36) g/dL RDW Std Deviation 43.3 (36.4-46.3) fL RDW Coeff of Mildred 14.3 (11.5-14.5) % Plt Count 273 (130-400) K/uL MPV 10.3 (7.4-10.4) fL Immature Gran % (Auto) 0.0 % Neut % (Auto) 69.5 % Lymph % (Auto) 16.2 % Overton % (Auto) 9.3 % Eos % (Auto) 4.5 % Baso % (Auto) 0.5 % Neut # (Auto) 5.31 (1.4-6.5) K/uL Lymph # (Auto) 1.24 (1.2-3.4) K/uL Overton # (Auto) 0.71 H (0.11-0.59) K/uL Eos # (Auto) 0.34 (0-0.5) K/uL Baso # (Auto) 0.04 (0-0.2) K/uL Immature Gran # (Auto) 0.00 (0.00-0.02) K/uL PT 10.9 (9.0-12.0) Seconds INR 1.1 (0.9-1.1) Sodium 141 (136-145) mmol/L Potassium 3.5 (3.5-5.1) mmol/L Chloride 110 H (98-107) mmol/L Carbon Dioxide 24 (21-32) mmol/L Anion Gap 7.0 (3-11) BUN 6 L (7-18) mg/dl Creatinine 0.82 (0.6-1.4) mg/dl Est Cr Clr Drug Dosing 95.8 ml/min Est GFR ( Amer) 105.3 ml/min Est GFR (Non-Af Amer) 90.9 ml/min BUN/Creatinine Ratio 7.5 L (10-20) Glucose 114 H (70-99) mg/dl Calcium 8.9 (8.5-10.1) mg/dl Total Bilirubin 0.8 (0.2-1) mg/dl AST 18 (15-37) U/L ALT 22 (12-78) Alkaline Phosphatase 68 (45-117) U/L Troponin I < 0.015 (0-0.045) ng/ml Total Protein 7.4 (6.4-8.2) gm/dl Albumin 3.3 L (3.4-5.0) gm/dl Globulin 4.1 H (2.5-4.0) gm/dl Albumin/Globulin Ratio 0.8 L (0.9-2) Lipase 144 (73-393) U/L SARS-CoV-2, RNA, NAAT (NEGATIVE) 06/12/21 Range/Units 10:36 WBC (4.8-10.8) K/uL RBC (4.7-6.1) M/uL Hgb (14.0-18.0) g/dL Hct (42-52) % MCV (80-100) fL MCH (25-34) pg MCHC (32-36) g/dL RDW Std Deviation (36.4-46.3) fL RDW Coeff of Mildred (11.5-14.5) % Plt Count (130-400) K/uL MPV (7.4-10.4) fL Immature Gran % (Auto) % Neut % (Auto) % Lymph % (Auto) % [place] % (Auto) % Eos % (Auto) % Baso % (Auto) % Neut # (Auto) (1.4-6.5) K/uL Lymph # (Auto) (1.2-3.4) K/uL Overton # (Auto) (0.11-0.59) K/uL Eos # (Auto) (0-0.5) K/uL Baso # (Auto) (0-0.2) K/uL Immature Gran # (Auto) (0.00-0.02) K/uL PT (9.0-12.0) Seconds INR (0.9-1.1) Sodium (136-145) mmol/L Potassium (3.5-5.1) mmol/L Chloride (98-107) mmol/L Carbon Dioxide (21-32) mmol/L Anion Gap (3-11) BUN (7-18) mg/dl Creatinine (0.6-1.4) mg/dl Est Cr Clr Drug Dosing ml/min Est GFR ( Amer) ml/min Est GFR (Non-Af Amer) ml/min BUN/Creatinine Ratio (10-20) Glucose (70-99) mg/dl Calcium (8.5-10.1) mg/dl Total Bilirubin (0.2-1) mg/dl AST (15-37) U/L ALT (12-78) Alkaline Phosphatase (45-117) U/L Troponin I (0-0.045) ng/ml Total Protein (6.4-8.2) gm/dl Albumin (3.4-5.0) gm/dl Globulin (2.5-4.0) gm/dl Albumin/Globulin Ratio (0.9-2) Lipase (73-393) U/L SARS-CoV-2, RNA, NAAT NEGATIVE (NEGATIVE) Administered Medications Discontinued Medications Sodium Chloride (Nss 1000ml) 1,000 mls @ 999 mls/hr IV .Q1H1M ONE Stop: 06/12/21 11:15 Last Admin: 06/12/21 12:26 Dose: 999 mls/hr Documented by: [id number] Ioversol (Optiray 320 125ml) 120 ml IV ONCE ONE Stop: 06/12/21 11:16 Last Admin: 06/12/21 11:07 Dose: 120 ml Documented by: [id number] Imaging Data Radiologist's Impression: Chest X-Ray 06/12/21 09:40 XR chest 1V portable HISTORY: Atypical Chest Pain COMPARISON: Chest 05/14/2021. FINDINGS: There are poststernotomy changes. The cardiac silhouette remains top normal in size. No pneumothorax. No pleural effusions. No focal lung consolidations to suggest pneumonia. No evidence for pulmonary edema. IMPRESSION: No significant change compared to the prior study. No acute process. ACT 112: Negative or not required by law. Electronically signed by: Arash Carty M.D. 06/12/2021 11:06 AM Chest CTA 06/12/21 10:14 CT ANGIOGRAPHY OF THE CHEST, PULMONARY EMBOLUS PROTOCOL CLINICAL HISTORY: Syncope. Chest pain. Evaluate for pulmonary embolus. COMPARISON STUDY: Chest CT February 28, 2021. Chest radiograph performed earlier today. TECHNIQUE: Following IV administration of 120 mL of Optiray, helical axial images of the chest were obtained utilizing the pulmonary embolus protocol. Maximal intensity projections and sagittal and coronal reformats were viewed on an independent 3D workstation. IV contrast was administered without compli cation. Automated exposure control was utilized for the study. A dose lowering technique was utilized adhering to the principles of ALARA. CT DOSE: 1768.00 mGy.cm FINDINGS: No pulmonary emboli are identified. There is no thoracic aortic dissection. There are postoperative findings consistent with median sternotomy a nd coronary artery bypass grafting. Anterior mediastinal infiltration within the operative bed has diminished since CT of February 28, 2021. There is no significant fusion of the median sternotomy. No pneumothorax or pleural effusion is noted. No consolidation to suggest pneumonia. A 7 mm groundglass left lower lobe nodule on image 123 of 278 is unchanged since chest CT of February 28, 2021. A 2 mm peripheral nodule within left lower lobe on image 144 is unchanged. A 3 mm lingular nodule on image 164 is unchanged. No acute fracture is identified within visualized portions of the bony thorax. Visualized portions of the upper abdomen are unremarkable. Gallbladder is surgically absent. IMPRESSION: 1. No pulmonary emboli identified. 2. No acute process within the chest. 3. Resolving postoperative findings following median sternotomy. Decrease in infiltration within the operative bed. No significant fusion of the median sternotomy at this time. 4. No change in several left lung nodules, including a 7 mm groundglass left lower lobe nodule. Follow-up chest CT in one year to ensure continued stability is recommended. ACT 112: Negative or not required by law. Electronically signed by: Mathew Pollack M.D. 06/12/2021 11:[address] 06/12/21 10:[address], HEAD & NECK CTA HISTORY: syncope, neck pain TECHNIQUE: Multiaxial CT images of the head were performed both before and after the intravenous administration of contrast to evaluate the major cerebral vessels. Multiaxial CT images of the neck were also performed following the intravenous administration of contrast to evaluate the major cervical vessels. Maximum intensity projection images were also obtained. A dose lowering techn ique was utilized adhering to the principles of ALARA. COMPARISON: Head CT 03/11/2018. FINDINGS: NONCONTRAST HEAD CT: There is no mass, hematoma, midline shift, or acute infarct. The calvarium and skull base are intact. The paranasal sinuses and mastoid air cells are clear. Mild atrophy and microvascular ischemic changes are noted. HEAD CTA: Visualized intracranial internal carotid arteries, distal vertebral arteries, and basilar artery are widely patent. There is no significant stenosis, occlusion, or aneurysm seen within the bilateral ACAs, MCAs, or clinical administrator. The major dural venous sinuses are patent. NECK CTA: The aortic arch and proximal great vessels are widely patent. There is no significant stenosis, occlusion, or dissection identified within the bilateral common carotid, internal carotid, or vertebral arteries. There are poststernotomy changes. IMPRESSION: 1. No significant stenosis, occlusion, or aneurysm within the [place]. 2. No significant stenosis, occlusion, or dissection identified within the carotid or vertebral arteries. 3. No acute intracranial abnormality. ACT 112: Negative or not required by law. Electronically signed by: Arash Carty M.D. 06/12/2021 11:37 AM Head CTA 06/12/21 10:[address], HEAD & NECK CTA HISTORY: syncope, neck pain TECHNIQUE: Multiaxial CT images of the head were performed both before and after the intravenous administration of contrast to evaluate the major cerebral vessels. Multiaxial CT images of the neck were also performed following the intravenous administration of contrast to evaluate the major cervical vessels. Maximum intensity projection images were also obtained. A dose lowering technique was utilized adhering to the principles of ALARA. COMPARISON: Head CT 03/11/2018. FINDINGS: NONCONTRAST HEAD CT: There is no mass, hematoma, midline shift, or acute infarct. The calvarium and skull base are intact. The paranasal sinuses and mastoid air cells are clear. Mild atrophy and microvascular ischemic changes are noted. HEAD CTA: Visualized intracranial internal carotid arteries, distal vertebral arteries, and basilar artery are widely patent. There is no significant s tenosis, occlusion, or aneurysm seen within the bilateral ACAs, MCAs, or clinical administrator. The major dural venous sinuses are patent. NECK CTA: The aortic arch and proximal great vessels are widely patent. There is no significant stenosis, occlusion, or dissection identified within the bilateral common carotid, internal carotid, or vertebral arteries. There are poststernotomy changes. IMPRESSION: 1. No significant stenosis, occlusion, or aneurysm within the [place]. 2. No significant stenosis, occlusion, or dissection identified within the carotid or vertebral arteries. 3. No acute intracranial abnormality. ACT 112: Negative or not required by law. Electronically signed by: Arash Carty M.D. 06/12/2021 11:37 AM Neck CTA 06/12/21 10:[address], HEAD & NECK CTA HISTORY: syncope, neck pain TECHNIQUE: Multiaxial CT images of the head were performed both before and after the intravenous administration of contrast to evaluate the major cerebral vessels. Multiaxial CT images of the neck were also performed following the intravenous administration of contrast to evaluate the major cervical vessels. Maximum intensity projection images were also obtained. A dose lowering technique was utilized adhering to the principles of ALARA. COMPARISON: Head CT 03/11/2018. FINDINGS: NONCONTRAST HEAD CT: There is no mass, hematoma, midline shift, or acute infarct. The calvarium and skull base are intact. The paranasal sinuses and mastoid air cells are clear. Mild atrophy and microvascular ischemic changes are noted. HEAD CTA: Visualized intracranial internal carotid arteries, distal vertebral arteries, and basilar artery are widely patent. There is no significant stenosis, occlusion, or aneurysm seen within the bilateral ACAs, MCAs, or clinical administrator. The major dural venous sinuses are patent. NECK CTA: The aortic arch and proximal great vessels are widely patent. There is no significant stenosis, occlusion, or dissection identified within the bilateral common carotid, internal carotid, or vertebral arteries. There are poststernotomy changes. IMPRESSION: 1. No significant stenosis, occlusion, or aneurysm within the [place]. 2. No significant stenosis, occlusion, or dissection identified within the carotid or vertebral arteries. 3. No acute intracranial abnormality. ACT 112: Negative or not required by law. Electronically signed by: Arash Carty M.D. 06/12/2021 11:37 AM Discharge Plan Visit Data Chief Complaint: Chest Pain Stated Complaint: CHEST PAIN ED Provider: Silvano Elmore Discharge Problem: Syncope, Coronary artery disease, Chest pain, Dizziness Patient Disposition: Being Evaluated by Hospitalist Discharge Instructions Interventions: ED Discharge Assessment Last Done: 06/12/21 15:29
[2021-06-12] MEDS ORDERED: SODIUM CHLORIDE 0.9% 1000ML 1,000 ML IV ONE (10:15)
[2021-06-12 10:17] LABS: Albumin Globulin Ratio 0.8 (0.9-2); Alkaline Phosphatase 68 U/L (45-117); Globulin 4.1 gm/dl (2.5-4.0); Total Protein 7.4 gm/dl (6.4-8.2); Troponin I < 0.015 ng/ml (0-0.045)
[2021-06-12 10:19] LABS: Bilirubin,Total 0.8 mg/dl (0.2-1)
[2021-06-12 10:29] LABS: Basophils # (auto) 0.04 K/uL (0-0.2); Basophils % (auto) 0.5 %; Eosinophils # (auto) 0.34 K/uL (0-0.5); Eosinophils % (auto) 4.5 %; Hematocrit (blood only) 46.6 % (42-52); Hemoglobin 15.9 g/dL (14.0-18.0); Lymphocytes # (auto) 1.24 K/uL (1.2-3.4); Lymphocytes % (auto) 16.2 %; Mean Corpuscular Hemoglobin 28.4 pg (25-34); Mean Corpuscular Hgb Conc 34.1 g/dL (32-36); Mean Corpuscular Volume 83.2 fL (80-100); Mean Platelet Volume 10.3 fL (7.4-10.4); Monocytes # (auto) 0.71 K/uL (0.11-0.59); Monocytes % (auto) 9.3 %; Neutrophils # (auto) 5.31 K/uL (1.4-6.5); Neutrophils % (auto) 69.5 %; Platelet Count 273 K/uL (130-400); RDW Coefficient of Variation 14.3 % (11.5-14.5); RDW Standard Deviation 43.3 fL (36.4-46.3); White Blood Count 7.64 K/uL (4.8-10.8)
[2021-06-12] MEDS ORDERED: ONDANSETRON INJ 2 MG/ML 2 ML VIAL IV STA (10:43)
--- NOTE | 2021-06-12 11:08 | XRay Report ---
XR chest 1V portable HISTORY: Atypical Chest Pain COMPARISON: Chest 05/14/2021. FINDINGS: There are poststernotomy changes. The cardiac silhouette remains top normal in size. No pne umothorax. No pleural effusions. No focal lung consolidations to suggest pneumonia. No evidence for p ulmonary edema. IMPRESSION: No significant change compared to the prior study. No acute process. ACT 112: Negative or not required by law. Electronically signed by: Arash Carty M.D. 06/12/2021 11:06 AM
[2021-06-12] MEDS ORDERED: OPTIRAY 320 125ml IV ONE (11:15)
--- NOTE | 2021-06-12 11:39 | CT Scan Report ---
NONCONTRAST HEAD CT, HEAD & NECK CTA HISTORY: syncope, neck pain TECHNIQUE: Multiaxial CT images of the head were performed both before and after the intravenous admi nistration of contrast to evaluate the major cerebral vessels. Multiaxial CT images of the neck were also performed following the intravenous administration of contrast to evaluate the major cervical ve ssels. Maximum intensity projection images were also obtained. A dose lowering technique was utilized adhering to the principles of ALARA. COMPARISON: Head CT 03/11/2018. FINDINGS: NONCONTRAST HEAD CT: There is no mass, hematoma, midline shift, or acute infarct. The calvarium and s kull base are intact. The paranasal sinuses and mastoid air cells are clear. Mild atrophy and microva scular ischemic changes are noted. HEAD CTA: Visualized intracranial internal carotid arteries, distal vertebral arteries, and basilar a rtery are widely patent. There is no significant stenosis, occlusion, or aneurysm seen within the castro ateral ACAs, MCAs, or lead process engineer. The major dural venous sinuses are patent. NECK CTA: The aortic arch and proximal great vessels are widely patent. There is no significant sten osis, occlusion, or dissection identified within the bilateral common carotid, internal carotid, or v ertebral arteries. There are poststernotomy changes. IMPRESSION: 1. No significant stenosis, occlusion, or aneurysm within the [place]. 2. No significant stenosis, occlusion, or dissection identified within the carotid or vertebral arter ies. 3. No acute intracranial abnormality. ACT 112: Negative or not required by law. Electronically signed by: Arash Carty M.D. 06/12/2021 11:37 AM
--- NOTE | 2021-06-12 11:39 | CT Scan Report ---
NONCONTRAST HEAD CT, HEAD & NECK CTA HISTORY: syncope, neck pain TECHNIQUE: Multiaxial CT images of the head were performed both before and after the intravenous admi nistration of contrast to evaluate the major cerebral vessels. Multiaxial CT images of the neck were also performed following the intravenous administration of contrast to evaluate the major cervical ve ssels. Maximum intensity projection images were also obtained. A dose lowering technique was utilized adhering to the principles of ALARA. COMPARISON: Head CT 03/11/2018. FINDINGS: NONCONTRAST HEAD CT: There is no mass, hematoma, midline shift, or acute infarct. The calvarium and s kull base are intact. The paranasal sinuses and mastoid air cells are clear. Mild atrophy and microva scular ischemic changes are noted. HEAD CTA: Visualized intracranial internal carotid arteries, distal vertebral arteries, and basilar a rtery are widely patent. There is no significant stenosis, occlusion, or aneurysm seen within the cast[place] ateral ACAs, MCAs, or fundraising officer. The major dural venous sinuses are patent. NECK CTA: The aortic arch and proximal great vessels are widely patent. There is no significant sten osis, occlusion, or dissection identified within the bilateral common carotid, internal carotid, or v ertebral arteries. There are poststernotomy changes. IMPRESSION: 1. No significant stenosis, occlusion, or aneurysm within the [place]. 2. No significant stenosis, occlusion, or dissection identified within the carotid or vertebral arter ies. 3. No acute intracranial abnormality. ACT 112: Negative or not required by law. Electronically signed by: Arash Carty M.D. 06/12/2021 11:37 AM
--- NOTE | 2021-06-12 11:39 | CT Scan Report ---
NONCONTRAST HEAD CT, HEAD & NECK CTA HISTORY: syncope, neck pain TECHNIQUE: Multiaxial CT images of the head were performed both before and after the intravenous admi nistration of contrast to evaluate the major cerebral vessels. Multiaxial CT images of the neck were also performed following the intravenous administration of contrast to evaluate the major cervical ve ssels. Maximum intensity projection images were also obtained. A dose lowering technique was utilized adhering to the principles of ALARA. COMPARISON: Head CT 03/11/2018. FINDINGS: NONCONTRAST HEAD CT: There is no mass, hematoma, midline shift, or acute infarct. The calvarium and s kull base are intact. The paranasal sinuses and mastoid air cells are clear. Mild atrophy and microva scular ischemic changes are noted. HEAD CTA: Visualized intracranial internal carotid arteries, distal vertebral arteries, and basilar a rtery are widely patent. There is no significant stenosis, occlusion, or aneurysm seen within the cast[place] a[place] ACAs, MCAs, or meat blender. The major dural venous sinuses are patent. NECK CTA: The aortic arch and proximal great vessels are widely patent. There is no significant sten osis, occlusion, or dissection identified within the bilateral common carotid, internal carotid, or v ertebral arteries. There are poststernotomy changes. IMPRESSION: 1. No significant stenosis, occlusion, or aneurysm within the [place]. 2. No significant stenosis, occlusion, or dissection identified within the carotid or vertebral arter ies. 3. No acute intracranial abnormality. ACT 112: Negative or not required by law. Electronically signed by: Arash Carty M.D. 06/12/2021 11:37 AM
--- NOTE | 2021-06-12 11:48 | CT Scan Report ---
CT ANGIOGRAPHY OF THE CHEST, PULMONARY EMBOLUS PROTOCOL CLINICAL HISTORY: Syncope. Chest pain. Evaluate for pulmonary embolus. COMPARISON STUDY: Chest CT February 28, 2021. Chest radiograph performed earlier today. TECHNIQUE: Following IV administration of 120 mL of Optiray, helical axial images of the chest were o btained utilizing the pulmonary embolus protocol. Maximal intensity projections and sagittal and cor onal reformats were viewed on an independent 3D workstation. IV contrast was administered without co mplication. Automated exposure control was utilized for the study. A dose lowering technique was ut ilized adhering to the principles of ALARA. CT DOSE: 1768.00 mGy.cm FINDINGS: No pulmonary emboli are identified. There is no thoracic aortic dissection. There are post operative findings consistent with median sternotomy and coronary artery bypass grafting. Anterior me diastinal infiltration within the operative bed has diminished since CT of February 28, 2021. There is no significant fusion of the median sternotomy. No pneumothorax or pleural effusion is noted. No c onsolidation to suggest pneumonia. A 7 mm groundglass left lower lobe nodule on image 123 of 278 is u nchanged since chest CT of February 28, 2021. A 2 mm peripheral nodule within left lower lobe on rafael ge 144 is unchanged. A 3 mm lingular nodule on image 164 is unchanged. No acute fracture is identifie d within visualized portions of the bony thorax. Visualized portions of the upper abdomen are unremar kable. Gallbladder is surgically absent. IMPRESSION: 1. No pulmonary emboli identified. 2. No acute process within the chest. 3. Resolving postoperative findings following median sternotomy. Decrease in infiltration within the operative bed. No significant fusion of the median sternotomy at this time. 4. No change in several left lung nodules, including a 7 mm groundglass left lower lobe nodule. Follo w-up chest CT in one year to ensure continued stability is recommended. ACT 112: Negative or not required by law. Electronically signed by: Mathew Pollack M.D. 06/12/2021 11:47 AM
--- NOTE | 2021-06-12 13:11 | History & Physical Report ---
Date of Service June 12, 2021 Assessment & Plan (1) Syncope: Plan: This is a 66yo M with a PMH of CAD, s/p SALOME and CABG x 4 in December 2020, COPD, HTN, HLD and other medical problems listed below who presents after syncopal episode this morning around 0730. Episode occurred this morning with preceding lightheadedness, occurred after positional change VSS, no significant lab abnormalities, initial trop wnl, no changes on ECG, head/neck CTA and chest CTA without acute abnormality History of A Fib following CABG in December, no longer on amiodarone or anticoagulated on coumadin, following with Dr. Carl Also with recent increase to Lopressor dose and addition of lisinopril Ddx ? underlying arrhythmia vs orthostatic hypotension Echo from Jan 2021 with preserved EF 54%, mild concentric LVH, grade 1 diastolic dysfunction, moderate AV sclerosis without stenosis Orthostatics, monitor on tele, routine cardiology consult, repeat ECG in AM (2) Chest pain: Plan: Developed following syncopal episode, has since resolved back to baseline discomfort No ECG changes, initial troponin negative Trend trops, monitor overnight on tele (3) Coronary artery disease: Plan: History of CABG x 4 in December [address] Carl Continue aspirin, statin, lopressor (4) ROMA (obstructive sleep apnea): Plan: Non-compliant with CPAP in the past, instructed to start bipap by sleep medicine in April but has not yet started Will start bipap HS with recommended settings (5) COPD (chronic obstructive pulmonary disease): Plan: At baseline, albuterol inh PRN DVT Ppx: SQ heparin Code status: FULL PCP: Ghanshyam Dispo: Observation PCU Patient seen in collaboration with Dr. Reagan. Please see addendum. History of Present Illness Chief Complaint: syncope Primary Care Provider: Goran Morrissey MD This is a 66yo M with a PMH of CAD, s/p SALOME and CABG x 4 in December 2020, COPD, HTN, HLD and other medical problems listed below who presents after syncopal episode this morning around 0730. Patient was in normal state of health when he woke up but then developed lightheadedness and some vertigo symptoms and took meclizine. Stood up and began walking to the door to feed his cats when he became significantly more lightheaded and syncopized, falling into a chair behind him. Does not think he hit his head. Bells that he was unconscious for a few seconds but episode was unwitnessed. Developed left-sided chest pressure that was 3/10 with radiation up to the neck following episode. Associated with nausea. No diaphoresis, shortness of breath or vomiting. Chest discomfort and nausea lasted approximately 30 minutes and resolved once he arrived in the hospital. Still endorsing some chest discomfort but states it is 1/10 at most and that he experiences a similar type of discomfort intermittently at home. No fever, chills, headache, palpitations, SOB, nausea, vomiting, abdominal pain, dysuria, diarrhea or constipation. Of note, when patient underwent [place] [facility] [place], postoperative course was complicated by atrial fibrillation and he was discharged home on warfarin and amiodarone. Both medications were stopped months ago. Does state symptoms of lightheadedness and weakness this morning felt similar to previous a fib. Following with Dr. Carl and Dr. Garner of cardiothoracic surgery at [facility] [place]. unexpectedly in March and patient endorses emotional stress over the holidays. Patient has not been using CPAP for months. Was recommended to transition to bipap by sleep medicine in April and has not yet started. Allergies Allergy/AdvReac Type Severity Reaction Status Date / Time tramadol Allergy Unknown itching Verified 06/12/21 11:00 hydrocodone AdvReac Intermediate DIZZY/NAUSE Verified 06/12/21 11:00 A Home Medications Medication Instructions Recorded Confirmed Type meclizine 25 mg tablet 25 mg PO TID PRN 03/11/18 06/12/21 History gabapentin 100 mg capsule 100 mg PO BID 08/03/19 06/12/21 History aspirin 81 mg tablet,delayed 81 mg PO DAILY 09/19/20 06/12/21 History release cyclobenzaprine 10 mg tablet 10 mg PO BID PRN 09/19/20 06/12/21 History fluticasone propionate 50 2 spray INTRANASAL DAILY 09/19/20 06/12/21 History mcg/actuation nasal spray,suspension nitroglycerin 0.4 mg sublingual 0.4 mg SUBLINGUAL UD PRN #25 tab 09/20/20 06/12/21 Rx tablet (Nitrostat) albuterol sulfate 90 mcg/actuation 2 puff INHALATION Q6H PRN 01/08/21 06/12/21 History aerosol inhaler lisinopril 5 mg tablet 5 mg PO DAILY 06/12/21 06/12/21 History metoprolol tartrate 50 mg tablet 50 mg PO BID 06/12/21 06/12/21 History rosuvastatin 40 mg tablet 40 mg PO HS 06/12/21 06/12/21 History Past Med/Surg History Medical History (Updated 06/12/21 @ 17:11 by Silvano Elmore M.D.) Compression fracture of T12 vertebra Coronary artery disease "non-STEMI [facility] 08/01/16; cath + PCI SALOME PDA + OM 08/03/16" Generalized anxiety disorder Hyperlipidemia Obesity (BMI 30-39.9) ROMA (obstructive sleep apnea) Osteoarthritis Vertigo Surgical History H/O cardiac catheterization "12/10/09 EF 60%, 20% LAD, 30% RCA as per Epic" Hx of appendectomy Hx of cholecystectomy Status post cardiac catheterization "[facility] 08/03/16 occlusions left circumflex + distal RCA posterolateral branch" On 09/11/16 06:19 Ron Tapia wrote "[facility] 08/01/16 occlusions left circumflex + distal RCA posterolateral branch" Status post coronary artery stent placement "[facility] 08/03/16 PCI's PDA + OM with drug-eluting stents" On 09/11/16 06:20 Ron Tapia wrote "[facility] 08/01/16 PCI's PDA + OM with drug-eluting stents" Family History Other Cancer Cirrhosis Stroke Social History Smoking Status: Never smoker Second Hand Exposure: No; Hx Alcohol Use: No Hx Substance Use: No Preferred Language: Maori Communication Ability: Effective Preschool Teacher Required: No Beliefs That Will Affect Care: None Current Living Situation: Spouse Feels Safe at Home: Yes Assistive Devices: None Review of Systems Review of Systems: At least ten systems reviewed and negative except as noted in the HPI. Physical Exam Physical Exam: General Appearance: WD/WN, vitals as above, NAD, sitting up in bed, pleasant, conversing easily, obese Head: normocephalic, atraumatic Eyes: normal inspection, PERRL, conjunctivae normal, anicteric sclerae ENT: external ear and nose normal, oropharynx normal Neck: normal visual inspection, trachea midline, no thyromegaly Respiratory: normal respiratory effort, lungs clear to auscultation, no wheeze, rales, rhonchi. No accessory muscle use Cardiovascular: bradycardic rate, rhythm, no murmur, normal peripheral pulses, no BLE edema. Vessels: no JVD Chest: normal inspection of chest Abdomen/GI: normal bowel sounds, soft, nontender, no hepatosplenomegaly Extremities/Musculoskeletal: no cyanosis or clubbing, extremities motor strength 5/5 Neurologic: PERRL, EOMI, accommodation nl, no face palsy, no dysarthria, CN's II-XI intact bilaterally and moves all extremities Psychiatric: A+Ox3, euthymic affect Skin: no rashes, normal color, warm/dry Results & Data Results & Data ([facility]) Vital Signs (Past 12 Hours) Vital Signs Temp Pulse Pulse Resp BP BP Pulse Ox 06/12/21 12:00 98 06/12/21 11:50 54 L 16 153/87 H 97 06/12/21 11:40 60 19 98 06/12/21 11:30 53 L 13 130/69 97 06/12/21 11:20 58 L 18 96 06/12/21 11:19 73 13 147/75 H 06/12/21 10:50 54 L 54 L 17 124/80 96 06/12/21 10:48 55 L 12 124/80 96 06/12/21 10:42 57 L 10 L 06/12/21 09:24 37 C 68 20 153/85 H 94 Laboratory Results Short CBC 06/12/21 Range/Units 09:39 WBC 7.64 (4.8-10.8) K/uL Hgb 15.9 (14.0-18.0) g/dL Hct 46.6 (42-52) % Plt Count 273 (130-400) K/uL BMP 06/12/21 09:39 Sodium 141 Potassium 3.5 Chloride 110 H Carbon Dioxide 24 BUN 6 L Creatinine 0.82 Glucose 114 H Calcium 8.9 Cardiac Enzymes 06/12/21 Range/Units 09:39 Troponin I < 0.015 (0-0.045) ng/ml Liver Function 06/12/21 Range/Units 09:39 Total Bilirubin 0.8 (0.2-1) mg/dl AST 18 (15-37) U/L ALT 22 (12-78) Alkaline Phosphatase 68 (45-117) U/L Albumin 3.3 L (3.4-5.0) gm/dl Diagnostic Findings Chest X-Ray 06/12/21 09:40 XR chest 1V portable HISTORY: Atypical Chest Pain COMPARISON: Chest 05/14/2021. FINDINGS: There are poststernotomy changes. The cardiac silhouette remains top normal in size. No pneumothorax. No pleural effusions. No focal lung consolidations to suggest pneumonia. No evidence for pulmonary edema. IMPRESSION: No significant change compared to the prior study. No acute process. ACT 112: Negative or not required by law. Electronically signed by: Arash Carty M.D. 06/12/2021 11:06 AM Chest CTA 06/12/21 10:14 CT ANGIOGRAPHY OF THE CHEST, PULMONARY EMBOLUS PROTOCOL CLINICAL HISTORY: Syncope. Chest pain. Evaluate for pulmonary embolus. COMPARISON STUDY: Chest CT February 28, 2021. Chest radiograph performed earlier today. TECHNIQUE: Following IV administration of 120 mL of Optiray, helical axial images of the chest were obtained utilizing the pulmonary embolus protocol. Maximal intensity projections and sagittal and coronal reformats were viewed on an independent 3D workstation. IV contrast was administered without complication. Automated exposure control was utilized for the study. A dose lowering technique was utilized adhering to the principles of ALARA. CT DOSE: 1768.00 mGy.cm FINDINGS: No pulmonary emboli are identified. There is no thoracic aortic dissection. There are postoperative findings consistent with median sternotomy and coronary artery bypass grafting. Anterior mediastinal infiltration within the operative bed has diminished since CT of February 28, 2021. There is no significant fusion of the median sternotomy. No pneumothorax or pleural effusion is noted. No consolidation to suggest pneumonia. A 7 mm groundglass left lower lobe nodule on image 123 of 278 is unchanged since chest CT of February 28, 2021. A 2 mm peripheral nodule within left lower lobe on image 144 is unchanged. A 3 mm lingular nodule on image 164 is unchanged. No acute fracture is identified within visualized portions of the bony thorax. Visualized portions of the upper abdomen are unremarkable. Gallbladder is surgically absent. IMPRESSION: 1. No pulmonary emboli identified. 2. No acute process within the chest. 3. Resolving postoperative findings following median sternotomy. Decrease in infiltration within the operative bed. No significant fusion of the median sternotomy at this time. 4. No change in several left lung nodules, including a 7 mm groundglass left lower lobe nodule. Follow-up chest CT in one year to ensure continued stability is recommended. ACT 112: Negative or not required by law. Electronically signed by: Mathew Pollack M.D. 06/12/2021 11:[address] 06/12/21 10:[address], HEAD & NECK CTA HISTORY: syncope, neck pain TECHNIQUE: Multiaxial CT images of the head were performed both before and after the intravenous administration of contrast to evaluate the major cerebral vessels. Multiaxial CT images of the neck were also performed following the intravenous administration of contrast to evaluate the major cervical vessels. Maximum intensity projection images were also obtained. A dose lowering technique was utilized adhering to the principles of ALARA. COMPARISON: Head CT 03/11/2018. FINDINGS: NONCONTRAST HEAD CT: There is no mass, hematoma, midline shift, or acute infarct. The calvarium and skull base are intact. The paranasal sinuses and mastoid air cells are clear. Mild atrophy and microvascular ischemic changes are noted. HEAD CTA: Visualized intracranial internal carotid arteries, distal vertebral arteries, and basilar artery are widely patent. There is no significant stenosis, occlusion, or aneurysm seen within the bilateral ACAs, MCAs, or cell stripper. The major dural venous sinuses are patent. NECK CTA: The aortic arch and proximal great vessels are widely patent. There is no significant stenosis, occlusion, or dissection identified within the bilateral common carotid, internal carotid, or vertebral arteries. There are poststernotomy changes. IMPRESSION: 1. No significant stenosis, occlusion, or aneurysm within the [place]. 2. No significant stenosis, occlusion, or dissection identified within the carotid or vertebral arteries. 3. No acute intracranial abnormality. ACT 112: Negative or not required by law. Electronically signed by: Arash Carty M.D. 06/12/2021 11:37 AM Head CTA 06/12/21 10:[address], HEAD & NECK CTA HISTORY: syncope, neck pain TECHNIQUE: Multiaxial CT images of the head were performed both before and after the intravenous administration of contrast to evaluate the major cerebral vessels. Multiaxial CT images of the neck were also performed following the intravenous administration of contrast to evaluate the major cervical vessels. Maximum intensity projection images were also obtained. A dose lowering technique was utilized adhering to the principles of ALARA. COMPARISON: Head CT 03/11/2018. FINDINGS: NONCONTRAST HEAD CT: There is no mass, hematoma, midline shift, or acute infarct. The calvarium and skull base are intact. The paranasal sinuses and mastoid air cells are clear. Mild atrophy and microvascular ischemic changes are noted. HEAD CTA: Visualized intracranial internal carotid arteries, distal vertebral arteries, and basilar artery are widely patent. There is no significant stenosis, occlusion, or aneurysm seen within the bilateral ACAs, MCAs, or cell stripper. The major dural venous sinuses are patent. NECK CTA: The aortic arch and proximal great vessels are widely patent. There is no significant stenosis, occlusion, or dissection identified within the bilateral common carotid, internal carotid, or vertebral arteries. There are poststernotomy changes. IMPRESSION: 1. No significant stenosis, occlusion, or aneurysm within the [place]. 2. No significant stenosis, occlusion, or dissection identified within the carotid or vertebral arteries. 3. No acute intracranial abnormality. ACT 112: Negative or not required by law. Electronically signed by: Arash Carty M.D. 06/12/2021 11:37 AM Neck CTA 06/12/21 10:[address], HEAD & NECK CTA HISTORY: syncope, neck pain TECHNIQUE: Multiaxial CT images of the head were performed both before and after the intravenous administration of contrast to evaluate the major cerebral vessels. Multiaxial CT images of the neck were also performed following the intravenous administration of contrast to evaluate the major cervical vessels. Maximum intensity projection images were also obtained. A dose lowering technique was utilized adhering to the principles of ALARA. COMPARISON: Head CT 03/11/2018. FINDINGS: NONCONTRAST HEAD CT: There is no mass, hematoma, midline shift, or acute infarct. The calvarium and skull base are intact. The paranasal sinuses and mastoid air cells are clear. Mild atrophy and microvascular ischemic changes are noted. HEAD CTA: Visualized intracranial internal carotid arteries, distal vertebral arteries, and basilar artery are widely patent. There is no significant stenosis, occlusion, or aneurysm seen within the bilateral ACAs, MCAs, or cell stripper. The major dural venous sinuses are patent. NECK CTA: The aortic arch and proximal great vessels are widely patent. There is no significant stenosis, occlusion, or dissection identified within the bilateral common carotid, internal carotid, or vertebral arteries. There are poststernotomy changes. IMPRESSION: 1. No significant stenosis, occlusion, or aneurysm within the [place]. 2. No significant stenosis, occlusion, or dissection identified within the carotid or vertebral arteries. 3. No acute intracranial abnormality. ACT 112: Negative or not required by law. Electronically signed by: Arash Carty M.D. 06/12/2021 11:37 AM ECG Additional Comments: NSR, RBBB, no changes Supervising Physician Co-Signing Physician Notes Attending addendum; The patient was seen and examined in emergency room He has significant cardiac history as mentioned in the H&P and was admitted with syncopal episode with chest pain with exertion He has been free of pain during examination On examination Lying in bed comfortably Hemodynamically stable with blood pressure on the upper side at 154/93 Chest-minimal crackles at the bases Heart-S1-S2, regular with 2/6 ESM over precordium Abdomen-distended, soft, nontender and bowel sounds present Extremities-trace to 1+ edema bilaterally more on the left than the right FLY WORKER-alert, awake and oriented x3 His admission labs, EKG and imaging studies reviewed Syncopal episode with chest pain to rule out ACS given complex cardiac history Cardiology has been consulted Patient remains free of any symptoms Agree with assessment and plan as outlined above by ANDREW Garcia Dr (1) Coronary artery disease Associated angina: unspecified whether angina present Coronary Disease- Associated Artery/Lesion type: unspecified vessel or lesion type [place] vs. transplanted heart: [place] heart Qualified Code(s): I25.10 - Atherosclerotic heart disease of [place] coronary artery without angina pectoris (2) COPD (chronic obstructive pulmonary disease) COPD type: COPD with acute exacerbation Qualified Code(s): J44.1 - Chronic obstructive pulmonary disease with (acute) exacerbation
--- NOTE | 2021-06-12 13:49 | Electrocardiogram Report ---
Test Reason : Blood Pressure : / mmHG Vent. Rate : 067 BPM Atrial Rate : 067 BPM P-R Int : 158 ms QRS Dur : 126 ms QT Int : 432 ms P-R-T Axes : 069 021 047 degrees QTc Int : 456 ms Normal sinus rhythm Right bundle branch block Abnormal ECG When compared with ECG of 14-MAY-2021 04:23, No significant change was found Confirmed by Shayan Cain ([id number]) on 06/12/2021 1:49:15 PM Referred By: Confirmed By:Naveen Cain
[2021-06-12] MEDS ORDERED: POLYETHYLENE (MIRALAX) 17 GM PACK PO PRN (18:25)
[2021-06-12] MEDS ORDERED: ALBUTEROL HFA 8 GM INHALER INH PRN (18:25)
[2021-06-12] MEDS ORDERED: ONDANSETRON INJ 2 MG/ML 2 ML VIAL IV PRN (18:25)
[2021-06-12] MEDS ORDERED: CYCLOBENZAPRINE HCL 10 MG TAB PO PRN (18:25)
[2021-06-12] MEDS ORDERED: NITROGLYCERIN SL 0.4 MG/TAB TAB SL PRN (18:25)
[2021-06-12] MEDS ORDERED: ACETAMINOPHEN 325 MG TAB PO PRN (18:25)
[2021-06-12] MEDS ORDERED: MECLIZINE HCL 25 MG TAB PO PRN (18:45)
[2021-06-12] MEDS ORDERED: ROSUVASTATIN CALCIUM 20 MG TAB PO SCH (21:00)
[2021-06-12] MEDS: METOPROLOL TARTRATE 50 MG TAB PO SCH (21:57)
[2021-06-12] MEDS: GABAPENTIN 100 MG CAP PO SCH (21:58)
[2021-06-12] MEDS: HEPARIN SOD 5,000 UNIT/0.5 ML VIAL SQ SCH (21:58)
[2021-06-13] MEDS: HEPARIN SOD 5,000 UNIT/0.5 ML VIAL SQ SCH ×2 (06:06→15:10)
[2021-06-13 06:13] LABS: Hemoglobin 15.6 g/dL (14.0-18.0); Mean Corpuscular Hemoglobin 28.2 pg (25-34); Mean Corpuscular Hgb Conc 33.9 g/dL (32-36); Mean Platelet Volume 10.6 fL (7.4-10.4); Platelet Count 241 K/uL (130-400); RDW Coefficient of Variation 14.4 % (11.5-14.5); RDW Standard Deviation 43.8 fL (36.4-46.3); Red Blood Count 5.54 M/uL (4.7-6.1); White Blood Count 7.73 K/uL (4.8-10.8)
[2021-06-13 06:52] LABS: BUN Creatinine Ratio 10.8 (10-20); Creatinine Clr Calc Pharmacy 105.2 ml/min; Est GFR (African American) 109.8 ml/min; Est GFR (Non-African American) 94.8 ml/min; Potassium 3.8 mmol/L (3.5-5.1)
[2021-06-13] MEDS: GABAPENTIN 100 MG CAP PO SCH (08:33)
[2021-06-13] MEDS: METOPROLOL TARTRATE 50 MG TAB PO SCH (08:33)
[2021-06-13] MEDS ORDERED: FLUTICASONE PROPIONATE NA SPR 16 GM BTL NAE SCH (09:00)
[2021-06-13] MEDS ORDERED: lisinopril 5 MG TAB PO SCH (09:00)
[2021-06-13] MEDS ORDERED: ASPIRIN 81 MG ECTAB PO SCH (09:00)
--- NOTE | 2021-06-13 09:03 | Cardiology Consultation ---
Date of Consultation June 13, 2021 Assessment & Plan (1) Orthostatic syncope: (2) Chest pain: (3) Coronary artery disease: (4) History of coronary artery bypass graft: (5) Bradycardia: Patient admitted after syncopal spell and atypical chest pain. Based on description, likely orthostatic syncope, related to hypotension after standing too quickly. Patient reports his BP and HR have been running lower at home. No significant arrhythmias on telemetry. Symptoms resolved and no recurrence. Reduce metoprolol to 25 mg BID. Continue lisinopril and all other home medications. Work up for chest pain unremarkable. No acute EKG changes, negative cardiac enzymes Echo pending. Chest CTA unremarkable. Case discussed with Dr. Lloyd. Reduce metoprolol on discharge. as long as echo is without acute findings, stable for discharge today. He has appt with his primary floral designer salesperson, Dr. Carl, in about 2 weeks and will keep this for close f/u. Supervising Physician Co-Signing Physician Notes Patient seen and examined with Aleena Faust PA-C. Agree with findings and assessment as above. Syncopal event appears to be a combination of orthostatic hypotension and recently increased metoprolol dose. Will reduce metoprolol back to 25 twice daily. Lifestyle changes discussed to avoid orthostatic hypotension. Follow-up with cardiology as an outpatient as scheduled. History of Present Illness Reason for Consultation: Syncope; Dizziness; Chest pain Requesting Physician: Dr. Reagan Attending Physician: Dr. Lloyd History of Present Illness Patient is a 66 year old male, known to [facility] followed by Dr. Carl for history of: 1. CAD H/o NSTEMI s/p SALOME to PDA and OM, 2017 S/p CABGx4 (RASHEED-LAD, Ao-PDA, Ao-OM with reversed saphenous vein, 01/11/[address] Garner. Post op afib- no recurrent arrhythmias on quality assurance monitor and amiodarone and Coumadin discontinued. 2. HLD, LDL goal below 70 3. Metabolic syndrome 4. COPD 5. ROMA, follows with sleep medicine Patient reports he was in usual state of health yesterday morning. He had not had his morning breakfast or water, and he stood quickly from his chair to go to the kitchen and feed his cats. He reported significant dizziness and "tunnel vision" upon standing quickly and sat down in his chair and believed he lost consciousness for about 5 seconds. No loss of bowel or bladder. No injury. Upon awakening he reported left sided chest pain, described as "stabbing" sensation, rating 3/10. Due to his symptoms, his son brought him to ER for evaluation. Work up in ER was unremarkable. EKG revealed sinus bradycardia around 57 bpm with RBBB. This RBBB has been present intermittently for several years. Head and neck CTA was negative. Chest xray and Chest CTA without acute findings. Troponin negative x3. Telemetry revealing NSR with HR's ranging mid 50-60's. Patient reports long history of vertigo symptoms and occasional positional dizziness. He monitors BP at home, running low at times ranging 110-120/50's. He denies recent exertional chest pain or need for SL nitro. Unfortunately his in March 2021 and he reports significant stressors at home, causing mild chest pain at times. Non exertional. No unusual dyspnea. No palpitations. No orthopnea, PND or edema. At time of consult, patient resting comfortably. Has been in/out of bed ambulating to restroom. No recurrent dizziness or orthostasis. HR's and telemetry demonstrate sinus chip in the 50's and 60's. No arrhythmias. Recent outpatient monitore reviewed as well. He denies recurrent chest pain. Hoping to be discharged today. Allergies Allergy/AdvReac Type Severity Reaction Status Date / Time tramadol Allergy Unknown itching Verified 06/12/21 11:00 hydrocodone AdvReac Intermediate DIZZY/NAUSE Verified 06/12/21 11:00 A Home Medications Medication Instructions Recorded Confirmed Type meclizine 25 mg tablet 25 mg PO TID PRN 03/11/18 06/12/21 History gabapentin 100 mg capsule 100 mg PO BID 08/03/19 06/12/21 History aspirin 81 mg tablet,delayed 81 mg PO DAILY 09/19/20 06/12/21 History release cyclobenzaprine 10 mg tablet 10 mg PO BID PRN 09/19/20 06/12/21 History fluticasone propionate 50 2 spray INTRANASAL DAILY 09/19/20 06/12/21 History mcg/actuation nasal spray,suspension nitroglycerin 0.4 mg sublingual 0.4 mg SUBLINGUAL UD PRN #25 tab 09/20/20 06/12/21 Rx tablet (Nitrostat) albuterol sulfate 90 mcg/actuation 2 puff INHALATION Q6H PRN 01/08/21 06/12/21 History aerosol inhaler lisinopril 5 mg tablet 5 mg PO DAILY 06/12/21 06/12/21 History metoprolol tartrate 50 mg tablet 50 mg PO BID 06/12/21 06/12/21 History rosuvastatin 40 mg tablet 40 mg PO HS 06/12/21 06/12/21 History Patient History Medical History (Updated 06/13/21 @ 10:32 by Aleena Faust PA-C) Compression fracture of T12 vertebra Coronary artery disease "non-STEMI [facility] 08/01/16; cath + PCI SALOME PDA + OM 08/03/16" Generalized anxiety disorder Hyperlipidemia Obesity (BMI 30-39.9) ROMA (obstructive sleep apnea) Osteoarthritis Vertigo Surgical History (Updated 06/13/21 @ 10:32 by Aleena Faust PA-C) H/O cardiac catheterization "12/10/09 EF 60%, 20% LAD, 30% RCA as per Epic" Hx of appendectomy Hx of cholecystectomy Status post cardiac catheterization "[facility] 08/03/16 occlusions left circumflex + distal RCA posterolateral branch" On 09/11/16 06:19 Ron Tapia wrote "[facility] 08/01/16 occlusions left circumflex + distal RCA posterolateral branch" Status post coronary artery stent placement "[facility] 08/03/16 PCI's PDA + OM with drug-eluting stents" On 09/11/16 06:20 Ron Tapia wrote "[facility] 08/01/16 PCI's PDA + OM with drug-eluting stents" Family History Other Cancer Cirrhosis Stroke Social History Smoking Status: Never smoker Second Hand Exposure: No; Do You Dip or Chew Tobacco: No; Tobacco Cessation Education Requested by Patient: No Hx Alcohol Use: No Hx Substance Use: No Preferred Language: Azeri Communication Ability: Effective Income Tax Auditor Required: No Beliefs That Will Affect Care: None Current Living Situation: Alone Current Living Situation Comment: in house Other Information That Helps Us Care for You: No Feels Safe at Home: Yes Safety Concerns: Feels Safe At This Time Assistive Devices: CPAP Assistive Devices Comment: non-compliant with CPAP Review of Systems Review of Systems: All systems reviewed & are unremarkable except as noted in HPI & below Physical Exam Constitutional: WD/WN, vitals as above Respiratory: normal respiratory effort, lungs clear to auscultation Cardiovascular: RRR, no murmur, no edema Gastrointestinal (Abdomen): normal bowel sounds, soft, nontender, no hepatosplenomegaly Skin: no rashes, warm and dry Neurologic: PERRL, EOMI, accommodation nl, no face palsy, no dysarthria Psychiatric: A+Ox3, euthymic affect Results & Data ([facility]) Vital Signs (Past 12 Hours) Vital Signs Temp Pulse Pulse Resp BP Pulse Ox 06/13/21 07:09 36.5 C 43 L 17 131/81 94 06/13/21 04:55 36.6 C 64 18 142/8 H 95 06/12/21 23:23 36.8 C 57 L 20 102/69 94 06/12/21 23:08 63 Laboratory Results 06/13/21 06/13/21 06/13/21 Range/Units 08:36 08:36 08:36 WBC (4.8-10.8) K/uL RBC (4.7-6.1) M/uL Hgb (14.0-18.0) g/dL Hct (42-52) % MCV (80-100) fL MCH (25-34) pg MCHC (32-36) g/dL RDW Std Deviation (36.4-46.3) fL RDW Coeff of Mildred (11.5-14.5) % Plt Count (130-400) K/uL MPV (7.4-10.4) fL Immature Gran % (Auto) % Neut % (Auto) % Lymph % (Auto) % [place] % (Auto) % Eos % (Auto) % Baso % (Auto) % Neut # (Auto) (1.4-6.5) K/uL Lymph # (Auto) (1.2-3.4) K/uL [place] # (Auto) (0.11-0.59) K/uL Eos # (Auto) (0-0.5) K/uL Baso # (Auto) (0-0.2) K/uL Immature Gran # (Auto) (0.00-0.02) K/uL PT (9.0-12.0) Seconds INR (0.9-1.1) Sodium (136-145) mmol/L Potassium (3.5-5.1) mmol/L Chloride (98-107) mmol/L Carbon Dioxide (21-32) mmol/L Anion Gap (3-11) BUN (7-18) mg/dl Creatinine (0.6-1.4) mg/dl Est Cr Clr Drug Dosing ml/min Est GFR ( Amer) ml/min Est GFR (Non-Af Amer) ml/min BUN/Creatinine Ratio (10-20) Glucose (70-99) mg/dl Calcium (8.5-10.1) mg/dl Total Bilirubin (0.2-1) mg/dl AST (15-37) U/L ALT (12-78) Alkaline Phosphatase (45-117) U/L Troponin I (0-0.045) ng/ml C-Reactive Protein Total Protein (6.4-8.2) gm/dl Albumin (3.4-5.0) gm/dl Globulin (2.5-4.0) gm/dl Albumin/Globulin Ratio (0.9-2) Lipase (73-393) U/L Anaplasma Smear A. phagocytophilum DNA Pending Babesia Smear Babesia microti DNA PCR Pending Lyme Disease IgG Ab Lyme Disease IgM Ab E.chaffeensis DNA (PCR) Pending Q Fever Phase I IgG Ab Pending Q Fever Phase I IgM Ab Pending Q Fever Phase II IgG Ab Pending Q Fever Phase II IgM Ab Pending Rickettsia IgG Ab Pending Rickettsia IgM Ab Pending SARS-CoV-2, RNA, NAAT (NEGATIVE) Typhus Fever IgG Ab Pending Typhus Fever IgM Ab Pending 06/13/21 06/13/21 06/13/21 Range/Units 08:36 08:36 08:36 WBC (4.8-10.8) K/uL RBC (4.7-6.1) M/uL Hgb (14.0-18.0) g/dL Hct (42-52) % MCV (80-100) fL MCH (25-34) pg MCHC (32-36) g/dL RDW Std Deviation (36.4-46.3) fL RDW Coeff of Mildred (11.5-14.5) % Plt Count (130-400) K/uL MPV (7.4-10.4) fL Immature Gran % (Auto) % Neut % (Auto) % Lymph % (Auto) % [place] % (Auto) % Eos % (Auto) % Baso % (Auto) % Neut # (Auto) (1.4-6.5) K/uL Lymph # (Auto) (1.2-3.4) K/uL [place] # (Auto) (0.11-0.59) K/uL Eos # (Auto) (0-0.5) K/uL Baso # (Auto) (0-0.2) K/uL Immature Gran # (Auto) (0.00-0.02) K/uL PT (9.0-12.0) Seconds INR (0.9-1.1) Sodium (136-145) mmol/L Potassium (3.5-5.1) mmol/L Chloride (98-107) mmol/L Carbon Dioxide (21-32) mmol/L Anion Gap (3-11) BUN (7-18) mg/dl Creatinine (0.6-1.4) mg/dl Est Cr Clr Drug Dosing ml/min Est GFR ( Amer) ml/min Est GFR (Non-Af Amer) ml/min BUN/Creatinine Ratio (10-20) Glucose (70-99) mg/dl Calcium (8.5-10.1) mg/dl Total Bilirubin (0.2-1) mg/dl AST (15-37) U/L ALT (12-78) Alkaline Phosphatase (45-117) U/L Troponin I (0-0.045) ng/ml C-Reactive Protein Pending Total Protein (6.4-8.2) gm/dl Albumin (3.4-5.0) gm/dl Globulin (2.5-4.0) gm/dl Albumin/Globulin Ratio (0.9-2) Lipase (73-393) U/L Anaplasma Smear Pending A. phagocytophilum DNA Babesia Smear Pending Babesia microti DNA PCR Lyme Disease IgG Ab Pending Lyme Disease IgM Ab Pending E.chaffeensis DNA (PCR) Q Fever Phase I IgG Ab Q Fever Phase I IgM Ab Q Fever Phase II IgG Ab Q Fever Phase II IgM Ab Rickettsia IgG Ab Rickettsia IgM Ab SARS-CoV-2, RNA, NAAT (NEGATIVE) Typhus Fever IgG Ab Typhus Fever IgM Ab 06/13/21 06/13/21 06/13/21 Range/Units 05:22 05:22 00:31 WBC 7.73 (4.8-10.8) K/uL RBC 5.54 (4.7-6.1) M/uL Hgb 15.6 (14.0-18.0) g/dL Hct 46.0 (42-52) % MCV 83.0 (80-100) fL MCH 28.2 (25-34) pg MCHC 33.9 (32-36) g/dL RDW Std Deviation 43.8 (36.4-46.3) fL RDW Coeff of Mildred 14.4 (11.5-14.5) % Plt Count 241 (130-400) K/uL MPV 10.6 H (7.4-10.4) fL Immature Gran % (Auto) % Neut % (Auto) % Lymph % (Auto) % [place] % (Auto) % Eos % (Auto) % Baso % (Auto) % Neut # (Auto) (1.4-6.5) K/uL Lymph # (Auto) (1.2-3.4) K/uL [place] # (Auto) (0.11-0.59) K/uL Eos # (Auto) (0-0.5) K/uL Baso # (Auto) (0-0.2) K/uL Immature Gran # (Auto) (0.00-0.02) K/uL PT (9.0-12.0) Seconds INR (0.9-1.1) Sodium 139 (136-145) mmol/L Potassium 3.8 (3.5-5.1) mmol/L Chloride 108 H (98-107) mmol/L Carbon Dioxide 25 (21-32) mmol/L Anion Gap 6.0 (3-11) BUN 8 (7-18) mg/dl Creatinine 0.74 (0.6-1.4) mg/dl Est Cr Clr Drug Dosing 105.2 ml/min Est GFR ( Amer) 109.8 ml/min Est GFR (Non-Af Amer) 94.8 ml/min BUN/Creatinine Ratio 10.8 (10-20) Glucose 82 (70-99) mg/dl Calcium 9.0 (8.5-10.1) mg/dl Total Bilirubin (0.2-1) mg/dl AST (15-37) U/L ALT (12-78) Alkaline Phosphatase (45-117) U/L Troponin I < 0.015 (0-0.045) ng/ml C-Reactive Protein Total Protein (6.4-8.2) gm/dl Albumin (3.4-5.0) gm/dl Globulin (2.5-4.0) gm/dl Albumin/Globulin Ratio (0.9-2) Lipase (73-393) U/L Anaplasma Smear A. phagocytophilum DNA Babesia Smear Babesia microti DNA PCR Lyme Disease IgG Ab Lyme Disease IgM Ab E.chaffeensis DNA (PCR) Q Fever Phase I IgG Ab Q Fever Phase I IgM Ab Q Fever Phase II IgG Ab Q Fever Phase II IgM Ab Rickettsia IgG Ab Rickettsia IgM Ab SARS-CoV-2, RNA, NAAT (NEGATIVE) Typhus Fever IgG Ab Typhus Fever IgM Ab 06/12/21 06/12/21 06/12/21 Range/Units 20:00 10:36 09:39 WBC (4.8-10.8) K/uL RBC (4.7-6.1) M/uL Hgb (14.0-18.0) g/dL Hct (42-52) % MCV (80-100) fL MCH (25-34) pg MCHC (32-36) g/dL RDW Std Deviation (36.4-46.3) fL RDW Coeff of Mildred (11.5-14.5) % Plt Count (130-400) K/uL MPV (7.4-10.4) fL Immature Gran % (Auto) % Neut % (Auto) % Lymph % (Auto) % [place] % (Auto) % Eos % (Auto) % Baso % (Auto) % Neut # (Auto) (1.4-6.5) K/uL Lymph # (Auto) (1.2-3.4) K/uL [place] # (Auto) (0.11-0.59) K/uL Eos # (Auto) (0-0.5) K/uL Baso # (Auto) (0-0.2) K/uL Immature Gran # (Auto) (0.00-0.02) K/uL PT 10.9 (9.0-12.0) Seconds INR 1.1 (0.9-1.1) Sodium (136-145) mmol/L Potassium (3.5-5.1) mmol/L Chloride (98-107) mmol/L Carbon Dioxide (21-32) mmol/L Anion Gap (3-11) BUN (7-18) mg/dl Creatinine (0.6-1.4) mg/dl Est Cr Clr Drug Dosing ml/min Est GFR ( Amer) ml/min Est GFR (Non-Af Amer) ml/min BUN/Creatinine Ratio (10-20) Glucose (70-99) mg/dl Calcium (8.5-10.1) mg/dl Total Bilirubin (0.2-1) mg/dl AST (15-37) U/L ALT (12-78) Alkaline Phosphatase (45-117) U/L Troponin I < 0.015 (0-0.045) ng/ml C-Reactive Protein Total Protein (6.4-8.2) gm/dl Albumin (3.4-5.0) gm/dl Globulin (2.5-4.0) gm/dl Albumin/Globulin Ratio (0.9-2) Lipase (73-393) U/L Anaplasma Smear A. phagocytophilum DNA Babesia Smear Babesia microti DNA PCR Lyme Disease IgG Ab Lyme Disease IgM Ab E.chaffeensis DNA (PCR) Q Fever Phase I IgG Ab Q Fever Phase I IgM Ab Q Fever Phase II IgG Ab Q Fever Phase II IgM Ab Rickettsia IgG Ab Rickettsia IgM Ab SARS-CoV-2, RNA, NAAT NEGATIVE (NEGATIVE) Typhus Fever IgG Ab Typhus Fever IgM Ab 06/12/21 06/12/21 Range/Units 09:39 09:39 WBC 7.64 (4.8-10.8) K/uL RBC 5.60 (4.7-6.1) M/uL Hgb 15.9 (14.0-18.0) g/dL Hct 46.6 (42-52) % MCV 83.2 (80-100) fL MCH 28.4 (25-34) pg MCHC 34.1 (32-36) g/dL RDW Std Deviation 43.3 (36.4-46.3) fL RDW Coeff of Mildred 14.3 (11.5-14.5) % Plt Count 273 (130-400) K/uL MPV 10.3 (7.4-10.4) fL Immature Gran % (Auto) 0.0 % Neut % (Auto) 69.5 % Lymph % (Auto) 16.2 % [place] % (Auto) 9.3 % Eos % (Auto) 4.5 % Baso % (Auto) 0.5 % Neut # (Auto) 5.31 (1.4-6.5) K/uL Lymph # (Auto) 1.24 (1.2-3.4) K/uL [place] # (Auto) 0.71 H (0.11-0.59) K/uL Eos # (Auto) 0.34 (0-0.5) K/uL Baso # (Auto) 0.04 (0-0.2) K/uL Immature Gran # (Auto) 0.00 (0.00-0.02) K/uL PT (9.0-12.0) Seconds INR (0.9-1.1) Sodium 141 (136-145) mmol/L Potassium 3.5 (3.5-5.1) mmol/L Chloride 110 H (98-107) mmol/L Carbon Dioxide 24 (21-32) mmol/L Anion Gap 7.0 (3-11) BUN 6 L (7-18) mg/dl Creatinine 0.82 (0.6-1.4) mg/dl Est Cr Clr Drug Dosing 95.8 ml/min Est GFR ( Amer) 105.3 ml/min Est GFR (Non-Af Amer) 90.9 ml/min BUN/Creatinine Ratio 7.5 L (10-20) Glucose 114 H (70-99) mg/dl Calcium 8.9 (8.5-10.1) mg/dl Total Bilirubin 0.8 (0.2-1) mg/dl AST 18 (15-37) U/L ALT 22 (12-78) Alkaline Phosphatase 68 (45-117) U/L Troponin I < 0.015 (0-0.045) ng/ml C-Reactive Protein Total Protein 7.4 (6.4-8.2) gm/dl Albumin 3.3 L (3.4-5.0) gm/dl Globulin 4.1 H (2.5-4.0) gm/dl Albumin/Globulin Ratio 0.8 L (0.9-2) Lipase 144 (73-393) U/L Anaplasma Smear A. phagocytophilum DNA Babesia Smear Babesia microti DNA PCR Lyme Disease IgG Ab Lyme Disease IgM Ab E.chaffeensis DNA (PCR) Q Fever Phase I IgG Ab Q Fever Phase I IgM Ab Q Fever Phase II IgG Ab Q Fever Phase II IgM Ab Rickettsia IgG Ab Rickettsia IgM Ab SARS-CoV-2, RNA, NAAT (NEGATIVE) Typhus Fever IgG Ab Typhus Fever IgM Ab Diagnostic Findings Telemetry reviewed: Sinus bradycardia, sinus rhythm ranging 50-60's. No pauses or arrhythmias. EKG on admission: Normal sinus rhythm Right bundle branch block When compared with ECG of 14-MAY-2021 04:23, No significant change was found Repeat EKG this morning: Sinus bradycardia at 57 bpm Right bundle branch block When compared with ECG of 12-JUN-2021 09:28, No significant change was found Chest xray on admission: IMPRESSION: No significant change compared to the prior study. No acute process Chest CTA on admission reviewed: IMPRESSION: 1. No pulmonary emboli identified. 2. No acute process within the chest. 3. Resolving postoperative findings following median sternotomy. Decrease in infiltration within the operative bed. No significant fusion of the median st ernotomy at this time. 4. No change in several left lung nodules, including a 7 mm groundglass left lower lobe nodule. Follow-up chest CT in one year to ensure continued stability is recommended. Head neck CTA: IMPRESSION: 1. No significant stenosis, occlusion, or aneurysm within the [place]. 2. No significant stenosis, occlusion, or dissection identified within the carotid or vertebral arteries. 3. No acute intracranial abnormality. Prior outpatient data: ZIO monitor report reviewed dated March 2021, duration 7 days: CONCLUSIONS: A Zio patch XT monitor was worn for 14 days range from 03/21/2021 until 04/04/2021 for the evaluation of paroxysmal atrial fibrillation. Patient had a min HR of 47 bpm, max HR of 200 bpm, and avg HR of 68 bpm. Predominant underlying rhythm was Sinus Rhythm. Slight P wave morphology changes were noted. 9 Supraventricular Tachycardia runs occurred, the run with the fastest interval lasting 9.2 secs with a max rate of 200 bpm, the longest lasting 17 beats with an avg rate of 112 bpm. Isolated SVEs were rare (<1.0%), SVE Couplets were rare (<1.0%), and SVE Triplets were rare (<1.0%). Isolated VEs were rare (<1.0%), VE Couplets were rare (<1.0%), and no VE Triplets were present. For patient triggered events and 1 diary event was submitted. A diary event submitted on 03/26/2021 at 12:40 a.m. for subjective complaint of " anxious" correlated with sinus bradycardia 59 beats per minute. Two the patient triggered events correlated with sinus rhythm with sensed supraventricular ectopy. Two the events correlated with normal sinus rhythm. No episodes of atrial fibrillation or atrial flutter were observed. Echo report reviewed dated January 2021: The primary indication after review was deemed appropriate and the examination was performed. Normal LV chamber size with mild concentric LVH. LV systolic function. Abnormal septal wall motion consistent with postoperative state, otherwise, n ormal wall motion. Calculated LV ejection Fraction = 54% (bi-plane method of discs). Grade 1 diastolic dysfunction. Moderate aortic valve sclerosis without stenosis. Medications Administered Current Inpatient Medications Acetaminophen (Acetaminophen 325 Mg Tab) 650 mg PO Q4H PRN PRN Reason: Pain or Fever Stop: 07/12/21 18:24 Albuterol (Albuterol Hfa 8 Gm Inhaler) 2 puffs INH Q6R PRN PRN Reason: Shortness Of Breath Stop: 07/12/21 18:24 Aspirin (Aspirin 81 Mg Ectab) 81 mg PO DAILY [facility] Stop: 07/13/21 08:59 Last Admin: 06/13/21 08:32 Dose: 81 mg Documented by: Cyclobenzaprine HCl (Cyclobenzaprine Hcl 10 Mg Tab) 10 mg PO BID PRN PRN Reason: Muscle Spasm Stop: 07/12/21 18:24 Fluticasone Propionate (Fluticasone Propionate Na Spr 16 Gm Btl) 2 sprays KYA DAILY [facility] Stop: 07/13/21 08:59 Last Admin: 06/13/21 08:35 Dose: 2 sprays Documented by: Gabapentin (Gabapentin 100 Mg Cap) 100 mg PO BID [facility] Stop: 07/12/21 20:59 Last Admin: 06/13/21 08:33 Dose: 100 mg Documented by: Heparin Sodium (Porcine) (Heparin Sod 5,000 Unit/0.5 Ml Vial) 5,000 units SQ Q8 [facility] Stop: 07/12/21 21:59 Last Admin: 06/13/21 06:06 Dose: 5,000 units Documented by: Lisinopril (Lisinopril 5 Mg Tab) 5 mg PO DAILY [facility] Stop: 07/13/21 08:59 Last Admin: 06/13/21 08:34 Dose: 5 mg Documented by: Meclizine HCl (Meclizine Hcl 25 Mg Tab) 25 mg PO TID PRN PRN Reason: Vertigo Stop: 07/12/21 18:44 Metoprolol Tartrate (Metoprolol Tartrate 50 Mg Tab) 50 mg PO BID [facility] Stop: 07/12/21 20:59 Last Admin: 06/13/21 08:33 Dose: 50 mg Documented by: Nitroglycerin (Nitroglycerin Sl 0.4 Mg/Tab Tab) 0.4 mg SL UD PRN PRN Reason: chest pain Stop: 07/12/21 18:24 Ondansetron HCl (Ondansetron Inj 2 Mg/Ml 2 Ml Vial) 4 mg IV Q6H PRN PRN Reason: Nausea Stop: 07/12/21 18:24 Polyethylene Glycol (Polyethylene (Miralax) 17 Gm Pack) 17 gm PO DAILY PRN PRN Reason: Constipation Stop: 07/12/21 18:24 Last Admin: 06/12/21 22:14 Dose: 17 gm Documented by: Rosuvastatin Calcium (Rosuvastatin Calcium 20 Mg Tab) 40 mg PO HS [facility] Stop: 07/12/21 20:59 Last Admin: 06/12/21 21:57 Dose: 40 mg Documented by: (1) Coronary artery disease Associated angina: unspecified whether angina present Coronary Disease-Associated Artery/Lesion type: unspecified vessel or lesion type [place] vs. transplanted heart: [place] heart Qualified Code(s): I25.10 - Atherosclerotic heart disease of [place] coronary artery without angina pectoris (2) Chest pain Chest pain type: unspecified Qualified Code(s): R07.9 - Chest pain, unspecified
[2021-06-13 10:00] LABS: Lyme Ab IgG w/WB Rflx Negative (Negative); Lyme Ab IgM w/WB Rflx Negative (Negative)
--- NOTE | 2021-06-13 12:21 | Hospitalist Progress Note ---
Date of Service June 13, 2021 Assessment & Plan (1) Syncope: Plan: This is a 66yo M with a PMH of CAD, s/p SALOME and CABG x 4 in December 2020, COPD, HTN, HLD and other medical problems listed below who presents after syncopal episode this morning around 0730. Episode occurred this morning with preceding lightheadedness, occurred after positional change VSS, no significant lab abnormalities, initial trop wnl, no changes on ECG, head/neck CTA and chest CTA without acute abnormality History of A Fib following CABG in December, no longer on amiodarone or anticoagulated on coumadin, following with Dr. Carl Also with recent increase to Lopressor dose and addition of lisinopril Ddx ? underlying arrhythmia vs orthostatic hypotension Echo from Jan 2021 with preserved EF 54%, mild concentric LVH, grade 1 diastolic dysfunction, moderate AV sclerosis without stenosis Orthostatics, monitor on tele, routine cardiology consult, repeat ECG in AM No more dizziness and/or syncope/presyncope in the hospital and no arrhythmias on the monitor (2) Chest pain: Plan: Developed following syncopal episode, has since resolved back to baseline discomfort No ECG changes, initial troponin negative Trend trops, monitor overnight on tele Appreciate cardiology input and recommendation Serial cardiac enzymes did not show any evidence of ACS and the patient remains asymptomatic Will have echocardiogram and if it is unremarkable compared with prior he will be discharged home this afternoon (3) Coronary artery disease: Plan: Significant CAD as below: H/o NSTEMI s/p SALOME to PDA and OM, 2017 S/p CABGx4 (RASHEED-LAD, Ao-PDA, Ao-OM with reversed saphenous vein, 01/11/[address] Garner. Post op afib- no recurrent arrhythmias on bus monitor and amiodarone and Coumadin discontinued. Follows with Dr. Carl Continue aspirin, statin, lopressor (4) ROMA (obstructive sleep apnea): Plan: Non-compliant with CPAP in the past, instructed to start bipap by sleep medicine in April but has not yet started Will start bipap HS with recommended settings (5) COPD (chronic obstructive pulmonary disease): Plan: At baseline, albuterol inh PRN DVT Ppx: SQ heparin Code status: FULL PCP: Pilgram Dispo: Observation PCU Likely be discharged this afternoon following echo Admission and Anticipated Discharge Date Admission Date: June 12, 2021 Subjective 06/13/2021 The patient was seen and examined in telemetry unit He did not have any more chest pain and/or dizziness since admission Denies any significant symptoms this morning Review of Systems Review of Systems: All systems reviewed and are unremarkable except as noted below Respiratory: No shortness of breath at rest Cardiovascular: Additional Comments: No chest pain and/or palpitation Physical Exam Physical Exam: Lying in bed comfortably Constitutional: well developed, well nourished and + obese; not ill appearing Eyes: PERRL, conjunctivae normal, anicteric sclerae ENMT: external ear and nose normal, oropharynx normal Neck: trachea midline, no thyromegaly Respiratory: no respiratory distress Auscultation: lungs clear to auscultation bilaterally Cardiovascular: Rate/Rhythm: regular rate, regular rhythm and + bradycardic Heart Sounds: normal S1 and normal S2; no murmur Extremities: + edema (Trace edema bilaterally) Gastrointestinal (Abdomen): Inspection/Auscultation: normal bowel sounds; abdomen not distended Percussion/Palpation: abdomen soft; abdomen nontender Musculoskeletal: No acute arthritis in any joint Neurologic: Alert, awake and oriented x3. No focal sensory or no motor deficit appreciated Lymphatic: no cervical or axillary lymphadenopathy Results & Data Results & Data ([facility]) Vital Signs (Past 12 Hours) Vital Signs Temp Pulse Pulse Resp BP Pulse Ox 06/13/21 11:16 36.8 C 52 L 20 124/77 93 06/13/21 09:21 58 L 06/13/21 07:09 36.5 C 43 L 17 131/81 94 06/13/21 04:55 36.6 C 64 18 142/8 H 95 Laboratory Results Short CBC 06/13/21 Range/Units 05:22 WBC 7.73 (4.8-10.8) K/uL Hgb 15.6 (14.0-18.0) g/dL Hct 46.0 (42-52) % Plt Count 241 (130-400) K/uL BMP 06/13/21 05:22 Sodium 139 Potassium 3.8 Chloride 108 H Carbon Dioxide 25 BUN 8 Creatinine 0.74 Glucose 82 Calcium 9.0 Cardiac Enzymes 06/12/21 06/13/21 Range/Units 20:00 00:31 Troponin I < 0.015 < 0.015 (0-0.045) ng/ml Medications Administered Current Inpatient Medications Acetaminophen (Acetaminophen 325 Mg Tab) 650 mg PO Q4H PRN PRN Reason: Pain or Fever Stop: 07/12/21 18:24 Albuterol (Albuterol Hfa 8 Gm Inhaler) 2 puffs INH Q6R PRN PRN Reason: Shortness Of Breath Stop: 07/12/21 18:24 Aspirin (Aspirin 81 Mg Ectab) 81 mg PO DAILY [facility] Stop: 07/13/21 08:59 Last Admin: 06/13/21 08:32 Dose: 81 mg Documented by: Cyclobenzaprine HCl (Cyclobenzaprine Hcl 10 Mg Tab) 10 mg PO BID PRN PRN Reason: Muscle Spasm Stop: 07/12/21 18:24 Fluticasone Propionate (Fluticasone Propionate Na Spr 16 Gm Btl) 2 sprays KYA D RADHA [facility] Stop: 07/13/21 08:59 Last Admin: 06/13/21 08:35 Dose: 2 sprays Documented by: Gabapentin (Gabapentin 100 Mg Cap) 100 mg PO BID [facility] Stop: 07/12/21 20:59 Last Admin: 06/13/21 08:33 Dose: 100 mg Documented by: Heparin Sodium (Porcine) (Heparin Sod 5,000 Unit/0.5 Ml Vial) 5,000 units SQ Q8 [facility] Stop: 07/12/21 21:59 Last Admin: 06/13/21 06:06 Dose: 5,000 units Documented by: Lisinopril (Lisinopril 5 Mg Tab) 5 mg PO DAILY [facility] Stop: 07/13/21 08:59 Last Admin: 06/13/21 08:34 Dose: 5 mg Documented by: Meclizine HCl (Meclizine Hcl 25 Mg Tab) 25 mg PO TID PRN PRN Reason: Vertigo Stop: 07/12/21 18:44 Metoprolol Tartrate (Metoprolol Tartrate 25 Mg Tab) 25 mg PO BID [facility] Stop: 07/13/21 20:59 Nitroglycerin (Nitroglycerin Sl 0.4 Mg/Tab Tab) 0.4 mg SL UD PRN PRN Reason: chest pain Stop: 07/12/21 18:24 Ondansetron HCl (Ondansetron Inj 2 Mg/Ml 2 Ml Vial) 4 mg IV Q6H PRN PRN Reason: Nausea Stop: 07/12/21 18:24 Polyethylene Glycol (Polyethylene (Miralax) 17 Gm Pack) 17 gm PO DAILY PRN PRN Reason: Constipation Stop: 07/12/21 18:24 Last Admin: 06/12/21 22:14 Dose: 17 gm Documented by: Rosuvastatin Calcium (Rosuvastatin Calcium 20 Mg Tab) 40 mg PO HS RAYO Stop: 07/12/21 20:59 Last Admin: 06/12/21 21:57 Dose: 40 mg Documented by: (1) Syncope Syncope type: unspecified Qualified Code(s): R55 - Syncope and collapse (2) Chest pain Chest pain type: unspecified Qualified Code(s): R07.9 - Chest pain, unspecified (3) Coronary artery disease Associated angina: unspecified whether angina present Coronary Disease- Associated Artery/Lesion type: unspecified vessel or lesion type [place] vs. transplanted heart: [place] heart Qualified Code(s): I25.10 - Atherosclerotic heart disease of [place] coronary artery without angina pectoris (4) COPD (chronic obstructive pulmonary disease) COPD type: COPD with acute exacerbation Qualified Code(s): J44.1 - Chronic obstructive pulmonary disease with (acute) exacerbation
--- NOTE | 2021-06-13 17:50 | Electrocardiogram Report ---
Test Reason : Blood Pressure : / mmHG Vent. Rate : 057 BPM Atrial Rate : 057 BPM P-R Int : 160 ms QRS Dur : 136 ms QT Int : 468 ms P-R-T Axes : 039 022 041 degrees QTc Int : 455 ms Sinus bradycardia Right bundle branch block Abnormal ECG When compared with ECG of 12-JUN-2021 09:28, No significant change was found Confirmed by Shayan Cain ([id number]) on 06/13/2021 5:50:11 PM Referred By: REFERRED SELF Confirmed By:Naveen Cain
--- NOTE | 2021-06-13 17:58 | Discharge Summary ---
Date of Service June 13, 2021 Admission HPI Per Admitting Provider This is a 66yo M with a PMH of CAD, s/p SALOME and CABG x 4 in December 2020, COPD, HTN, HLD and other medical problems listed below who presents after syncopal episode this morning around 0730. Patient was in normal state of health when he woke up but then developed lightheadedness and some vertigo symptoms and took meclizine. Stood up and began walking to the door to feed his cats when he became significantly more lightheaded and syncopized, falling into a chair behind him. Does not think he hit his head. [place] that he was unconscious for a few seconds but episode was unwitnessed. Developed left-sided chest pressure that was 3/10 with radiation up to the neck following episode. Associated with nausea. No diaphoresis, shortness of breath or vomiting. Chest discomfort and nausea lasted approximately 30 minutes and resolved once he arrived in the hospital. Still endorsing some chest discomfort but states it is 1/10 at most and that he experiences a similar type of discomfort intermittently at home. No fever, chills, headache, palpitations, SOB, nausea, vomiting, abdominal pain, dysuria, diarrhea or constipation. Of note, [place] [facility] [place] course was complicated by atrial fibrillation and he was discharged home on warfarin and amiodarone. Both medications were stopped months ago. Does state symptoms of lightheadedness and weakness this morning felt similar to previous a fib. Following with Dr. Carl and Dr. Gar[place] [facility] [place] in [place] and patient endorses emotional stress over the holidays. Patient has not been using CPAP for months. Was recommended to transition to bipap by sleep medicine in April and has not yet started. Admission Exam Per Admitting Provider Physical Exam: General Appearance:WD/WN, vitals as above, NAD, sitting up in bed, pleasant, conversing easily, obese Head: normocephalic, atraumatic Eyes:normal inspection, PERRL, conjunctivae normal, anicteric sclerae ENT: external ear and nose normal, oropharynx normal Neck: normal visual inspection, trachea midline, no thyromegaly Respiratory:normal respiratory effort, lungs clear to auscultation, no wheeze, rales, rhonchi. No accessory muscle use Cardiovascular: bradycardic rate, rhythm, no murmur, normal peripheral pulses, no BLE edema. Vessels: no JVD Chest: normal inspection of chest Abdomen/GI: normal bowel sounds, soft, nontender, no hepatosplenomegaly Extremities/Musculoskeletal: no cyanosis or clubbing, extremities motor strength 5/5 Neurologic: PERRL, EOMI, accommodation nl, no face palsy, no dysarthria, CN's II-XI intact bilaterally and moves all extremities Psychiatric:A+Ox3, euthymic affect Skin: no rashes, normal color, warm/dry Principal Diagnosis Syncope, chest pain-no ACS, CAD, ROMA Discharge Exam Lying in bed comfortably Constitutional well developed, well nourished and + obese; not ill appearing Eyes PERRL, conjunctivae normal, anicteric sclerae ENMT external ear and nose normal, oropharynx normal Neck trachea midline, no thyromegaly Respiratory no respiratory distress Auscultation: lungs clear to auscultation bilaterally Cardiovascular Rate/Rhythm: regular rate, regular rhythm and + bradycardic Heart Sounds: normal S1 and normal S2; no murmur Extremities: + edema (Trace edema bilaterally) Gastrointestinal (Abdomen) Inspection/Auscultation: normal bowel sounds; abdomen not distended Percussion/Palpation: abdomen soft; abdomen nontender Lymphatic no cervical or axillary lymphadenopathy Discharge Data Allergies Allergy/AdvReac Type Severity Reaction Status Date / Time tramadol Allergy Unknown itching Verified 06/12/21 11:00 hydrocodone AdvReac Intermediate DIZZY/NAUSE Verified 06/12/21 11:00 A Consultations 06/12/21 12:47 ED Decision to Admit Stat 06/12/21 15:09 Consult Cardiology Routine Ordered Studies 06/12/21 10:14 CT angio chest PE protocol Stat CT angio head w con Stat CT angio neck with con Stat CT head/brain wo con Stat Hospital Course (1) Syncope: This is a 66yo M with a PMH of CAD, s/p SALOME and CABG x 4 in December 2020, COPD, HTN, HLD and other medical problems listed below who presents after syncopal episode this morning around 0730. Episode occurred this morning with preceding lightheadedness, occurred after positional change VSS, no significant lab abnormalities, initial trop wnl, no changes on ECG, head/neck CTA and chest CTA without acute abnormality History of A Fib following CABG in December, no longer on amiodarone or anticoagulated on coumadin, following with Dr. Carl Also with recent increase to Lopressor dose and addition of lisinopril Ddx ? underlying arrhythmia vs orthostatic hypotension Echo from Jan 2021 with preserved EF 54%, mild concentric LVH, grade 1 diastolic dysfunction, moderate AV sclerosis without stenosis Orthostatics, monitor on tele, routine cardiology consult, repeat ECG in AM No more dizziness and/or syncope/presyncope in the hospital and no arrhythmias on the monitor (2) Chest pain: Developed following syncopal episode, has since resolved back to baseline discomfort No ECG changes, initial troponin negative Trend trops, monitor overnight on tele Appreciate cardiology input and recommendation Serial cardiac enzymes did not show any evidence of ACS and the patient remains asymptomatic Will have echocardiogram and if it is unremarkable compared with prior he will be discharged home this afternoon (3) Coronary artery disease: Significant CAD as below: H/o NSTEMI s/p SALOME to PDA and OM, 2017 S/p CABGx4 (RASHEED-LAD, Ao-PDA, Ao-OM with reversed saphenous vein, 01/11/[address] Garner. Post op afib- no recurrent arrhythmias on [employer] and amiodarone and Coumadin discontinued. Follows with Dr. Carl Continue aspirin, statin, lopressor (4) ROMA (obstructive sleep apnea): Non-compliant with CPAP in the past, instructed to start bipap by sleep medicine in April but has not yet started Will start bipap HS with recommended settings (5) COPD (chronic obstructive pulmonary disease): At baseline, albuterol inh PRN DVT Ppx: SQ heparin Code status: FULL PCP: [facility]gram Dispo: Observation PCU Likely be discharged this afternoon following echo Total Time Total Time Spent Total Time Spent (In Minutes): 35 minutes Discharge Plan Discharge Items Patient Disposition: Home - Self-Care Reason For Visit: SYNCOPE Discharge Diagnosis: Syncope, chest pain-no ACS, CAD, ROMA Condition on Discharge: Good Activity: Resume your previous activity Non-emergency contact: Primary Care Provider Call non-emergency contact if: you have any medication questions and your symptoms worsen Follow-up/Referrals: Antonio Carl DO [Radiological Engineer] - (Date & Time 06/27/2021 8:30 AM Provider Antonio Carl DO Department Cardiology, [facility] ) Goran Morrissey MD [Primary Care Provider] - (Date & Time 06/15/2021 10:40 AM Provider Goran Morrissey MD Department Family Medicine [facility] ) Diet: Heart Healthy Addtl Attending Provider Instructions: Please take precautions to avoid fall Take your time to start any activity from rest position No change in new medications Please keep appointments with your healthcare providers Pending Studies at Discharge: No Stand-Alone Forms: My [facility], Smoking Cessation Medications and DC Order Prescriptions: Continued gabapentin 100 mg capsule 100 mg PO BID RF: 0 meclizine 25 mg Tablet 25 mg PO TID PRN (Reason: Vertigo) RF: 0 aspirin 81 mg Tablet,Delayed Release (Dr/Ec) 81 mg PO DAILY RF: 0 fluticasone propionate 50 mcg/actuation spray,suspension 2 spray INTRANASAL DAILY RF: 0 cyclobenzaprine 10 mg tablet 10 mg PO BID PRN (Reason: Muscle Spasm) RF: 0 nitroglycerin [Nitrostat] 0.4 mg Tablet, Sublingual 0.4 mg sublingual UD PRN (Reason: chest pain) Qty: 25 RF: 0 lisinopril 5 mg tablet 5 mg PO DAILY RF: 0 metoprolol tartrate 50 mg tablet 50 mg PO BID RF: 0 rosuvastatin 40 mg tablet 40 mg PO HS RF: 0 albuterol sulfate 90 mcg/actuation Hfa Aerosol Inhaler 2 puff INHALATION Q6H PRN (Reason: Shortness Of Breath) RF: 0 Discharge Orders: Discharge Order (Routine); Ordered 06/13/21 Ordered By: Donnell Reagan Admission Data Admit Date/Time: 06/12/21 13:07 Attending Provider: Donnell Reagan Admit Provider: Donnell Reagan Primary Care Provider: Goran Morrissey Other Providers: Donnell Reagan ; Yovany Lloyd Other Interventions: Discharge Summary Assessment (RN) Last Done: 06/13/21 16:12
[2021-06-13] MEDS ORDERED: METOPROLOL TARTRATE 25 MG TAB PO SCH (21:00)
[2021-06-16 17:11] LABS: Babesia microti DNA Not Detected (Not Detected); Q Fever IgG, Phase I NEGATIVE; Q Fever Phase I IgM Antibody NEGATIVE; Q Fever Phase II IgG Antibody NEGATIVE; Q Fever Phase II IgM Antibody NEGATIVE; R. typhi IgG Ab NOT DETECTED; R. typhi IgM Ab NOT DETECTED; RMSF IgG Ab NOT DETECTED; RMSF IgM Ab NOT DETECTED
[2021-06-17 02:06] LABS: Ehrlichia chaff DNA Bld Negative (Negative)
== END 2021-06-13 16:49 | disposition home or self-care (01) ==
LOC: EDINP 09:18 → ED 09:18 → EDINP 15:29 → 2S 18:50

== ENCOUNTER 2022-01-09 11:11 | Inpatient (IN) ==
[2022-01-09] MEDS ORDERED: NITROGLYCERIN SL 0.4 MG/TAB TAB ONE (11:25)
[2022-01-09] MEDS ORDERED: ONDANSETRON INJ 2 MG/ML 2 ML VIAL IV STA (11:27)
--- NOTE | 2022-01-09 11:30 | Emergency Department Note ---
Impression & Plan Precordial chest pain, SOB (shortness of breath), Vomiting, CAD (coronary atherosclerotic disease) ED Provider Note NAME: BRENT ELAM JR AGE: 66 SEX: M : 1955 ARRIVES VIA: Walk-In INFORMANT: [Patient] ED PROVIDER(S): [Kevyn Tanner MD] CHIEF COMPLAINT: Chest pain HISTORY OF PRESENT ILLNESS: The patient is a 66-year-old male who presents with left-sided chest pain that began last night. The pain is a bit worse this morning. The pain is a 7/10 and it is always present, it does not seem to be exertional. He feels mildly short of breath and did vomit twice this morning. He has had a slight cough. There has been no fever. He did not injure the chest wall. He did not take any nitroglycerin at home. The patient has had 2 coronary stents. He has had a CABG x4 a year ago. He is scheduled for a stress test on January 17. REVIEW OF SYSTEMS: See HPI for pertinent positives and negatives. A total of ten systems were re viewed and were otherwise negative. PMHx/PSHx: See Below SOCIAL HISTORY: See Below. PHYSICAL EXAM: GENERAL: Patient is in no acute distress. HEENT: No acute trauma, normocephalic atraumatic, mucous membranes moist, no nasal congestion, no scleral icterus. NECK: No stridor, no adenopathy, no meningismus, trachea is midline. LUNGS: Clear to auscultation bilaterally, no wheeze, no rhonchi, breath sounds equal. Chest: Tender over the left anterior chest wall, right chest is nontender. HEART: Without murmurs gallops or rubs, regular rate and rhythm. ABDOMEN: Soft, nontender, bowel sounds positive, no peritonitis. EXTREMITIES: No cyanosis or edema, full range of motion of all the joints without pain or difficulty, no signs for acute trauma. NEUROLOGIC: Oriented x 3, no acute motor or sensory deficits, no focal weakness. SKIN: No rash, no jaundice, no diaphoresis. DIFFERENTIAL DIAGNOSIS: Cardiac ischemia, aortic dissection, pulmonary embolism, pneumothorax, pneumonia, pericarditis, myocarditis, esophageal rupture, GERD, cholecystitis, pancreatitis, musculoskeletal, as well as other pathologies. EMERGENCY DEPARTMENT COURSE/PROCEDURES: ECG: Indication was chest pain. The ECG shows a sinus bradycardia with a rate of 59. There is a right bundle branch block. No ST elevation, no PVCs. The QTc is 445. Compared to an ECG from 19 December 2021, I see no significant change. Continuous Cardiac Monitoring: An order was placed for continuous cardiac monitoring. The monitor shows a rate of 66 with normal sinus rhythm. MEDICAL DECISION MAKING: There is no leukocytosis or concerning anemia. There is a normal platelet count. No coagulopathy. Potassium slightly low, no kidney failure. No concerning liver enzyme elevation. No evidence for pancreatitis. ECG showed a sinus bradycardia with a right bundle branch block. No acute ischemia. Cardiac enzyme testing x1 did not show any elevation consistent with cardiac injury. Chest film did not show pneumonia, no pneumothorax, no concerning CHF. COVID test returned negative. The patient was ordered for IV Zofran for nausea. He was ordered for sublingual nitroglycerin. He was given 1 sublingual nitro and had a significant drop in his blood pressure. He felt faint. He was bradycardic. He received IV saline, he was placed in Trendelenburg, his blood pressure improved and he felt improved. The patient's chest pain did dissipate with the nitroglycerin but then, later in his ER stay, he began having a subtle amount of left chest discomfort once again. I spoke to the patient, I talked to Dr. Carl of cardiology. The patient is to be hospitalized for further cardiac work-up. I did talk with case management, the on-call hospitalist was consulted. Past Med/Surg History Medical History Compression fracture of T12 vertebra Coronary artery disease "non-STEMI [facility] 08/01/16; cath + PCI [facility] PDA + OM 08/03/16" Generalized anxiety disorder Hyperlipidemia Obesity (BMI 30-39.9) ROMA (obstructive sleep apnea) Osteoarthritis Vertigo Surgical History H/O cardiac catheterization "12/10/09 EF 60%, 20% LAD, 30% RCA as per Epic" Hx of appendectomy Hx of cholecystectomy Status post cardiac catheterization "[facility] 08/03/16 occlusions left circumflex + distal RCA posterolateral branch" On 09/11/16 06:19 Ron Tapia wrote "[facility] 08/01/16 occlusions left circumflex + distal RCA posterolateral branch" Status post coronary artery stent placement "[facility] 08/03/16 PCI's PDA + OM with drug-eluting stents" On 09/11/16 06:20 Ron Tapia wrote "[facility] 08/01/16 PCI's PDA + OM with drug-eluting stents" Family History Other Cancer Cirrhosis Stroke Social History Smoking Status: Never smoker Second Hand Exposure: No; Hx Alcohol Use: No Hx Substance Use: No Preferred Language: Ken[place] Communication Ability: Effective Scourer Required: No Beliefs That Will Affect Care: None Current Living Situation: Alone Current Living Situation Comment: in house Feels Safe at Home: Yes Assistive Devices: CPAP Allergies Allergies Allergy/AdvReac Type Severity Reaction Status Date / Time tramadol Allergy Intermediate itching Verified 01/09/22 13:06 nitroglycerin AdvReac Severe Hypotension Verified 01/09/22 14:15 hydrocodone AdvReac Intermediate DIZZY/NAUSE Verified 01/09/22 13:06 A Home Meds Home Medications Medication Instructions Recorded Confirmed meclizine 25 mg tablet 25 mg PO TID PRN Vertigo 03/11/18 01/09/22 gabapentin 100 mg capsule 100 mg PO BID 08/03/19 01/09/22 aspirin 81 mg tablet,delayed 81 mg PO DAILY 09/19/20 01/09/22 release cyclobenzaprine 10 mg tablet 10 mg PO BID PRN Muscle Spasm 09/19/20 01/09/22 fluticasone propionate 50 2 spray intranasal DAILY PRN 09/19/20 01/09/22 mcg/actuation nasal ALLERGIES spray,suspension albuterol sulfate 90 mcg/actuation 2 puff inhalation Q6H PRN 01/08/21 01/09/22 aerosol inhaler Shortness Of Breath lisinopril 5 mg tablet 5 mg PO DAILY 06/12/21 01/09/22 rosuvastatin 40 mg tablet 40 mg PO HS 06/12/21 01/09/22 acetaminophen 325 mg tablet 650 mg PO Q6H PRN Pain 09/16/21 01/09/22 sucralfate 100 mg/mL oral 10 ml PO QID PRN ABD PAIN/UPSET 11/22/21 01/09/22 suspension (Carafate) famotidine 20 mg tablet 20 mg PO BID PRN Acid Reflux 01/09/22 01/09/22 metoprolol tartrate 25 mg tablet 25 mg PO BID 01/09/22 01/09/22 Previous Rx's Medication Instructions Recorded nitroglycerin 0.4 mg sublingual 0.4 mg sublingual UD PRN chest 09/20/20 tablet (Nitrostat) pain #25 tabs ondansetron 4 mg disintegrating 4 mg PO Q8H PRN nausea and 11/22/21 tablet vomiting #30 tabs Results & Data (ED) Vital Signs Vital Signs - 24 hr 01/09/22 11:13 01/09/22 11:30 01/09/22 11:30 Temperature 36.6 C Temperature Source Temporal Artery Scan Pulse Rate 66 Pulse Rate from SpO2 Sensor Respiratory Rate 20 Respiratory Depth Normal Blood Pressure 145/71 H Blood Pressure Mean 95 Blood Pressure Position Sitting Pulse Oximetry 95 88 L Oxygen Delivery Method Room Air Nasal Cannula Room Air Oxygen Flow Rate 0 Sepsis Recent Fever Within 48 Hours Yes Sepsis New/Unexplained Change in Mental Status N/A Sepsis Action Taken by Nursing No Action Required Oxygen Flow Rate - Titration 2 Pulse Oximetry Post Tiitration 98 01/09/22 11:26 01/09/22 11:27 01/09/22 11:30 Temperature Temperature Source Pulse Rate 56 L 61 Pulse Rate from SpO2 Sensor 57 L 60 Respiratory Rate 15 19 Respiratory Depth Blood Pressure 120/71 Blood Pressure Mean 87 Blood Pressure Position Pulse Oximetry 95 93 Oxygen Delivery Method Oxygen Flow Rate Sepsis Recent Fever Within 48 Hours Sepsis New/Unexplained Change in Mental Status Sepsis Action Taken by Nursing Oxygen Flow Rate - Titration Pulse Oximetry Post Tiitration 01/09/22 11:40 01/09/22 11:40 01/09/22 11:45 Temperature Temperature Source Pulse Rate 44 L 65 Pulse Rate from SpO2 Sensor 46 L Respiratory Rate 20 15 Respiratory Depth Blood Pressure 59/36 L Blood Pressure Mean 43 Blood Pressure Position Pulse Oximetry 97 Oxygen Delivery Method Oxygen Flow Rate Sepsis Recent Fever Within 48 Hours Sepsis New/Unexplained Change in Mental Status Sepsis Action Taken by Nursing Oxygen Flow Rate - Titration Pulse Oximetry Post Tiitration 01/09/22 11:47 01/09/22 11:47 01/09/22 11:54 Temperature Temperature Source Pulse Rate 59 L 54 L Pulse Rate from SpO2 Sensor 59 L 55 L Respiratory Rate 14 19 Respiratory Depth Blood Pressure 95/50 L Blood Pressure Mean 65 Blood Pressure Position Pulse Oximetry 93 88 L Oxygen Delivery Method Oxygen Flow Rate Sepsis Recent Fever Within 48 Hours Sepsis New/Unexplained Change in Mental Status Sepsis Action Taken by Nursing Oxygen Flow Rate - Titration Pulse Oximetry Post Tiitration 01/09/22 11:54 01/09/22 12:00 01/09/22 12:00 Temperature Temperature Source Pulse Rate 50 L Pulse Rate from SpO2 Sensor 50 L Respiratory Rate 13 Respiratory Depth Blood Pressure 90/54 L 90/54 L Blood Pressure Mean 66 66 Blood Pressure Position Pulse Oximetry 95 Oxygen Delivery Method Oxygen Flow Rate Sepsis Recent Fever Within 48 Hours Sepsis New/Unexplained Change in Mental Status Sepsis Action Taken by Nursing Oxygen Flow Rate - Titration Pulse Oximetry Post Tiitration 01/09/22 12:15 01/09/22 12:15 01/09/22 12:20 Temperature Temperature Source Pulse Rate 47 L 45 L Pulse Rate from SpO2 Sensor 48 L 46 L Respiratory Rate 11 L 10 L Respiratory Depth Blood Pressure 86/52 L Blood Pressure Mean 63 Blood Pressure Position Pulse Oximetry 98 98 Oxygen Delivery Method Oxygen Flow Rate Sepsis Recent Fever Within 48 Hours Sepsis New/Unexplained Change in Mental Status Sepsis Action Taken by Nursing Oxygen Flow Rate - Titration Pulse Oximetry Post Tiitration 01/09/22 12:25 01/09/22 12:25 01/09/22 12:30 Temperature Temperature Source Pulse Rate 45 L Pulse Rate from SpO2 Sensor 46 L Respiratory Rate 17 Respiratory Depth Blood Pressure 89/52 L 89/55 L Blood Pressure Mean 64 66 Blood Pressure Position Pulse Oximetry 98 Oxygen Delivery Method Oxygen Flow Rate Sepsis Recent Fever Within 48 Hours Sepsis New/Unexplained Change in Mental Status Sepsis Action Taken by Nursing Oxygen Flow Rate - Titration Pulse Oximetry Post Tiitration 01/09/22 12:30 01/09/22 12:40 01/09/22 12:45 Temperature Temperature Source Pulse Rate 46 L 48 L Pulse Rate from SpO2 Sensor 46 L 49 L Respiratory Rate 15 15 Respiratory Depth Blood Pressure 94/56 L Blood Pressure Mean 68 Blood Pressure Position Pulse Oximetry 100 100 Oxygen Delivery Method Oxygen Flow Rate Sepsis Recent Fever Within 48 Hours Sepsis New/Unexplained Change in Mental Status Sepsis Action Taken by Nursing Oxygen Flow Rate - Titration Pulse Oximetry Post Tiitration 01/09/22 12:45 01/09/22 12:50 01/09/22 13:00 Temperature Temperature Source Pulse Rate 46 L 44 L Pulse Rate from SpO2 Sensor 46 L 45 L Respiratory Rate 0 L 14 Respiratory Depth Blood Pressure 90/55 L Blood Pressure Mean 66 Blood Pressure Position Pulse Oximetry 100 100 Oxygen Delivery Method Oxygen Flow Rate Sepsis Recent Fever Within 48 Hours Sepsis New/Unexplained Change in Mental Status Sepsis Action Taken by Nursing Oxygen Flow Rate - Titration Pulse Oximetry Post Tiitration 01/09/22 13:00 01/09/22 13:10 01/09/22 13:15 Temperature Temperature Source Pulse Rate 47 L 45 L 44 L Pulse Rate from SpO2 Sensor 46 L 45 L 45 L Respiratory Rate 14 16 14 Respiratory Depth Blood Pressure Blood Pressure Mean Blood Pressure Position Pulse Oximetry 99 100 100 Oxygen Delivery Method Oxygen Flow Rate Sepsis Recent Fever Within 48 Hours Sepsis New/Unexplained Change in Mental Status Sepsis Action Taken by Nursing Oxygen Flow Rate - Titration Pulse Oximetry Post Tiitration 01/09/22 13:15 01/09/22 13:20 Temperature Temperature Source Pulse Rate 44 L Pulse Rate from SpO2 Sensor 44 L Respiratory Rate 16 Respiratory Depth Blood Pressure 96/54 L Blood Pressure Mean 68 Blood Pressure Position Pulse Oximetry 100 Oxygen Delivery Method Oxygen Flow Rate Sepsis Recent Fever Within 48 Hours Sepsis New/Unexplained Change in Mental Status Sepsis Action Taken by Nursing Oxygen Flow Rate - Titration Pulse Oximetry Post Tiitration Home Medications Current Medication List: was personally reviewed by me Laboratory Data Attestation: I reviewed the patient's lab results. Result diagrams: 01/09/22 11:51 01/09/22 11:51 Lab Results 01/09/22 01/09/22 01/09/22 Range/Units 11:35 11:51 11:51 WBC 8.84 (4.8-10.8) K/ul RBC 5.17 (4.63-6.08) M/uL Hgb 15.2 (14.0-18.0) g/dl Hct 44.2 (40.1-51.0) % MCV 85.5 (80.0-100.0) fL MCH 29.4 (25.0-34.0) pg MCHC 34.4 (32.0-36.0) g/dL RDW Std Deviation 41.0 (36.4-46.3) fL RDW Coeff of Mildred 13.2 (11.5-14.5) % Plt Count 224 (130-400) K/uL MPV 10.5 (9.4-12.4) fL Immature Gran % (Auto) 0.1 % Neut % (Auto) 57.0 % Lymph % (Auto) 30.5 % Mora % (Auto) 9.0 % Eos % (Auto) 2.6 % Baso % (Auto) 0.8 % Neut # (Auto) 5.03 (1.4-6.5) K/uL Lymph # (Auto) 2.70 (1.2-3.4) K/uL Mora # (Auto) 0.80 (0.24-0.82) K/uL Eos # (Auto) 0.23 (0-0.50) K/uL Baso # (Auto) 0.07 (0-0.2) K/uL Immature Gran # (Auto) 0.01 (0.00-0.02) K/uL PT 11.7 (9.0-12.0) Seconds INR 1.1 (0.9-1.1) APTT 24.1 (21.0-31.0) Seconds PTT Ratio 0.9 Sodium (136-145) mmol/L Potassium (3.5-5.1) mmol/L Chloride (98-107) mmol/L Carbon Dioxide (21-32) mmol/L Anion Gap (3-11) BUN (6-23) mg/dl Creatinine (0.6-1.4) mg/dl Est Cr Clr Drug Dosing ml/min Est GFR ( Amer) ml/min Est GFR (Non-Af Amer) ml/min BUN/Creatinine Ratio (10-20) Glucose (70-99(Fasting)) mg/dl Calcium (8.5-10.1) mg/dl Magnesium (1.7-2.4) mg/dl Total Bilirubin (0.2-1.0) mg/dl AST (13-39) U/L ALT (7-52) U/L Alkaline Phosphatase (34-104) U/L Troponin I High Sens (0-20) pg/ml Total Protein (6.0-8.3) gm/dl Albumin (3.4-5.0) gm/dl Globulin (2.5-4.0) gm/dl Albumin/Globulin Ratio (0.9-2) Lipase (11-82) U/L SARS-CoV-2, RNA, NAAT NEGATIVE (NEGATIVE) 01/09/22 Range/Units 11:51 WBC (4.8-10.8) K/ul RBC (4.63-6.08) M/uL Hgb (14.0-18.0) g/dl Hct (40.1-51.0) % MCV (80.0-100.0) fL MCH (25.0-34.0) pg MCHC (32.0-36.0) g/dL RDW Std Deviation (36.4-46.3) fL RDW Coeff of Mildred (11.5-14.5) % Plt Count (130-400) K/uL MPV (9.4-12.4) fL Immature Gran % (Auto) % Neut % (Auto) % Lymph % (Auto) % Mora % (Auto) % Eos % (Auto) % Baso % (Auto) % Neut # (Auto) (1.4-6.5) K/uL Lymph # (Auto) (1.2-3.4) K/uL Mora # (Auto) (0.24-0.82) K/uL Eos # (Auto) (0-0.50) K/uL Baso # (Auto) (0-0.2) K/uL Immature Gran # (Auto) (0.00-0.02) K/uL PT (9.0-12.0) Seconds INR (0.9-1.1) APTT (21.0-31.0) Seconds PTT Ratio Sodium 140 (136-145) mmol/L Potassium 3.4 L (3.5-5.1) mmol/L Chloride 108 H (98-107) mmol/L Carbon Dioxide 25 (21-32) mmol/L Anion Gap 7 (3-11) BUN 8 (6-23) mg/dl Creatinine 0.83 (0.6-1.4) mg/dl Est Cr Clr Drug Dosing 92.5 ml/min Est GFR ( Amer) 104.8 ml/min Est GFR (Non-Af Amer) 90.4 ml/min BUN/Creatinine Ratio 9.6 L (10-20) Glucose 109 H (70-99(Fasting)) mg/dl Calcium 8.9 (8.5-10.1) mg/dl Magnesium 1.8 (1.7-2.4) mg/dl Total Bilirubin 0.9 (0.2-1.0) mg/dl AST 19 (13-39) U/L ALT 13 (7-52) U/L Alkaline Phosphatase 50 (34-104) U/L Troponin I High Sens 4.6 (0-20) pg/ml Total Protein 6.5 (6.0-8.3) gm/dl Albumin 3.9 (3.4-5.0) gm/dl Globulin 2.6 (2.5-4.0) gm/dl Albumin/Globulin Ratio 1.5 (0.9-2) Lipase 33 (11-82) U/L SARS-CoV-2, RNA, NAAT (NEGATIVE) Administered Medications Heparin Sodium (Porcine) (Heparin Sod 5,000 Unit/0.5 Ml Vial) 5,000 units SQ Q8 RAYO Stop: 02/08/22 15:44 Last Admin: 01/09/22 16:33 Dose: 5,000 units Documented By: ML Discontinued Medications Sodium Chloride (Nss 1000ml) 500 mls @ 999 mls/hr IV .Q31M ONE Stop: 01/09/22 12:15 Last Infusion: 01/09/22 13:12 Dose: 0 mls/hr Documented By: Admin: 01/09/22 12:09 Dose: 999 mls/hr Documented By: AP Sodium Chloride (Nss 1000ml) 500 mls @ 999 mls/hr IV .Q31M ONE Stop: 01/09/22 13:03 Last Infusion: 01/09/22 13:57 Dose: 0 mls/hr Documented By: Admin: 01/09/22 13:12 Dose: 999 mls/hr Documented By: AP Nitroglycerin (Nitroglycerin Sl 0.4 Mg/Tab Tab) Confirm Administered Dose 0.4 mg .ROUTE .STK-MED ONE Stop: 01/09/22 11:26 Last Admin: 01/09/22 11:27 Dose: 0.4 mg Documented By: SLB Ondansetron HCl (Ondansetron Inj 2 Mg/Ml 2 Ml Vial) 4 mg IV NOW STA Stop: 01/09/22 11:28 Last Admin: 01/09/22 11:45 Dose: 4 mg Documented By: YASH Potassium Chloride (Potassium Chloride Crtab 20 Meq Tabcr) 40 meq PO NOW STA Stop: 01/09/22 13:31 Last Admin: 01/09/22 15:11 Dose: 40 meq Documented By: AP Imaging Data Radiologist's Impression: Chest X-Ray 01/09/22 11:27 XR chest 1V portable HISTORY: Atypical chest pain. Bradycardia. COMPARISON: Chest 11/22/2021. FINDINGS: No pneumothorax. No pleural effusions. The heart remains mildly enlarged. There are poststernotomy changes. No new focal lung consolidations. There is mild central pulmonary vascular congestion without overt edema. IMPRESSION: Cardiomegaly with mild congestive change. ACT 112: Negative or not required by law. Electronically signed by: Arash Carty M.D. 01/09/2022 12:08 PM Discharge Plan Visit Data Chief Complaint: Chest Pain Stated Complaint: CHEST PAIN ED Provider: Kevyn Tanner Discharge Problem: Precordial chest pain, SOB (shortness of breath), Vomiting, CAD (coronary atherosclerotic disease) Patient Disposition: Admitted As Inpatient Condition: Fair Discharge Instructions Interventions: ED Discharge Assessment Last Done: 01/09/22 15:13
[2022-01-09] MEDS ORDERED: SODIUM CHLORIDE 0.9% 1000ML 500 ML IV ONE ×2 (11:45→12:33)
[2022-01-09 12:10] LABS: Basophils # (auto) 0.07 K/uL (0-0.2); Basophils % (auto) 0.8 %; Eosinophils # (auto) 0.23 K/uL (0-0.50); Eosinophils % (auto) 2.6 %; Hematocrit (blood only) 44.2 % (40.1-51.0); Hemoglobin 15.2 g/dl (14.0-18.0); Immature Granulocytes # (auto) 0.01 K/uL (0.00-0.02); Immature Granulocytes % (auto) 0.1 %; Lymphocytes % (auto) 30.5 %; Mean Corpuscular Hemoglobin 29.4 pg (25.0-34.0); Mean Corpuscular Hgb Conc 34.4 g/dL (32.0-36.0); Mean Corpuscular Volume 85.5 fL (80.0-100.0); Mean Platelet Volume 10.5 fL (9.4-12.4); Neutrophils # (auto) 5.03 K/uL (1.4-6.5); Platelet Count 224 K/uL (130-400); RDW Coefficient of Variation 13.2 % (11.5-14.5); Red Blood Count 5.17 M/uL (4.63-6.08); White Blood Count 8.84 K/ul (4.8-10.8)
--- NOTE | 2022-01-09 12:10 | XRay Report ---
XR chest 1V portable HISTORY: Atypical chest pain. Bradycardia. COMPARISON: Chest 11/22/2021. FINDINGS: No pneumothorax. No pleural effusions. The heart remains mildly enlarged. There are postste rnotomy changes. No new focal lung consolidations. There is mild central pulmonary vascular congestio n without overt edema. IMPRESSION: Cardiomegaly with mild congestive change. ACT 112: Negative or not required by law. Electronically signed by: Arash Carty M.D. 01/09/2022 12:08 PM
[2022-01-09 12:26] LABS: INR 1.1 (0.9-1.1); Partial Thromboplastin Ratio 0.9; Partial Thromboplastin Time 24.1 Seconds (21.0-31.0); Prothrombin Time 11.7 Seconds (9.0-12.0)
[2022-01-09 12:31] LABS: Albumin Globulin Ratio 1.5 (0.9-2); Albumin Level 3.9 gm/dl (3.4-5.0); BUN Creatinine Ratio 9.6 (10-20); Bilirubin,Total 0.9 mg/dl (0.2-1.0); Calcium 8.9 mg/dl (8.5-10.1); Creatinine Clr Calc Pharmacy 92.5 ml/min; Est GFR (African American) 104.8 ml/min; Est GFR (Non-African American) 90.4 ml/min; Globulin 2.6 gm/dl (2.5-4.0); Magnesium 1.8 mg/dl (1.7-2.4); Potassium 3.4 mmol/L (3.5-5.1); Total Protein 6.5 gm/dl (6.0-8.3)
[2022-01-09 12:38] LABS: Troponin I High Sensitivity 4.6 pg/ml (0-20)
--- NOTE | 2022-01-09 13:22 | History & Physical Report ---
Date of Service January 09, 2022 Assessment & Plan (1) Chest pain: (2) Bradycardia: (3) History of coronary artery bypass graft: (4) ROMA (obstructive sleep apnea): (5) Hyperlipidemia: (6) Generalized anxiety disorder: (7) COPD (chronic obstructive pulmonary disease): Plan This is a 66yo M with a PMH of CAD, s/p SALOME and CABG x 4 in December 2020, COPD, HTN, HLD and other medical problems listed below who presents with chest pain starting this morning. Chest pain Recurrent CP over past [address] Carl concerned for new onset angina and recommended dobutamine stress echo Initial EKG without changes, HS troponin negative, CXR without acute procrss Echo from Jan 2021 with preserved EF 54%, mild concentric LVH, grade 1 diastolic dysfunction, moderate AV sclerosis without stenosis Telemetry monitoring, trend troponin, NPO @ [facility] for dobutamine stress test, 2D echo, routine cardiology consult Avoid ntg given significant hypotensive response in ED with hypoxia (and history of syncope during past administration, per patient) IV toradol x1 and PRN tylenol for pain control Supplemental O2 PRN Coronary artery disease History of CABG x 4 in December [address] Carl Continue aspirin, statin, lopressor - hold Lopressor in AM before stress test ROMA (obstructive sleep apnea) Biipap HS with recommended settings COPD (chronic obstructive pulmonary disease) At baseline, albuterol inh PRN DVT Ppx: SQ heparin Code status: FULL PCP: Ghanshyam Dispo: PCU Patient seen in collaboration with Dr. Reagan. Please see addendum. History of Present Illness Chief Complaint: CP Primary Care Provider: Goran Morrissey MD This is a 66yo M with a PMH of CAD, s/p SALOME and CABG x 4 in December 2020, COPD, HTN, HLD and other medical problems listed below who presents with chest pain starting this morning. Endorses left-sided chest discomfort that radiates to left arm with activity that has been intermittent over the past 6 weeks. First noticed chest pain when getting ready around the house and worsened while making his breakfast. Patient endorses sharp chest pain under her left breastbone with a tingling pain sensation in left arm. Also became diaphoretic, nauseous and vomited twice. Came into ED for further evaluation. Has been seen by Dr. Carl in cardiology clinic last week, who is concerned that recent chest pain with activity is consistent with new onset angina and recommended dobutamine stress echo. Patient received SL in ED and became significantly hypotensive. BP improved to 105/60 with IV fluids. Currently comfortable with reduced pain, 2/10. Pain under L nipple reproducible on exam. No fever, chills, lightheadedness, SOB, wheezing, N/V/D, abdominal pain, dysuria, diarrhea or constipation. Allergies Allergy/AdvReac Type Severity Reaction Status Date / Time tramadol Allergy Intermediate itching Verified 01/09/22 13:06 nitroglycerin AdvReac Severe Hypotension Verified 01/09/22 14:15 hydrocodone AdvReac Intermediate DIZZY/NAUSE Verified 01/09/22 13:06 A Home Medications Medication Instructions Recorded Confirmed Type meclizine 25 mg tablet 25 mg PO TID PRN Vertigo 03/11/18 01/09/22 History gabapentin 100 mg capsule 100 mg PO BID 08/03/19 01/09/22 History aspirin 81 mg tablet,delayed 81 mg PO DAILY 09/19/20 01/09/22 History release cyclobenzaprine 10 mg tablet 10 mg PO BID PRN Muscle Spasm 09/19/20 01/09/22 History fluticasone propionate 50 2 spray intranasal DAILY PRN 09/19/20 01/09/22 History mcg/actuation nasal ALLERGIES spray,suspension nitroglycerin 0.4 mg sublingual 0.4 mg sublingual UD PRN chest 09/20/20 01/09/22 Rx tablet (Nitrostat) pain #25 tabs albuterol sulfate 90 mcg/actuation 2 puff inhalation Q6H PRN 01/08/21 01/09/22 History aerosol inhaler Shortness Of Breath lisinopril 5 mg tablet 5 mg PO DAILY 06/12/21 01/09/22 History rosuvastatin 40 mg tablet 40 mg PO HS 06/12/21 01/09/22 History acetaminophen 325 mg tablet 650 mg PO Q6H PRN Pain 09/16/21 01/09/22 History ondansetron 4 mg disintegrating 4 mg PO Q8H PRN nausea and 11/22/21 01/09/22 Rx tablet vomiting #30 tabs sucralfate 100 mg/mL oral 10 ml PO QID PRN ABD PAIN/UPSET 11/22/21 01/09/22 History suspension (Carafate) famotidine 20 mg tablet 20 mg PO BID PRN Acid Reflux 01/09/22 01/09/22 History metoprolol tartrate 25 mg tablet 25 mg PO BID 01/09/22 01/09/22 History Past Med/Surg History Medical History Compression fracture of T12 vertebra Coronary artery disease "non-STEMI [facility] 08/01/16; cath + PCI SALOME PDA + OM 08/03/16" Generalized anxiety disorder Hyperlipidemia Obesity (BMI 30-39.9) ROMA (obstructive sleep apnea) Osteoarthritis Vertigo Surgical History H/O cardiac catheterization "12/10/09 EF 60%, 20% LAD, 30% RCA as per Epic" Hx of appendectomy Hx of cholecystectomy Status post cardiac catheterization "[facility] 08/03/16 occlusions left circumflex + distal RCA posterolateral branch" On 09/11/16 06:19 Ron Tapia wrote "[facility] 08/01/16 occlusions left circumflex + distal RCA posterolateral branch" Status post coronary artery stent placement "[facility] 08/03/16 PCI's PDA + OM with drug-eluting stents" On 09/11/16 06:20 Ron Tapia wrote "[facility] 08/01/16 PCI's PDA + OM with drug-eluting stents" Family History Other Cancer Cirrhosis Stroke Social History Smoking Status: Never smoker Second Hand Exposure: No; Hx Alcohol Use: No Hx Substance Use: No Preferred Language: Hungarian Communication Ability: Effective 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 Physical Exam Physical Exam: General Appearance: WD/WN, vitals as above, NAD, sitting up in bed, obese Head: normocephalic, atraumatic Eyes: normal inspection, PERRL, conjunctivae normal, anicteric sclerae ENT: external ear and nose normal, oropharynx normal Neck: normal visual inspection, trachea midline, no thyromegaly Respiratory: normal respiratory effort, lungs clear to auscultation, no wheeze, rales, rhonchi. No accessory muscle use Cardiovascular: regular rate, rhythm, no murmur, normal peripheral pulses, no BLE edema. Vessels: no JVD Chest: + reproducible pain inferior to L nipple Abdomen/GI: normal bowel sounds, soft, nontender, no hepatosplenomegaly Extremities/Musculoskeletal: no cyanosis or clubbing, extremities motor strength 5/5 Neurologic: PERRL, EOMI, accommodation nl, no face palsy, no dysarthria, CN's II-XI intact bilaterally and moves all extremities Psychiatric: A+Ox3, euthymic affect Skin: no rashes, normal color, warm/dry Results & Data Results & Data ([facility]) Vital Signs (Past 12 Hours) Vital Signs Temp Pulse Resp BP Pulse Ox O2 Del Method O2 Flow Rate 01/09/22 13:10 45 L 16 100 01/09/22 13:00 47 L 14 99 01/09/22 13:00 90/55 L 01/09/22 12:50 44 L 14 100 01/09/22 12:45 46 L 0 L 100 01/09/22 12:45 94/56 L 01/09/22 12:40 48 L 15 100 01/09/22 12:30 46 L 15 100 01/09/22 12:30 89/55 L 01/09/22 12:25 89/52 L 01/09/22 12:25 45 L 17 98 01/09/22 12:20 45 L 10 L 98 01/09/22 12:15 86/52 L 01/09/22 12:15 47 L 11 L 98 01/09/22 12:00 50 L 13 95 01/09/22 12:00 90/54 L 01/09/22 11:54 90/54 L 01/09/22 11:54 54 L 19 88 L 01/09/22 11:47 59 L 14 93 01/09/22 11:47 95/50 L 01/09/22 11:45 65 15 01/09/22 11:40 59/36 L 01/09/22 11:40 44 L 20 97 01/09/22 11:30 61 19 93 01/09/22 11:27 56 L 15 95 01/09/22 11:26 120/71 01/09/22 11:30 Room Air 01/09/22 11:30 88 L Nasal Cannula 0 01/09/22 11:13 36.6 C 66 20 145/71 H 95 Room Air Laboratory Results Short CBC 01/09/22 Range/Units 11:51 WBC 8.84 (4.8-10.8) K/ul Hgb 15.2 (14.0-18.0) g/dl Hct 44.2 (40.1-51.0) % Plt Count 224 (130-400) K/uL BMP 01/09/22 11:51 Sodium 140 Potassium 3.4 L Chloride 108 H Carbon Dioxide 25 BUN 8 Creatinine 0.83 Glucose 109 H Calcium 8.9 Liver Function 01/09/22 Range/Units 11:51 Total Bilirubin 0.9 (0.2-1.0) mg/dl AST 19 (13-39) U/L ALT 13 (7-52) U/L Alkaline Phosphatase 50 (34-104) U/L Albumin 3.9 (3.4-5.0) gm/dl Diagnostic Findings Chest X-Ray 01/09/22 11:27 XR chest 1V portable HISTORY: Atypical chest pain. Bradycardia. COMPARISON: Chest 11/22/2021. FINDINGS: No pneumothorax. No pleural effusions. The heart remains mildly enlarged. There are poststernotomy changes. No new focal lung consolidations. There is mild central pulmonary vascular congestion without overt edema. IMPRESSION: Cardiomegaly with mild congestive change. ACT 112: Negative or not required by law. Electronically signed by: Arash Carty M.D. 01/09/2022 12:08 PM Code Status & VTE Plan VTE Prophylaxis Plan VTE Prophylaxis will be ordered: Yes Supervising Physician Co-Signing Physician Notes Attending addendum: The patient was seen and examined in emergency room He is obese with significant cardiac disease and obstructive sleep apnea apparently has been complaining of precordial pain at rest and with exertion for some time He was planning to have a dobutamine stress test as an outpatient sometime earlier Denies any increasing shortness of breath, any nausea and or vomiting associated with it. He received 2 doses of sublingual nitro and that dropped his blood pressure tremendously, he may be sensitive to nitro On examination Lying in bed with anxiety and discomfort in the left chest No shortness of breath at rest Systolic blood pressure on the lower side at 90/55 Chestdecreased breath sounds bibasilarly with minimal crackles. Tender in the precordium and also inframammary area on the left side. Abdomensoft, nontender and bowel sound present Extremities-trace edema bilaterally CLINICAL STUDIES SPECIALIST-alert, awake and oriented x3 His admission labs, EKG and imaging studies reviewed Has sinus bradycardia at 59 with right bundle branch block and associated EKG changes with chest x-ray evidence of mild congestion May have costochondritis We will admit the patient to medical telemetry unit and measure serial troponins Cardiology consult for possible dobutamine stress echo given the significant cardiac disease He seems to be very sensitive to nitro and will hold at that We will try Voltaren gel locally Agree with assessment and plan as outlined above by ANDREW Garcia DR (1) COPD (chronic obstructive pulmonary disease) COPD type: COPD with acute exacerbation Qualified Code(s): J44.1 - Chronic obstructive pulmonary disease with (acute) exacerbation (2) Chest pain Chest pain type: unspecified Qualified Code(s): R07.9 - Chest pain, unspecified
[2022-01-09] MEDS ORDERED: POTASSIUM CHLORIDE CRTAB 20 MEQ TABCR PO STA (13:30)
--- NOTE | 2022-01-09 14:42 | Electrocardiogram Report ---
Test Reason : Blood Pressure : / mmHG Vent. Rate : 059 BPM Atrial Rate : 059 BPM P-R Int : 146 ms QRS Dur : 120 ms QT Int : 450 ms P-R-T Axes : -03 011 033 degrees QTc Int : 445 ms Sinus bradycardia Right bundle branch block Abnormal ECG When compared with ECG of 19-DEC-2021 09:22, No significant change was found Confirmed by Jarek Villaseñor ([id number]) on 01/09/2022 2:42:22 PM Referred By: REFERRED SELF Confirmed By:Jarek Villaseñor
[2022-01-09] MEDS ORDERED: ACETAMINOPHEN 325 MG TAB PO PRN (15:28)
[2022-01-09] MEDS ORDERED: ONDANSETRON INJ 2 MG/ML 2 ML VIAL IV PRN (15:28)
[2022-01-09] MEDS ORDERED: ALUMINUM/MAGNESIUM SUSP 30 ML UDC PO PRN (15:28)
[2022-01-09] MEDS ORDERED: MECLIZINE HCL 25 MG TAB PO PRN (15:49)
[2022-01-09] MEDS ORDERED: ALBUTEROL HFA 8 GM INHALER INH PRN (15:49)
[2022-01-09] MEDS ORDERED: SUCRALFATE 1 GM/10 ML UDC PO PRN (15:49)
[2022-01-09] MEDS ORDERED: FAMOTIDINE 20 MG TAB PO PRN (15:49)
[2022-01-09] MEDS ORDERED: FLUTICASONE PROPIONATE NA SPR 16 GM BTL NAE PRN (15:49)
[2022-01-09] MEDS ORDERED: CYCLOBENZAPRINE HCL 10 MG TAB PO PRN (15:49)
[2022-01-09] MEDS: HEPARIN SOD 5,000 UNIT/0.5 ML VIAL SQ SCH ×2 (16:33→20:30)
[2022-01-09] MEDS: METOPROLOL TARTRATE 25 MG TAB PO SCH (19:43)
[2022-01-09] MEDS: ROSUVASTATIN CALCIUM 20 MG TAB PO SCH (20:15)
[2022-01-09] MEDS: GABAPENTIN 100 MG CAP PO SCH (20:15)
[2022-01-10] MEDS: HEPARIN SOD 5,000 UNIT/0.5 ML VIAL SQ SCH ×3 (05:31→20:52)
[2022-01-10 07:28] LABS: Hematocrit (blood only) 43.5 % (40.1-51.0); Hemoglobin 14.8 g/dl (14.0-18.0); Mean Corpuscular Hemoglobin 28.9 pg (25.0-34.0); Mean Platelet Volume 10.2 fL (9.4-12.4); Platelet Count 221 K/uL (130-400); RDW Coefficient of Variation 13.2 % (11.5-14.5); RDW Standard Deviation 41.2 fL (36.4-46.3); Red Blood Count 5.12 M/uL (4.63-6.08); White Blood Count 6.83 K/ul (4.8-10.8)
[2022-01-10 08:04] LABS: BUN Creatinine Ratio 10.3 (10-20); Calcium 8.5 mg/dl (8.5-10.1); Creatinine Clr Calc Pharmacy 98.2 ml/min; Est GFR (African American) 107.5 ml/min; Est GFR (Non-African American) 92.8 ml/min; Potassium 3.9 mmol/L (3.5-5.1)
[2022-01-10] MEDS: METOPROLOL TARTRATE 25 MG TAB PO SCH ×2 (08:35→20:52)
--- NOTE | 2022-01-10 08:46 | Cardiology Consultation ---
Date of Consultation January 10, 2022 Assessment & Plan (1) Precordial chest pain: (2) SOB (shortness of breath): (3) CAD (coronary atherosclerotic disease): (4) History of coronary artery bypass graft: (5) Metabolic syndrome: Plan The patient has a significant cardiac history. His previous cardiac catheterization revealed severe [place] coronary artery disease after which she underwent coronary artery bypass surgery about a year ago. He has had multiple ER visits recently for chest pain. I believe the best option is to proceed with a cardiac catheterization. The patient understands the risk, benefit and intent of the procedure. He is willing to proceed and it will be completed tomorrow. History of Present Illness Attending Physician: Donnell Reagan MD History of Present Illness This is a 66-year-old male patient with a history of metabolic syndrome and severe [place] coronary artery disease. He has had previous multiple coronary interventions and then in 2020 he underwent coronary artery bypass surgery at [facility]. He received a RASHEED to the LAD, saphenous vein graft to the ramus, saphenous vein graft to the PDA and saphenous vein graft to OM. He has been having chest pain for approximately 4 to 6 weeks. He has had multiple emergency department visits and I saw him last week in the office and scheduled him for an outpatient dobutamine stress test. Unfortunately the patient had severe chest discomfort consistent with his angina and was admitted to the hospital. Past medical history: 1. Coronary artery disease 2. Status post coronary artery bypass surgery [facility] 2020 3. Metabolic syndrome 4. History of previous multiple coronary interventions and drug-eluting stents. 5. Peripheral vascular disease Allergies Allergy/AdvReac Type Severity Reaction Status Date / Time tramadol Allergy Intermediate itching Verified 01/09/22 13:06 nitroglycerin AdvReac Severe Hypotension Verified 01/09/22 14:15 hydrocodone AdvReac Intermediate DIZZY/NAUSE Verified 01/09/22 13:06 A Home Medications Medication Instructions Recorded Confirmed Type meclizine 25 mg tablet 25 mg PO TID PRN Vertigo 03/11/18 01/09/22 History gabapentin 100 mg capsule 100 mg PO BID 08/03/19 01/09/22 History aspirin 81 mg tablet,delayed 81 mg PO DAILY 09/19/20 01/09/22 History release cyclobenzaprine 10 mg tablet 10 mg PO BID PRN Muscle Spasm 09/19/20 01/09/22 H istory fluticasone propionate 50 2 spray intranasal DAILY PRN 09/19/20 01/09/22 History mcg/actuation nasal ALLERGIES spray,suspension nitroglycerin 0.4 mg sublingual 0.4 mg sublingual UD PRN chest 09/20/20 01/09/22 Rx tablet (Nitrostat) pain #25 tabs albuterol sulfate 90 mcg/actuation 2 puff inhalation Q6H PRN 01/08/21 01/09/22 History aerosol inhaler Shortness Of Breath lisinopril 5 mg tablet 5 mg PO DAILY 06/12/21 01/09/22 History rosuvastatin 40 mg tablet 40 mg PO HS 06/12/21 01/09/22 History acetaminophen 325 mg tablet 650 mg PO Q6H PRN Pain 09/16/21 01/09/22 History ondansetron 4 mg disintegrating 4 mg PO Q8H PRN nausea and 11/22/21 01/09/22 Rx tablet vomiting #30 tabs sucralfate 100 mg/mL oral 10 ml PO QID PRN ABD PAIN/UPSET 11/22/21 01/09/22 His tory suspension (Carafate) famotidine 20 mg tablet 20 mg PO BID PRN Acid Reflux 01/09/22 01/09/22 History metoprolol tartrate 25 mg tablet 25 mg PO BID 01/09/22 01/09/22 History Patient History Medical History Compression fracture of T12 vertebra Coronary artery disease "non-STEMI [facility] 08/01/16; cath + PCI SALOME PDA + OM 08/03/16" Generalized anxiety disorder Hyperlipidemia Obesity (BMI 30-39.9) ROMA (obstructive sleep apnea) Osteoarthritis Vertigo Surgical History H/O cardiac catheterization "12/10/09 EF 60%, 20% LAD, 30% RCA as per Epic" Hx of appendectomy Hx of cholecystectomy Status post cardiac catheterization "[facility] 08/03/16 occlusions left circumflex + distal RCA posterolateral branch" On 09/11/16 06:19 Ron Tapia wrote "[facility] 2/15/17 occlusions left circumflex + distal RCA posterolateral branch" Status post coronary artery stent placement "[facility] 08/03/16 PCI's PDA + OM with drug-eluting stents" On 09/11/16 06:20 Ron Tapia wrote "[facility] 08/01/16 PCI's PDA + OM with drug-eluting stents" Family History Other Cancer Cirrhosis Stroke Social History Smoking Status: Never smoker Second Hand Exposure: No; Do You Dip or Chew Tobacco: No; Tobacco Cessation Education Requested by Patient: No Hx Alcohol Use: No Hx Substance Use: No Preferred Language: [place] Communication Ability: Effective 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 All other 10 point review of systems are negative. Physical Exam Physical Exam: General: no acute distress and stated age Head: normocephalic, no masses, lesions, tenderness or abnormalities Eyes: conjunctiva are pink and non-injected, sclera clear Neck: supple, no adenopathy, no bruits, normal jugular venous pulse, no hepatojugular reflux Chest: normal shape and normal respiratory effort Lungs: clear to auscultation and percussion Cardiac Exam: - regular rate & rhythm, no murmurs gallops or rubs - normal S1, normal S2 Pulses: 2(+) throughout Abdomen: abdomen soft, non-tender, no abnormal masses and no hepatosplenomegaly Musculoskeletal: no gait disturbance, no joint inflammation, no deforming arthritis Extremities: no edema and no cyanosis Neuro: grossly normal exam Results & Data ([facility]) Vital Signs (Past 12 Hours) Vital Signs Temp Pulse Pulse Resp BP BP Pulse Ox 01/10/22 07:21 36.8 C 56 L 18 126/78 94 01/10/22 03:45 36.4 C L 58 L 16 115/72 95 01/10/22 00:11 36.7 C 64 16 110/71 96 01/09/22 23:37 50 L O2 Del Method 01/10/22 07:21 Room Air 01/10/22 03:45 Room Air 01/10/22 00:11 Room Air 01/09/22 23:37 Laboratory Results Laboratory Results - last 24 hr 01/09/22 01/09/22 01/09/22 11:35 11:51 11:51 WBC 8.84 RBC 5.17 Hgb 15.2 Hct 44.2 MCV 85.5 MCH 29.4 MCHC 34.4 RDW Std Deviation 41.0 RDW Coeff of Mildred 13.2 Plt Count 224 MPV 10.5 Immature Gran % (Auto) 0.1 Neut % (Auto) 57.0 Lymph % (Auto) 30.5 [place] % (Auto) 9.0 Eos % (Auto) 2.6 Baso % (Auto) 0.8 Neut # (Auto) 5.03 Lymph # (Auto) 2.70 [place] # (Auto) 0.80 Eos # (Auto) 0.23 Baso # (Auto) 0.07 Immature Gran # (Auto) 0.01 PT 11.7 INR 1.1 APTT 24.1 PTT Ratio 0.9 Sodium Potassium Chloride Carbon Dioxide Anion Gap BUN Creatinine Est Cr Clr Drug Dosing Est GFR ( Amer) Est GFR (Non-Af Amer) BUN/Creatinine Ratio Glucose Calcium Magnesium Total Bilirubin AST ALT Alkaline Phosphatase Troponin I High Sens Total Protein Albumin Globulin Albumin/Globulin Ratio Lipase SARS-CoV-2, RNA, NAAT NEGATIVE 01/09/22 01/09/22 01/09/22 11:51 15:52 22:28 WBC RBC Hgb Hct MCV MCH MCHC RDW Std Deviation RDW Coeff of Mildred Plt Count MPV Immature Gran % (Auto) Neut % (Auto) Lymph % (Auto) [place] % (Auto) Eos % (Auto) Baso % (Auto) Neut # (Auto) Lymph # (Auto) [place] # (Auto) Eos # (Auto) Baso # (Auto) Immature Gran # (Auto) PT INR APTT PTT Ratio Sodium 140 Potassium 3.4 L Chloride 108 H Carbon Dioxide 25 Anion Gap 7 BUN 8 Creatinine 0.83 Est Cr Clr Drug Dosing 92.5 Est GFR ( Amer) 104.8 Est GFR (Non-Af Amer) 90.4 BUN/Creatinine Ratio 9.6 L Glucose 109 H Calcium 8.9 Magnesium 1.8 Total Bilirubin 0.9 AST 19 ALT 13 Alkaline Phosphatase 50 Troponin I High Sens 4.6 5.0 5.2 Total Protein 6.5 Albumin 3.9 Globulin 2.6 Albumin/Globulin Ratio 1.5 Lipase 33 SARS-CoV-2, RNA, NAAT 01/10/22 01/10/22 06:49 06:49 WBC 6.83 RBC 5.12 Hgb 14.8 Hct 43.5 MCV 85.0 MCH 28.9 MCHC 34.0 RDW Std Deviation 41.2 RDW Coeff of Mildred 13.2 Plt Count 221 MPV 10.2 Immature Gran % (Auto) Neut % (Auto) Lymph % (Auto) [place] % (Auto) Eos % (Auto) Baso % (Auto) Neut # (Auto) Lymph # (Auto) [place] # (Auto) Eos # (Auto) Baso # (Auto) Immature Gran # (Auto) PT INR APTT PTT Ratio Sodium 140 Potassium 3.9 Chloride 107 Carbon Dioxide 27 Anion Gap 6 BUN 8 Creatinine 0.78 Est Cr Clr Drug Dosing 98.2 Est GFR ( Amer) 107.5 Est GFR (Non-Af Amer) 92.8 BUN/Creatinine Ratio 10.3 Glucose 84 Calcium 8.5 Magnesium Total Bilirubin AST ALT Alkaline Phosphatase Troponin I High Sens Total Protein Albumin Globulin Albumin/Globulin Ratio Lipase SARS-CoV-2, RNA, NAAT Medications Administered Current Inpatient Medications Acetaminophen (Acetaminophen 325 Mg Tab) 650 mg PO Q4H PRN PRN Reason: Pain or Fever Stop: 02/08/22 15:27 Al Hydrox/Mg Hydrox/Simethicone (Aluminum/Magnesium Susp 30 Ml Udc) 15 ml PO Q4H PRN PRN Reason: Dyspepsia Stop: 02/08/22 15:27 Albuterol (Albuterol Hfa 8 Gm Inhaler) 2 puffs INH Q6R PRN PRN Reason: Shortness Of Breath Stop: 02/08/22 15:48 Aspirin (Aspirin 81 Mg Ectab) 81 mg PO DAILY RAYO Stop: 02/09/22 08:59 Last Admin: 01/10/22 08:54 Dose: 81 mg Cyclobenzaprine HCl (Cyclobenzaprine Hcl 10 Mg Tab) 10 mg PO BID PRN PRN Reason: Muscle Spasm Stop: 02/08/22 15:48 Famotidine (Famotidine 20 Mg Tab) 20 mg PO BID PRN PRN Reason: Acid Reflux Stop: 02/08/22 15:48 Fluticasone Propionate (Fluticasone Propionate Na Spr 16 Gm Btl) 2 sprays KYA DAILY PRN PRN Reason: ALLERGIES Stop: 02/08/22 15:48 Gabapentin (Gabapentin 100 Mg Cap) 100 mg PO BID RAYO Stop: 02/08/22 20:59 Last Admin: 01/10/22 08:53 Dose: 100 mg Heparin Sodium (Porcine) (Heparin Sod 5,000 Unit/0.5 Ml Vial) 5,000 units SQ Q8 RAYO Stop: 02/08/22 15:44 Last Admin: 01/10/22 05:31 Dose: Not Given Sodium Chloride (Nss 1000ml) 1,000 mls @ 1 mls/hr IV .Q24H [facility] Stop: 02/09/22 08:59 Lisinopril (Lisinopril 5 Mg Tab) 5 mg PO DAILY [facility] Stop: 02/09/22 08:59 Last Admin: 01/10/22 08:53 Dose: 5 mg Meclizine HCl (Meclizine Hcl 25 Mg Tab) 25 mg PO TID PRN PRN Reason: Vertigo Stop: 02/08/22 15:48 Metoprolol Tartrate (Metoprolol Tartrate 25 Mg Tab) 25 mg PO BID [facility] Stop: 02/08/22 20:59 Last Admin: 01/10/22 08:35 Dose: Not Given Ondansetron HCl (Ondansetron Inj 2 Mg/Ml 2 Ml Vial) 4 mg IV Q6H PRN PRN Reason: Nausea Stop: 02/08/22 15:27 Polyethylene Glycol (Polyethylene (Miralax) 17 Gm Pack) 17 gm PO DAILY PRN PRN Reason: Constipation Stop: 02/08/22 15:27 Last Admin: 01/10/22 08:58 Dose: 17 gm Rosuvastatin Calcium (Rosuvastatin Calcium 20 Mg Tab) 40 mg PO HS [facility] Stop: 02/08/22 20:59 Last Admin: 01/09/22 20:15 Dose: 40 mg Sucralfate (Sucralfate 1 Gm/10 Ml Udc) 1 gm PO QID PRN PRN Reason: ABD PAIN/UPSET Stop: 02/08/22 15:48 (1) CAD (coronary atherosclerotic disease) Associated angina: unspecified whether angina present Coronary Disease- Associated Artery/Lesion type: unspecified vessel or lesion type [place] vs. transplanted heart: [place] heart Qualified Code(s): I25.10 - Atherosclerotic heart disease of [place] coronary artery without angina pectoris
[2022-01-10] MEDS: GABAPENTIN 100 MG CAP PO SCH ×2 (08:53→20:51)
[2022-01-10] MEDS: lisinopril 5 MG TAB PO SCH (08:53)
[2022-01-10] MEDS: ASPIRIN 81 MG ECTAB PO SCH (08:54)
[2022-01-10] MEDS: POLYETHYLENE (MIRALAX) 17 GM PACK PO PRN (08:58)
[2022-01-10] MEDS ORDERED: SODIUM CHLORIDE 0.9% 1000ML 1,000 ML IV SCH (09:00)
--- NOTE | 2022-01-10 14:13 | Electrocardiogram Report ---
Test Reason : Blood Pressure : / mmHG Vent. Rate : 061 BPM Atrial Rate : 061 BPM P-R Int : 142 ms QRS Dur : 124 ms QT Int : 474 ms P-R-T Axes : -09 031 036 degrees QTc Int : 477 ms Normal sinus rhythm Right bundle branch block Abnormal ECG When compared with ECG of 09-JAN-2022 11:21, No significant change was found Confirmed by Blaze Huynh ([id number]) on 01/10/2022 2:13:00 PM Referred By: REFERRED SELF Confirmed By:Blaze Huynh
--- NOTE | 2022-01-10 17:29 | Hospitalist Progress Note ---
Date of Service January 10, 2022 Assessment & Plan (1) Chest pain: (2) Bradycardia: (3) History of coronary artery bypass graft: (4) ROMA (obstructive sleep apnea): (5) Hyperlipidemia: (6) Generalized anxiety disorder: (7) COPD (chronic obstructive pulmonary disease): Plan This is a 66yo M with a PMH of CAD, s/p SALOME and CABG x 4 in December 2020, COPD, HTN, HLD and other medical problems listed below who presents with chest pain starting this morning. Chest pain Recurrent CP over past [address] Carl concerned for new onset angina and recommended dobutamine stress echo Initial EKG without changes, HS troponin negative, CXR without acute procrss Echo from Jan 2021 with preserved EF 54%, mild concentric LVH, grade 1 diastolic dysfunction, moderate AV sclerosis without stenosis Telemetry monitoring, trend troponin, NPO @ [facility] for dobutamine stress test, 2D echo, routine cardiology consult Avoid ntg given significant hypotensive response in ED with hypoxia (and history of syncope during past administration, per patient) IV toradol x1 and PRN tylenol for pain control Supplemental O2 PRN Still having chest pain off and on without any other associated symptoms Appreciate cardiology input and recommendation for cardiac cath tomorrow Coronary artery disease History of CABG x 4 in December [address] Carl Continue aspirin, statin, lopressor - hold Lopressor in AM before stress test Serial troponins were unremarkable Given the complex cardiac history he will have cardiac cath tomorrow ROMA (obstructive sleep apnea) Biipap HS with recommended settings COPD (chronic obstructive pulmonary disease) At baseline, albuterol inh PRN DVT Ppx: SQ heparin Code status: FULL PCP: Pilgram Dispo: PCU Admission and Anticipated Discharge Date Admission Date: January 09, 2022 Subjective 01/10/2022 The patient was seen and examined in telemetry unit He complains of occasional pain in the precordium without any other associated symptoms Denies any abdominal pain, nausea no vomiting Denies any shortness of breath at rest Review of Systems Review of Systems: All systems reviewed and are unremarkable except as noted below Physical Exam Physical Exam: Lying in bed comfortably Constitutional: well developed, well nourished, + ill appearing and + obese Eyes: PERRL, conjunctivae normal, anicteric sclerae ENMT: external ear and nose normal, oropharynx normal Neck: trachea midline, no thyromegaly Respiratory: no respiratory distress Auscultation: + diminished lung sounds and + crackles (Minimal crackles at the bases) Cardiovascular: Rate/Rhythm: regular rate and regular rhythm; not tachycardic Heart Sounds: normal S1 and normal S2; no murmur Gastrointestinal (Abdomen): Inspection/Auscultation: normal bowel sounds; abdomen not distended Percussion/Palpation: abdomen soft; abdomen nontender Musculoskeletal: No acute arthritis involving any joint Neurologic: Alert, awake and oriented x3. No focal sensory or no motor deficit appreciated Lymphatic: no cervical or axillary lymphadenopathy Results & Data Results & Data ([facility]) Vital Signs (Past 12 Hours) Vital Signs Temp Pulse Pulse Resp BP Pulse Ox O2 Del Method 01/10/22 15:32 37.0 C 53 L 18 111/62 95 Room Air 01/10/22 11:12 36.9 C 65 18 110/68 94 Room Air 01/10/22 09:48 69 01/10/22 07:21 36.8 C 56 L 18 126/78 94 Room Air Laboratory Results Short CBC 01/10/22 Range/Units 06:49 WBC 6.83 (4.8-10.8) K/ul Hgb 14.8 (14.0-18.0) g/dl Hct 43.5 (40.1-51.0) % Plt Count 221 (130-400) K/uL BMP 01/10/22 06:49 Sodium 140 Potassium 3.9 Chloride 107 Carbon Dioxide 27 BUN 8 Creatinine 0.78 Glucose 84 Calcium 8.5 Medications Administered Current Inpatient Medications Acetaminophen (Acetaminophen 325 Mg Tab) 650 mg PO Q4H PRN PRN Reason: Pain or Fever Stop: 02/08/22 15:27 Al Hydrox/Mg Hydrox/Simethicone (Aluminum/Magnesium Susp 30 Ml Udc) 15 ml PO Q4H PRN PRN Reason: Dyspepsia Stop: 02/08/22 15:27 Albuterol (Albuterol Hfa 8 Gm Inhaler) 2 puffs INH Q6R PRN PRN Reason: Shortness Of Breath Stop: 02/08/22 15:48 Aspirin (Aspirin 81 Mg Ectab) 81 mg PO DAILY [facility]O Stop: 02/09/22 08:59 Last Admin: 01/10/22 08:54 Dose: 81 mg Cyclobenzaprine HCl (Cyclobenzaprine Hcl 10 Mg Tab) 10 mg PO BID PRN PRN Reason: Muscle Spasm Stop: 02/08/22 15:48 Famotidine (Famotidine 20 Mg Tab) 20 mg PO BID PRN PRN Reason: Acid Reflux Stop: 02/08/22 15:48 Fluticasone Propionate (Fluticasone Propionate Na Spr 16 Gm Btl) 2 sprays KYA DAILY PRN PRN Reason: ALLERGIES Stop: 02/08/22 15:48 Gabapentin (Gabapentin 100 Mg Cap) 100 mg PO BID [facility] Stop: 02/08/22 20:59 Last Admin: 01/10/22 08:53 Dose: 100 mg Heparin Sodium (Porcine) (Heparin Sod 5,000 Unit/0.5 Ml Vial) 5,000 units SQ Q8 [facility] Stop: 02/08/22 15:44 Last Admin: 01/10/22 13:02 Dose: 5,000 units Sodium Chloride (Nss 1000ml) 1,000 mls @ 99 mls/hr IV .Q10H7M [facility] Stop: 02/10/22 00:00 Lisinopril (Lisinopril 5 Mg Tab) 5 mg PO DAILY [facility] Stop: 02/09/22 08:59 Last Admin: 01/10/22 08:53 Dose: 5 mg Meclizine HCl (Meclizine Hcl 25 Mg Tab) 25 mg PO TID PRN PRN Reason: Vertigo Stop: 02/08/22 15:48 Metoprolol Tartrate (Metoprolol Tartrate 25 Mg Tab) 25 mg PO BID [facility] Stop: 02/08/22 20:59 Last Admin: 01/10/22 08:35 Dose: Not Given Ondansetron HCl (Ondansetron Inj 2 Mg/Ml 2 Ml Vial) 4 mg IV Q6H PRN PRN Reason: Nausea Stop: 02/08/22 15:27 Polyethylene Glycol (Polyethylene (Miralax) 17 Gm Pack) 17 gm PO DAILY PRN PRN Reason: Constipation Stop: 02/08/22 15:27 Last Admin: 01/10/22 08:58 Dose: 17 gm Rosuvastatin Calcium (Rosuvastatin Calcium 20 Mg Tab) 40 mg PO HS [facility] Stop: 02/08/22 20:59 Last Admin: 01/09/22 20:15 Dose: 40 mg Sucralfate (Sucralfate 1 Gm/10 Ml Udc) 1 gm PO QID PRN PRN Reason: ABD PAIN/UPSET Stop: 02/08/22 15:48 (1) Chest pain Chest pain type: unspecified Qualified Code(s): R07.9 - Chest pain, unspecified (2) COPD (chronic obstructive pulmonary disease) COPD type: COPD with acute exacerbation Qualified Code(s): J44.1 - Chronic obstructive pulmonary disease with (acute) exacerbation
[2022-01-10] MEDS: ROSUVASTATIN CALCIUM 20 MG TAB PO SCH (20:51)
[2022-01-11] MEDS: SODIUM CHLORIDE 0.9% 1000ML 1,000 ML IV SCH ×3 (00:15→23:30)
[2022-01-11] MEDS: HEPARIN SOD 5,000 UNIT/0.5 ML VIAL SQ SCH ×3 (05:49→22:04)
[2022-01-11] MEDS ORDERED: LIDOCAINE 1% LOCAL 20 ML VIAL ONE (07:37)
[2022-01-11] MEDS ORDERED: fentaNYL citrate 100 MCG/2 ML VIAL ONE (08:00)
[2022-01-11] MEDS ORDERED: niCARdipine HCL INJ 2.5 MG/ML 10 ML AMP ONE (08:00)
[2022-01-11] MEDS ORDERED: HEPARIN (PORCINE) 1000 UNIT/ML 10 ML (CATH LAB USE ONLY) ONE (08:00)
[2022-01-11] MEDS ORDERED: MIDAZOLAM HCL 1 MG/ML 2ML VIAL ONE (08:00)
[2022-01-11] MEDS ORDERED: NITROGLYCERIN/D5W 100MCG/ML 20ML SYR ONE (08:01)
--- NOTE | 2022-01-11 09:46 | Cardiac Catheterization ---
Date of Service January 11, 2022 Cardiac Cath Report Cardiac Cath Report Procedure: 1. Left heart catheterization 2. Coronary angiography 3. Left ventriculogram History: This is a 66-year-old male patient with a history of metabolic syndrome who has a long history of coronary artery disease with previous coronary interventions and then a year ago he had coronary artery bypass surgery. He has been having chest pain for approximately a month. It was decided the best option would be to proceed with a cardiac catheterization. ACC data: Start time 8:51 AM End time 9:23 AM Opening aortic pressure 136/72 Left ventricular pressure 125/5 Closing aortic pressure 132/73 Sedation 2 mg intravenous Versed IV fluids 78 cc normal saline Contrast 109 cc Optiray Fluoroscopy time 6.6 minutes Radiation 1638 mGy DAP 167.76 Goncalves per centimeter squared Right dominant system AUC score 9 Coronary angiography: Two of the 4 bypass grafts are closed. The saphenous vein graft to the right coronary artery and OM were occluded at the origin from the aorta. The saphenous vein graft to the ramus was widely patent supplying both antegrade and retrograde flow. The ERICA graft to the LAD was widely patent supplying both antegrade and retrograde flow. Selective injections of the [place] right carito nary artery reveal diffuse proximal and mid coronary artery disease with a napkin ring 50% stenoses in the mid segment. There is possibly a coronary stent just prior to this napkin ring the lesion however, the appearance could also be that of coronary calcium. Selective injections of the [place] left coronary artery revealed the left main trunk to be diffusely diseased and 50% stenosed throughout its course. The left circumflex artery has a 50% ostial stenosis with the remainder of the circumflex being being patent. I believe there is a previous stent in the midportion of the left circumflex artery which is patent. 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 Left ventriculogram: The left ventricle is of normal size with normal left ventricular systolic function. The mitral valve is competent. The aortic root and ascending aorta have normal morphology and diameter. Summary: 2 of the saphenous vein grafts were closed. The saphenous vein graft to the right coronary and OM are occluded at their origin. Saphenous vein graft to the ramus is patent. The ERICA graft to the LAD supplies excellent antegrade and retrograde flow and is patent. The [place] right coronary artery has approximately a 50% mid stenoses and what appears to be a prior coronary stent just proximal to the stenosis that is patent. The left circumflex has a 50% ostial stenoses with the remainder the artery including a previous stent being widely patent. The left main trunk has diffuse 50% disease. Left ventricular function is normal. Recommendations: I think a trial of medical management is indicated for this patient. At this time there does not seem to be any location to intervene on.
[2022-01-11] MEDS: lisinopril 5 MG TAB PO SCH (10:19)
[2022-01-11] MEDS: ASPIRIN 81 MG ECTAB PO SCH (10:19)
[2022-01-11] MEDS: METOPROLOL TARTRATE 25 MG TAB PO SCH ×2 (10:20→20:25)
--- NOTE | 2022-01-11 10:38 | Cardiology Progress Note ---
Date of Service January 11, 2022 Assessment & Plan (1) Precordial chest pain: (2) SOB (shortness of breath): (3) CAD (coronary atherosclerotic disease): (4) History of coronary artery bypass graft: (5) Metabolic syndrome: Plan The cardiac catheterization revealed that the patient has 2 of his 4 bypass grafts closed. The saphenous vein graft to the right coronary and OM are closed. The ERICA to the LAD and saphenous vein graft to OM are patent and supplying excellent flow. At this time I do not believe there is any place to intervene. The [place] right coronary artery has good flow as well as the circumflex artery. I think a trial of medical treatment is indicated. This pa agnes has quite a bit of problems with reflux. Today I started him on Protonix 40 mg twice daily. I stopped his Pepcid. He should not take Carafate however, he states he has not taken that for a while. I stopped his aspirin and favor of Plavix 75 mg daily. Unfortunately, he drops his blood pressure with sublingual nitroglycerin or any kind of nitroglycerin and is reluctant to take a daily nit rate. Would continue his other medications for now. Admission and Anticipated Discharge Date Admission Date: January 09, 2022 Subjective The patient is resting comfortably post cath. Review of Systems Review of Systems: Review of Systems: See HPI for pertinent positives. All other 10 point review of systems are negative. Physical Exam Physical Exam: General: no acute distress and stated age Head: normocephalic, no masses, lesions, tenderness or abnormalities Eyes: conjunctiva are pink and non-injected, sclera clear Neck: supple, no adenopathy, no bruits, normal jugular venous pulse, no hepatojugular reflux Chest: normal shape and normal respiratory effort Lungs: clear to auscultation and percussion Cardiac Exam: - regular rate & rhythm, no murmurs gallops or rubs - normal S1, normal S2 Pulses: 2(+) throughout Abdomen: abdomen soft, non-tender, no abnormal masses and no hepatosplenomegaly Musculoskeletal: no gait disturbance, no joint inflammation, no deforming arthritis Extremities: no edema and no cyanosis Neuro: grossly normal exam Results & Data ([facility]) Vital Signs (Past 12 Hours) Vital Signs Temp Pulse Pulse Pulse Resp BP BP 01/11/22 10:00 36.6 C 59 L 18 117/76 07/28/22 09:45 65 16 137/73 01/11/22 09:30 63 16 129/78 01/11/22 08:41 59 L 01/11/22 07:30 01/11/22 07:50 36.9 C 66 18 138/75 01/11/22 03:45 36.5 C 58 L 18 112/70 01/10/22 23:38 36.7 C 52 L 20 106/66 Pulse Ox O2 Del Method 01/11/22 10:00 95 Room Air 01/11/22 09:45 97 Room Air 01/11/22 09:30 97 Room Air 01/11/22 08:41 01/11/22 07:30 Room Air 01/11/22 07:50 95 Room Air 01/11/22 03:45 94 Room Air 01/10/22 23:38 96 Room Air Medications Administered Current Inpatient Medications Acetaminophen (Acetaminophen 325 Mg Tab) 650 mg PO Q4H PRN PRN Reason: Pain or Fever Stop: 02/08/22 15:27 Al Hydrox/Mg Hydrox/Simethicone (Aluminum/Magnesium Susp 30 Ml Udc) 15 ml PO Q4H PRN PRN Reason: Dyspepsia Stop: 02/08/22 15:27 Albuterol (Albuterol Hfa 8 Gm Inhaler) 2 puffs INH Q6R PRN PRN Reason: Shortness Of Breath Stop: 02/08/22 15:48 Cyclobenzaprine HCl (Cyclobenzaprine Hcl 10 Mg Tab) 10 mg PO BID PRN PRN Reason: Muscle Spasm Stop: 02/08/22 15:48 Fluticasone Propionate (Fluticasone Propionate Na Spr 16 Gm Btl) 2 sprays KYA DAILY PRN PRN Reason: ALLERGIES Stop: 02/08/22 15:48 Gabapentin (Gabapentin 100 Mg Cap) 100 mg PO BID [facility] Stop: 02/08/22 20:59 Last Admin: 01/10/22 20:51 Dose: 100 mg Heparin Sodium (Porcine) (Heparin Sod 5,000 Unit/0.5 Ml Vial) 5,000 units SQ Q8 [facility] Stop: 02/08/22 15:44 Last Admin: 01/11/22 05:49 Dose: 5,000 units Sodium Chloride (Nss 1000ml) 1,000 mls @ 99 mls/hr IV .Q10H7M [facility] Stop: 02/10/22 00:00 Last Admin: 01/11/22 00:15 Dose: 99 mls/hr Lisinopril (Lisinopril 5 Mg Tab) 5 mg PO DAILY [facility] Stop: 02/09/22 08:59 Last Admin: 01/11/22 10:19 Dose: 5 mg Meclizine HCl (Meclizine Hcl 25 Mg Tab) 25 mg PO TID PRN PRN Reason: Vertigo Stop: 02/08/22 15:48 Metoprolol Tartrate (Metoprolol Tartrate 25 Mg Tab) 25 mg PO BID [facility] Stop: 02/08/22 20:59 Last Admin: 01/11/22 10:20 Dose: 25 mg Ondansetron HCl (Ondansetron Inj 2 Mg/Ml 2 Ml Vial) 4 mg IV Q6H PRN PRN Reason: Nausea Stop: 02/08/22 15:27 Pantoprazole Sodium (Pantoprazole 40 Mg Tab) 40 mg PO BID [facility] Stop: 02/10/22 10:29 Polyethylene Glycol (Polyethylene (Miralax) 17 Gm Pack) 17 gm PO DAILY PRN PRN Reason: Constipation Stop: 02/08/22 15:27 Last Admin: 01/10/22 08:58 Dose: 17 gm Rosuvastatin Calcium (Rosuvastatin Calcium 20 Mg Tab) 40 mg PO HS [facility] Stop: 02/08/22 20:59 Last Admin: 01/10/22 20:51 Dose: 40 mg (1) CAD (coronary atherosclerotic disease) Associated angina: unspecified whether angina present Coronary Disease- Associated Artery/Lesion type: unspecified vessel or lesion type [place] vs. transplanted heart: [place] heart Qualified Code(s): I25.10 - Atherosclerotic heart disease of [place] coronary artery without angina pectoris
[2022-01-11] MEDS: PANTOprazole 40 MG TAB PO SCH ×2 (10:58→20:24)
[2022-01-11] MEDS: CLOPIDOGREL BISULFATE 75 MG TAB PO SCH (10:59)
[2022-01-11] MEDS: GABAPENTIN 100 MG CAP PO SCH ×2 (12:05→20:25)
--- NOTE | 2022-01-11 14:42 | Hospitalist Progress Note ---
Date of Service January 11, 2022 Assessment & Plan (1) Chest pain: (2) Bradycardia: (3) History of coronary artery bypass graft: (4) ROMA (obstructive sleep apnea): (5) Hyperlipidemia: (6) Generalized anxiety disorder: (7) COPD (chronic obstructive pulmonary disease): Plan This is a 66yo M with a PMH of CAD, s/p SALOME and CABG x 4 in December 2020, COPD, HTN, HLD and other medical problems listed below who presents with chest pain starting this morning. Chest pain Recurrent CP over past [address] Carl concerned for new onset angina and recommended dobutamine stress echo Initial EKG without changes, HS troponin negative, CXR without acute procrss Echo from Jan 2021 with preserved EF 54%, mild concentric LVH, grade 1 diastolic dysfunction, moderate AV sclerosis without stenosis Telemetry monitoring, trend troponin, NPO @ [facility] for dobutamine stress test, 2D echo, routine cardiology consult Avoid ntg given significant hypotensive response in ED with hypoxia (and history of syncope during past administration, per patient) IV toradol x1 and PRN tylenol for pain control Supplemental O2 PRN Still having chest pain off and on without any other associated symptoms Appreciate cardiology input and recommendation for cardiac cath tomorrow 01/11/2022 Status post cardiac catheterization -Patient has 2 of his 4 bypass grafts closed. -The saphenous vein graft to the right coronary and OM are closed. -The ERICA to the LAD and saphenous vein graft to OM are patent and supplying excellent flow -Medical management contemplated but the patient cannot have any nitro -Protonix has been started to alleviate GI symptoms -We will ask for PT and OT evaluation Coronary artery disease History of CABG x 4 in December [address] Carl Continue aspirin, statin, lopressor - hold Lopressor in AM before stress test Serial troponins were unremarkable Given the complex cardiac history he will have cardiac cath tomorrow ROMA (obstructive sleep apnea) Biipap HS with recommended settings COPD (chronic obstructive pulmonary disease) At baseline, albuterol inh PRN DVT Ppx: SQ heparin Code status: FULL PCP: Pilgram Dispo: PCU Admission and Anticipated Discharge Date Admission Date: January 09, 2022 Subjective 01/10/2022 The patient was seen and examined in telemetry unit He complains of occasional pain in the precordium without any other associated symptoms Denies any abdominal pain, nausea no vomiting Denies any shortness of breath at rest 01/11/2022 The patient was seen and examined in telemetry unit He is a status post cardiac cath and remains stable following the procedure He was noted to have blockage of two bypass grafts and will continue with medical management Review of Systems Review of Systems: All systems reviewed and are unremarkable except as noted below Physical Exam Physical Exam: Lying in bed comfortably Constitutional: well developed, well nourished, + ill appearing and + obese Eyes: PERRL, conjunctivae normal, anicteric sclerae ENMT: external ear and nose normal, oropharynx normal Neck: trachea midline, no thyromegaly Respiratory: no respiratory distress Auscultation: + diminished lung sounds and + crackles (Minimal crackles at the bases) Cardiovascular: Rate/Rhythm: regular rate and regular rhythm; not tachycardic Heart Sounds: normal S1 and normal S2; no murmur Gastrointestinal (Abdomen): Inspection/Auscultation: normal bowel sounds; abdomen not distended Percussion/Palpation: abdomen soft; abdomen nontender Musculoskeletal: No acute distress with Neurologic: Alert, awake and oriented x3. Lymphatic: no cervical or axillary lymphadenopathy Results & Data Results & Data ([facility]) Vital Signs (Past 12 Hours) Vital Signs Temp Pulse Pulse Pulse Resp BP Pulse Ox 01/11/22 12:30 53 L 18 129/79 95 01/11/22 12:00 55 L 22 118/74 97 01/11/22 11:30 55 L 20 124/68 98 01/11/22 11:00 52 L 20 114/73 96 01/11/22 10:30 55 L 18 127/75 97 01/11/22 10:15 56 L 18 108/69 95 01/11/22 10:00 36.6 C 59 L 18 117/76 95 01/11/22 09:45 65 16 137/73 97 01/11/22 09:30 63 16 129/78 97 01/11/22 08:41 59 L 01/11/22 07:30 01/11/22 07:50 36.9 C 66 18 138/75 95 01/11/22 03:45 36.5 C 58 L 18 112/70 94 O2 Del Method 01/11/22 12:30 Room Air 01/11/22 12:00 Room Air 01/11/22 11:30 Room Air 01/11/22 11:00 Room Air 01/11/22 10:30 Room Air 01/11/22 10:15 Room Air 01/11/22 10:00 Room Air 01/11/22 09:45 Room Air 01/11/22 09:30 Room Air 01/11/22 08:41 01/11/22 07:30 Room Air 01/11/22 07:50 Room Air 01/11/22 03:45 Room Air Medications Administered Current Inpatient Medications Acetaminophen (Acetaminophen 325 Mg Tab) 650 mg PO Q4H PRN PRN Reason: Pain or Fever Stop: 02/08/22 15:27 Al Hydrox/Mg Hydrox/Simethicone (Aluminum/Magnesium Susp 30 Ml Udc) 15 ml PO Q4H PRN PRN Reason: Dyspepsia Stop: 02/08/22 15:27 Albuterol (Albuterol Hfa 8 Gm Inhaler) 2 puffs INH Q6R PRN PRN Reason: Shortness Of Breath Stop: 02/08/22 15:48 Clopidogrel Bisulfate (Clopidogrel Bisulfate 75 Mg Tab) 75 mg PO QAM [facility] Stop: 02/10/22 10:44 Last Admin: 01/11/22 10:59 Dose: 75 mg Cyclobenzaprine HCl (Cyclobenzaprine Hcl 10 Mg Tab) 10 mg PO BID PRN PRN Reason: Muscle Spasm Stop: 02/08/22 15:48 Fluticasone Propionate (Fluticasone Propionate Na Spr 16 Gm Btl) 2 sprays KYA DAILY PRN PRN Reason: ALLERGIES Stop: 02/08/22 15:48 Gabapentin (Gabapentin 100 Mg Cap) 100 mg PO BID [facility] Stop: 02/08/22 20:59 Last Admin: 01/11/22 12:05 Dose: 100 mg Heparin Sodium (Porcine) (Heparin Sod 5,000 Unit/0.5 Ml Vial) 5,000 units SQ Q8 [facility] Stop: 02/08/22 15:44 Last Admin: 01/11/22 14:07 Dose: 5,000 units Sodium Chloride (Nss 1000ml) 1,000 mls @ 99 mls/hr IV .Q10H7M [facility] Stop: 02/10/22 00:00 Last Admin: 01/11/22 11:47 Dose: 99 mls/hr Lisinopril (Lisinopril 5 Mg Tab) 5 mg PO DAILY [facility] Stop: 02/09/22 08:59 Last Admin: 01/11/22 10:19 Dose: 5 mg Meclizine HCl (Meclizine Hcl 25 Mg Tab) 25 mg PO TID PRN PRN Reason: Vertigo Stop: 02/08/22 15:48 Metoprolol Tartrate (Metoprolol Tartrate 25 Mg Tab) 25 mg PO BID [facility] Stop: 02/08/22 20:59 Last Admin: 01/11/22 10:20 Dose: 25 mg Ondansetron HCl (Ondansetron Inj 2 Mg/Ml 2 Ml Vial) 4 mg IV Q6H PRN PRN Reason: Nausea Stop: 02/08/22 15:27 Pantoprazole Sodium (Pantoprazole 40 Mg Tab) 40 mg PO BID [facility] Stop: 02/10/22 10:29 Last Admin: 01/11/22 10:58 Dose: 40 mg Polyethylene Glycol (Polyethylene (Miralax) 17 Gm Pack) 17 gm PO DAILY PRN PRN Reason: Constipation Stop: 02/08/22 15:27 Last Admin: 01/10/22 08:58 Dose: 17 gm Rosuvastatin Calcium (Rosuvastatin Calcium 20 Mg Tab) 40 mg PO HS [facility] Stop: 02/08/22 20:59 Last Admin: 01/10/22 20:51 Dose: 40 mg (1) Chest pain Chest pain type: unspecified Qualified Code(s): R07.9 - Chest pain, unspecified (2) COPD (chronic obstructive pulmonary disease) COPD type: COPD with acute exacerbation Qualified Code(s): J44.1 - Chronic obstructive pulmonary disease with (acute) exacerbation
[2022-01-11] MEDS: ROSUVASTATIN CALCIUM 20 MG TAB PO SCH (20:24)
[2022-01-11] MEDS ORDERED: Nursing to Pharmacy Communication SCH (23:45)
[2022-01-12] MEDS: HEPARIN SOD 5,000 UNIT/0.5 ML VIAL SQ SCH (05:02)
[2022-01-12] MEDS: POLYETHYLENE (MIRALAX) 17 GM PACK PO PRN (05:02)
[2022-01-12] MEDS: METOPROLOL TARTRATE 25 MG TAB PO SCH (08:19)
[2022-01-12] MEDS: PANTOprazole 40 MG TAB PO SCH (08:19)
[2022-01-12] MEDS: CLOPIDOGREL BISULFATE 75 MG TAB PO SCH (08:19)
[2022-01-12] MEDS: lisinopril 5 MG TAB PO SCH (08:19)
[2022-01-12] MEDS: GABAPENTIN 100 MG CAP PO SCH (08:19)
--- NOTE | 2022-01-12 08:42 | Cardiology Progress Note ---
Date of Service January 12, 2022 Assessment & Plan (1) Precordial chest pain: (2) SOB (shortness of breath): (3) CAD (coronary atherosclerotic disease): (4) History of coronary artery bypass graft: (5) Metabolic syndrome: Plan Believe the patient can be discharged today. I have arranged follow-up through our clinic. He should go home on the current medications including Protonix 40 mg daily. I think that some of his pain may be related to a history of severe GERD. I would not send him home on the Pepcid or Carafate. He will remain on Plavix and I think the aspirin should be discontinued. I have also added amlodipine 2.5 mg daily to his medical regiment. Unfortunately, he states he cannot take nitrates because they cause hypotension and he passes out so I guess a calcium channel tahmina is a good alternative. Admission and Anticipated Discharge Date Admission Date: January 09, 2022 Subjective The patient had an uneventful night. No new cardiac complaints. Review of Systems Review of Systems: Review of Systems: See HPI for pertinent positives. All other 10 point review of systems are negative. Physical Exam Physical Exam: General: no acute distress and stated age Head: normocephalic, no masses, lesions, tenderness or abnormalities Eyes: conjunctiva are pink and non-injected, sclera clear Neck: supple, no adenopathy, no bruits, normal jugular venous pulse, no hepatojugular reflux Chest: normal shape and normal respiratory effort Lungs: clear to auscultation and percussion Cardiac Exam: - regular rate & rhythm, no murmurs gallops or rubs - normal S1, normal S2 Pulses: 2(+) throughout Abdomen: abdomen soft, non-tender, no abnormal masses and no hepatosplenomegaly Musculoskeletal: no gait disturbance, no joint inflammation, no deforming arthritis Extremities: no edema and no cyanosis Neuro: grossly normal exam Results & Data ([facility]) Vital Signs (Past 12 Hours) Vital Signs Temp Pulse Pulse Resp BP BP Pulse Ox 01/12/22 08:01 36.8 C 62 18 135/85 97 01/12/22 03:32 36.9 C 60 17 105/60 96 01/11/22 23:37 36.8 C 56 L 17 126/74 96 01/11/22 22:16 60 O2 Del Method 01/12/22 08:01 Room Air 01/12/22 03:32 Room Air 01/11/22 23:37 Room Air 01/11/22 22:16 Medications Administered Current Inpatient Medications Acetaminophen (Acetaminophen 325 Mg Tab) 650 mg PO Q4H PRN PRN Reason: Pain or Fever Stop: 02/08/22 15:27 Al Hydrox/Mg Hydrox/Simethicone (Aluminum/Magnesium Susp 30 Ml Udc) 15 ml PO Q4H PRN PRN Reason: Dyspepsia Stop: 02/08/22 15:27 Albuterol (Albuterol Hfa 8 Gm Inhaler) 2 puffs INH Q6R PRN PRN Reason: Shortness Of Breath Stop: 02/08/22 15:48 Amlodipine Besylate (Amlodipine Besylate 5 Mg Tab) 2.5 mg PO QAM [facility] Stop: 02/11/22 08:59 Clopidogrel Bisulfate (Clopidogrel Bisulfate 75 Mg Tab) 75 mg PO QAM [facility] Stop: 02/10/22 10:44 Last Admin: 01/12/22 08:19 Dose: 75 mg Cyclobenzaprine HCl (Cyclobenzaprine Hcl 10 Mg Tab) 10 mg PO BID PRN PRN Reason: Muscle Spasm Stop: 02/08/22 15:48 Fluticasone Propionate (Fluticasone Propionate Na Spr 16 Gm Btl) 2 sprays KYA DAILY PRN PRN Reason: ALLERGIES Stop: 02/08/22 15:48 Gabapentin (Gabapentin 100 Mg Cap) 100 mg PO BID [facility] Stop: 02/08/22 20:59 Last Admin: 01/12/22 08:19 Dose: 100 mg Heparin Sodium (Porcine) (Heparin Sod 5,000 Unit/0.5 Ml Vial) 5,000 units SQ Q8 [facility] Stop: 02/08/22 15:44 Last Admin: 01/12/22 05:02 Dose: 5,000 units Sodium Chloride (Nss 1000ml) 1,000 mls @ 99 mls/hr IV .Q10H7M [facility] Stop: 02/10/22 00:00 Last Admin: 01/11/22 23:30 Dose: 99 mls/hr Lisinopril (Lisinopril 5 Mg Tab) 5 mg PO DAILY [facility] Stop: 02/09/22 08:59 Last Admin: 01/12/22 08:19 Dose: 5 mg Meclizine HCl (Meclizine Hcl 25 Mg Tab) 25 mg PO TID PRN PRN Reason: Vertigo Stop: 02/08/22 15:48 Metoprolol Tartrate (Metoprolol Tartrate 25 Mg Tab) 25 mg PO BID [facility] Stop: 02/08/22 20:59 Last Admin: 01/12/22 08:19 Dose: 25 mg Ondansetron HCl (Ondansetron Inj 2 Mg/Ml 2 Ml Vial) 4 mg IV Q6H PRN PRN Reason: Nausea Stop: 02/08/22 15:27 Pantoprazole Sodium (Pantoprazole 40 Mg Tab) 40 mg PO DAILY [facility] Stop: 02/11/22 08:59 Polyethylene Glycol (Polyethylene (Miralax) 17 Gm Pack) 17 gm PO DAILY PRN PRN Reason: Constipation Stop: 02/08/22 15:27 Last Admin: 01/12/22 05:02 Dose: 17 gm Rosuvastatin Calcium (Rosuvastatin Calcium 20 Mg Tab) 40 mg PO HS [facility] Stop: 02/08/22 20:59 Last Admin: 01/11/22 20:24 Dose: 40 mg (1) CAD (coronary atherosclerotic disease) Associated angina: unspecified whether angina present Coronary Disease- Associated Artery/Lesion type: unspecified vessel or lesion type [place] vs. transplanted heart: [place] heart Qualified Code(s): I25.10 - Atherosclerotic heart disease of [place] coronary artery without angina pectoris
[2022-01-12] MEDS ORDERED: PANTOprazole 40 MG TAB PO SCH (09:00)
[2022-01-12] MEDS ORDERED: amLODIPine BESYLATE 5 MG TAB PO SCH (09:00)
--- NOTE | 2022-01-12 11:45 | Hospitalist Progress Note ---
Date of Service January 12, 2022 Assessment & Plan (1) Chest pain: (2) Bradycardia: (3) History of coronary artery bypass graft: (4) ROMA (obstructive sleep apnea): (5) Hyperlipidemia: (6) Generalized anxiety disorder: (7) COPD (chronic obstructive pulmonary disease): Plan This is a 66yo M with a PMH of CAD, s/p SALOME and CABG x 4 in December 2020, COPD, HTN, HLD and other medical problems listed below who presents with chest pain starting this morning. Chest pain Recurrent CP over past [address] Carl concerned for new onset angina and recommended dobutamine stress echo Initial EKG without changes, HS troponin negative, CXR without acute procrss Echo from Jan 2021 with preserved EF 54%, mild concentric LVH, grade 1 diastolic dysfunction, moderate AV sclerosis without stenosis Telemetry monitoring, trend troponin, NPO @ [facility] for dobutamine stress test, 2D echo, routine cardiology consult Avoid ntg given significant hypotensive response in ED with hypoxia (and history of syncope during past administration, per patient) IV toradol x1 and PRN tylenol for pain control Supplemental O2 PRN Still having chest pain off and on without any other associated symptoms Appreciate cardiology input and recommendation for cardiac cath tomorrow 01/11/2022 No more chest pain and remains hemodynamically stable status post cardiac cath Medications will be advised as per cardiology.-Protonix 40 mg daily, will not take any Pepcid or Carafate, will continue with Plavix without any aspirin and amlodipine 2.5 mg daily. No NTG or nitro in any form He will be discharged home this afternoon Status post cardiac catheterization -Patient has 2 of his 4 bypass grafts closed. -The saphenous vein graft to the right coronary and OM are closed. -The ERICA to the LAD and saphenous vein graft to OM are patent and supplying excellent flow -Medical management contemplated but the patient cannot have any nitro -Protonix has been started to alleviate GI symptoms -We will ask for PT and OT evaluation -Has been ambulating without any issue Coronary artery disease History of CABG x 4 in December [address] Carl Continue aspirin, statin, lopressor - hold Lopressor in AM before stress test Serial troponins were unremarkable Status post cardiac cath and the report is in chart ROMA (obstructive sleep apnea) Biipap HS with recommended settings COPD (chronic obstructive pulmonary disease) At baseline, albuterol inh PRN DVT Ppx: SQ heparin Code status: FULL PCP: Ghanshyam Dispo: PCU Admission and Anticipated Discharge Date Admission Date: January 09, 2022 Subjective 01/10/2022 The patient was seen and examined in telemetry unit He complains of occasional pain in the precordium without any other associated symptoms Denies any abdominal pain, nausea no vomiting Denies any shortness of breath at rest 01/11/2022 The patient was seen and examined in telemetry unit He is a status post cardiac cath and remains stable following the procedure He was noted to have blockage of two bypass grafts and will continue with medical management 01/12/2022 The patient was seen and examined in telemetry unit He has been stable and denies any more chest pain Denies any abdominal pain nausea or vomiting Is physically and mentally ready to go home Review of Systems Review of Systems: All systems reviewed and are unremarkable except as noted below Physical Exam Physical Exam: Lying in bed comfortably Constitutional: well developed, well nourished, + ill appearing and + obese Eyes: PERRL, conjunctivae normal, anicteric sclerae ENMT: external ear and nose normal, oropharynx normal Neck: trachea midline, no thyromegaly Respiratory: no respiratory distress Auscultation: + diminished lung sounds and + crackles (Minimal crackles at the bases) Cardiovascular: Rate/Rhythm: regular rate and regular rhythm; not tachycardic Heart Sounds: normal S1 and normal S2; no murmur Gastrointestinal (Abdomen): Inspection/Auscultation: normal bowel sounds; a bdomen not distended Percussion/Palpation: abdomen soft; abdomen nontender Musculoskeletal: No acute arthritis in any joint Neurologic: Alert, awake and oriented x3. No focal sensory or motor deficit appreciated Psychiatric: A+Ox3, euthymic affect Lymphatic: no cervical or axillary lymphadenopathy Results & Data Results & Data ([facility]) Vital Signs (Past 12 Hours) Vital Signs Temp Pulse Resp BP Pulse Ox O2 Del Method 01/12/22 08:01 36.8 C 62 18 135/85 97 Room Air 01/12/22 03:32 36.9 C 60 17 105/60 96 Room Air Medications Administered Current Inpatient Medications Acetaminophen (Acetaminophen 325 Mg Tab) 650 mg PO Q4H PRN PRN Reason: Pain or Fever Stop: 02/08/22 15:27 Al Hydrox/Mg Hydrox/Simethicone (Aluminum/Magnesium Susp 30 Ml Udc) 15 ml PO Q4H PRN PRN Reason: Dyspepsia Stop: 02/08/22 15:27 Albuterol (Albuterol Hfa 8 Gm Inhaler) 2 puffs INH Q6R PRN PRN Reason: Shortness Of Breath Stop: 02/08/22 15:48 Amlodipine Besylate (Amlodipine Besylate 5 Mg Tab) 2.5 mg PO QAM [facility] Stop: 02/11/22 08:59 Last Admin: 01/12/22 10:11 Dose: 2.5 mg Clopidogrel Bisulfate (Clopidogrel Bisulfate 75 Mg Tab) 75 mg PO QAM [facility] Stop: 02/10/22 10:44 Last Admin: 01/12/22 08:19 Dose: 75 mg Cyclobenzaprine HCl (Cyclobenzaprine Hcl 10 Mg Tab) 10 mg PO BID PRN PRN Reason: Muscle Spasm Stop: 02/08/22 15:48 Fluticasone Propionate (Fluticasone Propionate Na Spr 16 Gm Btl) 2 sprays KYA DAILY PRN PRN Reason: ALLERGIES Stop: 02/08/22 15:48 Gabapentin (Gabapentin 100 Mg Cap) 100 mg PO BID [facility] Stop: 02/08/22 20:59 Last Admin: 01/12/22 08:19 Dose: 100 mg Heparin Sodium (Porcine) (Heparin Sod 5,000 Unit/0.5 Ml Vial) 5,000 units SQ Q8 [facility] Stop: 02/08/22 15:44 Last Admin: 01/12/22 05:02 Dose: 5,000 units Lisinopril (Lisinopril 5 Mg Tab) 5 mg PO DAILY [facility] Stop: 02/09/22 08:59 Last Admin: 01/12/22 08:19 Dose: 5 mg Meclizine HCl (Meclizine Hcl 25 Mg Tab) 25 mg PO TID PRN PRN Reason: Vertigo Stop: 02/08/22 15:48 Metoprolol Tartrate (Metoprolol Tartrate 25 Mg Tab) 25 mg PO BID [facility] Stop: 02/08/22 20:59 Last Admin: 01/12/22 08:19 Dose: 25 mg Ondansetron HCl (Ondansetron Inj 2 Mg/Ml 2 Ml Vial) 4 mg IV Q6H PRN PRN Reason: Nausea Stop: 02/08/22 15:27 Pantoprazole Sodium (Pantoprazole 40 Mg Tab) 40 mg PO DAILY [facility] Stop: 02/11/22 08:59 Last Admin: 01/12/22 08:45 Dose: Not Given Polyethylene Glycol (Polyethylene (Miralax) 17 Gm Pack) 17 gm PO DAILY PRN PRN Reason: Constipation Stop: 02/08/22 15:27 Last Admin: 01/12/22 05:02 Dose: 17 gm Rosuvastatin Calcium (Rosuvastatin Calcium 20 Mg Tab) 40 mg PO HS [facility] Stop: 02/08/22 20:59 Last Admin: 01/11/22 20:24 Dose: 40 mg (1) Chest pain Chest pain type: unspecified Qualified Code(s): R07.9 - Chest pain, unspecified (2) COPD (chronic obstructive pulmonary disease) COPD type: COPD with acute exacerbation Qualified Code(s): J44.1 - Chronic obstructive pulmonary disease with (acute) exacerbation
--- NOTE | 2022-01-12 18:30 | Discharge Summary ---
Date of Service January 12, 2022 Admission HPI Per Admitting Provider This is a 66yo M with a PMH of CAD, s/p SALOME and CABG x 4 in December 2020, COPD, HTN, HLD and other medical problems listed below who presents with chest pain starting this morning. Endorses left-sided chest discomfort that radiates to left arm with activity that has been intermittent over the past 6 weeks. First noticed chest pain when getting ready around the house and worsened while making his breakfast. Patient endorses sharp chest pain under her left breastbone with a tingling pain sensation in left arm. Also became diaphoretic, nauseous and vomited twice. Came into ED for further evaluation. Has been seen by Dr. Carl in cardiology clinic last week, who is concerned that recent chest pain with activity is consistent with new onset angina and recommended dobutamine stress echo. Patient received SL in ED and became significantly hypotensive. BP improved to 105/60 with IV fluids. Currently comfortable with reduced pain, 2/10. Pain under L nipple reproducible on exam. No fever, chills, lightheadedness, SOB, wheezing, N/V/D, abdominal pain, dysuria, diarrhea or constipation. Admission Exam Per Admitting Provider Physical Exam: General Appearance:WD/WN, vitals as above, NAD, sitting up in bed, obese Head: normocephalic, atraumatic Eyes:normal inspection, PERRL, conjunctivae normal, anicteric sclerae ENT: external ear and nose normal, oropharynx normal Neck: normal visual inspection, trachea midline, no thyromegaly Respiratory:normal respiratory effort, lungs clear to auscultation, no wheeze, rales, rhonchi. No accessory muscle use Cardiovascular: regular rate, rhythm, no murmur, normal peripheral pulses, no BLE edema. Vessels: no JVD Chest: + reproducible pain inferior to L nipple Abdomen/GI: normal bowel sounds, soft, nontender, no hepatosplenomegaly Extremities/Musculoskeletal: no cyanosis or clubbing, extremities motor strength 5/5 Neurologic: PERRL, EOMI, accommodation nl, no face palsy, no dysarthria, CN's II-XI intact bilaterally and moves all extremities Psychiatric:A+Ox3, euthymic affect Skin: no rashes, normal color, warm/dry Principal Diagnosis Chest pain-no ACS and is status post cardiac cath, CAD, GERD, ROMA on BiPAP, COPD Discharge Exam Lying in bed comfortably Constitutional well developed, well nourished, + ill appearing and + obese Eyes PERRL, conjunctivae normal, anicteric sclerae ENMT external ear and nose normal, oropharynx normal Neck trachea midline, no thyromegaly Respiratory no respiratory distress Auscultation: + diminished lung sounds and + crackles (Minimal crackles at the bases) Cardiovascular Rate/Rhythm: regular rate and regular rhythm; not tachycardic Heart Sounds: normal S1 and normal S2; no murmur Gastrointestinal (Abdomen) Inspection/Auscultation: normal bowel sounds; abdomen not distended Percussion/Palpation: abdomen soft; abdomen nontender Psychiatric A+Ox3, euthymic affect Lymphatic no cervical or axillary lymphadenopathy Discharge Data Allergies Allergy/AdvReac Type Severity Reaction Status Date / Time tramadol Allergy Intermediate itching Verified 01/09/22 13:06 nitroglycerin AdvReac Severe Hypotension Verified 01/09/22 14:15 hydrocodone AdvReac Intermediate DIZZY/NAUSE Verified 01/09/22 13:06 A Consultations 01/09/22 13:00 ED Decision to Admit Stat 01/09/22 15:47 Consult Cardiology Routine Procedures Performed Operation Date: 01/11/22 08:00 Actual Procedures p Cineradiography w/Routine Exam - Antonio Carl, DO s Cath, Left w/Cors Vent Grafts - Antonio Carl, Ordered Studies 01/11/22 07:49 CL Cath Imgs for PACS use only Routine Hospital Course (1) Chest pain: (2) Bradycardia: (3) History of coronary artery bypass graft: (4) ROMA (obstructive sleep apnea): (5) Hyperlipidemia: (6) Generalized anxiety disorder: (7) COPD (chronic obstructive pulmonary disease): Plan This is a 66yo M with a PMH of CAD, s/p SALOME and CABG x 4 in December 2020, COPD, HTN, HLD and other medical problems listed below who presents with chest pain starting this morning. Chest pain Recurrent CP over past [address] Carl concerned for new onset angina and recommended dobutamine stress echo Initial EKG without changes, HS troponin negative, CXR without acute procrss Echo from Jan 2021 with preserved EF 54%, mild concentric LVH, grade 1 diastolic dysfunction, moderate AV sclerosis without stenosis Telemetry monitoring, trend troponin, NPO @ [facility] for dobutamine stress test, 2D echo, routine cardiology consult Avoid ntg given significant hypotensive response in ED with hypoxia (and history of syncope during past administration, per patient) IV toradol x1 and PRN tylenol for pain control Supplemental O2 PRN Still having chest pain off and on without any other associated symptoms Appreciate cardiology input and recommendation for cardiac cath tomorrow 01/11/2022 No more chest pain and remains hemodynamically stable status post cardiac cath Medications will be advised as per cardiology.-Protonix 40 mg daily, will not take any Pepcid or Carafate, will continue with Plavix without any aspirin and amlodipine 2.5 mg daily. No NTG or nitro in any form He will be discharged home this afternoon Status post cardiac catheterization -Patient has 2 of his 4 bypass grafts closed. -The saphenous vein graft to the right coronary and OM are closed. -The ERICA to the LAD and saphenous vein graft to OM are patent and supplying excellent flow -Medical management contemplated but the patient cannot have any nitro -Protonix has been started to alleviate GI symptoms -We will ask for PT and OT evaluation -Has been ambulating without any issue Coronary artery disease History of CABG x 4 in December [address] Carl Continue aspirin, statin, lopressor - hold Lopressor in AM before stress test Serial troponins were unremarkable Status post cardiac cath and the report is in chart ROMA (obstructive sleep apnea) Biipap HS with recommended settings COPD (chronic obstructive pulmonary disease) At baseline, albuterol inh PRN DVT Ppx: SQ heparin Code status: FULL PCP: Pilgram Dispo: PCU Total Time Total Time Spent Total Time Spent (In Minutes): 35 minutes Discharge Plan Discharge Items Patient Disposition: Home - Self-Care Reason For Visit: CHEST PAIN Discharge Diagnosis: Chest pain-no ACS and is status post cardiac cath, CAD, GERD, ROMA on BiPAP, COPD Condition on Discharge: Fair Activity: Resume your previous activity Non-emergency contact: Primary Care Provider Call non-emergency contact if: you have any medication questions and your symptoms worsen Follow-up/Referrals: Antonio Carl DO [Branch Lead] - 01/29/22 10:30 am (Date & Time 01/29/2022 10:30 AM Provider Antonio Carl DO Department Cardiology, [facility] ) Goran Morrissey MD [Primary Care Provider] - 01/18/22 11:20 am (Date & Time 01/18/2022 11:20 AM Provider Goran Morrissey MD Department Family Medicine [facility] ) Diet: Heart Healthy Addtl Attending Provider Instructions: Please take precautions to avoid fall Take your medications as advised You will be prescribed Protonix 40 mg daily Do not take any Pepcid and/or Carafate Do not take anymore aspirin but continue with Plavix Do not take any nitro sublingual or oral Please keep appointments with your healthcare providers Pending Studies at Discharge: No Stand-Alone Forms: My [facility] Night Up, Smoking Cessation Medications and DC Order Prescriptions: New clopidogrel 75 mg Tablet 75 mg PO QAM Qty: 30 0RF amlodipine [Norvasc] 5 mg Tablet 2.5 mg PO QAM Qty: 30 0RF pantoprazole 40 mg Tablet,Delayed Release (Dr/Ec) 40 mg PO DAILY Qty: 30 0RF Continued gabapentin 100 mg capsule 100 mg PO BID meclizine 25 mg Tablet 25 mg PO TID PRN (Reason: Vertigo) fluticasone propionate 50 mcg/actuation spray,suspension 2 spray INTRANASAL DAILY PRN (Reason: ALLERGIES) cyclobenzaprine 10 mg tablet 10 mg PO BID PRN (Reason: Muscle Spasm) lisinopril 5 mg tablet 5 mg PO DAILY rosuvastatin 40 mg tablet 40 mg PO HS acetaminophen 325 mg tablet 650 mg PO Q6H PRN (Reason: Pain) ondansetron 4 mg tablet,disintegrating 4 mg PO Q8H PRN (Reason: nausea and vomiting) Qty: 30 0RF metoprolol tartrate 25 mg tablet 25 mg PO BID albuterol sulfate 90 mcg/actuation Hfa Aerosol Inhaler 2 puff INHALATION Q6H PRN (Reason: Shortness Of Breath) Discontinued aspirin 81 mg Tablet,Delayed Release (Dr/Ec) 81 mg PO DAILY nitroglycerin [Nitrostat] 0.4 mg Tablet, Sublingual 0.4 mg sublingual UD PRN (Reason: chest pain) Qty: 25 0RF Rx Instructions: 1 tablet under the tongue with chest pain and can repeat up to 3 in 5 minutes interval. sucralfate [Carafate] 100 mg/mL suspension 10 ml PO QID PRN (Reason: ABD PAIN/UPSET) Rx Instructions: swish in mouth and swallow; use after food/drink: May substitute tablets as a slurry. famotidine 20 mg tablet 20 mg PO BID PRN (Reason: Acid Reflux) Discharge Orders: Discharge Order (Routine); Ordered 01/12/22 Ordered By: Donnell Ríos/Other Patient Handouts: Taking Amlodipine, Cardiac Catheterization Dc Admission Data Admit Date/Time: 01/09/22 13:23 Attending Provider: Donnell Reagan Admit Provider: Donnell Reagan Primary Care Provider: Goran Morrissey Other Providers: Donnell Reagan ; Yovany Lloyd Other Interventions: Discharge Summary Assessment (RN) Last Done: 01/12/22 12:13
== END 2022-01-12 13:16 | disposition home or self-care (01) | DRG 287 ==
LOC: ED 11:11 → EDINP 13:23 → 2S 15:13

== ENCOUNTER 2024-06-17 07:59 | Inpatient (IN) ==
--- OUTSIDE RECORDS SUMMARY | 2024-06-17 08:05 | External Medical Summary | Summary of Care ---
Author Name Unknown Organization [facility] Address [address] [facility] [place] [place] [address] Phone [phone] Care Team Providers Care Underwriting Sales Representative Name Role Phone Tonia Rios MD Primary Care Provide r Reason for Visit * Reason Comments eRx-Medication Refill Encounter Details Date Type Department Care Team (Late st Contact Info) Description 03/13/2024 Refill Family Medicine [address] [place] [phone] Tonia Rios MD [address] [place] [address] [place] [phone] Gastro-esophageal reflux disease without esophagitis Allergies Active Allergy Reactions Criticality Noted Date Comments Doxycycline 10/25/2021 Nauseas was being tx for possible Lymes Nitroglycerin High 01/09/2022 Other reaction(s): Hypotension Oxycodone Other (Please comment) 10/01/2013 hallucinations Tramadol Hcl Itching 08/14/2012 documented as of this encounter (statuses as of 03/16/2024) Medications Medication Sig Dispensed Refills Start Date End Date Status Triamcinolone Acetonide 0.1 % External Ointment (ARISTOCORT)Indicati ons:Dermatitis APPLY TO SKIN TWICE A DAY FOR NO LONGER THAN 2 WEEKS 30 g 06/23/2020 Active Acetaminophen 500 MG Oral Tablet (Tylenol) Take 1 Tablet by mouth in the morning. Active Albuterol Sulfate HFA 108 (90 Base) MCG/ACT Inhalation Aerosol SolutionIndications: COPD, mild (HCC) TAKE 2 PUFFS BY MOUTH EVERY 4 TO 6 HOURS NEEDED 18 g 5 01/25/2022 Active Metoprolol Tartrate 25 MG Oral Tablet (Lopressor)Indicatio ns:Coronary artery disease involving [place] ir[place] coronary artery of [place] heart without angina pectoris TAKE 1 TABLET BY MOUTH TWICE A DAY 180 Tablet 3 03/07/2023 Active Clopidogrel Bisulfate 75 MG Oral Tablet (pLAVix)Indications: Coronary artery disease involving [place] ir[place] coronary artery of [place] heart without angina pectoris Take 1 Tablet by mouth in the morning. 90 Tablet 3 04/22/2023 Active Cyclobenzaprine HCl 10 MG Oral Tablet (Flexeril)Indication s:Spasm of muscle Take 1 Tablet by mouth 2 times a day as needed for Muscle spasms. 20 Tablet 1 06/27/2023 Active Ondansetron HCl 4 MG Oral TabletIndications:Na usea without vomiting Take 1 Tablet by mouth every 8 hours as needed for Nausea. 20 Tablet 06/27/2023 Active Pantoprazole Sodium 40 MG Oral Tablet Delayed Release (Protonix)Indication s:Gastro-esophageal reflux disease without esophagitis TAKE 1 TABLET BY MOUTH EVERY DAY IN THE MORNING 90 Tablet 1 12/17/2023 Active Rosuvastatin Calcium 40 MG Oral Tablet (Crestor)Indications :Hyperlipidemia with target LDL less than 100,Coronary artery disease involving [place] ir[place] coronary artery of [place] ir[place] heart without angina pectoris,Metabolic syndrome,Hx of CABG,Dyslipidemia, goal LDL below 70,ROMA (obstructive sleep apnea) TAKE 1 TABLET BY MOUTH EVERYDAY AT BEDTIME 90 Tablet 3 12/31/2023 Active Ezetimibe 10 MG Oral Tablet (Zetia)Indications:D yslipidemia, goal LDL below 70 Take 1 Tablet by mouth in the morning. 90 Tablet 3 01/06/2024 Active Lisinopril 5 MG Oral Tablet (Prinivil)Indication s:Coronary artery disease involving [place] ira coronary artery of [place] ir[place] heart without angina pectoris TAKE 1 TABLET BY MOUTH ONCE DAILY IN THE MORNING 90 Tablet 3 03/03/2024 Active Gabapentin 100 MG Oral Capsule (Neurontin)Indicatio ns:Migraine with aura and without status migrainosus, not intractable TAKE 1 CAPSULE BY MOUTH IN THE MORNING AND BEFORE BEDTIME 180 Capsule 1 03/13/2024 Active documented as of this encounter (statuses as of 03/16/2024) Active Problems Problem Noted Date Diagnosed Date Chronic obstructive pulmonary disease 12/27/2023 Prediabetes 12/27/2023 RBBB 06/27/2023 Pulmonary nodule, left 08/17/2022 Overview: 9 mm nodule LLL, recheck in 6 months, was 7 mm before Peripheral vascular disease 01/19/2022 Gastro-esophageal reflux disease without esophag itis 01/19/2022 Hypertensive heart disease without heart failure 01/15/2022 Primary hypertension 12/21/2021 ROMA on CPAP 05/09/2021 Diastolic dysfunction, left ventricle 02/07/2021 S/P CABG x 4 01/18/2021 Paroxysmal atrial fibrillation 01/11/2021 Migraine with aura and witho ut status migrainosus, not intractable 03/12/2018 Coronary artery disease invo lving [place] ira coronary artery of [place] ir[place] heart without angina pectoris 01/03/2017 Old [place] (myocardial infarction) 06/17/2016 Benign paroxysmal positional vertigo 05/26/2012 Overview: Admitted [place] for dizziness more likely dx is viral labyrinthitis Knee joint replacement status 08/05/2007 ADVANCE DIRECTIVE INFORMATION 05/18/2005 Overview: No, Advance Directive brochure given to patient. Metabolic syndrome 09/16/2003 Hyperlipidemia with target LDL less than 100 Overview: ICD-10 update of inactive term documented as of this encounter (statuses as of 03/16/2024) Resolved Problems Problem Noted Date Diagnosed Date Resolved Date COPD, group B, by GOLD 2017 classification 05/28/2022 06/25/2022 Overview: Per COPD GOLD Classification S/P CABG (coronary artery bypass graft) 01/12/2021 05/03/2021 Morbid obesity with BMI of 40.0-44.9, adult 12/21/2020 02/21/2022 Overview: 241 lbs Non-STEMI (non-ST elevated m yocardial infarction) 08/01/2016 05/31/2017 Overview: [facility], cathed, 2 stents CAD (coronary artery disease) 08/01/2016 05/31/2017 Closed fracture of lumbar vertebra 01/10/2011 05/31/2017 Overview: possible mild anterior compression fx T12 Obesity, Class II, BMI 35-39 .9, isolated (see actual BMI) 09/12/2009 04/26/2011 Overview: Per Obesity Taxonomy Dyslipidemia, goal to be determined 05/31/2009 12/16/2009 Overview: Per Lipid Taxonomy. Primary localized osteoarthrosis, lower leg 04/16/2007 05/31/2017 Generalized anxiety disorder 11/29/2006 05/31/2017 PURE HYPERCHOLESTEROLEM 05/29/2006 0906/2008 GENERAL OSTEOARTHROSIS 05/29/200607/15 Overview: Resolved per Duplicate Protocol #2. INT DERANGEMENT KNEE NOS 05/21/2006 Hypertrophic and atrophic condition of skin 05/18/2005 01/07/2018 Generalized osteoarthritis 05/16/2004 0 02/12/2013 Mixed dyslipidemia 09/16/2003 9 Overview: Per Lipid Taxonomy. Calculus of gallbladder with out mention of cholecystitis or obstruction 09/16/2003 10/03/2011 Overview: 2.6 cm gall stone OBESITY, UNSPECIFIED 08/31/2003 010 Overview: Per Obesity Taxonomy Elevated C-reactive protein (CRP) 08/31/2003 01/07/2018 Overview: CRP 6.85 Dyslipidemia, goal LDL below 130 10/01/2013 COPD, mild 05/31/2022 Overview: Per COPD GOLD Classification documented as of this encounter (statuses as of 03/16/2024) Immunizations Name Administration Dates Next Due COVID-19 mRNA, LNP-s, No Pre serve, 2-Dose Series (Tissuetech) 07/04/2021 COVID-19, LNP-s, No Preserve , Luis Eduardo-sucrose, Ages 12+ (Pfizer) 12/26/2021,07/25/2021 Covid-19, Mrna, Lnp-s, Pf, B ivalent, 30 Mcg, IM, 12 yrs and above (Pfizer) 06/28/2022 PPD 01/03/2009 Pneumococcal Conjugate Vacc, 13 Valent (Prevnar) 06/05/2018 Pneumococcal Polysaccharide PPV23 (Pneumovax) ,02/12/2013 Seasonal Influenza Virus Vac cine, Unspecified Formulation 04/26/2011,04/21/2010 Seasonal Influenza, Quadrivalent Hd (Fluzone Hd) 06/27/2023,04/13/2022 Seasonal Influenza, Trivalen t, (IIV3), with Preserv, (Fluzone) 04/26/2011,04/21/2010 TDAP (age 10 and older)(Boostrix) 01/07/2018 TDAP, Age 7 and older, IM (Adacel) 11/28/2007 Varicella Zoster Vaccine (Adult) 07/06/2013 documented as of this encounter Social History Tobacco Use Types Packs/Day Years Used Date Smoking Tobacco: Never Smokeless Tobacco: Never Alcohol Use Standard Drinks/Week Comments No 0 (1 standard drink = 0.6 oz pur e alcohol) PHQ-2 Answer Date Recorded PHQ Adult Total Score 1 10/26/2022 Hunger Vital Sign Answer Date Recorded Within the past 12 months, y ou worried that your food would run out before you got the money to buy more. Never true 10/27/19 23 Within the past 12 months, t he food you bought just didn't last and you didn't have money to get more. Never true 10/26/2022 Sex and Gender Information Value Date Recorded Sex Assigned at Male 10/24/2020 8:10 AM EDT Gender Identity Male 10/24/2020 8:10 AM EDT Sexual Orientation Straight 10/24/2020 8: 10 AM EDT Job Start Date Occupation Industry Not on file Not on file Not on file documented as of this encounter Functional Status Functional Status Response Date of Assess ment Are you deaf or do you have serious difficulty h earing? No 01/09/2021 Are you blind or do you have serious difficulty seeing, even when wearing glasses? No 01/09/2021 Do you have serious difficul ty walking or climbing stairs? (5 years old or older) Yes 01/17/2021 Do you have difficulty dress ing or bathing? (5 years old or older) No 01/09/2021 Because of a physical, menta l, or emotional condition, do you have difficulty doing errands alone such as visiting a doctor s office or shopping? (15 years old or older) No 01/10/20 21 Cognitive Status Response Date of Assessm ent Because of a physical, menta l, or emotional condition, do you have serious difficulty concentrating, remembering, or making decisions? (5 years old or older) No 01/09/2021 documented as of this encounter Miscellaneous Notes * Telephone Encounter - Belle Lima [facility] - 03/16/2024 8:09 AM EDTRefused Prescriptions: Disp Refills Pantoprazole Sodium 40 MG Oral Tablet Alee*90 Tab*1 Sig: TAKE 1TABLET BY MOUTH EVERY DAY IN THE MORNINGRefused By: BELLE LIMA for Refusal: Too soon---- documented in this encounter Plan of Treatment Upcoming Encounters Date Type Department Care Team (Late st Contact Info) Description 06/23/2024 8:00 AM EST Office Visit Urology, [facility] [address] [facility] [place] [address] Tahir Bentley MD [address] [place] [address] 09/03/2024 7:20 AM EDT Office Visit Family Medicine [address] [place] [phone] Tonia Rios MD [address] [place] [address] [place] [phone] Scheduled Procedures Name Priority Associated Diagnoses Date/Ti me COLONOSCOPY FLEXIBLE PROXIMAL DIAGNOSTIC Recall Hx of colonic polyps Health Maintenance Due Date Last Done Comments Cologuard 1998 Fecal Occult Blood Test 1998 Sigmoidoscopy 1998 Zoster Vaccines (2 of 3) 08/31/2013 07/06/2013 Adult Wellness Visit 10/27/2023 10/26/2022, 10/25/2021, 10/24/2020 Depression Screening 10/27/2023 10/26/2022 COVID-19 Vaccine ( season) 2024 06/28/2022, 12/26/2021, 07/25/2021, Additional history exists Influenza Vaccine (FLU shot) (#1) 2024 06/27/2023, 04/13/2022, 03/18/2018 (Refused), Additional history exists Colonoscopy 05/05/2024 05/05/2019, 04/17, 10/29/2013, Additional history exists Colorectal Cancer Screening 05/05/2024 GFR 06/27/2024 06/27/2023, 12/15, 12/21/2021, Additional history exists HbA1c 12/26/2024 12/27/2023, 06/17, 12/25/2022, Additional history exists O2 ASSESSMENT COMPLETED IN PAST YEAR FOR COPD 12/26/2024 12/27/2023 Albumin/Creatinine Ratio 10/26/2025 10/26/2022, 07/0 12/2020 DTap/Tdap Vaccines (3 - Td or Tdap) 01/08/2028 01/07/2018, 11/28/2007 RETIRED - COLONOSCOPY-EVERY 5 YRS AGES 18-100 Discontinued 05/05/2019, 05/05/2019, 10/29/2013, Additional history exists Pneumococcal Vaccine: 65+ Years Completed 06/22/2019, 06/05/2018, 02/12/2013 Alpha-1 Antitrypsin Completed 12/21/2020 HPV (Gardasil) Vaccine Aged Out No lo nger eligible based on patient's age to complete this topic Hepatitis B Vaccine Aged Out No longe r eligible based on patient's age to complete this topic MENINGOCOCCAL (MENACTRA/MENVEO) Aged Out No longer eligible based on patient's age to complete this topic documented as of this encounter Medical Devices Implanted Type Area Workday Financials Consultant Device Identifier Shelf Expiration Date Model / Serial / Lot Suture Steel 6 B&S19 M654g - [id number] Implanted:Qty: 4 on 01/11/2021 [place] Gar[place] [facility] [place] Sternum [place] : [employer] 09/14/2025 [id number] / / RDBCCT documented as of this encounter Visit Diagnoses Diagnosis Gastro-esophageal reflux disease without esophagitis Esophageal reflux documented in this encounter Advance Directives * Full Code (Latest Code Status on File) Date Activated Date Inactivated Comments 01/11/2021 1:55 PM 01/18/2021 5:39 PM This order re flects the patients wishes and were consensually agreed upon. * Full Code Date Activated Date Inactivated Comments 01/09/2021 10:50 PM 01/11/2021 1:45 PM This order reflects the patients wishes and were consensually agreed upon. Question Answer Comments Discussion of Advance Directives occurred with: Patient Does the patient have a Living Will? No Does the patient have Health Care Power of Attor cuauhtemoc? No Care Teams Underwriting Sales Representative Relationship Specialty Start Date End Date Tonia Rios MD [address] [place] [address] [place] [phone] PCP - General Family Medicine 12/31/23 documented as of this encounter
--- OUTSIDE RECORDS SUMMARY | 2024-06-17 08:05 | External Medical Summary | Summary of Care ---
Author Name Unknown Organization [facility] Address [address] [place] [address] Phone [phone] Care Team Providers Care Chiropractic Doctor Name Role Phone Loi Rios MD Primary Care Provide r Reason for Visit * Reason Comments eRx-Medication Refill Encounter Details Date Type Department Care Team (Late st Contact Info) Description 03/13/2024 Refill Family Medicine [address] [phone] Goran Morrissey MD [address] [place] [address] [place] [address] Migraine with aura and without status migrainosus, not intractable Allergies Active Allergy Reactions Criticality Noted Date Comments Doxycycline 10/25/2021 Nauseas was being tx for possible Lymes Nitroglycerin High 01/09/2022 Other reaction(s): Hypotension Oxycodone Other (Please comment) 10/01/2013 hallucinations Tramadol Hcl Itching 08/14/2012 documented as of this encounter (statuses as of 03/13/2024) Medications Medication Sig Dispensed Refills Start Date End Date Status Triamcinolone Acetonide 0.1 % External Ointment (ARISTOCORT)Indic ations:Dermatitis APPLY TO SKIN TWICE A DAY FOR NO LONGER THAN 2 WEEKS 30 g 06/23/2020 Active Acetaminophen 500 MG Oral Tablet (Tylenol) Take 1 Tablet by mouth in the morning. Active Albuterol Sulfate HFA 108 (90 Base) MCG/ACT Inhalation Aerosol SolutionIndicatio ns:COPD, mild (HCC) TAKE 2 PUFFS BY MOUTH EVERY 4 TO 6 HOURS NEEDED 18 g 5 01/25/2022 Active Metoprolol Tartrate 25 MG Oral Tablet (Lopressor)Indica tions:Coronary artery disease involving sob[place] coronary artery of soboba heart without angina pectoris TAKE 1 TABLET BY MOUTH TWICE A DAY 180 Tablet 3 03/07/2023 Active Clopidogrel Bisulfate 75 MG Oral Tablet (pLAVix)Indicatio ns:Coronary artery disease involving sob[place] coronary artery of soboba heart without angina pectoris Take 1 Tablet by mouth in the morning. 90 Tablet 3 04/22/2023 Active Cyclobenzaprine HCl 10 MG Oral Tablet (Flexeril)Indicat ions:Spasm of muscle Take 1 Tablet by mouth 2 times a day as needed for Muscle spasms. 20 Tablet 1 06/27/2023 Active Ondansetron HCl 4 MG Oral TabletIndications :Nausea without vomiting Take 1 Tablet by mouth every 8 hours as needed for Nausea. 20 Tablet 06/27/2023 Active Pantoprazole Sodium 40 MG Oral Tablet Delayed Release (Protonix)Indicat ions:Gastro-esoph ageal reflux disease without esophagitis TAKE 1 TABLET BY MOUTH EVERY DAY IN THE MORNING 90 Tablet 1 12/17/2023 Active Rosuvastatin Calcium 40 MG Oral Tablet (Crestor)Indicati ons:Hyperlipidemi a with target LDL less than 100,Coronary artery disease involving soboba coronary artery of soboba heart without angina pectoris,Metaboli c syndrome,Hx of CABG,Dyslipidemia , goal LDL below 70,ROMA (obstructive sleep apnea) TAKE 1 TABLET BY MOUTH EVERYDAY AT BEDTIME 90 Tablet 3 12/31/2023 Active Ezetimibe 10 MG Oral Tablet (Zetia)Indication s:Dyslipidemia, goal LDL below 70 Take 1 Tablet by mouth in the morning. 90 Tablet 3 01/06/2024 Active Lisinopril 5 MG Oral Tablet (Prinivil)Indicat ions:Coronary artery disease involving soboba coronary artery of soboba heart without angina pectoris TAKE 1 TABLET BY MOUTH ONCE DAILY IN THE MORNING 90 Tablet 3 03/03/2024 Active Gabapentin 100 MG Oral Capsule (Neurontin)Indica tions:Migraine with aura and without status migrainosus, not intractable TAKE 1 CAPSULE BY MOUTH IN THE MORNING AND BEFORE BEDTIME 180 Capsule 1 03/13/2024 Active Gabapentin 100 MG Oral Capsule (Neurontin)Indica tions:Migraine with aura and without status migrainosus, not intractable Take 1 Capsule by mouth in the morning and 1 Capsule before bedtime. 180 Capsule 1 06/27/2023 Discontinued documented as of this encounter (statuses as of 03/13/2024) Active Problems Problem Noted Date Diagnosed Date [...] intractable 03/12/2018 Coronary artery disease invo lving soboba coronary artery of soboba heart without angina pectoris 01/03/2017 Old [place] (myocardial infarction) 06/17/2016 Benign paroxysmal positional vertigo 05/26/2012 Overview: Admitted [place] for dizziness more likely dx is viral labyrinthitis Knee joint replacement status 08/05/2007 ADVANCE DIRECTIVE INFORMATION 05/18/2005 Overview: No, Advance Directive brochure given to patient. Metabolic syndrome 09/16/2003 Hyperlipidemia with target LDL less than 100 Overview: ICD-10 update of inactive term documented as of this encounter (statuses as of 03/13/2024) Resolved Problems Problem Noted Date Diagnosed Date Resolved Date COPD, group B, by GOLD 2017 classification 05/28/2022 06/25/2022 Overview: Per COPD GOLD Classification S/P CABG (coronary artery bypass graft) 01/12/2021 05/03/2021 Morbid obesity with BMI of 40.0-44.9, adult 12/21/2020 02/21/2022 Overview: 241 lbs Non-STEMI (non-ST elevated m yocardial infarction) 08/01/2016 05/31/2017 Overview: [facility], cathed, 2 stents CAD (coronary [...] anxiety disorder 11/29/2006 05/31/2017 PURE HYPERCHOLESTEROLEM 05/29/2006 09/06/2008 GENERAL OSTEOARTHROSIS 05/29/200607/15 Overview: Resolved per Duplicate [...] as of this encounter (statuses as of 03/13/2024) Immunizations Name Administration Dates Next Due COVID-19 mRNA, LNP-s, No Pre serve, 2-Dose Series (Pfizer) 07/04/2021 COVID-19, LNP-s, No Preserve , Luis [...] encounter Miscellaneous Notes * Telephone Encounter - Loi Rios MD - 03/13/2024 2:37 PM EDT Signed Prescriptions: Disp Refills Gabapentin 100 MG Oral Capsule (Neurontin) 180 Ca*1 Sig: TAKE 1 CAPSULE BY MOUTH IN THE MORNING AND BEFORE BEDTIME Authorizing Provider: LOI RIOS * Telephone Encounter - Yael Baires CMA - 03/13/2024 2:21 PM EDTPending Prescriptions: Disp Refills Gabapentin 100 MG Oral Capsule [Pharmacy M*180 Ca*1 Sig: TAKE 1 CAPSULE BY MOUTH IN THE MORNING AND BEFORE BEDTIME * Telephone Encounter - Emmanuel Lew - 03/13/2024 1:10 PM EDTPending Prescriptions: Disp Refills Gabapentin 100 MG Oral Capsule [Pharmacy M*180 Ca*1 Sig: TAKE 1 CAPSULE BY MOUTH IN THE MORNING AND BEFORE BEDTIME documented in this encounter Plan of Treatment Upcoming Encounters Date Type Department Care Team (Late st Contact Info) Description 06/23/2024 8:00 AM EST Office Visit Urology, [facility] [address] [facility] [place] [address] Tahir Bentley MD [address] [facility] [place] [address] 09/03/2024 7:20 AM EDT Office Visit Family Medicine [address] [place] [id number] Loi Rios MD [address] [place] [address] [place] [phone] Scheduled Procedures Name Priority Associated Diagnoses Date/Ti [...] this encounter Medical Devices Implanted Type Area Cook Morning Device Identifier Shelf Expiration Date Model / Serial / Lot Suture Steel 6 B&S19 [id number] - [id number] Implanted:Qty: 4 on 01/11/2021 by Antonio Garner MD at [place] [facility] [place]: Sternum JUSTUS : [employer] 09/14/2025 [id number] / / RDBCCT documented as of this encounter Visit Diagnoses Diagnosis Migraine with aura and without status migrainosus, not intractable Migraine with aura, without mention of intractable migraine without mention of status migrainosus documented in this encounter Advance Directives * [...] Power of Attor cuauhtemoc? No Care Teams Chiropractic Doctor Relationship Specialty Start Date End Date Loi Rios MD [address] [place] [address] [place] [address] PCP - General Family Medicine 12/31/23 documented as of this encounter
--- OUTSIDE RECORDS SUMMARY | 2024-06-17 08:05 | External Medical Summary | Summary of Care ---
Author Name Unknown Organization [facility] Address [address] [address] Phone [phone] Care Team Providers Care Big Data Lead Name Role Phone Tonia Rios MD Primary Care Provide r Reason for Visit * Reason Comments eRx-Medication Refill Encounter Details Date Type Department Care Team (Late st Contact Info) Description 03/03/2024 Refill Cardiology, [facility] [address] [place] [address] Sidra Sy CRNP [address] [place] [address] Coronary artery disease involving [place] coronary artery of [place] heart without angina pectoris Allergies Active Allergy Reactions Criticality Noted Date Comments Doxycycline 10/25/2021 Nauseas was being tx for possible Lymes Nitroglycerin High 01/09/2022 Other reaction(s): Hypotension Oxycodone Other (Please comment) 10/01/2013 hallucinations Tramadol Hcl Itching 08/14/2012 documented as of this encounter (statuses as of 03/03/2024) Medications Medication Sig Dispensed Refills Start Date [...] Oral Tablet (Lopressor)Indica tions:Coronary artery disease involving [place] coronary artery of [place] heart without angina pectoris TAKE 1 TABLET BY MOUTH TWICE A DAY 180 Tablet 3 03/07/2023 Active Clopidogrel Bisulfate 75 MG Oral Tablet (pLAVix)Indicatio ns:Coronary artery disease involving [place] coronary artery of [place] heart without angina pectoris Take 1 Tablet [...] needed for Nausea. 20 Tablet 06/27/2023 Active Gabapentin 100 MG Oral Capsule (Neurontin)Indica tions:Migraine with aura and without status migrainosus, not intractable Take 1 Capsule by mouth in the morning and 1 Capsule before bedtime. 180 Capsule 1 06/27/2023 Active Pantoprazole Sodium 40 MG Oral Tablet Delayed Release (Protonix)Indicat ions:Gastro-esoph ageal reflux disease without esophagitis TAKE 1 TABLET BY MOUTH EVERY DAY IN THE MORNING 90 Tablet 1 12/17/2023 Active Rosuvastatin Calcium 40 MG Oral Tablet (Crestor)Indicati ons:Hyperlipidemi a with target LDL less than 100,Coronary artery disease involving [place] coronary artery of [place] heart without angina pectoris,Metaboli c syndrome,Hx of CABG,Dyslipidemia , goal LDL below 70,ROMA (obstructive sleep apnea) TAKE 1 TABLET BY MOUTH EVERYDAY AT BEDTIME 90 Tablet 3 12/31/2023 Active Ezetimibe 10 MG Oral Tablet (Zetia)Indication s:Dyslipidemia, goal LDL below 70 Take 1 Tablet by mouth in the morning. 90 Tablet 3 01/06/2024 Active Lisinopril 5 MG Oral Tablet (Prinivil)Indicat ions:Coronary artery disease involving [place] coronary artery of [place] heart without angina pectoris TAKE 1 TABLET BY MOUTH ONCE DAILY IN THE MORNING 90 Tablet 3 03/03/2024 Active Lisinopril 5 MG Oral Tablet (Prinivil)Indicat ions:Coronary artery disease involving [place] coronary artery of [place] heart without angina pectoris Take 1 Tablet by mouth in the morning. In the morning.. 90 Tablet 3 04/22/2023 Discontinued documented as of this encounter (statuses as of 03/03/2024) Active Problems Problem Noted Date Diagnosed Date [...] intractable 03/12/2018 Coronary artery disease invo lving [place] coronary artery of [place] heart without angina pectoris 01/03/2017 [place] (myocardial infarction) 06/17/2016 Benign paroxysmal positional vertigo 05/26/2012 Overview: Admitted [place] for dizziness more likely dx is viral labyrinthitis Knee joint replacement status 08/05/2007 ADVANCE DIRECTIVE INFORMATION 05/18/2005 Overview: No, Advance Directive brochure given to patient. Metabolic syndrome 09/16/2003 Hyperlipidemia with target LDL less than 100 Overview: ICD-10 update of inactive term documented as of this encounter (statuses as of 03/03/2024) Resolved Problems Problem Noted Date Diagnosed Date Resolved Date COPD, group B, by GOLD 2017 classification 05/28/2022 06/25/2022 Overview: Per COPD GOLD Classification S/P CABG (coronary artery bypass graft) 01/12/2021 05/03/2021 Morbid obesity with BMI of 40.0-44.9, adult 12/21/2020 02/21/2022 Overview: 241 lbs Non-STEMI (non-ST elevated m yocardial infarction) 08/01/2016 05/31/2017 Overview: [facility], cathed, 2 stents CAD (coronary [...] Generalized anxiety disorder 11/29/2006 05/31/2017 PURE HYPERCHOLESTEROLEM 05/29/200606/2008 GENERAL OSTEOARTHROSIS 05/29/200607/15 Overview: Resolved per Duplicate [...] as of this encounter (statuses as of 03/03/2024) Immunizations Name Administration Dates Next Due COVID-19 [...] (15 years old or older) No 01/10/20 Cognitive Status Response Date of Assessm ent Because of a physical, menta l, or emotional condition, do you have serious difficulty concentrating, remembering, or making decisions? (5 years old or older) No 01/09/2021 documented as of this encounter Miscellaneous Notes * Telephone Encounter - Mady Richard CMA - 03/03/2024 2:01 PM EDTPending Prescriptions: Disp Refills Lisinopril 5 MG Oral Tablet [Pharmacy Med *90 Tab*3 Sig: TAKE 1 TABLET BY MOUTH ONCE DAILY IN THE MORNING * Telephone Encounter - Mady Richard CMA - 03/03/2024 2:01 PM EDT Scheduling -- please contact pt for follow up. * Telephone Encounter - Mady Richard CMA - 03/03/2024 2:01 PM EDT Did you pend patient's preferred pharmacy and medication before forwarding?yes Pharmacy: [id number] [id number] [facility] Pending Prescriptions: Disp Refills Lisinopril 5 MG Oral Tablet (Prinivil) [P*90 Tab*3 Sig: TAKE 1 TABLET BY MOUTH ONCE DAILY IN THE MORNING Last Visit: 04/22/2023 (in office), Visit date not found (telemedicine) Next Visit: Visit date not found If no future appointments scheduled, and last appointment is greater than a year ago, please schedule patient for a follow-up appointment Last date the medication was ordered: 04-22-2023 Is this request for a controlled substance?No Urine Drug Screen:No results found for this or any previous visit. Patient Phone Numbers Labs: Lab Results Component Value Date/Time CREAT 1.0 06/27/2023 08:30 AM CREAT 0.82 06/12/2021 12:00 AM CREAT 0.9 04/22/2019 08:10 AM POTASSIUM 4.7 06/27/2023 08:30 AM POTASSIUM 3.5 06/12/2021 12:00 AM POTASSIUM 4.6 04/22/2019 08:10 AM TSH 1.95 01/09/2021 11:17 PM TSH 1.41 02/15/2009 03:41 PM LDL 75 12/27/2023 07:47 AM LDL 105 04/22/2019 08:10 AM LDL NOT APPLICABLE 04/22/2019 08:10 AM ALT 30 06/27/2023 08:30 AM ALT 27 11/24/2019 12:00 AM ALT 21 04/22/2019 08:10 AM HGBA1C 5.7 (H) 12/27/2023 07:47 AM HGBA1C 5.2 07/05/2016 09:48 AM documented in this encounter Plan of Treatment Upcoming Encounters Date Type Department Care Team (Late st Contact Info) Description 06/23/2024 8:00 AM EST Office Visit Urology, [facility] [address] [place] [address] Tahir Bentley MD [address] [place] [address] 09/03/2024 7:20 AM EDT Office Visit [address] [place] [phone] Tonia Rios MD [address] [place] [address] [place] [address] Scheduled Procedures Name Priority Associated Diagnoses Date/Ti [...] this encounter Medical Devices Implanted Type Area Production Counter Device Identifier Shelf Expiration Date Model / Serial / Lot Suture Steel 6 B&S19 [id number] - [id number] Implanted:Qty: 4 on 01/11/2021 [place] Gar[place] [facility] [place] Sternum J[employer] : [employer] 09/14/2025 [id number] / / RDBCCT documented as of this encounter Visit Diagnoses Diagnosis Coronary artery disease involving [place] coronary artery of [place] heart without angina pectoris documented in this encounter Advance Directives * [...] Power of Attor cuauhtemoc? No Care Teams Big Data Lead Relationship Specialty Start Date End Date Tonia Rios MD [address] [place] [address] [place] [phone] PCP - General Family Medicine 12/31/23 documented as of this encounter
--- OUTSIDE RECORDS SUMMARY | 2024-06-17 08:05 | External Medical Summary | Summary of Care ---
Author Name Unknown Organization [facility] Address [address] [address] Phone [phone] Care Team Providers Care Chemical Processing Technician Name Role Phone Tonia Rios MD Primary Care Provide r Reason for Visit * Reason Comments Re-Check Encounter Details Date Type Department Care Team (Late st Contact Info) Description 06/05/2024 9:40 AM EST Office Visit Family Medicine [address] [place] [phone] Ceci Becker PA-C [address] [place] [address] [place] [address] Benign paroxysmal positional vertigo due to bilateral vestibular disorder*; Dizziness Allergies Active Allergy Reactions Criticality Noted Date Comments Doxycycline 10/25/2021 Nauseas was being tx for possible Lymes Nitroglycerin High 01/09/2022 Other reaction(s): Hypotension Oxycodone Other (Please comment) 10/01/2013 hallucinations Tramadol Hcl Itching 08/14/2012 documented as of this encounter (statuses as of 06/05/2024) Medications Triamcinolone Acetonide 0.1 % External Ointment (ARISTOCORT)Josefina cations:Dermatit is APPLY TO SKIN TWICE A DAY FOR NO LONGER THAN 2 WEEKS 30 g 1 Active Additional Information Patient not taking.Reported on 06/05/2024 Acetaminophen 500 MG Oral Tablet (Tylenol) Take 1 Tablet by mouth in the morning. Active Albuterol Sulfate HFA 108 (90 Base) MCG/ACT Inhalation Aerosol SolutionIndicati ons:COPD, mild (HCC) TAKE 2 PUFFS BY MOUTH EVERY 4 TO 6 HOURS NEEDED 18 g 5 2 Active Metoprolol Tartrate 25 MG Oral Tablet (Lopressor)Indic ations:Coronary artery disease involving [place] coronary artery of [place] heart without angina pectoris TAKE 1 TABLET BY MOUTH TWICE A DAY 180 Tablet 3 3 Active Cyclobenzaprine HCl 10 MG Oral Tablet (Flexeril)Indica tions:Spasm of muscle Take 1 Tablet by mouth 2 times a day as needed for Muscle spasms. 20 Tablet 1 4 Active Ondansetron HCl 4 MG Oral TabletIndication s:Nausea without vomiting Take 1 Tablet by mouth every 8 hours as needed for Nausea. 20 Tablet 4 Active Rosuvastatin Calcium 40 MG Oral Tablet (Crestor)Indicat ions:Hyperlipide sully with target LDL less than 100,Coronary artery disease involving [place] coronary artery of [place] heart without angina pectoris,Metabol ic syndrome,Hx of CABG,Dyslipidemi a, goal LDL below 70,ROMA (obstructive sleep apnea) TAKE 1 TABLET BY MOUTH EVERYDAY AT BEDTIME 90 Tablet 3 4 Active Ezetimibe 10 MG Oral Tablet (Zetia)Indicatio ns:Dyslipidemia, goal LDL below 70 Take 1 Tablet by mouth in the morning. 90 Tablet 3 4 Active Lisinopril 5 MG Oral Tablet (Prinivil)Indica tions:Coronary artery disease involving [place] coronary artery of [place] heart without angina pectoris TAKE 1 TABLET BY MOUTH ONCE DAILY IN THE MORNING 90 Tablet 3 4 Active Gabapentin 100 MG Oral Capsule (Neurontin)Indic ations:Migraine with aura and without status migrainosus, not intractable TAKE 1 CAPSULE BY MOUTH IN THE MORNING AND BEFORE BEDTIME 180 Capsule 1 4 Active Pantoprazole Sodium 40 MG Oral Tablet Delayed Release (Protonix)Indica tions:Gastro-eso phageal reflux disease without esophagitis TAKE 1 TABLET BY MOUTH EVERY DAY IN THE MORNING 90 Tablet 1 4 Active Clopidogrel Bisulfate 75 MG Oral Tablet (pLAVix)Indicati ons:Coronary artery disease involving [place] coronary artery of [place] heart without angina pectoris TAKE 1 TABLET BY MOUTH EVERY DAY IN THE MORNING 90 Tablet 4 Active Meclizine HCl 25 MG Oral Tablet (Antivert)Indica tions:Dizziness, Benign paroxysmal positional vertigo due to bilateral vestibular disorder TAKE 1 TABLET BY MOUTH 3 TIMES A DAY NEEDED FOR DIZINESS 30 Tablet 4 4 Active documented as of this encounter (statuses as of 06/05/2024) Active Problems Problem Noted Date Diagnosed Date Chronic obstructive pulmonary disease 12/27/2023 Prediabetes 12/27/2023 RBBB 06/27/2023 Pulmonary nodule, left 08/17/2022 Overview (08/28/2022): 9 mm nodule LLL, recheck in 6 [...] intractable 03/12/2018 Coronary artery disease invo lving [place] coronary artery of [place] heart without angina pectoris 01/03/2017 [place] (myocardial infarction) 06/17/2016 Benign paroxysmal positional vertigo 05/26/2012 Overview (02/12/2013): Admitted [facility] for dizziness more likely dx is viral labyrinthitis Knee joint replacement status 08/05/2007 Metabolic syndrome 09/16/2003 Hyperlipidemia with target LDL less than 100 Overview (10/17/2015): ICD-10 update of inactive term documented as of this encounter (statuses as of 06/05/2024) Resolved Problems Problem Noted Date Diagnosed Date Resolved Date COPD, group B, by GOLD 2017 classification 05/28/2022 06/25/2022 Overview: Per COPD GOLD Classification S/P CABG (coronary artery bypass graft) 01/12/2021 05/03/2021 Morbid obesity with BMI of 40.0-44.9, adult 12/21/2020 02/21/2022 Overview (12/21/2020): 241 lbs Non-STEMI (non-ST elevated m yocardial infarction) 08/01/2016 05/31/2017 Overview (08/06/2016): [facility], cathed, 2 stents CAD (coronary artery disease) 08/01/2016 05/31/2017 Closed fracture of lumbar vertebra 01/10/2011 05/31/2017 Overview (04/26/2011): possible mild anterior compression fx T12 Obesity, Class II, BMI 35-39 .9, isolated (see actual BMI) 09/12/2009 04/26/2011 Overview (09/12/2009): Per Obesity Taxonomy Dyslipidemia, goal to be determined 05/31/2009 12/16/2009 Overview (05/31/2009): Per Lipid Taxonomy. Primary localized osteoarthrosis, lower leg 04/16/2007 05/31/2017 Generalized anxiety disorder 11/29/2006 05/31/2017 PURE HYPERCHOLESTEROLEM 05/29/2006 09/0 06/2008 GENERAL OSTEOARTHROSIS 05/29/200607/15 Overview (07/15/2008): Resolved per Duplicate Protocol #2. INT DERANGEMENT KNEE NOS 05/21/2006 ADVANCE DIRECTIVE INFORMATION 05/18/2005 04/20/2024 Overview (05/18/2005): No, Advance Directive brochure given to patient. Hypertrophic and atrophic condition of skin 05/18/2005 01/07/2018 Generalized osteoarthritis 05/16/2004 0 02/12/2013 Mixed dyslipidemia 09/16/2003 9 Overview (05/31/2009): Per Lipid Taxonomy. Calculus of gallbladder with out mention of cholecystitis or obstruction 09/16/2003 10/03/2011 Overview (09/22/2003): 2.6 cm gall stone OBESITY, UNSPECIFIED 08/31/2003 010 Overview (09/12/2009): Per Obesity Taxonomy Elevated C-reactive protein (CRP) 08/31/2003 01/07/2018 Overview (11/16/2004): CRP 6.85 Dyslipidemia, goal LDL below 130 10/01/2013 COPD, mild 05/31/2022 Overview: Per COPD GOLD Classification documented as of this encounter (statuses as of 06/05/2024) Immunizations Name Administration Dates Next Due COVID-19 mRNA, LNP-s, No Pre serve, 2-Dose Series (Liquid Accounts) 07/04/2021 COVID-19, LNP-s, No Preserve , Luis Eduardo-sucrose, Ages 12+ (Pfizer) 12/26/2021,07/25/2021 Covid-19, Mrna, Lnp-s, Pf, B ivalent, 30 Mcg, IM, 12 yrs and above (Pfizer) 06/28/2022 PPD 01/03/2009 Pneumococcal Conjugate Vacc, 13 Valent (Prevnar) 06/05/2018 Pneumococcal Polysaccharide PPV23 (Pneumovax) ,02/12/2013 Seasonal Influenza Vac., MDV, IM, 0.5 mL (Fluzon e) 04/26/2011,04/21/2010 Seasonal Influenza Virus Vac cine, Unspecified Formulation 04/26/2011,04/21/2010 Seasonal Influenza, Quadrivalent Hd (Fluzone Hd) 06/27/2023,04/13/2022 TDAP (age 10 and older)(Boostrix) 01/07/2018 TDAP, Age 7 and older, IM (Adacel) 11/28/2007 Varicella Zoster Vaccine (Adult) 07/06/2013 documented as of this encounter Social History Tobacco Use Types Packs/Day Years Used Date Smoking Tobacco: Never Smokeless Tobacco: Never Tobacco Cessation:Counseling Given: Not Answered Alcohol Use Standard Drinks/Week Comments No 0 [...] Assigned at Male 10/24/2020 8:10 AM EDT Legal Sex Male 5:04 AM EST Gender Identity Male 10/24/2020 8:10 AM EDT Sexual Orientation Straight 10/24/2020 8: 10 AM EDT documented as of this encounter Last Filed Vital Signs Vital Sign Reading Time Taken Comments Blood Pressure 138/72 06/05/2024 9:14 AM EST Pulse 78 06/05/2024 9:14 AM EST Temperature 36.4 C (97.6 F) 06/05/2024 9:14 AM ES T Respiratory Rate - - Oxygen Saturation 95% 06/05/2024 9:14 AM EST Inhaled Oxygen Concentration - - Weight 106.1 kg (234 lb) 06/05/2024 9:14 AM EST Height 165.1 cm (5' 5") 06/05/2024 9:14 AM EST Body Mass Index 38.94 06/05/2024 9:14 AM EST documented in this encounter Functional Status * Are you deaf or do you have serious difficulty hearing? Answer Date of Assessment Author No 01/09/2021 10:44 PM EDT Michael Benitez RN * Are you blind or do you have serious difficulty seeing, even when wearing glasses? Answer Date of Assessment Author No 01/09/2021 10:44 PM EDT Michael Benitez RN * Do you have serious difficulty walking or climbing stairs? (5 years old or older) Answer Date of Assessment Author Yes 01/17/2021 3:16 PM EDT Syed Gao RN * Do you have difficulty dressing or bathing? (5 years old or older) Answer Date of Assessment Author No 01/09/2021 10:44 PM EDT Emmanuel, Ja sol R, RN * Because of a physical, mental, or emotional condition, do you have difficulty doing errands alone such as visiting a doctors office or shopping? (15 years old or older) Answer Date of Assessment Author No 01/09/2021 10:44 PM EDT Michael Benitez RN documented as of this encounter Mental Status * Because of a physical, mental, or emotional condition, do you have serious difficulty concentrating, remembering, or making decisions? (5 years old or older) Answer Entry Date Author No 01/09/2021 10:44 PM EDT Michael Benitez RN documented in this encounter Progress Notes * Ceci Becker PA-C - 06/05/2024 9:26 AM EST Nursing Notes: Shira Chandler CMA 06/05/24 0920 Sign at exiting of workspace Here today for med refill. Walked in asking for Meclizine and front staff made him an appt to be seen to get medication Pt here today for med refill. He needs his meclizine refilled. Pt had an episode of vertigo yesterday. It was a normal episode for him he gets vertigo from time to time. Pt denies syncope, headache, chest pain, SOB, URI sx. Review of patient's allergies indicates: Allergen Reactions Nitroglycerin Other reaction(s): Hypotension Doxycycline Nauseas was being tx for possible Lymes Oxycodone Other (Please comment) hallucinations Ultram [Tramadol Hcl] Itching Past Medical History: Diagnosis Date Acute exacerbation of chronic obstructive pulmonary disease (COPD) ([facility]) 08/03/2019 [facility] ER Acute pancreatitis 08/22/2010 [facility] Benign neoplasm of colon 10/29/2013 6 mm polyp splenic flexure Benign positional vertigo 05/26/2012 Admitted [facility] for dizziness more likely dx is viral labyrinthitis BMI 39.0-39.9,adult CAD (coronary artery disease) 08/01/2016 Calculus of gallbladder without mention of cholecystitis or obstruction 09/16/2003 2.6 cm gall stone CKD (chronic kidney disease), stage II 03/02/2021 egfr 78.9 Closed fracture of lumbar vertebra ([facility]) 01/10/2011 possible mild anterior compression fx T12 COPD, mild ([facility]) COVID-19 08/16/2021 Diastolic dysfunction, left ventricle 02/07/2021 Elevated C-reactive protein (CRP) 08/31/2003 CRP 6.85 Encounter for hepatitis C screening test for low risk patient 12/12/2017 negative External hemorrhoids without complication 10/29/2013 Generalized anxiety disorder Generalized osteoarthritis 05/16/2004 Hyperlipidemia LDL goal < 100 Hypertrophic and atrophic condition of skin Migraine headache with aura 03/12/2018 Need for hepatitis C screening test 12/08/2013 Hepatitis C negative Non-STEMI (non-ST elevated myocardial infarction) (HCC) 08/01/2016 [facility], cathed, 2 stents [place] (myocardial infarction) 2017 Other chest pain 11/29/2009 [facility] Paroxysmal atrial fibrillation (HCC) 01/11/2021 Pleurisy 10/01/2011 was told in [place] that he had pleurisy as a cause of left sided chest pain Precordial pain 09/19/2020 overnight [facility] Pulmonary nodule, left 08/17/2022 9 mm nodule LLL, recheck in 6 months, was 7 mm before RBBB 06/27/2023 Screening for HIV without presence of risk factors 12/20/2014 negative Social History Socioeconomic History Marital status: Spouse name: Not on file Number of children: 2 Years of education: Not on file Highest education level: Not on file Occupational History Not on file Tobacco Use Smoking status: Never Smokeless tobacco: Never Vaping Use Vaping status: Never Used Substance and Sexual Activity Alcohol use: No Drug use: No Sexual activity: Yes Partners: Female Other Topics Concern Service Not Asked Blood Transfusions Not Asked Caffeine Concern Not Asked Occupational Exposure Not Asked Hobby Hazards Not Asked Sleep Concern Not Asked Stress Concern Not Asked Weight Concern Not Asked Special Diet No Back Care Not Asked Exercise Not Asked Bike Helmet Not Asked Seat Belt No Self-Exams Not Asked Social History Narrative Spouse passed in 03/2021 Social Needs Financial Resource Strain: Not on file Food Insecurity: No Food Insecurity (10/26/2022) Hunger Vital Sign Worried About Running Out of Food in the Last Year: Never true Ran Out of Food in the Last Year: Never true Transportation Needs: Not on file Social Connections: Not on file Housing Stability: Not on file O:Blood pressure 138/72, pulse 78, temperature 97.6 F (36.4 C), temperature source Tympanic, height 5' 5" (1.651 m), weight 234 lb (106.1 kg), SpO2 95%. GENERAL: alert, healthy, and no distress NECK: supple, no adenopathy HEART: regular rate & rhythm, no murmur, and no gallops LUNGS: chest symmetric with normal AP diameter, no chest deformities noted, no chest wall tenderness, lungs clear to auscultation A:Dizziness - Meclizine HCl 25 MG Oral Tablet (Antivert); TAKE 1 TABLET BY MOUTH 3 TIMES A DAY NEEDED FOR DIZINESS Benign paroxysmal positional vertigo due to bilateral vestibular disorder - Meclizine HCl 25 MG Oral Tablet (Antivert); TAKE 1 TABLET BY MOUTH 3 TIMES A DAY NEEDED FOR DIZINESS Meclizine refilled. Any questions/problems, please call. If anything changes, worsens, develops newsx, please call [facility]. Follow Up: Return if symptoms worsen or fail to improve. Ceci Becker PA-C documented in this encounter Nursing Notes * Shira Chandler CMA - 06/05/2024 9:20 AM EST Here today for med refill. Walked in asking for Meclizine and front staff made him an appt to be seen to get medication documented in this encounter Plan of Treatment Upcoming Encounters Date Type Department Care Team (Late st Contact Info) Description 06/23/2024 8:00 AM EST Office Visit Urology, [address] [place] [address] Tahir Bentley MD [address] [place] [address] 07/30/2024 9:00 AM EST Office Visit Cardiology, [address] [place] [address] Lizbeth Botello CRNP [address] [place] [address] [place] [address] 09/03/2024 7:20 AM EDT Office Visit Family Medicine [address] [place] [phone] Tonia Rios MD [address] [place] [address] [place] [phone] Scheduled Procedures Name Priority Associated Diagnoses Date/Ti [...] ASSESSMENT COMPLETED IN PAST YEAR FOR COPD 06/05/2025 06/05/2024 Albumin/Creatinine Ratio 10/26/2025 10/26/2022, 07/0 12/2020 DTap/Tdap [...] this encounter Medical Devices Implanted Type Area Transition Advisor Device Identifier Shelf Expiration Date Model / Serial / Lot Suture Steel 6 B&S19 M654g - [id number] Implanted:Qty: 4 on 01/11/2021 by Antonio Garner MD at OR [facility] N/A: Sternum [place] : [employer] 09/14/2025 [id number] / / RDBCCT documented as of this encounter Visit Diagnoses Diagnosis Benign paroxysmal positional vertigo due to bilateral vestibular disorder- Primary Dizziness Dizziness and giddiness documented in this encounter Advance Directives * [...] Power of Attor cuauhtemoc? No Care Teams Chemical Processing Technician Relationship Specialty Start Date End Date Tonia Rios MD [address] [place] [address] [place] [phone] PCP - General Family Medicine 12/31/23 documented as of this encounter
--- OUTSIDE RECORDS SUMMARY | 2024-06-17 08:05 | External Medical Summary | Summary of Care ---
Author Name Unknown Organization [facility] [address] [facility] [address] Phone [phone] Care Team Providers Care Terrazzo Finisher Helper Name Role Phone Tonia Rios MD Primary Care Provide r Reason for Visit * Reason Comments eRx-Medication Refill Encounter Details Date Type Department Care Team (Late st Contact Info) Description 05/31/2024 Refill Cardiology, [facility] [address] [place] [address] Sidra Sy CRNP [address] [place] [address] Coronary artery disease involving [place] coronary artery of [place] heart without angina pectoris Allergies Active Allergy Reactions Criticality Noted Date Comments Doxycycline 10/25/2021 Nauseas was being tx for possible Lymes Nitroglycerin High 01/09/2022 Other reaction(s): Hypotension Oxycodone Other (Please comment) 10/01/2013 hallucinations Tramadol Hcl Itching 08/14/2012 documented as of this encounter (statuses as of 06/03/2024) Medications Triamcinolone Acetonide 0.1 % External Ointment (ARISTOCORT)Ind ications:Dermat itis APPLY TO SKIN TWICE A DAY FOR NO LONGER THAN 2 WEEKS 30 g 06/23/19 21 Active Acetaminophen 500 MG Oral Tablet (Tylenol) Take 1 Tablet by mouth in the morning. Active Albuterol Sulfate HFA 108 (90 Base) MCG/ACT Inhalation Aerosol SolutionIndicat ions:COPD, mild (HCC) TAKE 2 PUFFS BY MOUTH EVERY 4 TO 6 HOURS NEEDED 18 g 5 01/26/20 22 Active Metoprolol Tartrate 25 MG Oral Tablet (Lopressor)Josefina cations:Coronar y artery disease involving [place] coronary artery of [place] heart without angina pectoris TAKE 1 TABLET BY MOUTH TWICE A DAY 180 Tablet 3 03/07/20 23 Active Cyclobenzaprine HCl 10 MG Oral Tablet (Flexeril)Indic ations:Spasm of muscle Take 1 Tablet by mouth 2 times a day as needed for Muscle spasms. 20 Tablet 1 06/27/19 24 Active Ondansetron HCl 4 MG Oral TabletIndicatio ns:Nausea without vomiting Take 1 Tablet by mouth every 8 hours as needed for Nausea. 20 Tablet 06/27/19 24 Active Rosuvastatin Calcium 40 MG Oral Tablet (Crestor)Indica tions:Hyperlipi demia with target LDL less than 100,Coronary artery disease involving [place] coronary artery of [place] heart without angina pectoris,Metabo lic syndrome,Hx of CABG,Dyslipidem ia, goal LDL below 70,ROMA (obstructive sleep apnea) TAKE 1 TABLET BY MOUTH EVERYDAY AT BEDTIME 90 Tablet 3 12/31/19 24 Active Ezetimibe 10 MG Oral Tablet (Zetia)Indicati ons:Dyslipidemi a, goal LDL below 70 Take 1 Tablet by mouth in the morning. 90 Tablet 3 01/06/20 24 Active Lisinopril 5 MG Oral Tablet (Prinivil)Indic ations:Coronary artery disease involving [place] coronary artery of [place] heart without angina pectoris TAKE 1 TABLET BY MOUTH ONCE DAILY IN THE MORNING 90 Tablet 3 03/03/20 24 Active Gabapentin 100 MG Oral Capsule (Neurontin)Josefina cations:Migrain e with aura and without status migrainosus, not intractable TAKE 1 CAPSULE BY MOUTH IN THE MORNING AND BEFORE BEDTIME 180 Capsule 1 03/13/20 24 Active Pantoprazole Sodium 40 MG Oral Tablet Delayed Release (Protonix)Indic ations:Gastro-e sophageal reflux disease without esophagitis TAKE 1 TABLET BY MOUTH EVERY DAY IN THE MORNING 90 Tablet 1 03/23/20 24 Active Clopidogrel Bisulfate 75 MG Oral Tablet (pLAVix)Indicat ions:Coronary artery disease involving [place] coronary artery of [place] heart without angina pectoris TAKE 1 TABLET BY MOUTH EVERY DAY IN THE MORNING 90 Tablet 06/03/20 24 Active Clopidogrel Bisulfate 75 MG Oral Tablet (pLAVix)Indicat ions:Coronary artery disease involving [place] coronary artery of [place] heart without angina pectoris Take 1 Tablet by mouth in the morning. 90 Tablet 3 04/22/20 23 024 Discontinued documented as of this encounter (statuses as of 06/03/2024) Active Problems Problem Noted Date Diagnosed Date [...] intractable 03/12/2018 Coronary artery disease invo lving [place] coronary artery of [place] heart without angina pectoris 01/03/2017 Old [place] (myocardial infarction) 06/17/2016 Benign paroxysmal positional vertigo 05/26/2012 Overview (02/12/2013): Admitted [place] for dizziness more likely dx is viral labyrinthitis Knee joint replacement status 08/05/2007 Metabolic syndrome 09/16/2003 Hyperlipidemia with target LDL less than 100 Overview (10/17/2015): ICD-10 update of inactive term documented as of this encounter (statuses as of 06/03/2024) Resolved Problems Problem Noted Date Diagnosed Date Resolved Date COPD, group B, by GOLD 2017 classification 05/28/2022 06/25/2022 Overview: Per COPD GOLD Classification S/P CABG (coronary artery bypass graft) 01/12/2021 05/03/2021 Morbid obesity with BMI of 40.0-44.9, adult 12/21/2020 02/21/2022 Overview (12/21/2020): 241 lbs Non-STEMI (non-ST elevated m yocardial infarction) 08/01/2016 05/31/2017 Overview (08/06/2016): [facility], cathed, 2 stents CAD (coronary artery [...] as of this encounter (statuses as of 06/03/2024) Immunizations Name Administration Dates Next Due COVID-19 mRNA, LNP-s, No Pre serve, 2-Dose Series (PlayEnable) 07/04/2021 COVID-19, LNP-s, No Preserve , Luis [...] AM EDT documented as of this encounter Functional Status * Are you [...] 10:44 PM EDT Michael Benitez RN * Because of a physical, mental, [...] Michael Benitez RN documented in this encounter Miscellaneous Notes * Telephone Encounter - Aminata Landon CRNP - 06/03/2024 4:00 PM EST Signed Prescriptions: Disp Refills Clopidogrel Bisulfate 75 MG Oral Tablet (p*90 Tab*0 Sig: TAKE 1 TABLET BY MOUTH EVERY DAY IN THE MORNING Authorizing Provider: AMINATA LANDON * Telephone Encounter - Linda De La Vega residential pest control technician - 06/03/2024 12:45 PM ESTPending Prescriptions: Disp Refills Clopidogrel Bisulfate 75 MG Oral Tablet (p*90 Tab*0 Sig: TAKE 1 TABLET BY MOUTH EVERY DAY IN THE MORNING * Telephone Encounter - Linda De La Vega residential pest control technician - 06/03/2024 12:41 PM EST Received message from [facility] regarding patient needing an appointment. Call Placed, Left message on voicemail to call back and schedule appointment. Thank you, Linda De La Vega [facility] 06/03/2024, 12:41 PM * Telephone Encounter - Kerry, [facility] - 06/03/2024 11:28 AM EST Pending Prescriptions: Disp Refills Clopidogrel Bisulfate 75 MG Oral Tablet (p*90 Tab*0 Sig: TAKE 1 TABLET BY MOUTH EVERY DAY IN THE MORNING * Telephone Encounter - García Wu RPh - 06/02/2024 3:28 PM ESTPending Prescriptions: Disp Refills Clopidogrel Bisulfate 75 MG Oral Tablet (p*90 Tab*0 Sig: TAKE 1 TABLET BY MOUTH EVERY DAY IN THE MORNING * Telephone Encounter - García Wu RPh - 06/02/2024 3:26 PM EST [facility] is currently not authorized to approve refills for the pended medication(s) per refill protocol. Pt also was last seen by TAZ Honeycutt. Please approve if appropriate. Per refill protocol patient should have office visit on file within past year. Please contact patient to schedule office visit with CARDIOLOGY. Last Visit: 04/22/2023 (in office), Visit date not found (telemedicine) Next Visit: Visit date not found After contacting patient, please forward request to TAZ Page (unless pt schedules witha new provider, route to new provider). García Wu, Pharm.D. Clinical Pharmacist [facility] ([facility]) 06/02/2024, 3:27 PM [phone] documented in this encounter Plan of Treatment Upcoming Encounters Date Type Department Care Team (Late st Contact Info) Description 06/23/2024 8:00 AM EST Office Visit Urology, [facility] [address] [place] [address] Tahir Bentley MD [address] [place] [address] 07/30/2024 9:00 AM EST Office Visit Cardiology, [facility] [address] [place] [address] Lizbeth Botello CRNP [address] [facility] [place] [phone] 09/03/2024 7:20 AM EDT Office Visit Family Medicine [address] [place] [phone] Tonia Rios MD [address] [place] [address] [place] [phone] Scheduled Procedures Name Priority Associated Diagnoses Date/Ti [...] COPD 12/26/2024 12/27/2023 Albumin/Creatinine Ratio 10/26/2025 10/26/2022, 0712/2020 DTap/Tdap Vaccines (3 - Td or Tdap) [...] this encounter Medical Devices Implanted Type Area Automatic Beam Warper Tender Device Identifier Shelf Expiration Date Model / Serial / Lot Suture Steel 6 B&S19 [id number] - [id number] Implanted:Qty: 4 on 01/11/2021 by Antonio Garner MD at [place] [facility] [place]: Sternum JNElmer : [employer] 09/14/2025 [id number] / / RDBCCT documented as of this encounter Visit Diagnoses Diagnosis Coronary artery disease involving [place] coronary artery of [place] heart without angina pectoris documented in this [...] Power of Attor cuauhtemoc? No Care Teams Terrazzo Finisher Helper Relationship Specialty Start Date End Date Tonia Rios MD [address] [place] [address] [place] [phone] PCP - General Family Medicine 12/31/23 documented as of this encounter
--- OUTSIDE RECORDS SUMMARY | 2024-06-17 08:05 | External Medical Summary | Summary of Care ---
Author Name Unknown Organization [facility] Address [address] [place] [address] Phone [phone] Care Team Providers Care Engineer Remote Control Diesel Name Role Phone Loi Rios MD Primary Care Provide r Reason for Visit * Reason Onset Date Comments Medication Refill 03/23/2024 Encounter Details Date Type Department Care Team (Late st Contact Info) Description 03/23/2024 Refill Family Medicine [address] [place] [phone] Loi Rios MD [address] [place] [address] [place] [phone] Gastro-esophageal reflux disease without esophagitis Allergies Active Allergy Reactions Criticality Noted Date Comments Doxycycline 10/25/2021 Nauseas was being tx for possible Lymes Nitroglycerin High 01/09/2022 Other reaction(s): Hypotension Oxycodone Other (Please comment) 10/01/2013 hallucinations Tramadol Hcl Itching 08/14/2012 documented as of this encounter (statuses as of 03/23/2024) Medications Medication Sig Dispensed Refills Start Date [...] Oral Tablet (Lopressor)Indica tions:Coronary artery disease involving [place] coronary artery of [place] heart without angina pectoris TAKE 1 TABLET BY MOUTH TWICE A DAY 180 Tablet 3 03/07/2023 Active Clopidogrel Bisulfate 75 MG Oral Tablet (pLAVix)Indicatio ns:Coronary artery disease involving [place] coronary artery of [place] heart without angina pectoris Take 1 Tablet [...] needed for Nausea. 20 Tablet 06/27/2023 Active Rosuvastatin Calcium 40 MG Oral Tablet (Crestor)Indicati ons:Hyperlipidemi a with target LDL less than 100,Coronary artery disease involving [place] coronary artery of [place] heart without angina pectoris,Metaboli c syndrome,Hx of CABG,Dyslipidemia , goal LDL below 70,ROMA (obstructive sleep apnea) TAKE 1 TABLET BY MOUTH EVERYDAY AT BEDTIME 90 Tablet 3 12/31/2023 Active Ezetimibe 10 MG Oral Tablet (Zetia)Indication s:Dyslipidemia, goal LDL below 70 Take 1 Tablet by mouth in the morning. 90 Tablet 3 01/06/2024 Active Lisinopril 5 MG Oral Tablet (Prinivil)Indicat ions:Coronary artery disease involving [place] coronary artery of [place] heart without angina pectoris TAKE 1 TABLET BY MOUTH ONCE DAILY IN THE MORNING 90 Tablet 3 03/03/2024 Active Gabapentin 100 MG Oral Capsule (Neurontin)Indica tions:Migraine with aura and without status migrainosus, not intractable TAKE 1 CAPSULE BY MOUTH IN THE MORNING AND BEFORE BEDTIME 180 Capsule 1 03/13/2024 Active Pantoprazole Sodium 40 MG Oral Tablet Delayed Release (Protonix)Indicat ions:Gastro-esoph ageal reflux disease without esophagitis TAKE 1 TABLET BY MOUTH EVERY DAY IN THE MORNING 90 Tablet 1 03/23/2024 Active Pantoprazole Sodium 40 MG Oral Tablet Delayed Release (Protonix)Indicat ions:Gastro-esoph ageal reflux disease without esophagitis TAKE 1 TABLET BY MOUTH EVERY DAY IN THE MORNING 90 Tablet 1 12/17/2023 03/23/2024 Discontinue d(Refill) documented as of this encounter (statuses as of 03/23/2024) Active Problems Problem Noted Date Diagnosed Date [...] intractable 03/12/2018 Coronary artery disease invo lving [place] coronary artery of [place] heart without angina pectoris 01/03/2017 Old [place] (myocardial infarction) 06/17/2016 Benign paroxysmal positional vertigo 05/26/2012 Overview: Admitted [place] for dizziness more likely dx is viral labyrinthitis Knee joint replacement status 08/05/2007 ADVANCE DIRECTIVE INFORMATION 05/18/2005 Overview: No, Advance Directive brochure given to patient. Metabolic syndrome 09/16/2003 Hyperlipidemia with target LDL less than 100 Overview: ICD-10 update of inactive term documented as of this encounter (statuses as of 03/23/2024) Resolved Problems Problem Noted Date Diagnosed Date Resolved Date COPD, group B, by GOLD 2017 classification 05/28/2022 06/25/2022 Overview: Per COPD GOLD Classification S/P CABG (coronary artery bypass graft) 01/12/2021 05/03/2021 Morbid obesity with BMI of 40.0-44.9, adult 12/21/2020 02/21/2022 Overview: 241 lbs Non-STEMI (non-ST elevated m yocardial infarction) 08/01/2016 05/31/2017 Overview: [facility], cathed, 2 stents CAD (coronary [...] as of this encounter (statuses as of 03/23/2024) Immunizations Name Administration Dates Next Due COVID-19 [...] Telephone Encounter - Loi Rios MD - 03/23/2024 9:56 AM EDT Signed Prescriptions: Disp Refills Pantoprazole Sodium 40 MG Oral Tablet Alee*90 Tab*1 Sig: TAKE 1 TABLET BY MOUTH EVERY DAY IN THE MORNING Authorizing Provider: LOI RIOS * Telephone Encounter - Cortney Arora RN - 03/23/2024 9:54 AM EDTPending Prescriptions: Disp Refills Pantoprazole Sodium 40 MG Oral Tablet Alee*90 Tab*1 Sig: TAKE 1 TABLET BY MOUTH EVERY DAY IN THE MORNING * Telephone Encounter - Lolis Parks OSA - 03/23/2024 9:49 AM EDT Did you pend patient's preferred pharmacy and medication before forwarding?yes Pharmacy: [id number] [facility] Pending Prescriptions: Disp Refills Pantoprazole Sodium 40 MG Oral Tablet Del*90 Tab*1 Last Visit: 12/27/2023 (in office), Visit date not found (telemedicine) Next Visit: 09/03/2024 If no future appointments scheduled, and last appointment is greater than a year ago, please schedule patient for a follow-up appointment Last date the medication was ordered: 12.17.23 Is this request for a controlled substance?No [...] 06/23/2024 8:00 AM EST Office Visit Urology, [facility] [address] [place] [address] Tahir Bentley MD [address] [place] [address] 09/03/2024 7:20 AM EDT Office Visit Family Medicine [address] [place] [phone] Loi Rios MD [address] [place] [address] [place] [phone] Scheduled Procedures Name Priority Associated Diagnoses Date/Ti [...] this encounter Medical Devices Implanted Type Area Machining And Assembly Supervisor Device Identifier Shelf Expiration Date Model / Serial / Lot Suture Steel 6 B&S19 [id number] - [id number] Implanted:Qty: 4 on 01/11/2021 by Antonio Garner MD at [place] [facility] [place] N/A: Sternum JNElmer : [employer] 09/14/2025 [id number] / / RDBCCT documented as of this encounter Visit Diagnoses Diagnosis Gastro-esophageal reflux disease without esophagitis Esophageal reflux documented in this encounter Advance Directives * Full Code (Latest Code Status on File) Date Activated Date Inactivated Comments 01/11/2021 1:55 PM 01/18/2021 5:39 PM This order r eflects the patients wishes and were consensually agreed [...] Power of Attor cuauhtemoc? No Care Teams Engineer Remote Control Diesel Relationship Specialty Start Date End Date Loi Rios MD [address] [place] [address] [place] [phone] PCP - General Family Medicine 12/31/23 documented as of this encounter
--- OUTSIDE RECORDS SUMMARY | 2024-06-17 08:06 | External Medical Summary | Summary of Care ---
Author Name Unknown Organization [facility] Address [address] [facility] [place] [facility] [place] [address] Phone [phone] Care Team Providers Care Rn International Name Role Phone Unavailable Primary Care Provider Unavailabl e Reason for Visit * Reason Comments Outpatient Testing Encounter Details Date Type Department Care Team (Late st Contact Info) Description 12/27/2023 8:00 AM EDT Laboratory Laboratory [address] [place] [phone] [place], Lab [address] [place] [address] Coronary artery disease involving [place] coronary artery of [place] heart without angina pectoris; Hx of CABG; Dyslipidemia, goal LDL below 70; HTN, goal below 130/80; ROMA (obstructive sleep apnea) Allergies Active Allergy Reactions Criticality Noted Date Comments Doxycycline 10/25/2021 Nauseas was being tx for possible Lymes Nitroglycerin High 01/09/2022 Other reaction(s): Hypotension Oxycodone Other (Please comment) 10/01/2013 hallucinations Tramadol Hcl Itching 08/14/2012 documented as of this encounter (statuses as of 12/27/2023) Medications Medication Sig Dispensed Refills Start Date [...] HOURS NEEDED 18 g 5 01/25/2022 Active Rosuvastatin Calcium 40 MG Oral Tablet (Crestor)Indications :Hyperlipidemia with target LDL less than 100,Coronary artery disease involving [place] coronary artery of [place] heart without angina pectoris,Metabolic syndrome,Hx of CABG,Dyslipidemia, goal LDL below 70,ROMA (obstructive sleep apnea) TAKE 1 TABLET BY MOUTH EVERYDAY AT BEDTIME 90 Tablet 3 12/25/2022 Active Metoprolol Tartrate 25 MG Oral Tablet (Lopressor)Indicatio ns:Coronary artery disease involving [place] coronary artery of [place] heart without angina pectoris TAKE 1 TABLET BY MOUTH TWICE A DAY 180 Tablet 3 03/07/2023 Active Clopidogrel Bisulfate 75 MG Oral Tablet (pLAVix)Indications: Coronary artery disease involving [place] coronary artery of [place] heart without angina pectoris Take 1 Tablet by mouth in the morning. 90 Tablet 3 04/22/2023 Active Lisinopril 5 MG Oral Tablet (Prinivil)Indication s:Coronary artery disease involving [place] coronary artery of [place] heart without angina pectoris Take 1 Tablet by mouth in the morning. In the morning.. 90 Tablet 3 04/22/2023 Active Cyclobenzaprine HCl 10 MG Oral Tablet (Flexeril)Indication s:Spasm of muscle Take 1 Tablet by mouth 2 times a day as needed for Muscle spasms. 20 Tablet 1 06/27/2023 Active Ondansetron HCl 4 MG Oral TabletIndications:Na usea without vomiting Take 1 Tablet by mouth every 8 hours as needed for Nausea. 20 Tablet 06/27/2023 Active Ezetimibe 10 MG Oral Tablet (Zetia)Indications:H yperlipidemia with target LDL less than 100 Take 1 Tablet by mouth in the morning. 90 Tablet 3 06/27/2023 Active Gabapentin 100 MG Oral Capsule (Neurontin)Indicatio ns:Migraine with aura and without status migrainosus, not intractable Take 1 Capsule by mouth in the morning and 1 Capsule before bedtime. 180 Capsule 1 06/27/2023 Active Pantoprazole Sodium 40 MG Oral Tablet Delayed Release (Protonix)Indication s:Gastro-esophageal reflux disease without esophagitis TAKE 1 TABLET BY MOUTH EVERY DAY IN THE MORNING 90 Tablet 1 12/17/2023 Active documented as of this encounter (statuses as of 12/27/2023) Active Problems Problem Noted Date Diagnosed Date [...] intractable 03/12/2018 Coronary artery disease invo lving [place] coronary artery of [place] heart without angina pectoris 01/03/2017 Old [place] (myocardial infarction) 06/17/2016 Benign paroxysmal positional vertigo 05/26/2012 Overview: Admitted [place] for dizziness more likely dx is viral labyrinthitis Knee joint replacement status 08/05/2007 ADVANCE DIRECTIVE INFORMATION 05/18/2005 Overview: No, Advance Directive brochure given to patient. Metabolic syndrome 09/16/2003 Hyperlipidemia with target LDL less than 100 Overview: ICD-10 update of inactive term documented as of this encounter (statuses as of 12/27/2023) Resolved Problems Problem Noted Date Diagnosed Date Resolved Date COPD, group B, by GOLD 2017 classification 05/28/2022 06/25/2022 Overview: Per COPD GOLD Classification S/P CABG (coronary artery bypass graft) 01/12/2021 05/03/2021 Morbid obesity with BMI of 40.0-44.9, adult 12/21/2020 02/21/2022 Overview: 241 lbs Non-STEMI (non-ST elevated m yocardial infarction) 08/01/2016 05/31/2017 Overview: [facility], cathed, 2 stents CAD (coronary artery disease) [...] as of this encounter (statuses as of 12/27/2023) Immunizations Name Administration Dates Next Due COVID-19 [...] Quadrivalent Hd (Fluzone Hd) 06/27/2023,04/13/2022 Seasonal Influenza, Split, IIV3, With Preserve, Inj 04/26/2011,04/21/2010 TDAP (age 10 and older)(Boostrix) 01/07/2018 [...] No 01/09/2021 documented as of this encounter Plan of Treatment Pending Results Name Type Priority Associated Diagnoses Date /Time LIPID PANEL WITH DIRECT LDL IF TG IS HIGH Lab Routine Coronary artery disease involving [place] coronary artery of [place] heart without angina pectoris Hx of CABG Dyslipidemia, goal LDL below 70 HTN, goal below 130/80 ROMA (obstructive sleep apnea) 12/27/2023 7:47 AM EDT Scheduled Procedures Name Priority Associated Diagnoses Date/Ti me COLONOSCOPY FLEXIBLE PROXIMAL DIAGNOSTIC Recall Hx of colonic polyps Health Maintenance Due Date Last Done Comments Cologuard 1998 Fecal Occult Blood Test 1998 Sigmoidoscopy 1998 Zoster Vaccines (2 of 3) 08/31/2013 07/06/2013 COVID-19 Vaccine ( season) 2023 06/28/2022, 12/26/2021, 07/25/2021, Additional history exists Depression Screening 10/27/2023 10/26/2022 Influenza Vaccine (FLU shot) (#1) 2024 06/27/2023, 04/13/2022, 03/18/2018 (Refused), Additional history exists Colonoscopy 05/05/2024 05/05/2019, 04/17, 10/29/2013, Additional history exists Colorectal Cancer Screening 05/05/2024 GFR 06/27/2024 06/27/2023, 12/15, 12/21/2021, Additional history exists O2 ASSESSMENT COMPLETED IN PAST YEAR FOR COPD 12/26/2024 12/27/2023 Albumin/Creatinine Ratio 10/26/2025 10/26/2022, 07/0 12/2020 DTaP,Tdap,and Td Vaccines (3 - Td or Tdap) 01/08/2028 [...] this encounter Medical Devices Implanted Type Area Line Supervisor Device Identifier Shelf Expiration Date Model / Serial / Lot Suture Steel 6 B&S19 [id number] - [id number] Implanted:Qty: 4 on 01/11/2021 by [place] Garner [place] [facility] [place] Sternum JNJ : [employer] 09/14/2025 [id number] / / RDBCCT documented as of this encounter Visit Diagnoses Diagnosis Coronary artery disease involving [place] coronary artery of [place] heart without angina pectoris Hx of CABG Postsurgical aortocoronary bypass status Dyslipidemia, goal LDL below 70 Other and unspecified hyperlipidemia HTN, goal below 130/80 Unspecified essential hypertension ROMA (obstructive sleep apnea) Obstructive sleep apnea (adult) (pediatric) documented in this encounter Advance Directives * [...]
--- OUTSIDE RECORDS SUMMARY | 2024-06-17 08:06 | External Medical Summary | Summary of Care ---
Author Name Unknown Organization [facility] Address [address] [place] [address] Phone [phone] Care Team Providers Care Package Sealer Machine Name Role Phone Unavailable Primary Care Provider Unavailabl e Reason for Referral * Evaluate & Treat - Unlimited Visits (Within 30 days (routine)) - Authorized Specialty Diagnoses / Procedures Referred By Yordy goldstein Referred To Contact Urology Diagnoses Elevated prostate specific antigen (PSA) Tonia Rios MD [address] [place] [address] [place] [address] Referral ID Status Reason Start Date Expiration Date Visits Requested Visits Authorized [id number] Authorized Specialty Services Required 12/30/2023 999 999 Question Answer Referral Priority Within 30 days (routine) Where should this appointment be scheduled? [facility] What is the patient being referred for? Elevated PSA Reason for Visit * Reason Onset Date Comments Test Results 12/30/2023 Encounter Details Date Type Department Care Team (Late st Contact Info) Description 12/30/2023 [facility] [address] [place] [address] [place] [phone] Tonia Rios MD [address] [place] [address] [place] [phone] Test Results Allergies Active Allergy Reactions Criticality Noted Date Comments Doxycycline 10/25/2021 Nauseas was being tx for possible Lymes Nitroglycerin High 01/09/2022 Other reaction(s): Hypotension Oxycodone Other (Please comment) 10/01/2013 hallucinations Tramadol Hcl Itching 08/14/2012 documented as of this encounter (statuses as of 12/30/2023) Medications Medication Sig Dispensed Refills Start Date [...] LDL less than 100,Coronary artery disease involving [place] coronary artery of [place] heart without angina pectoris,Metabolic syndrome,Hx of CABG,Dyslipidemia, goal LDL below 70,ROMA (obstructive sleep apnea) TAKE 1 TABLET BY MOUTH EVERYDAY AT BEDTIME 90 Tablet 3 12/25/2022 Active Metoprolol Tartrate 25 MG Oral Tablet (Lopressor)Indicatio ns:Coronary artery disease involving [place] coronary artery of [place] heart without angina pectoris TAKE 1 TABLET BY MOUTH TWICE A DAY 180 Tablet 3 03/07/2023 Active Clopidogrel Bisulfate 75 MG Oral Tablet (pLAVix)Indications: Coronary artery disease involving [place] coronary artery of [place] heart without angina pectoris Take 1 Tablet by mouth in the morning. 90 Tablet 3 04/22/2023 Active Lisinopril 5 MG Oral Tablet (Prinivil)Indication s:Coronary artery disease involving [place] coronary artery of [place] heart without angina pectoris Take 1 Tablet [...] as of this encounter (statuses as of 12/30/2023) Active Problems Problem Noted Date Diagnosed Date [...] intractable 03/12/2018 Coronary artery disease invo lving [place] coronary artery of [place] heart without angina pectoris 01/03/2017 Old [place] (myocardial infarction) 06/17/2016 Benign paroxysmal positional vertigo 05/26/2012 Overview: Admitted [facility] [place] for dizziness more likely dx is viral labyrinthitis Knee joint replacement status 08/05/2007 ADVANCE DIRECTIVE INFORMATION 05/18/2005 Overview: No, Advance Directive brochure given to patient. Metabolic syndrome 09/16/2003 Hyperlipidemia with target LDL less than 100 Overview: ICD-10 update of inactive term documented as of this encounter (statuses as of 12/30/2023) Resolved Problems Problem Noted Date Diagnosed Date Resolved Date COPD, group B, by GOLD 2017 classification 05/28/2022 06/25/2022 Overview: Per COPD GOLD Classification S/P CABG (coronary artery bypass graft) 01/12/2021 05/03/2021 Morbid obesity with BMI of 40.0-44.9, adult 12/21/2020 02/21/2022 Overview: 241 lbs Non-STEMI (non-ST elevated m yocardial infarction) 08/01/2016 05/31/2017 Overview: [facility], cathed, 2 stents CAD [...] HYPERCHOLESTEROLEM 05/29/2006 09/0 06/2008 GENERAL OSTEOARTHROSIS 05/29/200607/15 Overview: Resolved per Duplicate [...] as of this encounter (statuses as of 12/30/2023) Immunizations Name Administration Dates Next Due COVID-19 mRNA, LNP-s, No Pre serve, 2-Dose Series ([email or web address]) 07/04/2021 COVID-19, LNP-s, No Preserve , Luis Eduardo-sucrose, Ages 12+ (Pfizer) 12/26/2021,07/25/2021 Covid-19, Mrna, Lnp-s, Pf, B ivalent, 30 Mcg, IM, 12 yrs and above ([email or web address]) 06/28/2022 PPD 01/03/2009 Pneumococcal Conjugate Vacc, 13 [...] encounter Miscellaneous Notes * Telephone Encounter - Tonia Rios MD - 12/30/2023 10:09 AM EDT Called - no answer - left a VM Prediabetes lab is stable Cholesterol is normal Prostate Lab is elevated - recommended urologist consultation documented in this encounter Plan of Treatment Upcoming Encounters Date Type Department Care Team (Late st Contact Info) Description 09/03/2024 7:20 AM EDT Office Visit Family Medicine [address] [place] [phone] Tonia Rios MD [address] [place] [address] [place] [address] Scheduled Procedures Name Priority Associated Diagnoses Date/Ti me COLONOSCOPY FLEXIBLE PROXIMAL DIAGNOSTIC Recall Hx of colonic polyps Scheduled Referrals Name Type Priority Associated Diagnoses Orde r Schedule ADULT/PEDS UROLOGY REFERRAL OP Referral Within 30 days (routine) Elevated prostate specific antigen (PSA) Ordered: 12/30/2023 Health Maintenance Due Date Last Done Comments Cologuard 1998 Fecal Occult Blood Test 1998 Sigmoidoscopy 1998 Zoster Vaccines (2 of 3) 08/31/2013 07/06/2013 COVID-19 Vaccine ( season) 2023 06/28/2022, 12/26/2021, 07/25/2021, Additional history exists Depression Screening 10/27/2023 10/26/2022 *CXR OR CT FOR COPD EVER 12/29/2023 Influenza Vaccine (FLU shot) (#1) 2024 06/27/2023, [...] 06/22/2019, 06/05/2018, 02/12/2013 Alpha-1 Antitrypsin Completed 12/21/2020 *BASELINE EKG FOR HTN Completed 06/27/2023 , 04/22/2023, 04/13/2022, Additional history exists HPV (Gardasil) Vaccine Aged Out No lo nger eligible based on patient's age to complete this topic Hepatitis B Vaccine Aged Out No longe r eligible based on patient's age to complete this topic MENINGOCOCCAL (MENACTRA/MENVEO) Aged Out No longer eligible based on patient's age to complete this topic documented as of this encounter Medical Devices Implanted Type Area Acura Sales Consultant Device Identifier Shelf Expiration Date Model / Serial / Lot Suture Steel 6 B&S19 M654g - [id number] Implanted:Qty: 4 on 01/11/2021 by Antonio Garner MD at OR [facility] [place] N/A: Sternum JUSTUS : [employer] 09/14/2025 [id number] / / RDBCCT documented as of this encounter Visit Diagnoses Diagnosis Elevated prostate specific antigen (PSA)- Primary documented in this encounter Advance Directives * [...]
--- OUTSIDE RECORDS SUMMARY | 2024-06-17 08:06 | External Medical Summary | Summary of Care ---
Author Name Unknown Organization [facility] Address [address] [place] [facility] [place] [address] Phone [phone] Care Team Providers Care Master Police Detective Name Role Phone Tonia Rios MD Primary Care Provide r Reason for Visit * Reason Onset Date Comments Test Results 12/31/2023 Encounter Details Date Type Department Care Team (Late st Contact Info) Description 12/31/2023 Telephone Cardiology, [facility] [address] [place] [address] Sidra Sy CRNP [address] [place] [phone] Test Results Allergies Active Allergy Reactions Criticality Noted Date Comments Doxycycline 10/25/2021 Nauseas was being tx for possible Lymes Nitroglycerin High 01/09/2022 Other reaction(s): Hypotension Oxycodone Other (Please comment) 10/01/2013 hallucinations Tramadol Hcl Itching 08/14/2012 documented as of this encounter (statuses as of 01/03/2024) Medications Medication Sig Dispensed Refills Start Date [...] Oral Tablet (Lopressor)Indicatio ns:Coronary artery disease involving [place] coronary artery of [place] heart without angina pectoris TAKE 1 TABLET BY MOUTH TWICE A DAY 180 Tablet 3 03/07/2023 Active Clopidogrel Bisulfate 75 MG Oral Tablet (pLAVix)Indications: Coronary artery disease involving [place] coronary artery of [place] heart without angina pectoris Take 1 Tablet by mouth in the morning. 90 Tablet 3 04/22/2023 Active Lisinopril 5 MG Oral Tablet (Prinivil)Indication s:Coronary artery disease involving [place] coronary artery of [place] heart without angina pectoris Take 1 Tablet [...] as of this encounter (statuses as of 01/03/2024) Active Problems Problem Noted Date Diagnosed Date [...] intractable 03/12/2018 Coronary artery disease invo lving [place] coronary artery of [place] heart without angina pectoris 01/03/2017 [place] (myocardial infarction) 06/17/2016 Benign paroxysmal positional vertigo 05/26/2012 Overview: Admitted [place] for dizziness more likely dx is viral labyrinthitis Knee joint replacement status 08/05/2007 ADVANCE DIRECTIVE INFORMATION 05/18/2005 Overview: No, Advance Directive brochure given to patient. Metabolic syndrome 09/16/2003 Hyperlipidemia with target LDL less than 100 Overview: ICD-10 update of inactive term documented as of this encounter (statuses as of 01/03/2024) Resolved Problems Problem Noted Date Diagnosed Date Resolved Date COPD, group B, by GOLD 2017 classification 05/28/2022 06/25/2022 Overview: Per COPD GOLD Classification S/P CABG (coronary artery bypass graft) 01/12/2021 05/03/2021 Morbid obesity with BMI of 40.0-44.9, adult 12/21/2020 02/21/2022 Overview: 241 lbs Non-STEMI (non-ST elevated m yocardial infarction) 08/01/2016 05/31/2017 Overview: [facility], cathed, 2 stents CAD (coronary [...] as of this encounter (statuses as of 01/03/2024) Immunizations Name Administration Dates Next Due COVID-19 mRNA, LNP-s, No Pre serve, 2-Dose Series ([employer]) 07/04/2021 COVID-19, LNP-s, No Preserve , Luis Eduardo-sucrose, Ages 12+ ([employer]) 12/26/2021,07/25/2021 Covid-19, Mrna, Lnp-s, Pf, B ivalent, [...] as of this encounter Miscellaneous Notes * Addendum Note - Lucero Sanabria CMA - 01/03/2024 11:23 AM EDTAddended by: LUCERO SANABRIA on: 01/03/2024 11:23 AM Modules accepted: Orders * Telephone Encounter - Lucero Sanabria CMA - 01/03/2024 11:22 AM EDT Zetia already on patient's med list, but he is unsure if he is taking it. Patient requesting Zetia be sent to [facility] in [place]. 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 * Telephone Encounter - Manny Stephenson RN - 01/02/2024 8:43 AM EDT Patient returned call to the clinic and I reviewed the message with him from Sidra MCGHEE in regards to his lab work. He stated he understood. Lab order placed for June at patient's request. * Telephone Encounter - Angelika Carver OSA - 01/01/2024 4:45 PM EDT Person calling: Edward Relationship to patient: na Number to return call: [phone] Reason for call(brief): test results, meds Pharmacy: na Provider Name: Sidra Sy Detailed message to office: Pt returning call regarding test results and medication * Telephone Encounter - Fatoumata Alvarado CMA - 01/01/2024 3:50 PM EDT TRC X2, My G sent. * Telephone Encounter - Fatoumata Alvarado CMA - 12/31/2023 12:13 PM EDT LMTRC * Telephone Encounter - Fatoumata Alvarado CMA - 12/31/2023 12:12 PM EDT ----- Message from Sidra Sy sent at 12/30/2023 7:52 AM EDT ----- Lipids borderline controlled. Recommend adding Zetia 10 mg daily in addition to his max rosuvastatin. documented in this encounter Plan of Treatment Upcoming Encounters Date Type Department Care Team (Late st Contact Info) Description 06/23/2024 8:00 AM EST Office Visit Urology, [facility] [address] [facility] [place] [address] Tahir Bentley MD [address] [place] [address] 09/03/2024 7:20 AM EDT Office Visit Family Medicine [address] [place] [phone] Tonia Rios MD [address] [place] [address] [place] [address] Scheduled Orders Name Type Priority Associated Diagnoses Orde r Schedule LIPID PANEL WITH DIRECT LDL IF TG IS HIGH Lab Routine Dyslipidemia, goal LDL below 70 Expected: 06/23/2024 (Approximate), Expires: 01/01/2025 Scheduled Procedures Name Priority Associated Diagnoses Date/Ti me COLONOSCOPY FLEXIBLE PROXIMAL DIAGNOSTIC Recall Hx of colonic polyps Health Maintenance Due Date Last Done Comments Cologuard 1998 Fecal Occult Blood Test 1998 Sigmoidoscopy 1998 Zoster Vaccines (2 of 3) 08/31/2013 07/06/2013 COVID-19 Vaccine (5 - season) 2023 06/28/2022, 12/26/2021, 07/25/2021, Additional history [...] COPD 12/26/2024 12/27/2023 Albumin/Creatinine Ratio 10/26/2025 10/26/2022, 07/12/2020 DTaP,Tdap,and Td Vaccines (3 - Td or [...] this encounter Medical Devices Implanted Type Area Composite Mechanic Device Identifier Shelf Expiration Date Model / Serial / Lot Suture Steel 6 B&S19 M654g - [id number] Implanted:Qty: 4 on 01/11/2021 by Antonio Garner MD at OR [facility] [place] N/A: Sternum JNJ : [employer] 09/14/2025 [id number] / / RDBCCT documented as of this encounter Visit Diagnoses Diagnosis Dyslipidemia, goal LDL below 70- Primary Other and unspecified hyperlipidemia documented in this encounter Advance Directives * [...] Power of Attor cuauhtemoc? No Care Teams Master Police Detective Relationship Specialty Start Date End Date Tonia Rios MD [address] [place] [address] [place] [address] PCP - General Family Medicine 12/31/23 documented as of this encounter
--- OUTSIDE RECORDS SUMMARY | 2024-06-17 08:06 | External Medical Summary ---
Author Name Unknown Address Unknown Organization [id number]:[facility] [place] - [address] [facility] [address] Laboratory Report Ordering Provider Test Date Status LUIS LEEISO 12/27/2023 07:47:30 Final Observation Date Value Abnormality Reference (Units ) Status Triglyceride 12/27/2023 07:47:30 85 <=174 ( mg/dL) Final Triglyceride Reference Range s (mg/dL):
<150 Acceptable
150-174 Borderline high
175-499 High
>=500 Very high Cholesterol 12/27/2023 07:47:30 137 <200 (mg /dL) Final Total Cholesterol Reference Ranges (mg/dL):
<200 Desirable
200-239 Borderline high
>=240 High HDL 12/27/2023 07:47:30 45 >39 (mg/dL ) Final HDL Cholesterol Reference Ra nges (mg/dL):
>=60 High (Desirable)
<50 Low (Undesirable) For Females
<40 Low (Undesirable) For Males NON-HDL CHOLESTEROL 12/27/2023 07:47:30 92 <=159 (mg/dL) Final Non-HDL Cholesterol Referenc e Range (mg/dL):
<100 Target level for high risk ASCVD patient
<130 Optimal for general population
130-159 Near optimal for general population
160-189 Borderline High
190-219 High
>=220 Very High LDL, (calculated) 12/27/2023 07:47:30 75 <= 129 (mg/dL) Final LDL Cholesterol Reference Ra nges (mg/dL):
<70 Target level for high risk ASCVD patient
<100 Optimal for general population
100-129 Near optimal for general population
130-159 Borderline high
160-189 High
>=190 Very high Performing Location [facility] - [address] [facility] [address]
--- OUTSIDE RECORDS SUMMARY | 2024-06-17 08:06 | External Medical Summary ---
Author Name Unknown Address Unknown Organization [id number][place] [place] [address] [place] [address] Laboratory Report Ordering Provider Test Date Status KELLI MONSIVAIS 12/27/2023 07:47:30 Mayela l Observation Date Value Abnormality Reference (Units ) Status HbA1C 12/27/2023 07:47:30 5.7 Above high normal 4. 0-5.6 (%) Final The use of HbA1c to monitor glycemic status is based on normal hemoglobin and HbA composition. This test should not be used in patients with abnormal hemoglobin that affects the half life of the red blood cell or the in vivo glycation rates. Glucose, estimated average 12/27/2023 07:47:30 117 <126 (mg/dL) Final Performing Location [facility] [place] [address] [place] [address]
--- OUTSIDE RECORDS SUMMARY | 2024-06-17 08:06 | External Medical Summary | Summary of Care ---
Author Name Unknown Organization [facility] Address [address] [place] [facility] [place] [address] Phone [phone] Care Team Providers Care Water Quality Control Engineer Name Role Phone Tonia Rios MD Primary Care Provide r Reason for Visit * Reason Onset Date Comments Test Results 12/31/2023 Encounter Details Date Type Department Care Team (Late st Contact Info) Description 12/31/2023 Telephone Cardiology, [facility] [address] [place] [address] Rosa Allan CRNP [address] [place] [address] Test Results Allergies Active Allergy Reactions Criticality Noted Date Comments Doxycycline 10/25/2021 Nauseas was being tx for possible Lymes Nitroglycerin High 01/09/2022 Other reaction(s): Hypotension Oxycodone Other (Please comment) 10/01/2013 hallucinations Tramadol Hcl Itching 08/14/2012 documented as of this encounter (statuses as of 01/06/2024) Medications Medication Sig Dispensed Refills Start Date [...] Oral Tablet (Lopressor)Indica tions:Coronary artery disease involving [place] coronary artery of [place] heart without angina pectoris TAKE 1 TABLET BY MOUTH TWICE A DAY 180 Tablet 3 03/07/2023 Active Clopidogrel Bisulfate 75 MG Oral Tablet (pLAVix)Indicatio ns:Coronary artery disease involving [place] coronary artery of [place] heart without angina pectoris Take 1 Tablet by mouth in the morning. 90 Tablet 3 04/22/2023 Active Lisinopril 5 MG Oral Tablet (Prinivil)Indicat ions:Coronary artery disease involving [place] coronary artery of [place] heart without angina pectoris Take 1 Tablet [...] THE MORNING 90 Tablet 1 12/17/2023 Active Ezetimibe 10 MG Oral Tablet (Zetia)Indication s:Dyslipidemia, goal LDL below 70 Take 1 Tablet by mouth in the morning. 90 Tablet 3 01/06/2024 Active Ezetimibe 10 MG Oral Tablet (Zetia)Indication s:Hyperlipidemia with target LDL less than 100 Take 1 Tablet by mouth in the morning. 90 Tablet 3 06/27/2023 01/03/2024 Discontinued (Refill) documented as of this encounter (statuses as of 01/06/2024) Active Problems Problem Noted Date Diagnosed Date [...] intractable 03/12/2018 Coronary artery disease invo lving [place] coronary artery of [place] heart without angina pectoris 01/03/2017 [place] (myocardial infarction) 06/17/2016 Benign paroxysmal positional vertigo 05/26/2012 Overview: Admitted [facility] for dizziness more likely dx is viral labyrinthitis Knee joint replacement status 08/05/2007 ADVANCE DIRECTIVE INFORMATION 05/18/2005 Overview: No, Advance Directive brochure given to patient. Metabolic syndrome 09/16/2003 Hyperlipidemia with target LDL less than 100 Overview: ICD-10 update of inactive term documented as of this encounter (statuses as of 01/06/2024) Resolved Problems Problem Noted Date Diagnosed Date Resolved Date COPD, group B, by GOLD 2017 classification 05/28/2022 06/25/2022 Overview: Per COPD GOLD Classification S/P CABG (coronary artery bypass graft) 01/12/2021 05/03/2021 Morbid obesity with BMI of 40.0-44.9, adult 12/21/2020 02/21/2022 Overview: 241 lbs Non-STEMI (non-ST elevated m yocardial infarction) 08/01/2016 05/31/2017 Overview: [facility], cathed, 2 stents CAD (coronary artery disease) [...] as of this encounter (statuses as of 01/06/2024) Immunizations Name Administration Dates Next Due COVID-19 mRNA, LNP-s, No Pre serve, 2-Dose Series ([employer]) 07/04/2021 COVID-19, LNP-s, No Preserve , Luis [...] encounter Miscellaneous Notes * Addendum Note - Rosa Allan CRNP - 01/06/2024 8:05 AM EDTAddended by: ROSA ALLAN on: 01/06/2024 08:05 AM Modules accepted: Orders * Addendum Note - Lucero Sanabria CMA - 01/03/2024 11:23 AM EDTAddended by: LUCERO SANABRIA on: 01/03/2024 11:23 AM Modules accepted: Orders * Telephone Encounter - Lucero Sanabria CMA - 01/03/2024 11:22 AM EDT Zetia already on patient's med list, but he is unsure if he is taking it. Patient requesting Zetia be sent to [facility] in [place]. 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 * Telephone Encounter - Manny Stephenson RN - 01/02/2024 8:43 AM EDT Patient returned call to the clinic and I reviewed the message with him from Rosa MCGHEE in regards to his lab work. He stated he understood. Lab order placed for June at patient's request. * Telephone Encounter - Angelika Carver OSA - 01/01/2024 4:45 PM EDT Person calling: Edward Relationship to patient: na Number to return call: [phone] Reason for call(brief): test results, meds Pharmacy: na Provider Name: Rosa Allan Detailed message to office: Pt returning call regarding test results and medication * Telephone Encounter - Fatoumata Alvarado CMA - 01/01/2024 3:50 PM EDT LMTRC X2, My G sent. * Telephone Encounter - Fatoumata Alvarado CMA - 12/31/2023 12:13 PM EDT LMTRC * Telephone Encounter - Fatoumata Alvarado CMA - 12/31/2023 12:12 PM EDT ----- Message from Rosa Allan sent at 12/30/2023 7:52 AM EDT ----- Lipids borderline controlled. Recommend adding Zetia 10 mg daily in addition to his max rosuvastatin. documented in this encounter Plan of Treatment Upcoming Encounters Date Type Department Care Team (Late st Contact Info) Description 06/23/2024 8:00 AM EST Office Visit Urology, [facility] [address] [facility] [place] [address] Tahir Bentley MD [address] [place] [address] 09/03/2024 7:20 AM EDT Office Visit Family Medicine [address] [place] [phone] Tonia Rios MD [address] [place] [address] [place] [address] Scheduled Orders Name Type Priority Associated Diagnoses [...] this encounter Medical Devices Implanted Type Area Chemical Maker Device Identifier Shelf Expiration Date Model / Serial / Lot Suture Steel 6 B&S19 M654g - [id number] Implanted:Qty: 4 on 01/11/2021 by Antonio Garner MD at OR [facility] [place] N/A: Sternum JNJ : [employer] 09/14/2025 [...] Power of Attor cuauhtemoc? No Care Teams Water Quality Control Engineer Relationship Specialty Start Date End Date Tonia Rios MD [address] [place] [address] [place] [address] PCP - General Family Medicine 12/31/23 documented as of this encounter
--- OUTSIDE RECORDS SUMMARY | 2024-06-17 08:06 | External Medical Summary | Summary of Care ---
Author Name Unknown Organization [facility] Address [address] [place] [address] Phone [phone] Care Team Providers Care Entertainment Usher Name Role Phone Tonia Rios MD Primary Care Provide r Reason for Visit * Reason Comments eRx-Medication Refill Encounter Details Date Type Department Care Team (Late st Contact Info) Description 12/30/2023 Refill Family Medicine [address] [phone] Goran Morrissey MD [address] [place] [address] [place] [address] Hyperlipidemia with target LDL less than 100; Coronary artery disease involving paiute-shoshone coronary artery of paiute-shoshone heart without angina pectoris; DYSMETABOLIC SYNDROME X; Hx of CABG; Dyslipidemia, goal LDL below 70; ROMA (obstructive sleep apnea) Allergies Active Allergy Reactions Criticality Noted Date Comments Doxycycline 10/25/2021 Nauseas was being tx for possible Lymes Nitroglycerin High 01/09/2022 Other reaction(s): Hypotension Oxycodone Other (Please comment) 10/01/2013 hallucinations Tramadol Hcl Itching 08/14/2012 documented as of this encounter (statuses as of 12/31/2023) Medications Medication Sig Dispensed Refills Start Date [...] Oral Tablet (Lopressor)Indica tions:Coronary artery disease involving paiute-shoshone coronary artery of paiute-shoshone heart without angina pectoris TAKE 1 TABLET BY MOUTH TWICE A DAY 180 Tablet 3 03/07/2023 Active Clopidogrel Bisulfate 75 MG Oral Tablet (pLAVix)Indicatio ns:Coronary artery disease involving paiute-shoshone coronary artery of paiute-shoshone heart without angina pectoris Take 1 Tablet by mouth in the morning. 90 Tablet 3 04/22/2023 Active Lisinopril 5 MG Oral Tablet (Prinivil)Indicat ions:Coronary artery disease involving paiute-shoshone coronary artery of paiute-shoshone heart without angina pectoris Take 1 Tablet [...] 06/27/2023 Active Ezetimibe 10 MG Oral Tablet (Zetia)Indication [...] LDL less than 100,Coronary artery disease involving paiute-shoshone coronary artery of paiute-shoshone heart without angina pectoris,Metaboli c syndrome,Hx of CABG,Dyslipidemia , goal LDL below 70,ROMA (obstructive sleep apnea) TAKE 1 TABLET BY MOUTH EVERYDAY AT BEDTIME 90 Tablet 3 12/31/2023 Active Rosuvastatin Calcium 40 MG Oral Tablet (Crestor)Indicati ons:Hyperlipidemi a with target LDL less than 100,Coronary artery disease involving paiute-shoshone coronary artery of paiute-shoshone heart without angina pectoris,Metaboli c syndrome,Hx of CABG,Dyslipidemia , goal LDL below 70,ROMA (obstructive sleep apnea) TAKE 1 TABLET BY MOUTH EVERYDAY AT BEDTIME 90 Tablet 3 12/25/2022 Discontinued documented as of this encounter (statuses as of 12/31/2023) Active Problems Problem Noted Date Diagnosed Date [...] intractable 03/12/2018 Coronary artery disease invo lving paiute-shoshone coronary artery of paiute-shoshone heart without angina pectoris 01/03/2017 Old [place] (myocardial infarction) 06/17/2016 Benign paroxysmal positional vertigo 05/26/2012 Overview: Admitted [place] for dizziness more likely dx is viral labyrinthitis Knee joint replacement status 08/05/2007 ADVANCE DIRECTIVE INFORMATION 05/18/2005 Overview: No, Advance Directive brochure given to patient. Metabolic syndrome 09/16/2003 Hyperlipidemia with target LDL less than 100 Overview: ICD-10 update of inactive term documented as of this encounter (statuses as of 12/31/2023) Resolved Problems Problem Noted Date Diagnosed Date Resolved Date COPD, group B, by GOLD 2017 classification 05/28/2022 06/25/2022 Overview: Per COPD GOLD Classification S/P CABG (coronary artery bypass graft) 01/12/2021 05/03/2021 Morbid obesity with BMI of 40.0-44.9, adult 12/21/2020 02/21/2022 Overview: 241 lbs Non-STEMI (non-ST elevated m yocardial infarction) 08/01/2016 05/31/2017 Overview: [facility], cathed, 2 stents CAD (coronary artery [...] as of this encounter (statuses as of 12/31/2023) Immunizations Name Administration Dates Next Due COVID-19 mRNA, LNP-s, No Pre serve, 2-Dose Series ([email or web address]) 07/04/2021 COVID-19, LNP-s, No Preserve , Luis [...] encounter Miscellaneous Notes * Telephone Encounter - Nando [facility] - 12/31/2023 1:05 PM EDTSigned Prescriptions: Disp Refills Rosuvastatin Calcium 40 MG Oral Tablet (Cr*90 Tab*3 Sig: TAKE 1 TABLET BY MOUTH EVERYDAY AT BEDTIMEAuthorizing Provider: Eitan ROIS User: NANDO MADERA documented in this encounter Plan of Treatment Upcoming Encounters Date Type Department Care Team (Late st Contact Info) Description 06/23/2024 8:00 AM EST Office Visit Urology, [facility] [address] [place] [address] Tahir Bentley MD [address] [place] [id number] 09/03/2024 7:20 AM EDT Office Visit Family Medicine [address] [place] [phone] Tonia Rios MD [address] [place] [address] [place] [phone] Scheduled Procedures Name Priority Associated Diagnoses Date/Ti [...] COPD 12/26/2024 12/27/2023 Albumin/Creatinine Ratio 10/26/2025 10/26/2022, 12/2020 DTaP,Tdap,and Td Vaccines (3 - Td [...] this encounter Medical Devices Implanted Type Area Road Conductor Device Identifier Shelf Expiration Date Model / Serial / Lot Suture Steel 6 B&S19 M654g - [id number] Implanted:Qty: 4 on 01/11/2021 [place] Garner [place] [facility] [place] Sternum JUSTUS : [employer] 09/14/2025 [id number] / / RDBCCT documented as of this encounter Visit Diagnoses Diagnosis Hyperlipidemia with target LDL less than 100 Other and unspecified hyperlipidemia Coronary artery disease involving pai[place]-shoshone coronary artery of paiute-shoshone heart without angina pectoris DYSMETABOLIC SYNDROME X Dysmetabolic Syndrome X Hx of CABG Postsurgical aortocoronary bypass status Dyslipidemia, goal LDL below 70 Other and unspecified hyperlipidemia ROMA (obstructive sleep apnea) Obstructive sleep apnea [...] Power of Attor cuauhtemoc? No Care Teams Entertainment Usher Relationship Specialty Start Date End Date Tonia Rios MD [address] [place] [address] [place] [phone] PCP - General Family Medicine 12/31/23 documented as of this encounter
--- OUTSIDE RECORDS SUMMARY | 2024-06-17 08:06 | External Medical Summary | Summary of Care ---
Author Name Unknown Organization [facility] Address [address] [facility] [place] [address] Phone [phone] Care Team Providers Care It Sales Representative Name Role Phone Tonia Rios MD Primary Care Provide r Reason for Visit * Reason Onset Date Comments Test Results 12/31/2023 Encounter Details Date Type Department Care Team (Late st Contact Info) Description 12/31/2023 Telephone Cardiology, [facility] [address] [place] [address] Sidra Sy CRNP [address] [place] [address] Test Results Allergies Active Allergy Reactions Criticality Noted Date Comments Doxycycline 10/25/2021 Nauseas was being tx for possible Lymes Nitroglycerin High 01/09/2022 Other reaction(s): Hypotension Oxycodone Other (Please comment) 10/01/2013 hallucinations Tramadol Hcl Itching 08/14/2012 documented as of this encounter (statuses as of 01/02/2024) Medications Medication Sig Dispensed Refills Start Date [...] Oral Tablet (Lopressor)Indicatio ns:Coronary artery disease involving kake coronary artery of kake heart without angina pectoris TAKE 1 TABLET BY MOUTH TWICE A DAY 180 Tablet 3 03/07/2023 Active Clopidogrel Bisulfate 75 MG Oral Tablet (pLAVix)Indications: Coronary artery disease involving kake coronary artery of kake heart without angina pectoris Take 1 Tablet by mouth in the morning. 90 Tablet 3 04/22/2023 Active Lisinopril 5 MG Oral Tablet (Prinivil)Indication s:Coronary artery disease involving kake coronary artery of kake heart without angina pectoris Take 1 Tablet [...] as of this encounter (statuses as of 01/02/2024) Active Problems Problem Noted Date Diagnosed Date [...] intractable 03/12/2018 Coronary artery disease invo lving kake coronary artery of kake heart without angina pectoris 01/03/2017 Old [place] (myocardial infarction) 06/17/2016 Benign paroxysmal positional vertigo 05/26/2012 Overview: Admitted [place] for dizziness more likely dx is viral labyrinthitis Knee joint replacement status 08/05/2007 ADVANCE DIRECTIVE INFORMATION 05/18/2005 Overview: No, Advance Directive brochure given to patient. Metabolic syndrome 09/16/2003 Hyperlipidemia with target LDL less than 100 Overview: ICD-10 update of inactive term documented as of this encounter (statuses as of 01/02/2024) Resolved Problems Problem Noted Date Diagnosed Date Resolved Date COPD, group B, by GOLD 2017 classification 05/28/2022 06/25/2022 Overview: Per COPD GOLD Classification S/P CABG (coronary artery bypass graft) 01/12/2021 05/03/2021 Morbid obesity with BMI of 40.0-44.9, adult 12/21/2020 02/21/2022 Overview: 241 lbs Non-STEMI (non-ST elevated m yocardial infarction) 08/01/2016 05/31/2017 Overview: [facility], cathed, 2 stents CAD (coronary artery [...] as of this encounter (statuses as of 01/02/2024) Immunizations Name Administration Dates Next Due COVID-19 mRNA, LNP-s, No Pre serve, 2-Dose Series ([employer]) 07/04/2021 COVID-19, LNP-s, No Preserve , Luis Eduardo-sucrose, Ages 12+ ([employer]) 12/26/2021,07/25/2021 Covid-19, Mrna, Lnp-s, Pf, B ivalent, [...] encounter Miscellaneous Notes * Telephone Encounter - Manny Stephenson RN [...] to patient: na Number to return call: [phone] Reason for call(brief): test results, meds Pharmacy: [...] 06/23/2024 8:00 AM EST Office Visit Urology, [facility] [address] [place] [address] Tahir Bentley MD [address] [place] [phone] 09/03/2024 7:20 AM EDT Office Visit Family Medicine [address] [place] [phone] Tonia Rios MD [address] [place] [address] [place] [phone] Scheduled Orders Name Type Priority Associated Diagnoses Orde r Schedule LIPID PANEL WITH DIRECT LDL IF TG IS HIGH Lab Routine Hyperlipidemia with target LDL less than 100 Dyslipidemia, goal LDL below 70 Expected: 06/23/2024 [...] 12/26/2024 12/27/2023 Albumin/Creatinine Ratio 10/26/2025 10/26/2022, 0712/2020 DTaP,Tdap,and Td Vaccines (3 - Td or [...] this encounter Medical Devices Implanted Type Area Hydraulic Jack Adjuster Device Identifier Shelf Expiration Date Model / Serial / Lot Suture Steel 6 B&S19 [id number] - [id number] Implanted:Qty: 4 on 01/11/2021 by Antonio Garner MD at [place] [facility] [place] N/A: Sternum JUSTUS : [employer] 09/14/2025 [id number] / / RDBCCT documented as of this encounter Visit Diagnoses Diagnosis Hyperlipidemia with target LDL less than 100- Primary Other and unspecified hyperlipidemia Dyslipidemia, goal LDL below 70 Other and unspecified hyperlipidemia documented in this [...] Power of Attor cuauhtemoc? No Care Teams It Sales Representative Relationship Specialty Start Date End Date Tonia Rios MD [address] [place] [address] [place] [phone] PCP - General Family Medicine 12/31/23 documented as of this encounter
--- OUTSIDE RECORDS SUMMARY | 2024-06-17 08:06 | External Medical Summary | Summary of Care ---
Author Name Unknown Organization [facility] Address [address] [place] [address] Phone [phone] Care Team Providers Care Special Population Paraprofessional Name Role Phone Tonia Rios MD Primary Care Provide r Reason for Visit * Reason Onset Date Comments Test Results 12/31/2023 Encounter Details Date Type Department Care Team (Late st Contact Info) Description 12/31/2023 Telephone Cardiology, [facility] [address] [place] [address] Sidra Sy CRNP [address] [place] [id number] Test Results Allergies Active Allergy Reactions Criticality [...] Oral Tablet (Lopressor)Indicatio ns:Coronary artery disease involving southern ute coronary artery of southern [place] heart without angina pectoris TAKE 1 TABLET BY MOUTH TWICE A DAY 180 Tablet 3 03/07/2023 Active Clopidogrel Bisulfate 75 MG Oral Tablet (pLAVix)Indications: Coronary artery disease involving southern [place] coronary artery of southern [place] heart without angina pectoris Take 1 Tablet by mouth in the morning. 90 Tablet 3 04/22/2023 Active Lisinopril 5 MG Oral Tablet (Prinivil)Indication s:Coronary artery disease involving southern [place] coronary artery of southern [place] heart without angina pectoris Take 1 Tablet [...] intractable 03/12/2018 Coronary artery disease invo lving [place] coronary artery of southern [place] heart without angina pectoris 01/03/2017 Old [place] (myocardial infarction) 06/17/2016 Benign paroxysmal positional vertigo 05/26/2012 Overview: Admitted [place] for dizziness more likely dx is viral [...] elevated m yocardial infarction) 08/01/2016 05/31/2017 Overview: [facility], cathed, 2 stents CAD (coronary artery [...] mRNA, LNP-s, No Pre serve, 2-Dose Series ([employer]) 07/04/2021 COVID-19, LNP-s, No Preserve , Luis Eduardo-sucrose, Ages 12+ ([employer]) 12/26/2021,07/25/2021 Covid-19, Mrna, Lnp-s, Pf, B ivalent, [...] to patient: na Number to return call: [phone] Reason for call(brief): test results, meds Pharmacy: [...] 06/23/2024 8:00 AM EST Office Visit Urology, [facility] [address] [place] [address] Tahir Bentley MD [address] [place] [phone] 09/03/2024 7:20 AM EDT Office Visit Family Medicine [address] [place] [phone] Tonia Rios MD [address] [place] [address] [place] [phone] Scheduled Orders Name Type Priority Associated Diagnoses [...] this encounter Medical Devices Implanted Type Area Benefit Director Device Identifier Shelf Expiration Date Model / Serial / Lot Suture Steel 6 B&S19 [id number] - [id number] Implanted:Qty: 4 on 01/11/2021 by Antonio Garner MD at [place] [facility] [place] N/A: Sternum JUSTUS : [employer] 09/14/2025 [...] Power of Attor cuauhtemoc? No Care Teams Special Population Paraprofessional Relationship Specialty Start Date End Date Tonia Rios MD [address] [place] [address] [place] [phone] PCP - General Family Medicine 12/31/23 documented as of this encounter
--- OUTSIDE RECORDS SUMMARY | 2024-06-17 08:06 | External Medical Summary | Summary of Care ---
Author Name Unknown Organization [facility] Address [address] [place] [address] Phone [phone] Care Team Providers Care Apartment Rental Agent Name Role Phone Unavailable Primary Care Provider Unavailabl e Reason for Visit * Reason Comments Re-Check Encounter Details Date Type Department Care Team (Late st Contact Info) Description 12/27/2023 7:20 AM EDT Office Visit Family Medicine [address] [phone] Tonia Rios MD [address] [place] [address] [place] [address] Elevated prostate specific antigen (PSA)*; Chronic obstructive pulmonary disease, unspecified COPD type (HCC); History of atrial fibrillation; Prediabetes; Coronary artery disease involving [place] coronary artery of [place] heart without angina pectoris; HTN, goal below 140/90 Allergies Active Allergy Reactions Criticality Noted Date [...] LDL less than 100,Coronary artery disease involving [place] coronary artery of [place] heart without angina pectoris,Metaboli c syndrome,Hx of CABG,Dyslipidemia , goal LDL below 70,ROMA (obstructive sleep apnea) TAKE 1 TABLET BY MOUTH EVERYDAY AT BEDTIME 90 Tablet 3 12/25/2022 Active Metoprolol Tartrate 25 MG Oral Tablet (Lopressor)Indica tions:Coronary artery disease involving [place] coronary artery of [place] heart without angina pectoris TAKE 1 TABLET BY MOUTH TWICE A DAY 180 Tablet 3 03/07/2023 Active Clopidogrel Bisulfate 75 MG Oral Tablet (pLAVix)Indicatio ns:Coronary artery disease involving [place] coronary artery of [place] heart without angina pectoris Take 1 Tablet by mouth in the morning. 90 Tablet 3 04/22/2023 Active Lisinopril 5 MG Oral Tablet (Prinivil)Indicat ions:Coronary artery disease involving [place] coronary artery of [place] heart without angina pectoris Take 1 Tablet [...] THE MORNING 90 Tablet 1 12/17/2023 Active Meclizine HCl 25 MG Oral Tablet (Antivert)Indicat ions:Dizziness,Be nign paroxysmal positional vertigo due to bilateral vestibular disorder TAKE 1 TABLET BY MOUTH 3 TIMES A DAY NEEDED FOR DIZINESS 30 Tablet 4 01/15/2023 12/27/2023 Discontinue d(Medicatio n List Clean Up) documented as of this encounter (statuses as [...] intractable 03/12/2018 Coronary artery disease invo lving [place] coronary artery of [place] heart without angina pectoris 01/03/2017 [place] (myocardial infarction) 06/17/2016 Benign paroxysmal positional vertigo 05/26/2012 Overview: Admitted [facility] for dizziness more likely dx is viral [...] m yocardial infarction) 08/01/2016 05/31/2017 Overview: [facility], cathed, 2 stents CAD (coronary artery [...] mRNA, LNP-s, No Pre serve, 2-Dose Series (Heyo) 07/04/2021 COVID-19, LNP-s, No Preserve , Luis [...] on file documented as of this encounter Last Filed Vital Signs Vital Sign Reading Time Taken Comments Blood Pressure 122/80 12/27/2023 7:22 AM EDT Pulse 81 12/27/2023 7:22 AM EDT Temperature 36.1 C (97 F) 12/27/2023 7:22 AM EDT Respiratory Rate - - Oxygen Saturation 97% 12/27/2023 7:22 AM EDT Inhaled Oxygen Concentration - - Weight 103 kg (227 lb) 12/27/2023 7:22 AM EDT Height 165.1 cm (5' 5") 12/27/2023 7:22 AM EDT Body Mass Index 37.77 12/27/2023 7:22 AM EDT documented in this encounter Functional Status Functional Status Response [...] No 01/09/2021 documented as of this encounter Progress Notes * Tonia Rios MD - 12/27/2023 7:27 AM EDT Subjective: HPI: Andrea Saini Jr. is a 68 year old male with hx of CAD s/p CABG, postop afib, COPD, ROMA on CPAP,Migraine, HTN, HLD, PVD, Prediabetes seen for Elevated PSA: - denied any hematuria - no sudden change in urine stream - pt does have urinary frequency Pt wants to take check his A1C Takes prn meclizine for vertigo - also went to PT in the past - doing better with gabapentin BID CAD s/p CABG: - denied any CP or SOB - on plavix Patient Active Problem List Diagnosis Metabolic syndrome ADVANCE DIRECTIVE INFORMATION Knee joint replacement status Benign paroxysmal positional vertigo Hyperlipidemia with target LDL less than 100 Coronary artery disease involving [place] coronary artery of [place] heart without angina pectoris Migraine with aura and without status migrainosus, not intractable [place] (myocardial infarction) S/P CABG x 4 Paroxysmal atrial fibrillation (HCC) Diastolic dysfunction, left ventricle ROMA on CPAP Primary hypertension Hypertensive heart disease without heart failure Peripheral vascular disease (HCC) Gastro-esophageal reflux disease without esophagitis Pulmonary nodule, left RBBB Chronic obstructive pulmonary disease (HCC) Prediabetes Current Outpatient Medications Medication Sig Dispense Refill Triamcinolone Acetonide 0.1 % External Ointment (ARISTOCORT) APPLY TO SKIN TWICE A DAY FOR NO LONGER THAN 2 WEEKS 30 g 0 Acetaminophen 500 MG Oral Tablet (Tylenol) Take 1 Tablet by mouth in the morning. Albuterol Sulfate HFA 108 (90 Base) MCG/ACT Inhalation Aerosol Solution TAKE 2 PUFFS BY MOUTH EVERY4 TO 6 HOURS NEEDED 18 g 5 Rosuvastatin Calcium 40 MG Oral Tablet (Crestor) TAKE 1 TABLET BY MOUTH EVERYDAY AT BEDTIME 90 Tablet 3 Metoprolol Tartrate 25 MG Oral Tablet (Lopressor) TAKE 1 TABLET BY MOUTH TWICE A DAY 180 Tablet 3 Clopidogrel Bisulfate 75 MG Oral Tablet (pLAVix) Take 1 Tablet by mouth in the morning. 90 Tablet 3 Lisinopril 5 MG Oral Tablet (Prinivil) Take 1 Tablet by mouth in the morning. In the morning.. 90 Tablet 3 Cyclobenzaprine HCl 10 MG Oral Tablet (Flexeril) Take 1 Tablet by mouth 2 times a day as needed forMuscle spasms. 20 Tablet 1 Ondansetron HCl 4 MG Oral Tablet Take 1 Tablet by mouth every 8 hours as needed for Nausea. 20 Tablet 0 Ezetimibe 10 MG Oral Tablet (Zetia) Take 1 Tablet by mouth in the morning. 90 Tablet 3 Gabapentin 100 MG Oral Capsule (Neurontin) Take 1 Capsule by mouth in the morning and 1 Capsule before bedtime. 180 Capsule 1 Pantoprazole Sodium 40 MG Oral Tablet Delayed Release (Protonix) TAKE 1 TABLET BY MOUTH EVERY DAY IN THE MORNING 90 Tablet 1 No current facility-administered medications for this visit. Past Medical History: Diagnosis Date Acute exacerbation of chronic obstructive pulmonary disease (COPD) (HCC) 08/03/2019 [facility] ER Acute pancreatitis 08/22/2010 [place] Benign neoplasm of colon 10/29/2013 6 mm polyp splenic flexure Benign positional vertigo 05/26/2012 Admitted [facility] for dizziness more likely dx is viral labyrinthitis BMI 39.0-39.9,adult CAD (coronary artery disease) 08/01/2016 [place] of gallbladder without mention of cholecystitis or obstruction 09/16/2003 2.6 cm gall stone CKD (chronic kidney disease), stage II 03/02/2021 egfr 78.9 Closed fracture of lumbar vertebra (HCC) 01/10/2011 possible mild anterior compression fx T12 COPD, mild (HCC) COVID-19 08/16/2021 Diastolic dysfunction, left ventricle 02/07/2021 [...] Non-STEMI (non-ST elevated myocardial infarction) (HCC) 08/01/2016 [facility], cathed, 2 stents [place] (myocardial infarction) 2017 Other chest pain 11/29/2009 [place] Paroxysmal atrial fibrillation (HCC) 01/11/2021 Pleurisy 10/01/2011 was told in [place] that he had pleurisy as a cause of left sided chest pain Precordial pain 09/19/2020 overnight [facility] Pulmonary nodule, left 08/17/2022 9 mm nodule LLL, recheck in 6 months, was 7 mm before RBBB 06/27/2023 Screening for HIV without presence of risk factors 12/20/2014 negative Past Surgical History: Procedure Laterality Date ABD/PELVIS CT W/O IV AND W/O PO CONTRAST 05/31/2011 cholecystectomy, no acute findings. ARTHROPLASTY KNEE TOTAL Right 07/07/2007 right, Dr Beltran CABG, ARTERIAL, SINGLE N/A 01/11/2021 CORONARY ARTERY BYPASS GRAFT USING ARTERY 1 GRAFT performed by Antonio Garner MD at OR [facility] CABG, ARTERY-VEIN, THREE 01/11/2021 CORONARY ARTERY BYPASS GRAFT ARTERIAL AND VENOUS 3 GRAFTS performed by Antonio Garner MD at OR [facility] CARDIAC CATH-CARDIOLOGY ONLY 08/02/2016 stent to 99% ostial and Mid 90% OM1 branch, and 90% mid R PDA branch, 0% residual CAROTID DUPLEX EXAMINATION Bilateral 03/12/2018 no significant stenosis COLONOSCOPY 08/24/2003 Dr Dupont, normal, no polyps, etc. COLONOSCOPY normal repeat 5 years COLONOSCOPY, DIAGNOSTIC (RECTUM) 10/29/2013 6 mm polyp at splenic flexure (hyperplastic), external hemorrhoids, repeat 5 yrs/COLONOSCOPY FLEXIBLE PROXIMAL DIAGNOSTIC performed by Lena Valdez DO at ENDOSCOPY [facility] COLONOSCOPY, DIAGNOSTIC (RECTUM) 05/05/2019 normal, repeat 5 yrs/COLONOSCOPY FLEXIBLE PROXIMAL DIAGNOSTIC performed by Lena Valdez DO at ENDOSCOPY [facility] COLONOSCOPY, SURGICAL 09/15/2010 [place] COMBINED RT & LEFT HEART CATHETERS 12/10/2009 EF 60%, 20% LAD, 30% RCA, CT ABD/PELVIS W IV AND W ORAL CONTRAST 08/20/2010 cholecystectomy, liver, spleen, kidneys, pancreas normal, no pelvic findings CT ABD/PELVIS W WO IV CONTRAST AND W ORAL CONT 04/05/2013 previous cholecystectomy, normal appendix, right kidney has small cortical cysts CT ABD/PELVIS WO IV CONTRAST - W ORAL CONTRAST 10/12/2012 Cholecystectomy, no liver lesion, moderate stool, no acute abnormalities CT ABDOMEN/PELVIS 06/30/2013 fatty infiltration terminal lieum and proximal colon, could represent inflammatory bowel disease CT ABDOMEN/PELVIS 07/24/2013 very small hiatal hernia, 1 cm right renal cyst, maybe low grade appendicitis CT ABDOMEN/PELVIS 07/30/2013 Appendectomy, with fluid in abdomen, probably not abscess CT HEAD/BRAIN WO CONTRAST 12/10/2017 no acute disease CTA CHEST NON-CORONARY W CONTRAST N/A 06/12/2021 no PE CTA CHEST NON-CORONARY W CONTRAST 08/17/2022 9 mm LLL nodule, increased from [address] in 6 months. CTA HEAD/NECK OUTSIDE N/A 06/12/2021 no acute findings ECHO, COMPLETE (2D), TRANS-THORACIC 11/21/2009 normal sized LV, mild LVH, EF 50-55%, LA 4.4 cm ECHO, COMPLETE (2D), TRANS-THORACIC 07/30/2016 mod conc LV thickness, EF 55-59%, no wall motion abnormalities, grade I diastolic dysfunction ECHO, COMPLETE (2D), TRANS-THORACIC 09/11/2016 normal LV function, no wall motion abnormalities, EF 60-65%, stage II diastolic dysfunction EGD, FLEXIBLE, W/BIOPSY 09/15/2010 [facility] ENDO,VIDEO ASSIST HARVEST THAIS Left 01/11/2021 ENDOSCOPY VIDEO ASSISTED HARVEST VEIN performed by Antonio Garner MD at OR [facility] CTA CHEST W/CONTRAST 04/23/2023 8 mm ground-glass nodule within the left lower lobe repeat 3-6 months IOF NM MYOCARDIAL PERFUSION SPECT 12/05/2009 EF 60% no regional wall motion abnormality LAPAROSCOPY; CHOLECYSTECTOMY 10/04/2003 Dr Dupont LAPAROSCOPY;APPENDECTOMY 07/24/2013 [facility] MRI BRAIN W WO CONTRAST 12/10/2017 moderate chronic microvascular changes, no acute disease, no problems with nerves 7,8 MRI BRAIN WITHOUT CONTRAST 03/12/2018 no change, no intracranial abnormality MRI KNEE WO CONTRAST 05/13/2006 PREVIOUS MEDIAL MENISCECTOMY, CHRONIC TEAR WITH MARKED SECONDARY DEGENERATION LATERAL MENISCUS, ANTERIOR CRUCIATE NOT VISUALIZED, AVASCULAR NECROSIS MEDIAL FEMORAL AND TIBIAL CONDYLES, JOINT EFFUSIION, DJD NM MYOCARDIAL PERFUSION IMAGING SPECT MULTIPLE STUDIES WITH PHARMACOLOGIC INTERVENTION 07/30/2016 normal with EF 65%, no wall motion abnormalities or ischemia PFT B/A 12/05/2012 normal spirogram with no response to bronchodilator, suggestion of early restrictive impairment, [place] PFT ROUTINE 10/21/2012 at least mild disease PFT/BA BRONCHODILATOR 11/16/2016 essentially normal, no improvement post bronchodilator POLYSOMNOGRAPHY, 1-3 PARAMETERS N/A 12/22/2020 split study, improved parameters with treatment REMOVE KNEE CARTILAGE, MED/LATERAL Right 1976 right medial meniscectomy STRESS ECHO (EXERCISE) 09/20/2023 mild concentric LVH no wall motion abnormalities, EF 55-59%, no induced ischemia STRESS TREADMILL 11/28/2005 Negative at 7.3 METS, good BP response US ABDOMEN COMPLETE 10/05/2011 cholecystectomy, no acute findings XR L SPINE COMPLETE 01/10/2011 suspect mild anterior compression fx T12 Review of patient's allergies indicates: Allergen Reactions Nitroglycerin Other reaction(s): Hypotension Doxycycline Nauseas was being tx for possible [place] Oxycodone Other (Please comment) hallucinations Ultram [Tramadol Hcl] Itching Family History Problem Relation Name Age of Onset Renal Hx Son jonathan 37 kidney stone No Known Problems Son Social History Tobacco Use Smoking status: Never Smokeless tobacco: Never Substance Use Topics Alcohol use: No Vaping/E-Cigarette Use Vaping/E-Cigarette Use Never User Vaping/E-Cigarette Substances Nicotine No Cannabidiol (CBD) No Vaping/E-Cigarette Devices Disposable No ROS: -Per HPI OBJECTIVE: BP 122/80 | Pulse 81 | Temp 36.1 C (97 F) (Tympanic) | Ht 1.651 m (5' 5") | Wt 103 kg (227 lb) | SpO2 97% | BMI 37.77 kg/m | BSA 2.17 m PHYSICAL EXAM: Vitals are reviewed General:. NAD, well developed HEENT:. Normal Conjunctiva, EOMI Cardiac:. Normal S1, S2, no murmur Lungs:. CTA, no wheezing or crackles MSK:. Normal gait Psych:. AAOx3, normal affect ASSESSMENT/PLAN: Elevated prostate specific antigen (PSA) (Primary) - pt is asymptomatic - PSA Chronic obstructive pulmonary disease, unspecified COPD type (HCC) - stable - lungs CTA History of atrial fibrillation - post-op Afib - NSR on exam Prediabetes - HEMOGLOBIN A1C Coronary artery disease involving [place] coronary artery of [place] heart without angina pectoris - on plavix and zetia HTN, goal below 140/90 - BP wnl Follow Up: Return in about 6 months (around 06/28/2024). Tonia Rios MD Family medicine, [place] [phone] documented in this encounter Nursing Notes * Amy Murray LPN - 12/27/2023 7:22 AM EDT Former [place] pt Would like labs Check for diabetes documented in this encounter Plan of Treatment Pending Results Name Type Priority Associated Diagnoses Date /Time PSA Lab Routine Elevated prostate specific antigen (PSA) 12/27/2023 7:47 AM EDT HEMOGLOBIN A1C Lab Routine Prediabetes 12/27/2023 7:47 AM EDT Scheduled Procedures Name [...] this encounter Medical Devices Implanted Type Area Dude Ranch Manager Device Identifier Shelf Expiration Date Model / Serial / Lot Suture Steel 6 [id number] - [id number] Implanted:Qty: 4 on 01/11/2021 by Antonio Garner MD at OR [facility] N/A: Sternum JUSTUS : [employer] 09/14/2025 [id number] / / [id number] documented as of this encounter Visit Diagnoses Diagnosis Elevated prostate specific antigen (PSA)- Primary Chronic obstructive pulmonary disease, unspecified COPD type (HCC) History of atrial fibrillation Personal history of other diseases of circulatory system Prediabetes Other abnormal glucose Coronary artery disease involving [place] coronary artery of [place] heart without angina pectoris HTN, goal below 140/90 Unspecified essential hypertension documented in this encounter Advance Directives * [...]
--- OUTSIDE RECORDS SUMMARY | 2024-06-17 08:06 | External Medical Summary ---
Author Name Unknown Address Unknown Organization [id number]:[facility] [place] [address] [place] [address] Laboratory Report Ordering Provider Test Date Status MEAGHAN MONSIVAISEdgardo 12/27/2023 07:47:30 Mayela l Observation Date Value Abnormality Reference (Units ) Status PSA 12/27/2023 07:47:30 4.39 Above high normal <4 .10 (ng/mL) Final Performing Location [facility] - [address] [place] [address]
--- NOTE | 2024-06-17 08:12 | Emergency Department Note ---
Impression & Plan Left-sided chest pain, Vertigo, Anxiety ED Provider Note Name: BRENT ELAM Jr Age: 69 Sex: Male Arrives Via: Walk-In Informant: Patient ED Provider: Ike Adorno MD Chief Complaint: Chest pain Impression: As per impressions above Medical Decision Makin-year-old gentleman with history of CAD status post CABG, vertigo, left multiple other medical comorbidities. Arrives with onset left-sided chest pain waxing waning over the last 6 hours. Initial EKG is fortunately reassuring. Does note some vertigo and nausea at the same time. Neuro intact without deficits. Currently without any vertiginous symptoms and exam is benign. Has a history of vertigo without other findings I do not feel that neuro workup indicated quite at this point. The left-sided chest pain with his history is clearly concerning. He was given some IV morphine with resolution of pain. Nitro and aspirin were held as patient cannot take them. He is currently on Plavix. Patient was quite anxious and thus IV Ativan was given which would also help with vertigo and not currently having any significant symptoms. He stated improved anxiety patient Patient is feeling better though given his cardiac history hospitalization would be indicated. Fortunately workup is unremarkable including EKG and baseline along with unremarkable troponin. Hospitalist consulted for further management. Triage/Nursing Notes reviewed by Me Differential:Cardiac ischemia, aortic dissection, pulmonary embolism, pneumothorax, pneumonia, pericarditis, myocarditis, esophageal rupture, GERD, cholecystitis, pancreatitis, musculoskeletal, as well as other pathologies. Vital Signs: reviewed and remarkable for no significant abnormalities other than mild hypertension Interventions: Morphine IV, Ativan IV Labs:ED labs Reviewed by me and remarkable for no acute abnormalities. Imagin view chest x-ray as per my interpretation no infiltrate effusion or pneumothorax appreciated. EKG:As per my interpretation. Indication chest pain. Normal sinus rhythm with a right bundle branch block no ectopy nor ischemia. Heart rate 66 bpm with QTc 454. Some anterior T wave inversions. Compared to EKG from August 16, 2022 there is no significant change. Cardiac/Tele Monitoring: Cardiac Monitoring: An Order was placed for continuous cardiac monitoring. The monitor shows a rate of 60 with a normal sinus rhythm. Consults:Discussed with hospital service for further management Plan: Disposition:Hospitalization. Condition: Good History of Present Illness: 69-year-old male arrives for evaluation of chest pain. Patient with left-sided chest pain radiating to his back and left shoulder. Started about 6 hours ago its waxed and waned. Was pretty severe earlier but it is improved and is currently just 2 out of 10. Associated with vertigo and nausea. The vertigo has resolved. The nausea continues. He denies any specific abdominal pain, distention, back pain, urinary/bowel issue, leg swelling or other concerning signs or symptoms. No falls, trauma, injuries. Patient with a history of CABG 3 and half years ago. No cardiac workup or intervention since then. He is on Plavix daily. Notes a long history of vertigo but has not had it in a few years that he recalls. Past Medical History:See Below Home Medications:See Below Allergies:See Below Vitals:Blood Pressure: 157/89, Pulse 71, RR 18, T 36.5C, O2 96% on RA Physical Exam: GENERAL: Patient is very anxious appearing and in moderate distress. RESPIRATORY: No dyspnea. Clear to auscultation and equal bilaterally. CARDIOVASCULAR: Regular rate and rhythm.No murmur appreciated. GASTROINTESTINAL: Abdomen soft, non-tender, no peritonitis. EXTREMITIES: Normal motion all extremities, no cyanosis, no edema. NEUROLOGIC: Alert and oriented. No focal neurologic deficits appreciated SKIN: No rash, no jaundice, no diaphoresis. PSYCH: Appropriate GCS: 15 ED Course: Times/Reassessments: Patient feeling significantly improved agreeable to hospitalization for rule out. Ike Adorno MD Past Med/Surg History Problem List Anxiety (Acute) Vertigo (Acute) Left-sided chest pain (Acute) Metabolic syndrome Precordial chest pain (Acute) SOB (shortness of breath) (Acute) Vomiting (Acute) CAD (coronary atherosclerotic disease) (Acute) Bradycardia History of coronary artery bypass graft ROMA (obstructive sleep apnea) Chest pain (Acute) COPD (chronic obstructive pulmonary disease) (Chronic) Compression fracture of T12 vertebra (Chronic) Generalized anxiety disorder (Chronic) Coronary artery disease (Chronic) "non-STEMI [facility] 08/01/16; cath + PCI [facility] PDA + OM 08/03/16" Vertigo (Chronic) Obesity (BMI 30-39.9) (Chronic) Hyperlipidemia (Chronic) Benign positional vertigo (Chronic) Osteoarthritis (Chronic) Hx of cholecystectomy (Chronic) Hx of appendectomy (Chronic) H/O cardiac catheterization (Chronic) "12/10/09 EF 60%, 20% LAD, 30% RCA as per Epic" Status post cardiac catheterization (Chronic) "[facility] 08/03/16 occlusions left circumflex + distal RCA posterolateral branch" On 09/11/16 06:19 Ron Tapia wrote "[facility] 08/01/16 occlusions left circumflex + distal RCA posterolateral branch" Status post coronary artery stent placement (Chronic) "[facility] 08/03/16 PCI's PDA + OM with drug-eluting stents" On 09/11/16 06:20 Ron Tapia wrote "[facility] 08/01/16 PCI's PDA + OM with drug-eluting stents" Medical History Compression fracture of T12 vertebra Coronary artery disease "non-STEMI [facility] 08/01/16; cath + PCI [facility] PDA + OM 08/03/16" Generalized anxiety disorder Hyperlipidemia Obesity (BMI 30-39.9) ROMA (obstructive sleep apnea) Osteoarthritis Vertigo Surgical History H/O cardiac catheterization "12/10/09 EF 60%, 20% LAD, 30% RCA as per Epic" Hx of appendectomy Hx of cholecystectomy Status post cardiac catheterization "[facility] 08/03/16 occlusions left circumflex + distal RCA posterolateral branch" On 09/11/16 06:19 Ron Tapia wrote "[facility] 08/01/16 occlusions left circumflex + distal RCA posterolateral branch" Status post coronary artery stent placement "[facility] 08/03/16 PCI's PDA + OM with drug-eluting stents" On 09/11/16 06:20 Ron Tapia wrote "[facility] 08/01/16 PCI's PDA + OM with drug-eluting stents" Family History Other Cancer Cirrhosis Stroke Social History Smoking Status: Never smoker Second Hand Exposure: No; Do You Dip or Chew Tobacco: No; Hx Alcohol Use: No Hx Substance Use: No Preferred Language: Iranian Communication Ability: Effective Toll Settlement Clerk Required: No Beliefs That Will Affect Care: Zoroastrian Zoroastrian Beliefs: [employer] marital status: / Current Living Situation: Alone Current Living Situation Comment: in house How many Children do You have: 2 Feels Safe at Home: Yes Assistive Devices: Glasses Allergies Allergies Allergy/AdvReac Type Severity Reaction Status Date / Time tramadol Allergy Intermediate itching Verified 01/09/22 13:06 nitroglycerin AdvReac Severe Hypotension Verified 01/09/22 14:15 hydrocodone AdvReac Intermediate DIZZY/NAUSE Verified 01/09/22 13:06 A Home Meds Home Medications Medication Instructions Recorded Confirmed meclizine 25 mg tablet 25 mg PO TID PRN Vertigo 03/11/18 06/17/24 cyclobenzaprine 10 mg tablet 10 mg PO BID PRN Muscle Spasm 09/19/20 06/17/24 albuterol sulfate 90 mcg/actuation 2 puff inhalation Q6H PRN 01/08/21 06/17/24 aerosol inhaler Shortness Of Breath lisinopril 5 mg tablet 5 mg PO DAILY 06/12/21 06/17/24 rosuvastatin 40 mg tablet 40 mg PO HS 06/12/21 06/17/24 acetaminophen 325 mg tablet 650 mg PO Q6H PRN Pain 09/16/21 06/17/24 metoprolol tartrate 25 mg tablet 25 mg PO BID 01/09/22 06/17/24 ezetimibe 10 mg tablet 10 mg PO DAILY 06/17/24 06/17/24 gabapentin 100 mg capsule 100 mg PO BID 06/17/24 06/17/24 Previous Rx's Medication Instructions Recorded amlodipine 5 mg tablet (Norvasc) 2.5 mg (1/2 x 5 mg) PO QAM #30 tabs 01/12/22 clopidogrel 75 mg tablet 75 mg PO QAM #30 tabs 01/12/22 pantoprazole 40 mg tablet,delayed 40 mg PO DAILY #30 tabs 01/12/22 release ondansetron 4 mg disintegrating 4 mg PO Q8H PRN nausea and 02/06/22 tablet vomiting #30 tabs Results & Data (ED) Vital Signs Vital Signs - 24 hr 06/17/24 10:30 Pulse Rate [Left Finger] 63 Respiratory Rate 20 Blood Pressure [Left Arm] 133/85 Blood Pressure Mean [Left Arm] 101 Pulse Oximetry 95 Laboratory Data 06/18/24 06:19 06/18/24 07:30 Lab Results 06/17/24 06/17/24 06/17/24 Range/Units 08:17 08:17 08:17 WBC 11.67 H (4.8-10.8) K/ul RBC 6.02 (4.70-6.10) M/uL Hgb 16.6 (14.0-18.0) g/dl Hct 48.6 (42.0-52.0) % MCV 80.7 (80.0-100.0) fL MCH 27.6 (25.0-34.0) pg MCHC 34.2 (32.0-36.0) g/dL RDW Std Deviation 39.0 (36.4-46.3) fL RDW Coeff of Mildred 13.3 (11.5-14.5) % Plt Count 297 (130-400) K/uL MPV 9.4 (9.4-12.4) fL Immature Gran % (Auto) 0.4 % Neut % (Auto) 79.0 % Lymph % (Auto) 12.0 % [place] % (Auto) 6.3 % Eos % (Auto) 1.9 % Baso % (Auto) 0.4 % Neut # (Auto) 9.21 H (1.40-6.50) K/uL Lymph # (Auto) 1.40 (1.20-3.40) K/uL [place] # (Auto) 0.74 H (0.11-0.59) K/uL Eos # (Auto) 0.22 (0.00-0.50) K/uL Baso # (Auto) 0.05 (0.00-0.20) K/uL Immature Gran # (Auto) 0.05 (0.01-0.20) K/uL PT 11.4 (9.0-12.0) Seconds INR 1.1 (0.9-1.1) APTT 30 (21-31) Seconds PTT Ratio 1.1 Sodium 140 (136-145) mmol/L Potassium 3.9 (3.5-5.1) mmol/L Chloride 106 (98-107) mmol/L Carbon Dioxide 25 (21-32) mmol/L Anion Gap 9 (3-11) BUN 7 (6-23) mg/dl Creatinine 0.77 (0.6-1.4) mg/dl Est Cr Clr Drug Dosing 96.4 ml/min eGFR 95.72 BUN/Creatinine Ratio 9.1 L (10-20) Glucose 102 H (70-99(Fasting)) mg/dl Calcium 9.0 (8.6-10.3) mg/dl Magnesium 1.7 (1.7-2.4) mg/dl Total Bilirubin 0.8 (0.2-1.0) mg/dl Direct Bilirubin 0.2 (0-0.2) mg/dl AST 20 (13-39) U/L ALT 19 (7-52) U/L Alkaline Phosphatase 71 (34-104) U/L Troponin I High Sens 5.0 (0-20) pg/ml Total Protein 7.6 (6.0-8.3) gm/dl Albumin 4.2 (3.4-5.0) gm/dl Lipase 35 (11-82) U/L Adenovirus (PCR) Not Detected (NotDetected) B. pertussis DNA (PCR) Not Detected (NotDetected) B.parapertussis DNA PCR Not Detected (NotDetected) C. pneumoniae DNA (PCR) Not Detected (NotDetected) Coronavirus OC43 (PCR) Not Detected (NotDetected) Coronavirus HKU1 (PCR) Not Detected (NotDetected) Coronavirus 229E (PCR) Not Detected (NotDetected) SARS-CoV-2 (PCR) NEGATIVE Not Detected (Negative) Coronavirus NL63 (PCR) Not Detected (NotDetected) Human Metapneumovir PCR Not Detected (NotDetected) Influenza Type A (PCR) Negative Not Detected (Neg) Influenza Type B (PCR) Negative (Neg) M. pneumoniae (PCR) (NotDetected) Parainfluenza 1 (PCR) (NotDetected) Parainfluenza 2 (PCR) (NotDetected) Parainfluenza 3 (PCR) (NotDetected) Parainfluenza 4 (PCR) (NotDetected) RSV (RT-PCR) (Neg) RSV (PCR) (NotDetected) Entero/Rhino (PCR) (NotDetected) 06/17/24 Range/Units 08:17 WBC (4.8-10.8) K/ul RBC (4.70-6.10) M/uL Hgb (14.0-18.0) g/dl Hct (42.0-52.0) % MCV (80.0-100.0) fL MCH (25.0-34.0) pg MCHC (32.0-36.0) g/dL RDW Std Deviation (36.4-46.3) fL RDW Coeff of Mildred (11.5-14.5) % Plt Count (130-400) K/uL MPV (9.4-12.4) fL Immature Gran % (Auto) % Neut % (Auto) % Lymph % (Auto) % [place] % (Auto) % Eos % (Auto) % Baso % (Auto) % Neut # (Auto) (1.40-6.50) K/uL Lymph # (Auto) (1.20-3.40) K/uL [place] # (Auto) (0.11-0.59) K/uL Eos # (Auto) (0.00-0.50) K/uL Baso # (Auto) (0.00-0.20) K/uL Immature Gran # (Auto) (0.01-0.20) K/uL PT (9.0-12.0) Seconds INR (0.9-1.1) APTT (21-31) Seconds PTT Ratio Sodium (136-145) mmol/L Potassium (3.5-5.1) mmol/L Chloride (98-107) mmol/L Carbon Dioxide (21-32) mmol/L Anion Gap (3-11) BUN (6-23) mg/dl Creatinine (0.6-1.4) mg/dl Est Cr Clr Drug Dosing ml/min eGFR BUN/Creatinine Ratio (10-20) Glucose (70-99(Fasting)) mg/dl Calcium (8.6-10.3) mg/dl Magnesium (1.7-2.4) mg/dl Total Bilirubin (0.2-1.0) mg/dl Direct Bilirubin (0-0.2) mg/dl AST (13-39) U/L ALT (7-52) U/L Alkaline Phosphatase (34-104) U/L Troponin I High Sens (0-20) pg/ml Total Protein (6.0-8.3) gm/dl Albumin (3.4-5.0) gm/dl Lipase (11-82) U/L Adenovirus (PCR) (NotDetected) B. pertussis DNA (PCR) (NotDetected) B.parapertussis DNA PCR (NotDetected) C. pneumoniae DNA (PCR) (NotDetected) Coronavirus OC43 (PCR) (NotDetected) Coronavirus HKU1 (PCR) (NotDetected) Coronavirus 229E (PCR) (NotDetected) SARS-CoV-2 (PCR) (Negative) Coronavirus NL63 (PCR) (NotDetected) Human Metapneumovir PCR (NotDetected) Influenza Type A (PCR) (Neg) Influenza Type B (PCR) Not Detected (Neg) M. pneumoniae (PCR) Not Detected (NotDetected) Parainfluenza 1 (PCR) Not Detected (NotDetected) Parainfluenza 2 (PCR) Not Detected (NotDetected) Parainfluenza 3 (PCR) Not Detected (NotDetected) Parainfluenza 4 (PCR) Not Detected (NotDetected) RSV (RT-PCR) Negative (Neg) RSV (PCR) Not Detected (NotDetected) Entero/Rhino (PCR) Not Detected (NotDetected) Administered Medications Acetaminophen (Acetaminophen 325 Mg Tab) 650 mg PO Q4H PRN PRN Reason: Pain or Fever Stop: 07/17/24 10:39 Last Admin: 06/18/24 07:49 Dose: 650 mg Documented By: [facility] Amlodipine Besylate (Amlodipine Besylate 5 Mg Tab) 2.5 mg PO [facility] Stop: 07/18/24 08:59 Last Admin: 06/18/24 07:56 Dose: 2.5 mg Documented By: [facility] Clopidogrel Bisulfate (Clopidogrel Bisulfate 75 Mg Tab) [facility] Stop: 07/18/24 08:59 Last Admin: 06/18/24 07:51 Dose: 75 mg Documented By: [facility] Ezetimibe (Ezetimibe 10 Mg Tab) 10 mg PO DAILY COUNTS INCLUDE 234 BEDS AT THE [facility] Stop: 07/18/24 08:59 Last Admin: 06/18/24 07:50 Dose: 10 mg Documented By: STACEY Gabapentin (Gabapentin 100 Mg Cap) 100 mg PO BID RAYO Stop: 07/17/24 20:59 Last Admin: 06/18/24 07:50 Dose: 100 mg Documented By: Admin: 06/17/24 20:32 Dose: 100 mg Documented By: [place] Isosorbide Mononitrate (Isosorbide [place] Extended Rel 30 Mg Tabcr) 15 mg PO QAM RAYO Stop: 07/18/24 08:59 Last Admin: 06/18/24 07:55 Dose: 15 mg Documented By: STACEY Lisinopril (Lisinopril 5 Mg Tab) 5 mg PO DAILY RAYO Stop: 07/18/24 08:59 Last Admin: 06/18/24 07:51 Dose: 5 mg Documented By: STACEY Meclizine HCl (Meclizine Hcl 25 Mg Tab) 25 mg PO TID PRN PRN Reason: Vertigo Stop: 07/17/24 10:42 Last Admin: 06/17/24 22:08 Dose: 25 mg Documented By: [place] Metoprolol Tartrate (Metoprolol Tartrate 25 Mg Tab) 25 mg PO BID RAYO Stop: 07/17/24 20:59 Last Admin: 06/18/24 07:51 Dose: Not Given Documented By: Admin: 06/17/24 20:32 Dose: 25 mg Documented By: [place] Pantoprazole Sodium (Pantoprazole 40 Mg Tab) 40 mg PO DAILY RAYO Stop: 07/18/24 08:59 Last Admin: 06/18/24 07:50 Dose: 40 mg Documented By: STACEY Rosuvastatin Calcium (Rosuvastatin Calcium 20 Mg Tab) 40 mg PO HS RAYO Stop: 07/17/24 20:59 Last Admin: 06/17/24 20:31 Dose: 40 mg Documented By: [place] Discontinued Medications Magnesium Sulfate/Dextrose (Magnesium Sulfate / D5w) 1 gm in 100 mls @ 50 mls/hr IV ONE ONE Stop: 06/17/24 11:56 Last Infusion: 06/17/24 13:43 Dose: Infused Documented By: Admin: 06/17/24 10:50 Dose: 50 mls/hr Documented By: DEO Lorazepam (Lorazepam 1 Mg/1 Ml Syr Ed Inj Use) 1 mg IV ONE STA Stop: 06/17/24 08:52 Last Admin: 06/17/24 09:03 Dose: 1 mg Documented By: DEO Morphine Sulfate (Morphine Sulfate 4 Mg/Ml 1 Ml Carp\\Vial) 4 mg IV NOW STA Stop: 06/17/24 08:10 Last Admin: 06/17/24 08:24 Dose: 4 mg Documented By: DEO Ondansetron HCl (Ondansetron Inj 2 Mg/Ml 2 Ml Vial) 4 mg IV NOW STA Stop: 06/17/24 08:10 Last Admin: 06/17/24 08:24 Dose: 4 mg Documented By: DEO Imaging Data Radiologist's Impression: Chest X-Ray 06/17/24 08:10 XR chest 1V portable CLINICAL HISTORY: Chest pain. COMPARISON STUDY: Chest radiograph and chest CT August 16, 2022. FINDINGS: There are median sternotomy wires and mediastinal surgical clips. Cardiomegaly is unchanged. Mediastinal contours are stable. There is no evidence for pulmonary edema. There is no pneumothorax or pleural effusion. No consolidation to suggest pneumonia. IMPRESSION: No acute cardiopulmonary findings. ACT 112: Negative or not required by law. Electronically signed by: Mathew Pollack M.D. 06/17/2024 8:34 AM Discharge Plan Visit Data Chief Complaint: Chest Pain Stated Complaint: CHEST PAIN, VERTIGO, NAUSEA ED Provider: Ike Adorno Discharge Problem: Left-sided chest pain, Vertigo, Anxiety Patient Disposition: Admitted As Inpatient Discharge Instructions Interventions: ED Discharge Assessment Last Done: 06/17/24 11:49
[2024-06-17] MEDS: MoRPHine SULFATE 4 MG/ML 1 ML CARP\\VIAL IV STA (08:24)
[2024-06-17] MEDS: ONDANSETRON INJ 2 MG/ML 2 ML VIAL IV STA (08:24)
[2024-06-17 08:33] LABS: Basophils # (auto) 0.05 K/uL (0.00-0.20); Basophils % (auto) 0.4 %; Eosinophils # (auto) 0.22 K/uL (0.00-0.50); Eosinophils % (auto) 1.9 %; Hematocrit (blood only) 48.6 % (42.0-52.0); Hemoglobin 16.6 g/dl (14.0-18.0); Immature Granulocytes # (auto) 0.05 K/uL (0.01-0.20); Immature Granulocytes % (auto) 0.4 %; Mean Corpuscular Hemoglobin 27.6 pg (25.0-34.0); Mean Corpuscular Hgb Conc 34.2 g/dL (32.0-36.0); Mean Corpuscular Volume 80.7 fL (80.0-100.0); Mean Platelet Volume 9.4 fL (9.4-12.4); Monocytes # (auto) 0.74 K/uL (0.11-0.59); Monocytes % (auto) 6.3 %; Neutrophils # (auto) 9.21 K/uL (1.40-6.50); Platelet Count 297 K/uL (130-400); RDW Coefficient of Variation 13.3 % (11.5-14.5); Red Blood Count 6.02 M/uL (4.70-6.10); White Blood Count 11.67 K/ul (4.8-10.8)
--- NOTE | 2024-06-17 08:37 | XRay Report ---
XR chest 1V portable CLINICAL HISTORY: Chest pain. COMPARISON STUDY: Chest radiograph and chest CT August 16, 2022. FINDINGS: There are median sternotomy wires and mediastinal surgical clips. Cardiomegaly is unchanged . Mediastinal contours are stable. There is no evidence for pulmonary edema. There is no pneumothorax or pleural effusion. No consolidation to suggest pneumonia. IMPRESSION: No acute cardiopulmonary findings. ACT 112: Negative or not required by law. Electronically signed by: Mathew Pollack M.D. 06/17/2024 8:34 AM
[2024-06-17 08:49] LABS: Albumin Level 4.2 gm/dl (3.4-5.0); BUN Creatinine Ratio 9.1 (10-20); Bilirubin Direct 0.2 mg/dl (0-0.2); Bilirubin,Total 0.8 mg/dl (0.2-1.0); Creatinine Clr Calc Pharmacy 96.4 ml/min; Magnesium 1.7 mg/dl (1.7-2.4); Potassium 3.9 mmol/L (3.5-5.1); Total Protein 7.6 gm/dl (6.0-8.3)
[2024-06-17 09:01] LABS: INR 1.1 (0.9-1.1); Partial Thromboplastin Ratio 1.1; Partial Thromboplastin Time 30 Seconds (21-31); Prothrombin Time 11.4 Seconds (9.0-12.0)
[2024-06-17] MEDS: LORazepam 1 MG/1 ML SYR ED Inj Use IV STA (09:03)
[2024-06-17 09:05] LABS: Influenza A virus by PCR Negative (Neg); Influenza B virus by PCR Negative (Neg); RSV by PCR Negative (Neg); SARS CoV2 RNA(COVID-19) Ceph NEGATIVE (Negative)
--- NOTE | 2024-06-17 10:03 | History & Physical Report ---
Date of Service June 17, 2024 Assessment & Plan (1) Chest pain: Plan: Hx of CAD s/p CABG HTN, HLD Woke up this AM with chest pain, vertigo and nausea. Reports symptoms of chest pain similar to ones he had in the past when needed CABG. CXR negative Troponin 5 ECG without acute isch. changes Cont. home meds Obtain echo repeat troponin q6 hrs Cardiology consulted and discussed with Pt also presents w/ vertigo and nausea - pt has hx of BPPV - in ED received morphine, ativan, zofran - pt feels much improved and comfortable - cont. to closely monitor COPD - does not seem to be in exacerbation "Flu-like" symptoms - for the past several days - pt reports rhinorrhea, and cough, no fevers - rtook OTC coricidine hbp - will obtain resp. Biofire ROMA - cpap hs GERD - cont. pantoprazole History of Present Illness Chief Complaint: Chest pain Primary Care Provider: Goran Morrissey MD 69 yo M w/ Hx of CAD s/p CABG, diastolic dysfunction (LV), COPD, HTN, HLD, ROMA on cpap, GERD, hx of vertigo (BPPV), pAfib (not on AC), CKD stage II who presents with left sided chest pain, that radiated to his left back and left arm. Pt reports having uneventful evening yesterday and went to bed early. Woke up this AM with chest pain, vertigo and nausea. Reports symptoms of chest pain similar to ones he had in the past when needed CABG. Pt says he also has had flu like symptoms for the past several days such as - cough, rhinorrhea- denies any fevers. Reports taking over the counter meds - c oricidine hbp. Denies otherwise any abd. pain, vomiting, reports having BMs, and voiding w/o difficulty. In the ED, pt received morphine, ativan, zofran. Chest pain is now much improved and overall pt feels comfortable, verigo and nausea also resolved. Troponin 5 and ECG without acute changes. Allergies Allergy/AdvReac Type Severity Reaction Status Date / Time tramadol Allergy Intermediate itching Verified 01/09/22 13:06 nitroglycerin AdvReac Severe Hypotension Verified 01/09/22 14:15 hydrocodone AdvReac Intermediate DIZZY/NAUSE Verified 01/09/22 13:06 A Home Medications Medication Instructions Recorded Confirmed Type meclizine 25 mg tablet 25 mg PO TID PRN Vertigo 03/11/18 06/17/24 History cyclobenzaprine 10 mg tablet 10 mg PO BID PRN Muscle Spasm 09/19/20 06/17/24 History albuterol sulfate 90 mcg/actuation 2 puff inhalation Q6H PRN 01/08/21 06/17/24 History aerosol inhaler Shortness Of Breath lisinopril 5 mg tablet 5 mg PO DAILY 06/12/21 06/17/24 History rosuvastatin 40 mg tablet 40 mg PO HS 06/12/21 06/17/24 History acetaminophen 325 mg tablet 650 mg PO Q6H PRN Pain 09/16/21 06/17/24 History metoprolol tartrate 25 mg tablet 25 mg PO BID 01/09/22 06/17/24 History amlodipine 5 mg tablet (Norvasc) 2.5 mg (1/2 x 5 mg) PO QAM #30 tabs 01/12/22 06/17/24 Rx clopidogrel 75 mg tablet 75 mg PO QAM #30 tabs 01/12/22 06/17/24 Rx pantoprazole 40 mg tablet,delayed 40 mg PO DAILY #30 tabs 01/12/22 06/17/24 Rx release ondansetron 4 mg disintegrating 4 mg PO Q8H PRN nausea and 02/06/22 06/17/24 Rx tablet vomiting #30 tabs ezetimibe 10 mg tablet 10 mg PO DAILY 06/17/24 06/17/24 History gabapentin 100 mg capsule 100 mg PO BID 06/17/24 06/17/24 History Past Med/Surg History Problem List Metabolic syndrome Precordial chest pain (Acute) SOB (shortness of breath) (Acute) Vomiting (Acute) CAD (coronary atherosclerotic disease) (Acute) Bradycardia History of coronary artery bypass graft ROMA (obstructive sleep apnea) Chest pain (Acute) COPD (chronic obstructive pulmonary disease) (Chronic) Compression fracture of T12 vertebra (Chronic) Generalized anxiety disorder (Chronic) Coronary artery disease (Chronic) "non-STEMI [place] 08/01/16; cath + PCI SALOME PDA + OM 08/03/16" Vertigo (Chronic) Obesity (BMI 30-39.9) (Chronic) Hyperlipidemia (Chronic) Benign positional vertigo (Chronic) Osteoarthritis (Chronic) Hx of cholecystectomy (Chronic) Hx of appendectomy (Chronic) H/O cardiac catheterization (Chronic) "12/10/09 EF 60%, 20% LAD, 30% RCA as per Epic" Status post cardiac catheterization (Chronic) "[facility] 08/03/16 occlusions left circumflex + distal RCA posterolateral branch" On 09/11/16 06:19 Ron Tapia wrote "[facility] 08/01/16 occlusions left circumflex + distal RCA posterolateral branch" Status post coronary artery stent placement (Chronic) "[facility] 08/03/16 PCI's PDA + OM with drug-eluting stents" On 09/11/16 06:20 Ron Tapia wrote "[facility] 08/01/16 PCI's PDA + OM with drug-eluting stents" Medical History Compression fracture of T12 vertebra Coronary artery disease "non-STEMI [facility] 08/01/16; cath + PCI SALOME PDA + OM 08/03/16" Generalized anxiety disorder Hyperlipidemia Obesity (BMI 30-39.9) ROMA (obstructive sleep apnea) Osteoarthritis Vertigo Surgical History H/O cardiac catheterization "12/10/09 EF 60%, 20% LAD, 30% RCA as per Epic" Hx of appendectomy Hx of cholecystectomy Status post cardiac catheterization "[facility] 08/03/16 occlusions left circumflex + distal RCA posterolateral branch" On 09/11/16 06:19 Ron Tapia wrote "[facility] 08/01/16 occlusions left circumflex + distal RCA posterolateral branch" Status post coronary artery stent placement "[facility] 08/03/16 PCI's PDA + OM with drug-eluting stents" On 09/11/16 06:20 Ron Tapia wrote "[facility] 08/01/16 PCI's PDA + OM with drug-eluting stents" Family History Other Cancer Cirrhosis Stroke Social History Smoking Status: Never smoker Second Hand Exposure: No; Do You Dip or Chew Tobacco: No; Hx Alcohol Use: No Hx Substance Use: No Preferred Language: German Communication Ability: Effective Race Car Driver Required: No Beliefs That Will Affect Care: Orthodoxy Orthodoxy Beliefs: Machine Specialist services marital status: / Current Living Situation: Alone Current Living Situation Comment: in house How many Children do You have: 2 Feels Safe at Home: Yes Assistive Devices: Glasses Review of Systems Review of Systems: All systems reviewed & are unremarkable except as noted in Subjective Physical Exam Physical Exam: General: obese M in NAD HEENT: NC/AT, EOMI Neck: supple, no JVD Resp: CTAB, no wheezing, rhonchi, crackles Cardiac: regular, no murmurs Abdomen: abdomen soft, non-tender, + bowel sounds, + obese Extremities: no LE edema, moves extremities Neuro:awake, alert, oriented, answers appropriately, no facial asymmetry, moves extremities Results & Data Results & Data Vital Signs (Past 12 Hours) Vital Signs Temp Pulse Resp BP Pulse Ox O2 Del Method 06/17/24 08:25 66 06/17/24 08:01 36.5 C 71 18 157/89 H 96 Room Air Laboratory Results 06/17/24 Range/Units 08:17 WBC 11.67 H (4.8-10.8) K/ul RBC 6.02 (4.70-6.10) M/uL Hgb 16.6 (14.0-18.0) g/dl Hct 48.6 (42.0-52.0) % MCV 80.7 (80.0-100.0) fL MCH 27.6 (25.0-34.0) pg MCHC 34.2 (32.0-36.0) g/dL RDW Std Deviation 39.0 (36.4-46.3) fL RDW Coeff of Mildred 13.3 (11.5-14.5) % Plt Count 297 (130-400) K/uL MPV 9.4 (9.4-12.4) fL Immature Gran % (Auto) 0.4 % Neut % (Auto) 79.0 % Lymph % (Auto) 12.0 % [place] % (Auto) 6.3 % Eos % (Auto) 1.9 % Baso % (Auto) 0.4 % Neut # (Auto) 9.21 H (1.40-6.50) K/uL Lymph # (Auto) 1.40 (1.20-3.40) K/uL [place] # (Auto) 0.74 H (0.11-0.59) K/uL Eos # (Auto) 0.22 (0.00-0.50) K/uL Baso # (Auto) 0.05 (0.00-0.20) K/uL Immature Gran # (Auto) 0.05 (0.01-0.20) K/uL PT 11.4 (9.0-12.0) Seconds INR 1.1 (0.9-1.1) APTT 30 (21-31) Seconds PTT Ratio 1.1 Sodium 140 (136-145) mmol/L Potassium 3.9 (3.5-5.1) mmol/L Chloride 106 (98-107) mmol/L Carbon Dioxide 25 (21-32) mmol/L Anion Gap 9 (3-11) BUN 7 (6-23) mg/dl Creatinine 0.77 (0.6-1.4) mg/dl Est Cr Clr Drug Dosing 96.4 ml/min eGFR 95.72 BUN/Creatinine Ratio 9.1 L (10-20) Glucose 102 H (70-99(Fasting)) mg/dl Calcium 9.0 (8.6-10.3) mg/dl Magnesium 1.7 (1.7-2.4) mg/dl Total Bilirubin 0.8 (0.2-1.0) mg/dl Direct Bilirubin 0.2 (0-0.2) mg/dl AST 20 (13-39) U/L ALT 19 (7-52) U/L Alkaline Phosphatase 71 (34-104) U/L Troponin I High Sens 5.0 (0-20) pg/ml Total Protein 7.6 (6.0-8.3) gm/dl Albumin 4.2 (3.4-5.0) gm/dl Lipase 35 (11-82) U/L SARS-CoV-2 (PCR) NEGATIVE (Negative) Influenza Type A (PCR) Negative (Neg) Influenza Type B (PCR) Negative (Neg) RSV (RT-PCR) Negative (Neg) Diagnostic Findings CXR FINDINGS: There are median sternotomy wires and mediastinal surgical clips. Cardiomegaly is unchanged. Mediastinal contours are stable. There is no evidence for pulmonary edema. There is no pneumothorax or pleural effusion. No consolidation to suggest pneumonia. IMPRESSION: No acute cardiopulmonary findings. (1) Chest pain Chest pain type: unspecified Qualified Code(s): R07.9 - Chest pain, unspecified
[2024-06-17] MEDS ORDERED: ALBUTEROL HFA 8 GM INHALER INH PRN (10:43)
[2024-06-17] MEDS ORDERED: CYCLOBENZAPRINE HCL 10 MG TAB PO PRN (10:43)
[2024-06-17] MEDS: MAGNESIUM SULFATE / D5W 1 GM/100 ML BAG IV ONE (10:50)
[2024-06-17 13:04] LABS: Adenovirus PCR Not Detected (NotDetected); Bordetella parapertussis PCR Not Detected (NotDetected); Bordetella pertussis PCR Not Detected (NotDetected); Chlamydia pneumoniae PCR Not Detected (NotDetected); Coronavirus 229E PCR Not Detected (NotDetected); Coronavirus CoV-2 (COVID19)PCR Not Detected (NotDetected); Coronavirus HKU1 PCR Not Detected (NotDetected); Coronavirus NL63 PCR Not Detected (NotDetected); Coronavirus OC43PCR Not Detected (NotDetected); Human Metapneumovirus PCR Not Detected (NotDetected); Influenza A PCR Not Detected (NotDetected); Influenza B PCR Not Detected (NotDetected); Mycoplasma pneumoniae PCR Not Detected (NotDetected); Parainfluenza Virus 1 PCR Not Detected (NotDetected); Parainfluenza Virus 2 PCR Not Detected (NotDetected); Parainfluenza Virus 3 PCR Not Detected (NotDetected); Parainfluenza Virus 4 PCR Not Detected (NotDetected); Respiratory Syncytial VirusPCR Not Detected (NotDetected); Rhinovirus/Enterovirus PCR Not Detected (NotDetected)
--- NOTE | 2024-06-17 18:14 | Cardiology Consultation ---
Date of Consultation June 17, 2024 Assessment & Plan (1) Precordial chest pain: Patient with longstanding history of coronary heart disease. Most recent cardiac catheterization in 2021 revealed severe [place] vessel disease, 2/4 grafts patent with stenosis of the other 2 grafts. Patient has a history of intermittent vertigo symptoms and notes onset of upset stomach and vertigo that progressed to chest discomfort. At this send like he has had some degree of stable angina ever since the cardiac catheterization which was performed in 2021. He does not take nitroglycerin as an outpatient as he has had symptomatic hypotension within the past. High-sensitivity troponin negative x 2 thus far and a third measurement is due at 20: 00 tonight. Will plan a repeat EKG tomorrow. Echocardiogram performed today is reassuring with no regional wall motion abnormalities. Continue outpatient cardiac medications including chronic clopidogrel, ezetimibe, lisinopril, metoprolol, rosuvastatin. Future considerations include a trial of low-dose isosorbide mononitrate which I think he would tolerate given his current blood pressure readings. History of Present Illness Attending Physician: Gavin Solorzano MD History of Present Illness Mr Saini is a 69 year old male seen in cardiology consultation per the request of Dr Solorzano for the evaluation of chest discomfort. Patient seen by the undersigned in the emergency department, room A2. He was accompanied by his son at the bedside. He states that he had onset of symptoms at approximately 4 AM. He woke up feeling sick to his stomach and had vertigo and then had chest discomfort. The maximum intensity of the chest discomfort was 5 out of 10. He describes a vague degree of residual chest discomfort during my assessment. Patient notes a relatively stable degree of chest discomfort with exertion over the last few months and year. An exercise stress echocardiogram was negative for inducible ischemia in Oct, 2023 with noted below average exercise tolerance, achieving 5 minutes on a standard Dixon protocol. Cardiac problems 1.CAD a.H/o NSTEMI s/p SALOME to PDA and OM, 2016 b.CABG x 4(RASHEED-LAD,Ao-ramus, Ao-PDA, Ao-OM with reversed saphenous vein), 01/11/[address] Garner. i.Post op afib- previously on amio- dc'd 02/2021. Coumadin dc'd on 03/2021 1.No afib per zio 03/2021 c.Ongoing atypical CP- presented to [facility] ED 12/2021 i.Repeat cardiac cath 01/11/2022 at [facility]- revealed significant [place] vessel disease with the RASHEED graft to the LAD and SVG to the ramus to be patent. The vein grafts to the RCA and circumflex marginal were occluded however the [place] arteries had good flow - med mgmt recommended 2.HLD, LDL goal below 70 3.Peripheral vascular disease, on Plavix 4.Metabolic syndrome 5.COPD 6.ROMA on CPAP 7.RBBB 8.Hx of COVID 19, 08/2021- mild symptoms. 9.Pulmonary nodule 10.GERD 11. Vertigo Allergies Allergy/AdvReac Type Severity Reaction Status Date / Time tramadol Allergy Intermediate itching Verified 01/09/22 13:06 nitroglycerin AdvReac Severe Hypotension Verified 01/09/22 14:15 hydrocodone AdvReac Intermediate DIZZY/NAUSE Verified 01/09/22 13:06 A Home Medications Medication Instructions Recorded Confirmed Type meclizine 25 mg tablet 25 mg PO TID PRN Vertigo 03/11/18 06/17/24 History cyclobenzaprine 10 mg tablet 10 mg PO BID PRN Muscle Spasm 09/19/20 06/17/24 History albuterol sulfate 90 mcg/actuation 2 puff inhalation Q6H PRN 01/08/21 06/17/24 History aerosol inhaler Shortness Of Breath lisinopril 5 mg tablet 5 mg PO DAILY 06/12/21 06/17/24 History rosuvastatin 40 mg tablet 40 mg PO HS 06/12/21 06/17/24 History acetaminophen 325 mg tablet 650 mg PO Q6H PRN Pain 09/16/21 06/17/24 History metoprolol tartrate 25 mg tablet 25 mg PO BID 01/09/22 06/17/24 History amlodipine 5 mg tablet (Norvasc) 2.5 mg (1/2 x 5 mg) PO QAM #30 tabs 01/12/22 06/17/24 Rx clopidogrel 75 mg tablet 75 mg PO QAM #30 tabs 01/12/22 06/17/24 Rx pantoprazole 40 mg tablet,delayed 40 mg PO DAILY #30 tabs 01/12/22 06/17/24 Rx release ondansetron 4 mg disintegrating 4 mg PO Q8H PRN nausea and 08/23/22 01/01/25 Rx tablet vomiting #30 tabs ezetimibe 10 mg tablet 10 mg PO DAILY 06/17/24 06/17/24 History gabapentin 100 mg capsule 100 mg PO BID 06/17/24 06/17/24 History Patient History Medical History Compression fracture of T12 vertebra Coronary artery disease "non-STEMI [facility] 08/01/16; cath + PCI SALOME PDA + OM 08/03/16" Generalized anxiety disorder Hyperlipidemia Obesity (BMI 30-39.9) ROMA (obstructive sleep apnea) Osteoarthritis Vertigo Surgical History H/O cardiac catheterization "12/10/09 EF 60%, 20% LAD, 30% RCA as per Epic" Hx of appendectomy Hx of cholecystectomy Status post cardiac catheterization "[facility] 08/03/16 occlusions left circumflex + distal RCA posterolateral branch" On 09/11/16 06:19 Ron Tapia wrote "[facility] 08/01/16 occlusions left circumflex + distal RCA posterolateral branch" Status post coronary artery stent placement "[facility] 08/03/16 PCI's PDA + OM with drug-eluting stents" On 09/11/16 06:20 Ron Tapia wrote "[facility] 08/01/16 PCI's PDA + OM with drug-eluting stents" Family History Other Cancer Cirrhosis Stroke Social History Smoking Status: Never smoker Second Hand Exposure: No; Do You Dip or Chew Tobacco: No; Hx Alcohol Use: No Hx Substance Use: No Preferred Language: Korean Communication Ability: Effective Allied Health Teacher Required: No Beliefs That Will Affect Care: Uatsdin Uatsdin Beliefs: Vice President Compliance services marital status: / Current Living Situation: Alone Current Living Situation Comment: in house How many Children do You have: 2 Feels Safe at Home: Yes Assistive Devices: Glasses Review of Systems Review of Systems: All systems reviewed & are unremarkable except as noted in HPI & below Physical Exam Physical Exam: General: no acute distress and stated age Eyes: conjunctiva are pink and non-injected, sclera clear Neck: normal jugular venous pulse, no hepatojugular reflux Chest: normal shape and normal respiratory effort Lungs: clear to auscultation and percussion Cardiac Exam: - regular heart sounds, no murmurs, rubs, or gallops, no jugular venous distention Abdomen: abdomen soft, non-tender, no abnormal masses and no hepatosplenomegaly Musculoskeletal: no gait disturbance, no weakness Extremities: no edema and no cyanosis Neuro:awake, conversant, follows commands, no focal motor deficits Psych: appropriate affect and insight. Results & Data Vital Signs (Past 12 Hours) Vital Signs Temp Pulse Pulse Resp BP BP BP 06/17/24 17:50 36.3 C L 61 20 159/91 H 06/17/24 17:17 78 18 140/83 06/17/24 16:12 59 L 18 133/77 06/17/24 15:22 55 L 06/17/24 15:05 56 L 18 141/80 H 06/17/24 12:04 58 L 18 114/64 06/17/24 12:00 53 L 18 114/64 06/17/24 11:11 65 18 06/17/24 11:11 06/17/24 11:10 57 L 18 127/76 06/17/24 10:30 63 20 133/85 06/17/24 08:25 66 06/17/24 08:01 36.5 C 71 18 157/89 H Pulse Ox O2 Del Method 06/17/24 17:50 95 Room Air 06/17/24 17:17 96 Room Air 06/17/24 16:12 95 Room Air 06/17/24 15:22 06/17/24 15:05 93 Room Air 06/17/24 12:04 93 Room Air 06/17/24 12:00 92 Room Air 06/17/24 11:11 95 Room Air 06/17/24 11:11 95 Room Air 06/17/24 11:10 96 Room Air 06/17/24 10:30 95 06/17/24 08:25 06/17/24 08:01 96 Room Air Laboratory Results Cardiac Enzymes 06/17/24 06/17/24 Range/Units 08:17 15:24 AST 20 (13-39) U/L Troponin I High Sens 5.0 7.5 (0-20) pg/ml Coagulation 06/17/24 Range/Units 08:17 PT 11.4 (9.0-12.0) Seconds APTT 30 (21-31) Seconds CBC 06/17/24 Range/Units 08:17 WBC 11.67 H (4.8-10.8) K/ul RBC 6.02 (4.70-6.10) M/uL Hgb 16.6 (14.0-18.0) g/dl Hct 48.6 (42.0-52.0) % Plt Count 297 (130-400) K/uL Neut # (Auto) 9.21 H (1.40-6.50) K/uL Lymph # (Auto) 1.40 (1.20-3.40) K/uL [place] # (Auto) 0.74 H (0.11-0.59) K/uL Eos # (Auto) 0.22 (0.00-0.50) K/uL Baso # (Auto) 0.05 (0.00-0.20) K/uL Comprehensive Metabolic Panel 06/17/24 Range/Units 08:17 Sodium 140 (136-145) mmol/L Potassium 3.9 (3.5-5.1) mmol/L Chloride 106 (98-107) mmol/L Carbon Dioxide 25 (21-32) mmol/L BUN 7 (6-23) mg/dl Creatinine 0.77 (0.6-1.4) mg/dl Glucose 102 H (70-99(Fasting)) mg/dl Calcium 9.0 (8.6-10.3) mg/dl Direct Bilirubin 0.2 (0-0.2) mg/dl AST 20 (13-39) U/L ALT 19 (7-52) U/L Alkaline Phosphatase 71 (34-104) U/L Total Protein 7.6 (6.0-8.3) gm/dl Albumin 4.2 (3.4-5.0) gm/dl Intake and Output 06/17/24 06/17/24 06/17/24 06:59 14:59 22:59 Intake Total 100 / 100 Balance 100 / 100 Intake: IV 100 / 100 Magnesium Sulfate / D5w 1 gm In 100 / 100 100 ml @ 50 mls/hr IV ONE ONE Rx#:[id number] Other: Weight 101.3 kg 101.3 kg Weight Measurement Method Built in [facility] Built in [facility] Patient Weight 06/18/24 06:59 Weight 101.3 kg Diagnostic Findings EKG performed 06/17/2024 807 and interpret independently reveals normal sinus rhythm with right bundle branch block, no significant repolarization abnormalities. Echocardiogram performed today and reviewed/interpreted independently Moderate concentric left ventricular hypertrophy, no left ventricular regional wall motion abnormalities, LVEF 66 5%, moderate aortic valve sclerosis without stenosis, grade 1 diastolic dysfunction, compared to December,, no significant interval change
[2024-06-17] MEDS: ROSUVASTATIN CALCIUM 20 MG TAB PO SCH (20:31)
[2024-06-17] MEDS: METOPROLOL TARTRATE 25 MG TAB PO SCH (20:32)
[2024-06-17] MEDS: GABAPENTIN 100 MG CAP PO SCH (20:32)
[2024-06-17] MEDS: MECLIZINE HCL 25 MG TAB PO PRN (22:08)
--- NOTE | 2024-06-17 22:50 | Electrocardiogram Report ---
Test Reason : Blood Pressure : */* mmHG Vent. Rate : 66 BPM Atrial Rate : 66 BPM P-R Int : 146 ms QRS Dur : 128 ms QT Int : 434 ms P-R-T Axes : 21 86 51 degrees QTcB Int : 454 ms Normal sinus rhythm Right bundle branch block Abnormal ECG When compared with ECG of 16-Aug-2022 07:25, Minimal criteria for Inferior infarct are no longer Present Confirmed by Ranjeet Santana ([id number]) on 06/17/2024 10:50:01 PM Referred By: REFERRED SELF Confirmed By: Ranjeet Santana
[2024-06-18 06:45] LABS: Hematocrit (blood only) 46.8 % (42.0-52.0); Hemoglobin 15.9 g/dl (14.0-18.0); Mean Corpuscular Hemoglobin 27.9 pg (25.0-34.0); Mean Corpuscular Volume 82.1 fL (80.0-100.0); Mean Platelet Volume 9.8 fL (9.4-12.4); Platelet Count 292 K/uL (130-400); RDW Coefficient of Variation 13.2 % (11.5-14.5); RDW Standard Deviation 39.7 fL (36.4-46.3); White Blood Count 8.92 K/ul (4.8-10.8)
[2024-06-18 07:20] LABS: Anion Gap 7 (3-11); BUN Creatinine Ratio 11.3 (10-20); Blood Urea Nitrogen 9 mg/dl (6-23); Calcium 8.8 mg/dl (8.6-10.3); Carbon Dioxide 27 mmol/L (21-32); Chloride 103 mmol/L (98-107); Creatinine Clr Calc Pharmacy 93.5 ml/min; Glucose 92 mg/dl (70-99(Fasting)); Magnesium 2.1 mg/dl (1.7-2.4); Phosphorus 3.6 mg/dl (2.5-4.9); Sodium 137 mmol/L (136-145)
[2024-06-18] MEDS: ACETAMINOPHEN 325 MG TAB PO PRN (07:49)
[2024-06-18] MEDS: EZETIMIBE 10 MG TAB PO SCH (07:50)
[2024-06-18] MEDS: PANTOprazole 40 MG TAB PO SCH (07:50)
[2024-06-18] MEDS: CLOPIDOGREL BISULFATE 75 MG TAB PO SCH (07:51)
[2024-06-18] MEDS: lisinopril 5 MG TAB PO SCH (07:51)
[2024-06-18] MEDS: ISOSORBIDE MONO EXTENDED REL 30 MG TABCR PO SCH (07:55)
[2024-06-18] MEDS: amLODIPine BESYLATE 5 MG TAB PO SCH (07:56)
--- NOTE | 2024-06-18 09:00 | Cardiology Progress Note ---
Date of Service June 18, 2024 Assessment & Plan (1) Precordial chest pain: (2) CAD (coronary atherosclerotic disease): Plan Assessment: 69 year old male with longstanding CAD presents with acute vertigo episodes with progression of nausea, and eventually chest discomfort. Plan: 1. Precordial chest pain: 2. CAD: -patient with longstanding history of CAD. Most recent cardiac catheterization dating back to 2021 revealed severe [place] vessel disease as well as 2/4 grafts patent, and stenosis of the other 2 grafts. Recommendation for medication management -Repeat EKG today remains unchanged with no acute ischemic changes. -High sensitivity troponin negative x3 -Echocardiogram obtained yesterday demonstrates preserved LVEF and no regional wall motion abnormalities. -At this time, plan is to continue GDMT with Zetia, Amlodipine, Lisinopril, metoprolol tartrate, Plavix, and Crestor. Started Imdur 15mg PO daily this morning. BP remain stable. -Plan at this time is to continue with Imdur in conjunction with his current med ication therapies and follow up in cardiology office to assess response. Case has been discussed with Dr. Haines. Further recommendations regarding plan of care as per his assessment. I spent a total of 30 minutes on the date of service in preparation, delivery, documentation of the care provided to the patient excluding any time spent in the performance of separately billed services. TAZ Delgado [facility] Admission and Anticipated Discharge Date Admission Date: June 17, 2024 Supervising Physician Co-Signing Physician Notes Attending attestation: Case reviewed with the advanced practitioner. I have personally performed a history and physical examination on the patient. I have reviewed the advanced practitioner's documentation on the date of service referenced in note, and I agree with, and take responsibility for the plan of care. Vertigo improved. Chest discomfort resolved. Patient stable for discharge on isosorbide mononitrate 30 mg tablet, start with 1/2 tablet by mouth daily for the first week and increase to a full tablet as tolerated after 7 days. I spent a total of 20 minutes coordinating, documenting, and providing care for this patient excluding time spent in the performance of separately billed services or time spent by another provider. Martín Haines, Subjective 06/18/2024: Patient seen and examined in follow up today. Feeling well from a cardiac perspective. Denies any chest pain upon today's exam. Continues to experience Vertigo symptoms. Labs, vitals, diagnostics, telemetry and documentation reviewed. Telemetry reviewed showing SB/SR rates 50-60's with no acute events overnight. SR with PAC's Right BBB, ? fusion complexes Rate 62bpm Review of Systems Review of Systems: All systems reviewed & are unremarkable except as noted in HPI & below Results & Data Vital Signs (Past 12 Hours) Vital Signs Temp Pulse Pulse Resp BP Pulse Ox O2 Del Method 06/18/24 07:11 36.4 C L 57 L 20 129/77 94 Room Air 06/18/24 04:14 36.4 C L 58 L 18 131/81 93 Room Air 06/18/24 00:00 61 06/17/24 23:10 36.4 C L 55 L 18 122/80 95 Room Air Laboratory Results Cardiac Enzymes 06/17/24 06/17/24 Range/Units 15:24 19:53 Troponin I High Sens 7.5 9.5 (0-20) pg/ml CBC 06/18/24 Range/Units 06:19 WBC 8.92 (4.8-10.8) K/ul RBC 5.70 (4.70-6.10) M/uL Hgb 15.9 (14.0-18.0) g/dl Hct 46.8 (42.0-52.0) % Plt Count 292 (130-400) K/uL Comprehensive Metabolic Panel 06/18/24 06/18/24 Range/Units 06:19 07:30 Sodium 137 (136-145) mmol/L Potassium TNP 4.2 Chloride 103 (98-107) mmol/L Carbon Dioxide 27 (21-32) mmol/L BUN 9 (6-23) mg/dl Creatinine 0.80 (0.6-1.4) mg/dl Glucose 92 (70-99(Fasting)) mg/dl Calcium 8.8 (8.6-10.3) mg/dl Intake and Output 06/17/24 06/18/24 06/18/24 22:59 06:59 14:59 Intake Total 350 / 450 Output Total Balance - 350 / 449 Intake: Oral 350 / 350 Output: # Bowel Movements Other: # Unmeasured Voids 2 Weight 101.3 kg 102.9 kg Weight Measurement Method Built in Bedscale Standing Scale Diagnostic Findings Echocardiogram 06/17/2024: Moderate concentric LVH LV systolic function is normal LVEF 60-65% no regional wall motion abnormalities noted Aortic valve sclerosis is moderate without significant stenosis Grade I diastolic dysfunction. (2) CAD (coronary atherosclerotic disease) Associated angina: unspecified whether angina present Coronary Disease- Associated Artery/Lesion type: unspecified vessel or lesion type [place] vs. transplanted heart: [place] heart Qualified Code(s): I25.10 - Atherosclerotic heart disease of [place] coronary artery without angina pectoris
[2024-06-18 11:12] VITALS: RESP 19
--- NOTE | 2024-06-18 13:30 | Electrocardiogram Report ---
Test Reason : Blood Pressure : */* mmHG Vent. Rate : 62 BPM Atrial Rate : 62 BPM P-R Int : 148 ms QRS Dur : 120 ms QT Int : 452 ms P-R-T Axes : 7 35 30 degrees QTcB Int : 458 ms Sinus rhythm Right bundle branch block Abnormal ECG When compared with ECG of 17-Jun-2024 08:07, Confirmed by Antonino Lucas ([id number]) on 06/18/2024 1:30:01 PM Referred By: REFERRED SELF Confirmed By: Antonino Lucas
[2024-06-18 15:35] VITALS: PULSE 71; TEMP 97.9; O2SAT 93
--- NOTE | 2024-06-18 16:29 | Discharge Summary ---
Date of Service June 18, 2024 Admission HPI Per Admitting Provider 69 yo M w/ Hx of CAD s/p CABG, diastolic dysfunction (LV), COPD, HTN, HLD, ROMA on cpap, GERD, hx of vertigo (BPPV), pAfib (not on AC), CKD stage II who presents with left sided chest pain, that radiated to his left back and left arm. Pt reports having uneventful evening yesterday and went to bed early. Woke up this AM with chest pain, vertigo and nausea. Reports symptoms of chest pain similar to ones he had in the past when needed CABG. Pt says he also has had flu like symptoms for the past several days such as - cough, rhinorrhea- denies any fevers. Reports taking over the counter meds - coricidine hbp. Denies otherwise any abd. pain, vomiting, reports having BMs, and voiding w/o difficulty. In the ED, pt received morphine, ativan, zofran. Chest pain is now much improved and overall pt feels comfortable, verigo and nausea also resolved. Troponin 5 and ECG without acute changes. Admission Exam Per Admitting Provider General: obese M in NAD HEENT: NC/AT, EOMI Neck: supple, no JVD Resp: CTAB, no wheezing, rhonchi, crackles Cardiac: regular, no murmurs Abdomen: abdomen soft, non-tender, + bowel sounds, + obese Extremities: no LE edema, moves extremities Neuro:awake, alert, oriented, answers appropriately, no facial asymmetry, moves extremities Principal Diagnosis Precordial chest pain, CAD Discharge Exam General: obese M in NAD HEENT: NC/AT, EOMI Neck: supple, no JVD Resp: CTAB, no wheezing, rhonchi, crackles Cardiac: regular, no murmurs Abdomen: abdomen soft, non-tender, + bowel sounds, + obese Extremities: no LE edema, moves extremities Neuro:awake, alert, oriented, answers appropriately, no facial asymmetry, moves extremities Discharge Data Allergies Allergy/AdvReac Type Severity Reaction Status Date / Time tramadol Allergy Intermediate itching Verified 01/09/22 13:06 nitroglycerin AdvReac Severe Hypotension Verified 01/09/22 14:15 hydrocodone AdvReac Intermediate DIZZY/NAUSE Verified 01/09/22 13:06 A Consultations 06/17/24 09:40 ED Decision to Admit Stat 06/17/24 09:58 Consult Cardiology Routine Hospital Course (1) Chest pain: Hx of CAD s/p CABG HTN, HLD Woke up with chest pain, vertigo and nausea. Reports symptoms of chest pain si milar to ones he had in the past when needed CABG. CXR negative Troponin negat. Echo obtained and without any regional wall motion abnormalities. Cardiology consulted and discussed with - pt was started on isosorbide mononitrate - currently on 15 mg - plan is to continue current dose for 1 week, then increase to 30 mg. Pt also presents w/ vertigo and nausea - pt has hx of BPPV - in ED received morphine, ativan, zofran - pt feels much improved and comfortable - cont. to closely monitor COPD - not in exacerbation "Flu-like" symptoms - for the past several days - pt reported rhinorrhea, and cough, no fevers - took OTC coricidine hbp - resp. Biofire negative ROMA - cpap hs GERD - cont. pantoprazole Total Time Total Time Spent Total Time Spent (In Minutes): 40 Discharge Plan Discharge Items Patient Disposition: Home - Self-Care Reason For Visit: CHEST PAIN Discharge Diagnosis: Precordial chest pain, CAD Activity: Per Instructions section Non-emergency contact: Primary Care Provider Call non-emergency contact if: you have any medication questions and your symptoms worsen Follow-up/Referrals: Goran Morrissey MD [Primary Care Provider] - Diet: Heart Healthy Addtl Attending Provider Instructions: Follow up with your primary care doctor and registered client associate. You should be seen by your primary care doctor within 1-2 weeks. You were started on a new medication - isosorbide mononitrate - 30 mg tablet, start with 1/2 tablet by mouth daily for the first week and increase to a full tablet as tolerated after 7 days. Pending Studies at Discharge: No Stand-Alone Forms: My [employer], Smoking Cessation Medications and DC Order Prescriptions: New isosorbide mononitrate 30 mg Tablet Extended Release 24 Hr 30 mg PO QAM Qty: 20 0RF Rx Instructions: start with 1/2 tablet by mouth daily for the first week and increase to a full tablet after 7 days. Continued meclizine 25 mg Tablet 25 mg PO TID PRN (Reason: Vertigo) cyclobenzaprine 10 mg tablet 10 mg PO BID PRN (Reason: Muscle Spasm) lisinopril 5 mg tablet 5 mg PO DAILY rosuvastatin 40 mg tablet 40 mg PO HS acetaminophen 325 mg tablet 650 mg PO Q6H PRN (Reason: Pain) metoprolol tartrate 25 mg tablet 25 mg PO BID clopidogrel 75 mg Tablet 75 mg PO QAM Qty: 30 0RF amlodipine [Norvasc] 5 mg Tablet 2.5 mg PO QAM Qty: 30 0RF pantoprazole 40 mg Tablet,Delayed Release (Dr/Ec) 40 mg PO DAILY Qty: 30 0RF albuterol sulfate 90 mcg/actuation Hfa Aerosol Inhaler 2 puff INHALATION Q6H PRN (Reason: Shortness Of Breath) ondansetron 4 mg tablet,disintegrating 4 mg PO Q8H PRN (Reason: nausea and vomiting) Qty: 30 0RF gabapentin 100 mg capsule 100 mg PO BID ezetimibe 10 mg tablet 10 mg PO DAILY Discharge Orders: Discharge Order (Routine); Ordered 06/18/24 Ordered By: Gavin Solorzano Admission Data Admit Date/Time: 06/17/24 10:40 Attending Provider: Gavin Solorzano Admit Provider: Gavin Solorzano Primary Care Provider: Gorna Morrissey Other Providers: Nimco Raphael; Martín Haines
[2024-06-18 16:31] VITALS: BP 140/83
== END 2024-06-18 16:47 | disposition home or self-care (01) | DRG 313 ==
LOC: ED 07:59 → EDINP 10:40 → 2S 11:49